=== PATIENT | female | born 1965 | race Caucasian/White ===

== ENCOUNTER → 2018-05-19 10:50 | Outpatient (CLI) | payer OTHER, BC, SELFPAY ==
--- NOTE | 2018-05-19 10:53 | BI_ITS ---
MAMMOGRAPHY - BILATERAL SCREENING 3-D SMILEY SYNTHESIS REASON FOR EXAM: Female, 52 years old. Bilateral Screening 3-D tomosynthesis PERTINENT HISTORY: History of breast cancer in mother in her 80s dictated. TECHNIQUE: 2-D mammograms and 3-D Smiley synthesis of the breast (s) were performed. CAD was performed. COMPARISON: May 19, 2017, April 30, 2016 FINDINGS: The breast composition is almost entirely fat. There are stable lymph nodes. There are no dominant masses or suspicious calcifications. No other significant abnormalities are identified. BI/SCREENING MAMM (CAD), BILAT IMPRESSION: Stable bilateral screening mammogram. Routine yearly screening follow-up recommended. ASSESSMENT CATEGORY: BIRADS Category 2: Benign. A letter regarding these results will be sent to the patient by the facility within 30 days. FOLLOW UP RECOMMENDATION: Yearly follow up mammogram recommended. (A) Approximately 10% of breast cancers are not detected by mammography. A normal mammogram should not delay biopsy of a clinically suspicious abnormality. Electronically Signed: Dagoberto Chu MD at 18:22 EDT , Service support ,
== END ==
PROVIDERS: Visit Provider Nurse Practitioner Women's Health
DX: Z12.31 Encounter for screening mammogram for malignant neoplasm of breast (principal); Z80.3 Family history of malignant neoplasm of breast
CPT/HCPCS: 77063; 77067

== ENCOUNTER → 2018-08-12 06:34 | Outpatient (CLI) | payer OTHER, BC, SELFPAY ==
[2018-08-12 08:08] LABS: Glucose 112 mg/dL (74-106); Thyroid Stim Hormone (TSH) 1.68 uIU/mL (0.358-3.74)
== END ==
PROVIDERS: Family Provider Family Medicine; PCP Family Medicine
DX: E03.9 Hypothyroidism, unspecified (principal); R73.01 Impaired fasting glucose
CPT/HCPCS: 36415; 82947; 84443

== ENCOUNTER → 2018-10-02 14:36 | Outpatient (CLI) | payer OTHER, BC, SELFPAY ==
[2018-10-02 16:18] LABS: Anion Gap 10 (5-15); BUN 12 mg/dL (7-18); BUN/Creat Ratio 18.3 RATIO (10-20); Calcium,Total 8.7 mg/dL (8.5-10.1); Chloride 104 mmol/L (98-107); Cholesterol 235 mg/dL (200); Creatinine, Serum 0.66 mg/dL (0.55-1.02); EST Glomerular Filtration Rate 99 mL/min (>60); Est Glom Filt Rate - Afr Amer 120 mL/min (>60); Glucose 130 mg/dL (74-106); High Density Lipoprotein 56 mg/dL; Potassium 3.4 mmol/L (3.5-5.1); Sodium Level 139 mmol/L (136-145); Triglycerides 294 mg/dL; Very Low Density Lipoprotein 59 mg/dL (5-40)
== END ==
PROVIDERS: Family Provider Family Medicine; PCP Family Medicine; Visit Provider Family Medicine
DX: I10 Essential (primary) hypertension (principal)
CPT/HCPCS: 36415; 80048; 80061

== ENCOUNTER → 2019-05-20 07:33 | Outpatient (CLI) | payer OTHER, BC, SELFPAY ==
--- NOTE | 2019-05-20 07:37 | BI_ITS ---
MAMMOGRAPHY - BILATERAL SCREENING REASON FOR EXAM: Female, 53 years old. Routine annual screening examination. PERTINENT HISTORY: Mother with breast cancer. TECHNIQUE: Digital bilateral breast smiley (3D mammographic acquisition) in the CC and MLO projections. 2-D mediolateral oblique (MLO) and craniocaudad (CC) views of both breasts were obtained. CAD: Full Field Digital Mammography with Computer Added Detection was performed. COMPARISON: Comparison is made with prior study dated May 19, 2018 and May 14, 2017. FINDINGS: Breast Composition: The breasts are almost entirely fatty. There are no dominant masses or suspicious calcifications. No other significant abnormalities are identified. There has been no significant change since the prior study. BI/SCREEN MAMM (CAD) W/SMILEY BILAT IMPRESSION: Stable bilateral screening mammogram. Yearly follow-up mammogram recommended. (A) ASSESSMENT CATEGORY: BIRADS Category 1: Negative. A letter regarding these results will be sent to the patient by the facility within 30 days. Approximately 10% of breast cancers are not detected by mammography. A normal mammogram should not delay biopsy of a clinically suspicious abnormality. [id number] Electronically Signed: Harvey Phillip, at 8:54 EDT , Service support ,
== END ==
PROVIDERS: Family Provider Family Medicine; PCP Family Medicine; Referring Provider Nurse Practitioner Women's Health; Visit Provider Nurse Practitioner Women's Health
DX: Z12.31 Encounter for screening mammogram for malignant neoplasm of breast (principal)
CPT/HCPCS: 77063; 77067

== ENCOUNTER → 2019-08-31 06:13 | Outpatient (CLI) | payer OTHER, BC, SELFPAY ==
[2019-07-25 11:57] VITALS: BMI 31.1
[2019-08-31 07:51] LABS: Glucose 124 mg/dL (74-106); Thyroid Stim Hormone (TSH) 1.62 uIU/mL (0.358-3.74)
== END ==
PROVIDERS: Family Provider Family Medicine; PCP Family Medicine
DX: E03.9 Hypothyroidism, unspecified (principal); R73.01 Impaired fasting glucose
CPT/HCPCS: 36415; 82947; 84443

== ENCOUNTER → 2019-11-03 15:59 | Outpatient (CLI) | payer OTHER, BC, SELFPAY ==
[2019-07-25 11:57] VITALS: BMI 31.1
[2019-11-03 17:36] LABS: Absolute Lymphocyte Count 2.49 X10^3/uL (0.83-4.51); Absolute Neutrophil Count 2.4 X10^3/uL (2.0-7.7); Basophil# 0.02 X10^3/uL; Basophil% 0.4 % (0-1); Eosinophil# 0.09 X10^3/uL; Eosinophils% 1.7 % (0-5); Hematocrit 35.7 % (37-47); Hemoglobin 11.7 g/dL (12.0-15.0); Lymphocyte # 2.49 X10^3/ul (4.0); Lymphocyte % 45.9 % (19-41); Mean Corp Hgb Conc 32.8 g/dL (32-36); Mean Corpuscular Hgb 28.5 pg (27.0-32.0); Mean Corpuscular Volume 87.1 fL (81-99); Mean Platelet Vol. 10.6 fl (6.2-12.0); Monocyte# 0.38 X10^3/uL; NRBC Flagged by Analyzer 0 % (0-5); Neutrophil # 2.43 X10^3/uL (2.7-7.7); Neutrophil % 44.8 % (47-70); Platelet Count 237 K/mm3 (150-450); RBC Distribution Width CV 12.7 % (11.6-14.6); RBC Distribution Width SD 40.9 fl (35.1-43.9); White Blood Count 5.4 K/mm3 (4.4-11.0)
[2019-11-03 17:52] LABS: Hemoglobin A1c 5.6 % (4.2-6.3)
[2019-11-03 17:53] LABS: Vitamin D,25 Hydroxy 13.4 ng/mL (29.95-100.01)
[2019-11-03 17:59] LABS: Anion Gap 4 (5-15); BUN 20 mg/dL (7-18); BUN/Creat Ratio 26.7 RATIO (10-20); Chloride 106 mmol/L (98-107); Cholesterol 199 mg/dL (200); Creatinine, Serum 0.75 mg/dL (0.55-1.02); EST Glomerular Filtration Rate 85 mL/min (>60); Est Glom Filt Rate - Afr Amer 103 mL/min (>60); Ferritin 194 ng/mL (8-252); Glucose 128 mg/dL (74-106); High Density Lipoprotein 45 mg/dL; Iron 55 ug/dL (50-170); Potassium 3.2 mmol/L (3.5-5.1); Sodium Level 138 mmol/L (136-145); Triglycerides 310 mg/dL; Very Low Density Lipoprotein 62 mg/dL (5-40)
== END ==
PROVIDERS: PCP Family Medicine; Referring Provider Family Medicine; Visit Provider Family Medicine
DX: I10 Essential (primary) hypertension (principal); M25.50 Pain in unspecified joint; D64.9 Anemia, unspecified; R73.01 Impaired fasting glucose
CPT/HCPCS: 36415; 80048; 80061; 82306; 82728; 83036; 83540; 85025

== ENCOUNTER → 2019-12-22 15:28 | Outpatient (CLI) | payer OTHER, BC, SELFPAY ==
[2019-07-25 11:57] VITALS: BMI 31.1
[2019-12-22 17:41] LABS: Anion Gap 4 (5-15); BUN 13 mg/dL (7-18); BUN/Creat Ratio 17.7 RATIO (10-20); Calcium,Total 9.3 mg/dL (8.5-10.1); Chloride 105 mmol/L (98-107); Creatinine, Serum 0.73 mg/dL (0.55-1.02); EST Glomerular Filtration Rate 87 mL/min (>60); Est Glom Filt Rate - Afr Amer 106 mL/min (>60); Glucose 113 mg/dL (74-106); Potassium 3.5 mmol/L (3.5-5.1); Sodium Level 141 mmol/L (136-145)
[2019-12-25 08:04] LABS: Vitamin D,25 Hydroxy 39.4 ng/mL
== END ==
PROVIDERS: PCP Family Medicine; Referring Provider Family Medicine; Visit Provider Family Medicine
DX: I10 Essential (primary) hypertension (principal); M25.50 Pain in unspecified joint
CPT/HCPCS: 36415; 80048; 82306

== ENCOUNTER → 2020-08-01 15:06 | Outpatient (CLI) | payer OTHER, BC, SELFPAY ==
[2019-07-25 11:57] VITALS: BMI 31.1
--- NOTE | 2020-08-01 15:09 | RAD_ITS ---
STUDY: X-RAY - LEFT KNEE REASON FOR EXAM: Left knee pain. TECHNIQUE: 4 view(s) of the knee. COMPARISON: None. FINDINGS: Normal visualized distal femur. Normal visualized proximal tibia and fibula. Normal proximal tibiofibular articulation. There is mild joint space narrowing of the medial femorotibial compartment. Normal lateral femorotibial compartment. Normal patellofemoral articulation. The soft tissue structures are unremarkable. RAD/Knee 4 or More Views IMPRESSION: Mild arthrosis of the medial femorotibial compartment. Electronically Signed: Dawson Allred MD at 14:42 EDT Tel , Service support ,
[2020-08-01 18:03] LABS: Anion Gap 6 (5-15); BUN 13 mg/dL (7-18); BUN/Creat Ratio 18.2 RATIO (10-20); Calcium,Total 9.1 mg/dL (8.5-10.1); Chloride 102 mmol/L (98-107); Creatinine, Serum 0.71 mg/dL (0.55-1.02); EST Glomerular Filtration Rate 90 mL/min (>60); Est Glom Filt Rate - Afr Amer 109 mL/min (>60); Glucose 77 mg/dL (74-106); Potassium 3.4 mmol/L (3.5-5.1); Sodium Level 139 mmol/L (136-145)
== END ==
PROVIDERS: PCP Family Medicine; Referring Provider Family Medicine; Visit Provider Family Medicine
DX: M25.562 Pain in left knee (principal); I10 Essential (primary) hypertension
CPT/HCPCS: 36415; 73564; 80048

== ENCOUNTER → 2020-08-23 06:15 | Outpatient (CLI) | payer OTHER, BC, SELFPAY ==
[2019-07-25 11:57] VITALS: BMI 31.1
[2020-08-23 08:00] LABS: Glucose 107 mg/dL (74-106)
[2020-08-23 08:15] LABS: Hemoglobin A1c 5.9 % (3.8-5.6)
== END ==
PROVIDERS: PCP Family Medicine
DX: E03.9 Hypothyroidism, unspecified (principal); R73.01 Impaired fasting glucose
CPT/HCPCS: 36415; 82947; 83036; 84443

== ENCOUNTER → 2020-11-21 15:25 | Outpatient (CLI) | payer OTHER, BC, SELFPAY ==
--- NOTE | 2020-11-21 15:28 | RAD_ITS ---
STUDY: X-RAY CHEST REASON FOR EXAM: Female, 55 years old. PAINS RIGHT LOWER CHEST LATERALLY RADIATING ANTERIORLY. PATIENT STATES DIAGNOSES WITH COVID ON October. TECHNIQUE: PA and lateral views of the chest. COMPARISON: Comparison is made with prior study dated 03/09/2015. FINDINGS: The lungs are clear and expanded. There is no demonstrated pleural abnormality. Normal size heart. Normal mediastinum and patti. Normal visualized pulmonary arteries. Normal visualized aortic arch and descending thoracic aorta. Normal visualized thoracic spine. Normal visualized ribs, clavicles, and shoulders. There is no demonstrated abnormality of the visualized soft tissue structures of the upper abdomen. RAD/Chest PA and Lateral IMPRESSION: Normal x-ray examination of the chest. Electronically Signed: Harvey Phillip MD at 15:46 EST , Service support ,
== END ==
PROVIDERS: PCP Family Medicine; Referring Provider Family Medicine; Visit Provider Family Medicine
DX: R07.9 Chest pain, unspecified (principal)
CPT/HCPCS: 71046

== ENCOUNTER 2020-12-20 15:39 | Emergency (ER) | payer OTHER, BC, SELFPAY ==
[2020-12-20 15:40] VITALS: BP 160/78; PULSE 115; RESP 16; TEMP 36.6; O2SAT 99; BMI 30.9
[2020-12-20 15:43] VITALS: BP 160/78; PULSE 108; RESP 17; O2SAT 100
--- NOTE | 2020-12-20 16:00 | EKG12_ITS ---
Test Reason : CHEST OTHER Blood Pressure : / mmHG Vent. Rate : 084 BPM Atrial Rate : 084 BPM P-R Int : 172 ms QRS Dur : 100 ms QT Int : 374 ms P-R-T Axes : 028 006 015 degrees QTc Int : 441 ms Normal sinus rhythm Inferior infarct , age undetermined Abnormal ECG Confirmed by LILLY VICENTE, BARON ([id number]), magazine editor VENKATA HUFFMAN ([id number]) on 12/25/2020 10:12:14 A M Referred By: WILEY Confirmed By:ROSALINDA CARR MD
--- NOTE | 2020-12-20 16:02 | ED.DCSUM_ITS ---
- ER Visit Summary Date of Service: 12/20/20 Chief Complaint: [Right sided chest pain] History of Present Illness: The patient is a 55 F [presents to the emergency department with complaint of pain in her right chest that started about a month and a half ago. Patient states that at that time she just been diagnosed with COVID-19. Patient states that the pain is never really gone away and its worse with laying on her right side and certain position changes. Patient saw her primary care physician about a month ago and had a chest x-ray which was unremarkable. Patient states that she never followed up after that visit and continues to experience a discomfort in her chest. She called her primary care physician today and was advised to come to the emergency department. Patient feels like she recovered well from her Covid infection. Patient denies any abdominal pain. She has had prior cholecystectomy. Food does not seem to affect the pain. She denies any exertional dyspnea. Patient does admit to having a normally slightly elevated resting heart rate which has been this way for several years.] Physical Examination: [HEENT-PERRLA, EOMI. Cranial nerves II through XII grossly intact. TMs clear. Mucous membranes moist. No adenopathy. Cardiovascular-regular rate and rhythm without murmur or ectopy Lungs-clear to auscultation, chest wall stable without crepitus or subcu emphysema. Patient does have tenderness palpation over the right lower costal margin anteriorly that seems to somewhat reproduce her pain. No rashes noted. Abdomen-normoactive bowel sounds, soft, nontender, no rebound or rigidity, no peritoneal signs. Extremities-intact ?4, normal range of motion, normal pulses, atraumatic] Test Results: [EKG obtained on arrival shows sinus rhythm with a ventricular rate of 84 bpm with old inferior wall infarct noted. When compared with prior EKG from 2016 the changes are chronic. CBC with it was normal. Chemistries normal. LFTs normal. Troponin was less than 0.015. CTA of the chest obtained showed no evidence of PE or dissection. No acute disease process noted.] Emergency Department Course and Treatment: [Line established on arrival.] Treatment Plan: [Results discussed with patient. She is advised use ibuprofen for discomfort. She did not want a thing stronger for pain. Patient to follow- up with her primary care physician within next 5 to 7 days.] Disposition: [Discharged home in stable condition] Impression: [Chest wall pain] This note was generated with [employer] dictation software. It may contain incorrect words, spelling, and punctuation that were not noted in review of the chart prior to signing ED Disposition - Plan for ED Patient: Referrals: Giselle Styles MD [Primary Care Provider] -
[2020-12-20 16:17] LABS: Absolute Lymphocyte Count 2.77 X10^3/uL (0.83-4.51); Absolute Neutrophil Count 2.9 X10^3/uL (2.0-7.7); Basophil# 0.02 X10^3/uL; Basophil% 0.3 % (0-1); Eosinophil# 0.08 X10^3/uL; Eosinophils% 1.3 % (0-5); Hematocrit 38.2 % (37-47); Hemoglobin 12.7 g/dL (12.0-15.0); Lymphocyte # 2.77 X10^3/ul (4.0); Mean Corp Hgb Conc 33.2 g/dL (32-36); Mean Corpuscular Hgb 29.3 pg (27.0-32.0); Mean Corpuscular Volume 88.2 fL (81-99); Mean Platelet Vol. 10.8 fl (6.2-12.0); Monocyte# 0.52 X10^3/uL; Monocyte% 8.3 % (0-10); NRBC Flagged by Analyzer 0 % (0-5); Neutrophil % 46.1 % (47-70); Platelet Count 246 K/mm3 (150-450); RBC Distribution Width CV 12.8 % (11.6-14.6); RBC Distribution Width SD 41.3 fl (35.1-43.9); Red Blood Count 4.33 M/mm3 (4.2-5.4); White Blood Count 6.3 K/mm3 (4.4-11.0)
--- NOTE | 2020-12-20 16:17 | CT_ITS ---
STUDY: CTA CHEST REASON FOR EXAM: Female, 55 years old. right sided chest/rib pain RADIATION DOSAGE (If Supplied By Facility): CTDIvol = ( 11.27 ) mGy, DLP = ( 533.96 ) mGycm TECHNIQUE: The examination was performed with the intravenous administration of IV 100mL Isovue-370. Post-processing of the angiographic images was performed, with multiplanar reformation and 3D reconstruction. Individualized dose optimization techniques were used for this CT. COMPARISON: None. FINDINGS: Normal enhancement of the main pulmonary artery and right and left pulmonary arteries. Normal enhancement of the bilateral peripheral pulmonary arteries. There is no demonstrated pulmonary embolism. Normal thoracic aorta and visualized great vessels. There is no demonstrated aortic dissection. Normal heart and pericardium. Normal mediastinum. Normal hilar regions. Normal visualized trachea and bronchi. The lungs are well expanded. Normal pulmonary parenchyma. Normal pleura. Normal chest wall structures. Normal osseous structures. Normal visualized upper abdomen. CT/CTA Chest W/WO Contrast IMPRESSION: Normal CTA chest examination, without a demonstrated pulmonary embolism or arterial dissection. Electronically Signed: Salvador Simon MD at 17:18 EST , Service support ,
[2020-12-20] MEDS: 0.9% Normal Saline 1,000 ML 150 ML IV (16:30)
[2020-12-20 16:40] LABS: AST(SGOT) 22 U/L (15-37); Alanine Aminotransfer ALT/SGPT 38 U/L (13-56); Albumin, Serum 4.2 g/dL (3.2-5.0); Alkaline Phosphatase 58 U/L (45-117); Anion Gap 7 (5-15); BUN 12 mg/dL (7-18); BUN/Creat Ratio 14.3 RATIO (10-20); Calcium,Total 9.5 mg/dL (8.5-10.1); Chloride 103 mmol/L (98-107); Creatinine, Serum 0.84 mg/dL (0.55-1.02); EST Glomerular Filtration Rate 74 mL/min (>60); Est Glom Filt Rate - Afr Amer 90 mL/min (>60); Estimated Creatinine Clearance 66.49 ml/min; Globulin 4.1 g/dL (2.2-4.2); Glucose 98 mg/dL (74-106); Potassium 3.3 mmol/L (3.5-5.1); Protein, Total 8.3 g/dL (6.4-8.2); Sodium Level 139 mmol/L (136-145)
--- NOTE | 2020-12-20 17:45 | ED.DEP ---
ED Disposition - Plan for ED Patient: Instructions: ED Chest Wall Pain, Costochondritis, ED Chest Pain, Uncertain Cause Referrals: Giselle Styles MD [Primary Care Provider] - 5-7 Days
[2020-12-20 17:46] VITALS: BP 140/84; PULSE 82; RESP 14; O2SAT 98
== END 2020-12-20 18:00 | disposition home or self-care (01) ==
LOC: ED 16:16
PROVIDERS: Emergency Provider Emergency Medicine; PCP Family Medicine
DX: R07.89 Other chest pain (principal); E03.9 Hypothyroidism, unspecified; Z86.16 Personal history of COVID-19; Z87.891 Personal history of nicotine dependence; Z90.49 Acquired absence of other specified parts of digestive tract; Z79.899 Other long term (current) drug therapy
CPT/HCPCS: 71275; 80053; 84484; 85025; 93005; 96360; 99284; J7030; Q9967

== ENCOUNTER → 2021-03-06 07:48 | Outpatient (CLI) | payer OTHER, BC, SELFPAY ==
--- NOTE | 2021-03-06 07:49 | US_ITS ---
STUDY: ABDOMINAL ULTRASOUND - RIGHT UPPER QUADRANT REASON FOR VISIT: Female, 55 years old ABD PAIN . Right upper quadrant pain. TECHNIQUE: Ultrasound evaluation of the right upper quadrant was performed with real-time and static nguyen-scale imaging. TECHNICAL QUALITY: Adequate. COMPARISON: None. FINDINGS: Liver: The liver measures 15 cm. There is increased echogenicity consistent with fatty infiltration. There is a 3.1 cm x 3.4 cm x 1.9 cm hypoechoic density adjacent to the gallbladder fossa. This may represent a focal area of the focal fatty sparing. The bile ducts are within normal limits. There is hepatic color flow. The direction of portal flow is hepatopetal. There is no demonstrated mass lesion. Gallbladder: The patient is status post cholecystectomy. Common Bile Duct (C.B.D.): The common bile duct measures 4 mm. Pancreas: There is nonvisualization of the pancreas due to overlying bowel gas. There is normal echogenicity of the pancreas. There is no demonstrated pancreatic mass or cyst. Right Kidney: Normal size of the right kidney. The right kidney measures 10.5 cm x 4.2 cm x 5.4 cm. Normal renal cortex. The right cortex measures 1.4 cm. There is no demonstrated renal mass or cyst. There is no right hydronephrosis. US/Abdomen Limited IMPRESSION: Fatty infiltration of the liver. Findings suggestive of a focal area of focal fatty sparing adjacent to the gallbladder fossa as described. Status post cholecystectomy. Electronically Signed: Harvey Phillip MD at 10:48 EDT , Service support ,
== END ==
PROVIDERS: PCP Family Medicine; Referring Provider Family Medicine; Visit Provider Family Medicine
DX: R10.11 Right upper quadrant pain (principal)
CPT/HCPCS: 76705

== ENCOUNTER → 2021-03-19 07:36 | Outpatient (CLI) | payer OTHER, BC, SELFPAY ==
--- NOTE | 2021-03-19 07:38 | BI_ITS ---
MAMMOGRAPHY - BILATERAL SCREENING REASON FOR EXAM: Female, 55 years old. Routine annual screening examination. PERTINENT HISTORY: Mother with breast cancer. TECHNIQUE: Digital bilateral breast smiley (3D mammographic acquisition) in the CC and MLO projections. 2-D mediolateral oblique (MLO) and craniocaudad (CC) views of both breasts were obtained. CAD: Full Field Digital Mammography with Computer Added Detection was performed. COMPARISON: Comparison is made with prior study dated 05/20/2019 and 05/19/2018. FINDINGS: Breast Composition: The breasts are almost entirely fatty. There are no dominant masses or suspicious calcifications. Stable 3 mm well-defined nodule in the retroareolar region of the right breast most likely representing a small cyst. Stable small benign-appearing bilateral axillary lymph nodes. No other significant abnormalities are identified. There has been no significant change since the prior study. BI/SCRN MAMM (CAD)W/SMILEY BILAT IMPRESSION: Stable bilateral screening mammogram. Yearly follow-up mammogram recommended. (A) ASSESSMENT CATEGORY: BIRADS Category 2: Benign. A letter regarding these results will be sent to the patient by the facility within 30 days. Approximately 10% of breast cancers are not detected by mammography. A normal mammogram should not delay biopsy of a clinically suspicious abnormality. [id number] Electronically Signed: Harvey Phillip MD at 9:47 EDT , Service support ,
== END ==
PROVIDERS: PCP Family Medicine; Referring Provider Nurse Practitioner Women's Health; Visit Provider Nurse Practitioner Women's Health
DX: Z12.31 Encounter for screening mammogram for malignant neoplasm of breast (principal)
CPT/HCPCS: 77063; 77067

== ENCOUNTER → 2021-06-04 | Outpatient (CLI) | payer OTHER, BC, SELFPAY | END | disposition home or self-care (01) | LOC: LABSPEC 10:12 | PROVIDERS: PCP Family Medicine; Visit Provider Physician Assistant | DX: R50.9 Fever, unspecified (principal) | CPT/HCPCS: 87635; U0005; U0003 ==

== ENCOUNTER → 2021-06-06 | Outpatient (CLI) | payer OTHER, BC, SELFPAY | END | disposition home or self-care (01) | PROVIDERS: PCP Family Medicine; Visit Provider Family Medicine | DX: Z20.822 Contact with and (suspected) exposure to COVID-19 (principal) | CPT/HCPCS: 87635; U0005; U0003 ==

== ENCOUNTER → 2021-08-27 07:36 | Outpatient (CLI) | payer OTHER, BC, SELFPAY ==
[2021-08-27 09:12] LABS: Hemoglobin A1c 5.4 % (3.8-5.6)
[2021-08-27 09:19] LABS: Anion Gap 3 (5-15); BUN 12 mg/dL (7-18); BUN/Creat Ratio 16.4 RATIO (10-20); Calcium,Total 9.4 mg/dL (8.5-10.1); Chloride 104 mmol/L (98-107); Creatinine, Serum 0.73 mg/dL (0.55-1.02); EST Glomerular Filtration Rate 87 mL/min (>60); Est Glom Filt Rate - Afr Amer 105 mL/min (>60); Glucose 107 mg/dL (74-106); Potassium 3.9 mmol/L (3.5-5.1); Sodium Level 136 mmol/L (136-145); Thyroid Stim Hormone (TSH) 0.92 uIU/mL (0.358-3.74)
== END ==
PROVIDERS: PCP Family Medicine
DX: E03.9 Hypothyroidism, unspecified (principal); R73.01 Impaired fasting glucose
CPT/HCPCS: 36415; 80048; 83036; 84443

== ENCOUNTER → 2022-03-27 | Outpatient (CLI) | payer OTHER, BC, SELFPAY ==
--- NOTE | 2022-03-27 07:32 | BI_ITS ---
MAMMOGRAPHY - BILATERAL SCREENING REASON FOR EXAM: Female, 56 years old. Routine annual screening examination. PERTINENT HISTORY: Mother with breast cancer. TECHNIQUE: Digital bilateral breast smiley (3D mammographic acquisition) in the CC and MLO projections. 2-D mediolateral oblique (MLO) and craniocaudad (CC) views of both breasts were obtained. CAD: Full Field Digital Mammography with Computer Added Detection was performed. COMPARISON: Comparison is made with prior study dated 03/19/2021 and 05/20/2019. FINDINGS: Breast Composition: The breasts are almost entirely fatty. There are no dominant masses or suspicious calcifications. Stable small benign-appearing bilateral axillary lymph nodes. No other significant abnormalities are identified. There has been no significant change since the prior study. BI/SCRN MAMM (CAD)W/SMILEY BILAT IMPRESSION: Stable bilateral screening mammogram. Yearly follow-up mammogram recommended. (A) ASSESSMENT CATEGORY: BIRADS Category 2: Benign. A letter regarding these results will be sent to the patient by the facility within 30 days. Approximately 10% of breast cancers are not detected by mammography. A normal mammogram should not delay biopsy of a clinically suspicious abnormality. [id number] Electronically Signed: Harvey Phillip MD at 8:30 EDT ,
[2022-03-31 14:35] LABS: HPV APTIMA, High Risk Negative (Negative)
== END | disposition home or self-care (01) ==
LOC: OPBI 07:31
PROVIDERS: PCP Family Medicine; Visit Provider Nurse Practitioner Women's Health
DX: Z12.31 Encounter for screening mammogram for malignant neoplasm of breast (principal); Z80.3 Family history of malignant neoplasm of breast; Z12.4 Encounter for screening for malignant neoplasm of cervix; Z78.0 Asymptomatic menopausal state
CPT/HCPCS: 77063; 77067; 87624; 88175; G0145

== ENCOUNTER → 2022-08-23 | Outpatient (CLI) | payer OTHER, BC, SELFPAY ==
[2022-08-23 09:53] LABS: Thyroid Stim Hormone (TSH) 1.47 uIU/mL (0.358-3.74)
== END | disposition home or self-care (01) ==
LOC: LAB 08:37
PROVIDERS: PCP Family Medicine
DX: E03.9 Hypothyroidism, unspecified (principal)
CPT/HCPCS: 36415; 84443

== ENCOUNTER → 2022-11-12 | Outpatient (CLI) | payer OTHER, BC, SELFPAY ==
--- NOTE | 2022-11-12 08:29 | RAD_ITS ---
STUDY: X-RAY - ESOPHAGUS (BARIUM SWALLOW) WITH FLUOROSCOPY REASON FOR EXAM: Female, 57 years old. HIATAL HERNIA TECHNIQUE: 18 view(s) of the esophagus were obtained following swallowing of barium. FLUOROSCOPY TIME (if supplied): (30 seconds) minutes/seconds COMPARISON: None. FINDINGS: There is no demonstrated esophageal foreign body. There is no demonstrated stricture or mucosal abnormality. Normal gastroesophageal junction, without a demonstrated hiatal hernia. The patient ingested a 12 mm tablet of barium without any difficulty. Normal visualized aortic arch and descending thoracic aorta. Normal visualized pulmonary parenchyma. Normal visualized osseous structures of the thorax. RAD/Esophagus Dual Contrast IMPRESSION: Normal plain film x-ray examination (barium swallow) of the esophagus. Electronically Signed: Harvey Phillip MD at 12:29 EST ,
== END | disposition home or self-care (01) ==
LOC: RAD 08:27
PROVIDERS: PCP Family Medicine; Referring Provider Internal Medicine Gastroenterology; Visit Provider Internal Medicine Gastroenterology
DX: K44.9 Diaphragmatic hernia without obstruction or gangrene (principal); R13.10 Dysphagia, unspecified
CPT/HCPCS: 74221

== ENCOUNTER → 2023-01-10 | Outpatient (CLI) | payer OTHER, BC, SELFPAY ==
[2023-01-10 17:52] LABS: Anion Gap 5 (5-15); BUN 13 mg/dL (7-18); BUN/Creat Ratio 17.6 RATIO (10-20); Calcium,Total 9.5 mg/dL (8.5-10.1); Chloride 102 mmol/L (98-107); Cholesterol 233 mg/dL (200); Creatinine, Serum 0.74 mg/dL (0.55-1.02); EST Glomerular Filtration Rate 86 mL/min (>60); Est Glom Filt Rate - Afr Amer 103 mL/min (>60); Glucose 82 mg/dL (74-106); High Density Lipoprotein 57 mg/dL; Potassium 3.2 mmol/L (3.5-5.1); Sodium Level 136 mmol/L (136-145); Triglycerides 206 mg/dL; Very Low Density Lipoprotein 41 mg/dL (5-40)
== END | disposition home or self-care (01) ==
LOC: MTLAB 14:47
PROVIDERS: PCP Family Medicine; Referring Provider Family Medicine; Visit Provider Family Medicine
DX: I10 Essential (primary) hypertension (principal)
CPT/HCPCS: 36415; 80048; 80061

== ENCOUNTER → 2023-04-02 | Outpatient (CLI) | payer OTHER, BC, SELFPAY ==
--- NOTE | 2023-04-02 08:35 | BI_ITS ---
MAMMOGRAPHY - BILATERAL SCREENING REASON FOR EXAM: Female, 57 years old. Routine annual screening examination. PERTINENT HISTORY: Mother with breast cancer. TECHNIQUE: Digital bilateral breast smiley (3D mammographic acquisition) in the CC and MLO projections. 2-D mediolateral oblique (MLO) and craniocaudad (CC) views of both breasts were obtained. CAD: Full Field Digital Mammography with Computer Added Detection was performed. COMPARISON: Mammogram from 03/27/2022, 03/19/2021. FINDINGS: Breast Composition: There are scattered areas of fibroglandular density. There are no dominant masses or suspicious calcifications. No other significant abnormalities are identified. There has been no significant change since the prior study. BI/SCRN MAMM (CAD)W/SMILEY BILAT IMPRESSION: Stable bilateral screening mammogram. Yearly follow-up mammogram recommended. (A) ASSESSMENT CATEGORY: BIRADS Category 1: Negative. A letter regarding these results will be sent to the patient by the facility within 30 days. Approximately 10% of breast cancers are not detected by mammography. A normal mammogram should not delay biopsy of a clinically suspicious abnormality. Electronically Signed: Jesus Avalos DO at 12:28 EDT ,
== END | disposition home or self-care (01) ==
PROVIDERS: PCP Family Medicine; Referring Provider Nurse Practitioner Women's Health; Visit Provider Nurse Practitioner Women's Health
DX: Z12.31 Encounter for screening mammogram for malignant neoplasm of breast (principal)
CPT/HCPCS: 77063; 77067

== ENCOUNTER → 2023-06-14 | Outpatient (CLI) | payer OTHER, BC, SELFPAY ==
[2023-06-14 10:44] LABS: Anion Gap 5 (5-15); BUN 13 mg/dL (7-18); BUN/Creat Ratio 16.9 RATIO (10-20); Calcium,Total 9.1 mg/dL (8.5-10.1); Chloride 104 mmol/L (98-107); Creatinine, Serum 0.77 mg/dL (0.55-1.02); EST Glomerular Filtration Rate 82 mL/min (>60); Est Glom Filt Rate - Afr Amer 99 mL/min (>60); Glucose 105 mg/dL (74-106); Potassium 3.7 mmol/L (3.5-5.1); Sodium Level 139 mmol/L (136-145)
[2023-06-14 11:40] LABS: Hemoglobin A1c 5.7 % (3.8-5.6)
== END | disposition home or self-care (01) ==
LOC: MTLAB 09:02 → LAB 09:02
PROVIDERS: PCP Family Medicine
DX: R73.01 Impaired fasting glucose (principal); E03.9 Hypothyroidism, unspecified; Z83.3 Family history of diabetes mellitus
CPT/HCPCS: 36415; 80048; 83036; 84443

== ENCOUNTER → 2023-08-18 | Outpatient (CLI) | payer OTHER, BC, SELFPAY ==
--- NOTE | 2023-08-18 12:49 | RAD_ITS ---
EXAM: XR LEFT TIBIA AND FIBULA, 2 VIEWS CLINICAL INDICATION: pain TECHNIQUE: Frontal and lateral views of the left tibia and fibula. COMPARISON: No relevant prior studies available. FINDINGS: BONES/JOINTS: Unremarkable. No acute fracture. No subluxation. Normal alignment. Preservation of the joint space. No sclerotic or destructive changes observed. SOFT TISSUES: Unremarkable. No soft tissue swelling or gas. No radiopaque foreign body. RAD/Tibia & Fibula 2 Views IMPRESSION: Negative left tibia and fibula x-rays. Electronically Signed: Nadir Sherman MD at 23:09 EST ,
--- NOTE | 2023-08-18 12:50 | RAD_ITS ---
EXAM: XR LEFT ANKLE COMPLETE, 3 OR MORE VIEWS CLINICAL INDICATION: pain TECHNIQUE: Frontal, lateral and oblique views of the left ankle. COMPARISON: No relevant prior studies available. FINDINGS: BONES/JOINTS: Unremarkable. No acute fracture. No subluxation. Normal alignment. Preservation of the joint space. No sclerotic or destructive changes observed. SOFT TISSUES: There is mild soft tissue swelling over the lateral malleolus. No radiopaque foreign body. RAD/Ankle min 3 Views IMPRESSION: Mild soft tissue swelling with no osseous abnormality. Electronically Signed: Nadir Sherman MD at 23:09 EST ,
== END | disposition home or self-care (01) ==
LOC: MTRAD 12:48
PROVIDERS: PCP Family Medicine; Referring Provider Family Medicine; Visit Provider Family Medicine
DX: M79.605 Pain in left leg (principal)
CPT/HCPCS: 73590; 73610

== ENCOUNTER → 2024-02-13 | Outpatient (CLI) | payer BC, SELFPAY ==
[2024-02-13 15:47] LABS: Hemoglobin A1c 5.5 % (3.8-5.6)
[2024-02-13 16:07] LABS: Anion Gap 5 (5-15); BUN 16 mg/dL (7-18); BUN/Creat Ratio 20.1 RATIO (10-20); Calcium,Total 9.3 mg/dL (8.5-10.1); Chloride 105 mmol/L (98-107); Cholesterol 240 mg/dL (200); EST Glomerular Filtration Rate 78 mL/min (>60); Est Glom Filt Rate - Afr Amer 94 mL/min (>60); Glucose 106 mg/dL (74-106); High Density Lipoprotein 49 mg/dL; Potassium 3.9 mmol/L (3.5-5.1); Sodium Level 137 mmol/L (136-145); Thyroid Stim Hormone (TSH) 1.64 uIU/mL (0.358-3.74); Triglycerides 198 mg/dL; Very Low Density Lipoprotein 40 mg/dL (5-40)
[2024-02-13 16:25] LABS: Protein, Urine (Random) 13.9 mg/dL (<11.9); Protein:Creat Ratio 60 mg/g CRE (0-200)
== END | disposition home or self-care (01) ==
LOC: MTLAB 11:21
PROVIDERS: PCP Family Medicine; Referring Provider Family Medicine; Visit Provider Family Medicine
DX: I10 Essential (primary) hypertension (principal); R73.01 Impaired fasting glucose; E03.9 Hypothyroidism, unspecified
CPT/HCPCS: 36415; 80048; 80061; 82570; 83036; 84156; 84436; 84443

== ENCOUNTER → 2024-04-05 | Outpatient (CLI) | payer BC, SELFPAY ==
--- NOTE | 2024-04-05 07:45 | BI_ITS ---
MAMMOGRAPHY - BILATERAL SCREENING REASON FOR EXAM: Female, 58 years old. Routine annual screening examination. PERTINENT HISTORY: Mother with breast cancer. TECHNIQUE: Digital bilateral breast smiley (3D mammographic acquisition) in the CC and MLO projections. 2-D mediolateral oblique (MLO) and craniocaudad (CC) views of both breasts were obtained. CAD: Full Field Digital Mammography with Computer Added Detection was performed. COMPARISON: Comparison is made with prior study dated April 02, 2023 and March 27, 2022 FINDINGS: Breast Composition: The breasts are almost entirely fatty. There are no dominant masses or suspicious calcifications. Stable bilateral axillary lymph nodes. No other significant abnormalities are identified. There has been no significant change since the prior study. BI/SCRN MAMM (CAD)W/SMILEY BILAT IMPRESSION: Stable bilateral screening mammogram. Yearly follow-up mammogram recommended. (A) ASSESSMENT CATEGORY: BIRADS Category 2: Benign. A letter regarding these results will be sent to the patient by the facility within 30 days. Approximately 10% of breast cancers are not detected by mammography. A normal mammogram should not delay biopsy of a clinically suspicious abnormality. [id number] Electronically Signed: Harvey Phillip MD at 8:56 EDT ,
== END | disposition home or self-care (01) ==
LOC: OPBI 07:44
PROVIDERS: PCP Family Medicine; Referring Provider Nurse Practitioner Women's Health; Visit Provider Nurse Practitioner Women's Health
DX: Z12.31 Encounter for screening mammogram for malignant neoplasm of breast (principal); Z80.3 Family history of malignant neoplasm of breast
CPT/HCPCS: 77063; 77067

== ENCOUNTER → 2024-08-17 | Outpatient (CLI) | payer BC, SELFPAY ==
[2024-08-17 10:53] LABS: Anion Gap 5 (5-15); BUN 15 mg/dL (7-18); BUN/Creat Ratio 17.2 RATIO (10-20); Calcium,Total 9.3 mg/dL (8.5-10.1); Chloride 105 mmol/L (98-107); Creatinine, Serum 0.87 mg/dL (0.55-1.02); EST Glomerular Filtration Rate 70 mL/min (>60); Est Glom Filt Rate - Afr Amer 85 mL/min (>60); Glucose 115 mg/dL (74-106); Potassium 3.8 mmol/L (3.5-5.1); Sodium Level 137 mmol/L (136-145)
[2024-08-17 11:16] LABS: Hemoglobin A1c 5.9 % (3.8-5.6)
== END | disposition home or self-care (01) ==
PROVIDERS: PCP Family Medicine
DX: R73.01 Impaired fasting glucose (principal); E03.9 Hypothyroidism, unspecified
CPT/HCPCS: 36415; 80048; 83036; 84443

== ENCOUNTER 2024-10-31 11:22 | Emergency (ER) | payer BC, SELFPAY ==
[2024-10-31 11:22] VITALS: BP 171/97; PULSE 71; RESP 16; TEMP 36.6; O2SAT 100; BMI 33.3
--- NOTE | 2024-10-31 11:28 | ED.RN ---
SPOKE WITH DR ROSALES REGARDING PT, STATED HE WOULD SEE HER IN THE ROOM. AT THIS TIME DO NOT CALL A STROKE ALERT.
--- NOTE | 2024-10-31 11:37 | CT_ITS ---
EXAM: CT HEAD WITHOUT INTRAVENOUS CONTRAST CLINICAL INDICATION: Acute altered mental status with amnesia TECHNIQUE: Multiple axial images were obtained of the head without intravenous contrast. CTDIvol = ( 44.99 ) mGy, DLP = ( 796.11 ) mGycm This CT exam was performed using one or more of the following dose reduction techniques: automated exposure control, adjustment of the mA and/or kV according to patient size, and/or use of iterative reconstruction technique. COMPARISON: No relevant prior studies available. FINDINGS: BRAIN AND EXTRA-AXIAL SPACES: Unremarkable. No intra- or extra-axial hemorrhage. No evidence of acute infarct. No intracranial mass or mass effect. There is preservation of the nguyen/white matter interface. Posterior fossa structures are unremarkable. Ventricles are appropriate for age. No hydrocephalus. Basal cisterns are patent. BONES/JOINTS: Unremarkable. No discrete lytic or blastic abnormalities. SINUSES: Unremarkable as visualized. Clear. MASTOID AIR CELLS: Unremarkable. Clear. ORBITS: Visualized globes, extraocular muscles, optic nerves and retrobulbar fat appear unremarkable. CT/Brain/Head without Contrast IMPRESSION: Negative head/brain CT without intravenous contrast. AIDOC was utilized to assist in identifying pertinent positive findings. Electronically Signed: Jerald Oneil MD at 12:57 EST ,
[2024-10-31 11:44] LABS: Absolute Lymphocyte Count 2.51 X10^3/uL (0.83-4.51); Absolute Neutrophil Count 4.8 X10^3/uL (2.0-7.7); Basophil# 0.06 X10^3/uL; Basophil% 0.7 % (0-1); Eosinophil# 0.11 X10^3/uL; Eosinophils% 1.4 % (0-5); Hemoglobin 13.8 g/dL (12.0-15.0); Lymphocyte # 2.51 X10^3/ul (0.83-4.51); Lymphocyte % 31.3 % (19-41); Mean Corp Hgb Conc 33.7 g/dL (32-36); Mean Corpuscular Hgb 30.2 pg (27.0-32.0); Mean Corpuscular Volume 89.7 fL (81-99); Mean Platelet Vol. 10.9 fl (6.2-12.0); Monocyte# 0.55 X10^3/uL; Monocyte% 6.9 % (0-10); NRBC Flagged by Analyzer 0 % (0-5); Neutrophil # 4.75 X10^3/uL (2.7-7.7); Neutrophil % 59.3 % (47-70); Platelet Count 247 K/mm3 (150-450); RBC Distribution Width CV 12.3 % (11.6-14.6); RBC Distribution Width SD 39.8 fl (35.1-43.9); Red Blood Count 4.57 M/mm3 (4.2-5.4)
[2024-10-31 11:50] LABS: Bedside Glucose 106 mg/dL (74-106)
[2024-10-31 12:13] LABS: ALB/GLOB Ratio 0.9 RATIO (0.9-2.4); AST(SGOT) 29 U/L (15-37); Alanine Aminotransfer ALT/SGPT 36 U/L (13-56); Alkaline Phosphatase 56 U/L (45-117); Anion Gap 6 (5-15); BUN 16 mg/dL (7-18); BUN/Creat Ratio 16.1 RATIO (10-20); Calcium,Total 10.1 mg/dL (8.5-10.1); Chloride 102 mmol/L (98-107); Creatinine, Serum 0.99 mg/dL (0.55-1.02); EST Glomerular Filtration Rate 60 mL/min (>60); Est Glom Filt Rate - Afr Amer 73 mL/min (>60); Estimated Creatinine Clearance 67.24 ml/min; Globulin 4.3 g/dL (2.2-4.2); Glucose 122 mg/dL (74-106); Potassium 4.3 mmol/L (3.5-5.1); Protein, Total 8.3 g/dL (6.4-8.2); Sodium Level 136 mmol/L (136-145)
[2024-10-31 12:22] VITALS: BP 115/82; PULSE 55; RESP 16; O2SAT 96
[2024-10-31 12:40] LABS: Bacteria 0 SEEN /hpf (None Seen); Color, Urine Yellow (Yellow); Glucose, Dipstick Normal (Normal); Ketone-Dipstick Negative (Negative); Leukocyte Esterase-Dipstick 25 /ul (Negative); Mucous, Urine 0 SEEN /hpf (<or=2+); Nitrite-Dipstick Negative (Negative); Occult Blood-Urine 10 /ul (Negative); Protein-Dipstick 15 mg/dl (Negative); Red Blood Cells-Urine 0 SEEN /hpf (0-5); Specific Gravity, Urine 1.015 (1.002-1.030); Squamous Epithelial Cells - UA 0 SEEN /hpf (5-10); Urine Bilirubin Dipstick Negative (Negative); Urine Clarity Clear (Clear); Urine Urobilinogen Normal (Normal); White Blood Cells 0 SEEN /hpf (0-5)
[2024-10-31 13:00] VITALS: BP 155/86; PULSE 69; RESP 12; O2SAT 98
--- NOTE | 2024-10-31 13:57 | EDS_ITS ---
HPI History of Present Illness Chief Complaint: Confusion Detail of Chief Complaint: Chief complaint is not confusion chief complaint is amnesia. Informant: patient and spouse/S.O. Onset/Context/Timing Onset: Today Context: Sudden Onset Timing: Continuous Quality: Amnesia Location: Global Current Severity: Moderate Maximum Severity: Moderate Worsened by: Nothing Relieved by: Nothing Associated Symptoms Associated Symptoms: no other symptoms Narrative Narrative: Patient is 58-year-old woman. She has history of hypertension and iron deficiency anemia who was brought in because of reported confusion. Patient is not confused. She is amnestic. Patient denies headache. I double vision blurred vision loss of vision. Eyes ringing or ears decreased hearing. Denies rhinorrhea, congestion postnasal drainage. Denies sore throat. No trouble speech or swallowing. She denies paresthesia, anesthesia or motor weakness upper lower extremity. Denies problems with coordination or balance. She does admit to dysuria. She believes she had dysuria at 2 or 3 days ago. She does not remember if she had dysuria this morning. There is no history of trauma. Patient's past medical history and meds were reviewed. She is on no antithrombotic or anticoagulant. Apparently she has been sleeping on the sofa. She slept on the sofa because of issue with there dog. She does not recall sleeping on the sofa. Prior similar symptoms: No Recent Illness/Hospitalization: No [facility] Medical History Anemia Hypertension Thyroid condition Home Medications ?Medication ?Instructions ?Recorded ?Last Taken ?Type hydrochlorothiazide 12.5 mg tablet 12.5 mg PO DAILY 12/20/20 Unknown History losartan 50 mg tablet 50 mg PO DAILY 12/20/20 Unknown History levothyroxine 100 mcg tablet 100 mcg PO MOTUWETHFR 03/27/22 Unknown History ferrous sulfate 325 mg (65 mg 325 mg PO DAILY 04/02/23 Unknown History iron) tablet,delayed release potassium chloride 20 mEq oral 20 meq PO BID 04/02/23 Unknown History packet metoprolol succinate 50 mg capsule 50 mg PO DAILY 04/05/24 Unknown History sprinkle, ext. release 24 hr biotin PO DAILY 10/31/24 Unknown History Allergy/AdvReac Type Severity Reaction Status Date / Time clarithromycin (From Biaxin) Allergy Unknown Verified 10/31/24 11:23 doxycycline Allergy Unknown Verified 10/31/24 11:23 lisinopril Allergy Unknown Verified 10/31/24 11:23 sulfamethoxazole (From AdvReac Mild Nausea Verified 10/31/24 11:23 Bactrim) trimethoprim (From Bactrim) AdvReac Mild Nausea Verified 10/31/24 11:23 Family History Mother Breast cancer CVA (cerebral vascular accident) Diabetes Father Hypertension Surgical History History of repair of hiatal hernia Plantar fascia syndrome Gallbladder & bile duct stone with obstruction Social History current occupational status: employed current occupation: [employer] Smoking Status: Never smoker alcohol intake: never substance use type: does not use caffeine: Yes Type: coffee Number of servings: 3 seatbelt use: always do you feel safe at home: Yes additional social history: Destery ROS ROS ED Constitutional Constitutional ED: Denies chills, fever(s), subjective, sweats or weight loss Eyes Eyes: Denies blurry vision, change in vision or diplopia ENT ENT ED: Denies ear pain, rhinorrhea or sore throat Cardiovascular Cardiovascular: Denies chest pain, orthopnea, palpitations or paroxysmal nocturnal dyspnea Respiratory/Chest Respiratory/Chest: Denies cough, dyspnea, dyspnea on exertion, orthopnea or paroxysmal nocturnal dyspnea Gastrointestinal Gastrointestinal: Denies abdominal pain, nausea or vomiting Genitourinary Genitourinary ED: Reports dysuria; Denies hematuria or urinary frequency Musculoskeletal Musculoskeletal: Denies arthralgias, back pain, myalgias or neck pain Integumentary Denies rash Neurologic Neurologic: Denies headache(s), paresthesias or weakness Psychiatric Psychiatric: Denies anxiety or depression Endocrine Endocrinology: Denies cold intolerance or heat intolerance Hematologic/Lymphatic Hematologic/Lymphatic: Reports systems reviewed and no addt'l complaints, except as documented Allergic/Immunologic Allergic/Immunologic ED: Denies mouth swelling or tongue swelling EXAM Physical Exam Const Vital Signs: 10/31/24 11:22 10/31/24 12:22 10/31/24 13:00 Temperature 98 F Temperature Source Temporal Pulse Rate 71 55 L 69 Respiratory Rate 16 16 12 Blood Pressure 171/97 H 115/82 H 155/86 H Blood Pressure Mean 121 93 109 Pulse Ox 100 96 98 Oxygen Delivery Method Room Air Room Air Positive well nourished and well developed Constitutional Narrative: BMI is 33.3. General Appearance ED: well developed; Negative for cyanotic, diaphoretic, NAD or pallor HEENT Reports moist mucous membranes HEENT Narrative: Head is atraumatic and normocephalic. Ears normal. Nares patent. Uvula midline. No deviation tongue or protrusion. Eyes PERRL and EOMs intact bilaterally Eyes Narrative: There is no nystagmus. There is no visual field cut. General Eye ED: Negative for pale conjunctiva or scleral icterus Neck no lymphadenopathy, supple and no JVD Neck Narrative: Carotid pulses palpable and no bruits are noted. Resp normal respiratory effort and clear to auscultation bilaterally Cardio regular rate, regular rhythm, S1 normal heart sound and S2 normal heart sound GI normal to inspection, nondistended, normoactive bowel sounds, non-tender, non- distended and no masses Extremity normal to inspection General Extremety ED: Negative for edema or tenderness General Extremity: Negative for edema Neuro oriented x3, CN's II-XII intact bilaterally and no sensory deficits noted Neuro Narrative: There is no dysmetria. Patient's NIH is 0. Sensorium / Orientation: alert Motor Exam: strength 5/5 throughout Psych Psych Narrative: Patient does not appear anxious. Patient states she cannot remember things. Skin no rashes or lesions noted, no wounds and skin turgor normal General Skin Exam: elasticity normal; Negative for jaundice or pallor MDM MDM MDM Narrative Medical decision making narrative: Differential diagnosis would include metabolic causes, infectious cause and global amnesia is in the consideration. With no headache nonfocal neurologic exam doubt ischemic or hemorrhagic stroke. Patient is not confused she has amnesia. Her blood pressure is slightly elevated. History & Record Review Discussion w/independent historian: Patient and Family Additional record(s) reviewed:: Prior outpatient record (Encounter for routine gynecologic exam March 2022, March 2023 and March 2021.) Lab Data Attestation: I reviewed the patient's lab results. Lab results narrative: CBC comprehensive metabolic panel TSH are all normal. Urinalysis is negative. Labs: Laboratory Results - last 24 hr 10/31/24 10/31/24 10/31/24 11:30 11:33 12:36 WBC 8.0 RBC 4.57 Hgb 13.8 Hct 41.0 MCV 89.7 MCH 30.2 MCHC 33.7 RDW Std Deviation 39.8 RDW Coeff of Sera 12.3 Plt Count 247 MPV 10.9 Immature Gran % (Auto) 0.400 Neut % (Auto) 59.3 Lymph % (Auto) 31.3 [place] % (Auto) 6.9 Eos % (Auto) 1.4 Baso % (Auto) 0.7 Absolute Neuts (auto) 4.8 Absolute Lymphs (auto) 2.51 Nucleated RBC % 0 Sodium 136 Potassium 4.3 Chloride 102 Carbon Dioxide 28.0 Anion Gap 6 BUN 16 Creatinine 0.99 Estim Creat Clear Calc 67.24 Est GFR (MDRD) Af Amer 73 Est GFR (MDRD) Non-Af 60 BUN/Creatinine Ratio 16.1 Glucose 122 H Calcium 10.1 Total Bilirubin 0.50 AST 29 ALT 36 Alkaline Phosphatase 56 Total Protein 8.3 H Albumin 4.0 Globulin 4.3 H Albumin/Globulin Ratio 0.9 TSH 2.170 Urine Color Yellow Urine Clarity Clear Urine pH 6.0 Ur Specific [place] 1.015 Urine Protein 15 H Urine Glucose (UA) Normal Urine Ketones Negative Urine Occult Blood 10 H Urine Nitrite Negative Urine Bilirubin Negative Urine Urobilinogen Normal Ur Leukocyte Esterase 25 H Urine RBC 0 SEEN Urine WBC 0 SEEN Ur Squamous Epith Cells 0 SEEN Urine Bacteria 0 SEEN Urine Mucus 0 SEEN POC Glucose 106 Radiography Diagnostic Testing: Clinical Impression(s) from Imaging Studies Brain CT 10/31/24 11:37 IMPRESSION: Negative head/brain CT without intravenous contrast. AIDOC was utilized to assist in identifying pertinent positive findings. Electronically Signed: Jerald Oneil MD at 12:57 EST Reading Location ID and State: [facility] / [place] Tel , Service support , CT was independent reviewed by [facility] and was unremarkable any acute pathology. Management Discussion w/another healthcare provider: PCP (Spoke with Dr. Marc on-call for Dr. Giselle Styles. Staff will call in the morning and arrange appropriate outpatient follow-up.) Discharge Plan Triage Chief Complaint: Confusion ED Provider: Alberto Lantigua Dx/Rx/DC Orders Clinical Impression: Amnesia, global, transient, Elevated blood pressure reading with diagnosis of hypertension, History of hypothyroidism Instructions: Understanding Reversible Dementias Prescriptions: No Action potassium chloride 20 mEq packet 20 meq PO BID ferrous sulfate 325 mg (65 mg iron) tablet,delayed release (DR/EC) 325 mg PO DAILY metoprolol succinate 50 mg capsule,sprinkle,ER 24hr 50 mg PO DAILY losartan 50 MG tablet 50 mg PO DAILY hydrochlorothiazide 6.25 MG tablet 12.5 mg PO DAILY levothyroxine 100 mcg tablet 100 mcg PO MOTUWETHFR Rx Instructions: 10/14 tab friday biotin PO DAILY Primary Care Provider: Giselle Styles Referrals: Giselle Styles MD [Primary Care Provider] - Activity Restrictions/Additional Instructions: Dr. Styles's office will call in the morning. They will make arrangements for follow-up. Print Language: Ecuadorean Disposition Disposition: Home, Self Care
[2024-10-31 14:00] VITALS: BP 150/79; PULSE 59; RESP 16; O2SAT 97
[2024-10-31 14:11] VITALS: BP 150/79; PULSE 74; RESP 16; TEMP 37; O2SAT 98
== END 2024-10-31 14:15 | disposition home or self-care (01) ==
PROVIDERS: Emergency Provider Emergency Medicine; PCP Family Medicine; Visit Provider Emergency Medicine
DX: G45.4 Transient global amnesia (principal); I10 Essential (primary) hypertension; E03.9 Hypothyroidism, unspecified; Z79.890 Hormone replacement therapy; Z79.899 Other long term (current) drug therapy
CPT/HCPCS: 70450; 80053; 81001; 82962; 84443; 85025; 99285; A4216

== ENCOUNTER → 2025-02-25 | Outpatient (CLI) | payer BC, SELFPAY ==
[2025-02-25 11:04] LABS: AST(SGOT) 26 U/L (<=31); Alanine Aminotransfer ALT/SGPT 22 U/L (<=34); Anion Gap 11 (5-15); BUN 15 mg/dL (4-19); BUN/Creat Ratio 18.7 RATIO (10-20); Calcium,Total 9.7 mg/dL (7.6-11.0); Carbon Dioxide 23.3 mmol/L (21.0-32.0); Chloride 104 mmol/L (98-108); Cholesterol 145 mg/dL (<=200); Creatinine, Serum 0.79 mg/dL (0.70-1.20); EST Glomerular Filtration Rate 85 (>60); Glucose 107 mg/dL (70-99); High Density Lipoprotein 51 mg/dL; Low Density Lipoprotein Calc. 67 mg/dL; Potassium 3.9 mmol/L (3.3-5.1); Sodium Level 138 mmol/L (133-145); Triglycerides 138 mg/dL; Very Low Density Lipoprotein 28 mg/dL (5-40); cholesterol:hdl ratio screen 2.87
== END | disposition home or self-care (01) ==
LOC: MFPLAB 09:28
PROVIDERS: PCP Family Medicine; Referring Provider Family Medicine; Visit Provider Family Medicine
DX: E78.5 Hyperlipidemia, unspecified (principal); I10 Essential (primary) hypertension
CPT/HCPCS: 36415; 80048; 80061; 84450; 84460

== ENCOUNTER → 2025-04-18 | Outpatient (CLI) | payer BC, SELFPAY ==
[2025-04-18 10:48] LABS: Anion Gap 11 (5-15); BUN 14 mg/dL (4-19); BUN/Creat Ratio 17.4 RATIO (10-20); Calcium,Total 9.1 mg/dL (7.6-11.0); Carbon Dioxide 24.0 mmol/L (21.0-32.0); Chloride 104 mmol/L (98-108); Glucose 120 mg/dL (70-99); Potassium 4.0 mmol/L (3.3-5.1)
== END | disposition home or self-care (01) ==
LOC: MFPLAB 08:25
PROVIDERS: PCP Family Medicine
DX: R73.01 Impaired fasting glucose (principal)
CPT/HCPCS: 36415; 80048; 83036; 84443

== ENCOUNTER → 2025-04-20 | Outpatient (CLI) | payer BC, SELFPAY ==
--- NOTE | 2025-04-20 07:45 | BI_ITS ---
EXAM: SCRN MAMM (CAD)W/SMILEY BILAT DATE: 04/20/2025 CLINICAL HISTORY: F, Age 59 y/o , SCREEN FOR BREAST CANCER TECHNIQUE: SCRN MAMM (CAD)W/SMILEY BILAT COMPARISON: Prior exam(s) dated 04/05/2024, 04/02/2023, 03/27/2022. FINDINGS: TISSUE DENSITY: The breasts are almost entirely fatty. Bilateral Breast Mammographic Findings: No significant masses, calcifications or other abnormalities are identified. BI/SCRN MAMM (CAD)W/SMILEY BILAT IMPRESSION: There is no mammographic evidence of malignancy. OVERALL FINAL ASSESSMENT BI-RADS 1: NEGATIVE. RECOMMEND ANNUAL MAMMOGRAPHIC SCREENING. RECOMMENDATION: Routine annual follow-up in 1 Year A letter with findings and recommendations will be mailed to the patient. Reading Location: [id number]
--- OUTSIDE RECORDS SUMMARY | 2025-04-21 03:42 | XMS RPT_ITS | CCD ---
Author Organization [facility] Care Team Providers Care Plant Director Name Role Phone Devin FERNANDEZ, Cristin Avalos Unavailable Marsha VICENTE, Rebekah Jean Baptiste Unavailable [phone] Giselle Styles Primary Care Provider Dr. Giselle Styles Referring Provider Devin NET C DEVELOPER, KALLIE Amaral Attending Provider Giselle Styles Primary Care Provider Giselle Styles Primary Care Provider Giselle Styles Primary Care Provider [phone] Giselle Styles Primary Care Provider Dr. Giselle Styles Referring Provider [phone] Devin FERNANDEZ, KALLIE Amaral Attending Provider [phone] Giselle Styles Primary Care Provider Lewis Reese Unavailable GISELLE STYLES Primary Care Unavailable LEWIS REESE Referring Unavailable ALEX BURRELL Attending Unavailable GISELLE STYLES Primary Care Unavailable ALEX BURRELL Admitting Unavailable ALEX BURRELL Attending Unavailable ANNY MAURICIO Referring Unavailable ANNY MAURICIO Attending Unavailable GISELLE STYLES Primary Care Unavailable ALEX BURRELL Attending Unavailable GISELLE STYLES Primary Care Unavailable ALEX BURRELL Attending Unavailable GISELLE STYLES Primary Care Unavailable ALEX BURRELL Attending Unavailable GISELLE STYLES Primary Care Unavailable ALEX BURRELL Attending Unavailable Radhalliff, Giselle Miguel Angel Primary Care Provider JENSEN VICENTE, DR TAYLOR Primary Care Physician CHARIS GRANT, DR SAM Bloom Attending Unavailable JENSEN VICENTE, DR TAYLOR Primary Care Unavailable Sumeetiff, Giselle Miguel Angel Primary Care Provider MIDHA, JENNIE Attending Unavailable JENSEN, GISELLE MIGUEL ANGEL Primary Care Unavailable SHAUNAHA, JENNIE Attending Unavailable JENSEN, GISELLE MIGUEL ANGEL Primary Care Unavailable Unavailable Primary Care Provider UnavailBERENICE Day DO Referring Unavailable JENSEN VICENTE, DR TAYLOR Primary Care Unavailable CHAYA ESTRADA-ROSEANNE, RUBY Young Admitting Unavai priscilla SEGURA DO, BERENICE Attending Unavailable Jensen VICENTE, Dr. Giselle Avalos Primary Care Provider [phone] Grzegorz VICENTE, Dr. Dominguez Attending Provider Grzegorz VICENTE, Dr. Dominguez Emergency Provider CAROLINA HATFIELD Attending Unavailable CAROLINA HATFIELD Referring Unavailable Jolliff, Giselle Bailey Primary Care Unavailable TariLourdeson Referring Unavailable Tari, Chalon Primary Care Unavailable Bradley Marc Attending Unavailable Alberto Lantigua Attending Unavailable Jolliff, Giselle S Primary Care Unavailable Devin NET C DEVELOPER, Cirstin Attending Unavailable Jolliff, Giselle S Referring Unavailable Tari, Chalon Primary Care Unavailable Allergies Allergy Classification Reported Allergen(s) Allergy Type Date of Onset Reaction(s) Facility (5 sources) clarithromycin; Translations: [Clarithromycin] drug allergy 03-23-20 15 nausea [facility] (20 sources) lisinopril; Translations: [LISINOPRIL] drug allergy 03-23-20 15 Cough, Other: See Comments [facility] (16 sources) Clarithromycin; Translations: [CLARITHROMYCIN] Drug Allergy 03-23-20 15 GI Upset, Unknown [facility] (20 sources) Doxycycline; Translations: [DOXYCYCLINE] Drug Allergy 07-25-20 19 GI Upset [facility] (16 sources) Sulfamethoxazole; Translations: [SULFAMETHOXAZOLE] Drug Allergy 05-20-20 19 GI Upset [facility] (20 sources) Trimethoprim; Translations: [TRIMETHOPRIM] Drug Allergy 05-20-20 GI Upset, Other, Nausea And Vomiting [facility] (9 sources) Clarithromycin Allergy to substance 03-23-20 Other, Nausea And Vomiting, Unknown [facility] (9 sources) Sulfamethoxazole Allergy to substance 05-20-20 Nausea And Vomiting [facility] (1 source) Sulfamethoxazole / Trimethoprim; Translations: [sulfamethoxazole-t rimethoprim] Drug Allergy [facility] (1 source) Clarithromycin Drug Allergy 10-31-19 [facility] (1 source) Doxycycline Drug Allergy 10-31-19 [facility] (1 source) Sulfamethoxazole Drug Allergy 10-31-19 [facility] (1 source) Trimethoprim Drug Allergy 10-31-19 [facility] Medications Current Medications Medication Drug Class(es) Dates Sig (Normalized) Sig (Original) benzonatate 200 mg oral capsule (17 sources) Non-narcotic Antitussive Start: 11-20-2022 take 1 capsule by mouth four times daily as needed for cough benzonatate (Tessalon) 200 MG capsule TAKE 1 (ONE) CAPSULE BY MOUTH FOUR TIMES DAILY, NEEDED FOR COUGH 0 11/20/2022 Active Start: 07-25-2019 End: 11-08-2020 take 1 capsule by mouth three times daily as needed for cough Benzonatate (Tessalon Perles) 100 mg capsule Discontinued 100 mg PO THREE TIMES A DAY as needed for cough July 25, 2019 12:00am November 08, 2020 7:32am Biotin (1 source) Start: 10-31-2024 biotin Active PO DAILY October 31, 2024 1:00am cholecalciferol 0.05 mg oral tablet (9 sources) Vitamin D Start: 03-04-2022 End: 02-21-2023 cholecalciferol (Vitamin D-3) 50 MCG (1999 UT) tablet Take by mouth daily. 0 03/04/2022 Active clobetasol propionate 0.5 mg/ml topical solution (2 sources) Corticosteroid Start: 01-29-2023 clobetasol (Te movate) 0.05 % external solution APPLY TO AFFECTED AREA OF SCALP AT NIGHT X3 WEEKS-THEN 1 WEEK OFF-APPLY 1-2X WEEKLY FOR MAINTENANCE 0 01/29/2023 Active cyclobenzaprine hydrochloride 10 mg oral tablet (13 sources) Muscle Relaxant Start: 11-20-2022 End: 02-20-2023 cyclobenzaprine (FLEXERIL) 10 mg tablet Take 10 mg by mouth as needed. 11/20/2022 Active ferrous sulfate 325 mg oral tablet (20 sources) Start: 10-31-2024 IRON (ferrous sulfate 325 mg) 65 mg oral tablet Dose : 325 mg = 1 tab(s), Oral, qDay, Take with food., # 60 tab(s), 3 Refill(s) Start Date: 10/31/24 Status: Ordered Quantity: 60.0 Unit: tab(s) Repeat number: 1 Start: 04-02-2023 take 1 tablet by jose e th once daily Ferrous Sulfate 325 mg (65 mg iron) tablet,delayed release (DR/EC) Active 325 mg PO DAILY April 02, 2023 12:00am Start: 07-25-2019 End: 11-08-2020 take 1 tablet by mouth once daily Ferrous Sulfate 325 mg (65 mg iron) tablet,delayed release (DR/EC) Discontinued 325 mg PO DAILY July 25, 2019 12:00am November 08, 2020 7:32am Start: 06-29-2015 take 1 tablet by jose e th once daily IRON 325 (65 Fe) MG TABS One tablet by mouth daily FERROUS SULFATE [id number] Kandace Nathan PA-C take 1 tablet by jose e th once daily at breakfast ferrous sulfate 325 mg (65 mg iron) tablet Take 325 mg by mouth daily with breakfast. Active Comment on above: Take 325 mg by mouth daily with breakfast. hydroCHLOROthiazide 12.5 mg oral tablet (20 sources) Thiazide Diuretic Start: 2020 take 2 tablets by mouth once daily Hydrochlorothiazide 6.25 MG tablet Active 12.5 mg PO DAILY December 20, 2020 1:00am Start: 12-20-2020 End: 12-13-2022 hydroCHLOROthiazide (HYDRODi uril) 12.5 MG tablet Start: 03-09-2015 End: 05-19-2018 take 1 tablet by mouth once daily as needed Hydrochlorothiazide 25 MG tablet Discontinued 25 mg PO DAILY as needed for Swelling March 09, 2015 12:00am May 19, 2018 10:18am Comment on above: Take 12.5 mg by mout h once daily. hydroCHLOROthiazide 12.5 mg / losartan potassium 50 mg oral tablet (18 sources) Thiazide Diuretic, Angiotensin 2 Receptor [place] Start: 10-31-19 take 1 tablet by mouth once daily hydrochlorothia zide-losartan 12.5-50 mg oral tablet Dose = 1 tab(s), Oral, qDay, # 100 tab(s), 0 Refill(s) Start Date: 10/31/24 Status: Ordered Quantity: 100.0 Unit: tab(s) Repeat number: 1 Start: 03-09-2015 End: 11-08-2020 take 1 tablet by mouth once daily LOSARTAN POTASSIUM-HCTZ 50-12.5 MG TABS One tablet by mouth daily LOSARTAN POTASSIUM-HCTZ [id number] Claudio Garza MD Start: 03-09-2015 End: 11-08-2020 take 1 tablet by mouth once daily Losartan-Hydrochlorothiazide Discontinued 1 TABLET PO DAILY March 09, 2015 12:00am November 08, 2020 7:32am take 1 tablet by jose e th once daily losartan 50 mg Tab 50 mg, hydrochlorothiazide 25 mg Tab 12.5 mg Take 1 Each by mouth once daily. 62.5 mg 0 Active Comment on above: Take 1 Each by mouth once daily. levothyroxine sodium 0.05 mg oral tablet (20 sources) l-Thyroxine Start: 10-31-2024 take 1 tablet by mouth once daily Synthroid 50 mcg (0.05 mg) oral tablet See Instructions, 1 tab(s) Oral qDay, 0 Refill(s) Start Date: 10/31/24 Status: Ordered Repeat number: 1 Start: 10-31-2024 take 1 tablet by jose e th once daily Synthroid 100 mcg (0.1 mg) oral tablet See Instructions, 1 tab(s) Oral qDay, 0 Refill(s) Start Date: 10/31/24 Status: Ordered Repeat number: 1 Start: 10-16-2023 End: 08-31-2024 SYNTHROID 100 mcg tablet Ind ications: Hypothyroidism, unspecified type 1 daily 90 tablet 2 08/31/2024 Active Start: 03-27-2022 Levothyroxine 100 mcg tablet Active 100 ug PO MOTUWETHFR March 27, 2022 8:18am 1/2 tab friday Start: 12-20-2020 End: 03-27-2022 Levothyroxine 50 MCG tablet Discontinued 50 ug PO SA December 20, 2020 1:00am March 27, 2022 8:18am Start: 03-23-2015 take 1 tablet by jose e th once daily SYNTHROID 100 MCG TABS One tablet by mouth daily daily except none on Friday LEVOTHYROXINE SODIUM [id number] Claudio Garza MD Start: 03-09-2015 End: 11-08-2020 take 1 tablet by mouth once daily Levothyroxine 25 MCG tablet Discontinued 25 ug PO DAILY March 09, 2015 12:00am November 08, 2020 7:32am Start: 03-05-2010 End: 08-12-2023 Levothyroxine 100 MCG tablet Discontinued 100 ug PO MOTUWETHFR December 20, 2020 1:00am March 27, 2022 8:18am Comment on above: Take one(1) tablet d aily. Take 1 tablet by jose e th daily before breakfast. 1 tablet M-F 1/2 on Fri and none on Friday Take 100 mcg by mout h daily before breakfast. 1 tablet M-F 1/2 on Fri and none on Friday TAKE 1 TABLET FRIDAY THROUGH FRIDAY, TAKE 1/2 TABLET ON FRIDAY NONE ON FRIDAY losartan potassium 50 mg oral tablet (20 sources) Angiotensin 2 Receptor [place] Start: 12-20-2020 End: 12-13-2022 take 1 tablet by mouth once daily Losartan 50 MG tablet Active 50 mg PO DAILY December 20, 2020 1:00am Comment on above: Take 50 mg by mouth once daily. potassium chloride 20 meq oral tablet (20 sources) Start: 10-31-2024 Potassium Chloride (Eqv-K-Tab) 20 mEq oral tablet, extended release Dose : 20 mEq = 1 tab(s), Oral, BID, # 60 tab(s), 0 Refill(s) Start Date: 10/31/24 Status: Ordered Quantity: 60.0 Unit: tab(s) Repeat number: 1 Start: 04-02-2023 take 20 mEq by mouth twice daily Potassium Chloride 20 mEq packet Active 20 meq PO TWICE A DAY April 02, 2023 8:12am Start: 08-04-2022 End: 02-21-2023 take 1 tablet by mouth twice daily potassium chloride 20 mEq TbER Take 1 tablet by mouth two times a day. 08/04/2022 Active Start: 08-04-2022 take 1 tablet by jose e th once daily potassium chloride CR (K-Tab) 20 MEQ ER tablet Take 20 mEq by mouth daily. 0 11/18/2022 Active Start: 08-04-2022 End: 12-13-2022 take 1 tablet by mouth in the morning potassium chloride CR (Klor-Con M20) 20 MEQ ER tablet Take 1 tablet by mouth in the morning. 0 08/04/2022 12/13/2022 Discontinued (Duplicate order) Start: 11-08-2020 End: 04-02-2023 take 20 mEq by mouth once daily Potassium Chloride 20 mEq packet Discontinued 20 meq PO DAILY November 08, 2020 1:00am April 02, 2023 8:13am Start: 03-23-2015 End: 06-29-2015 MICRO-K 10 MEQ CR-CAPS 6 tab lets by mouth x 1 POTASSIUM CHLORIDE [id number] Kandace Nathan PA-C Start: 03-23-2015 End: 06-29-2015 MICRO-K 10 MEQ CR-CAPS 6 tab lets by mouth x 1 POTASSIUM CHLORIDE [id number] Kandace Nathan PA-C Potassium Chlori de 20 MEQ/15ML (10%) solution Take by mouth 2 times daily. 0 Active Comment on above: Take 1 tablet by jose e once daily. predniSONE 20 mg oral tablet (2 sources) predniSONE (Delt asone) 20 MG tablet Take by mouth. Last dose on 02/21 0 Active rosuvastatin calcium 10 mg oral tablet (1 source) HMG-CoA Reductase Inhibitor Start: 11-01-2024 rosuvastatin 10 mg oral tablet Dose : 10 mg = 1 tab(s), Oral, qDay, # 30 tab(s), 0 Refill(s), Pharmacy: [facility]/pharmacy #[id number], 165.1, cm, 10/31/24 17:08:00 EST, Height, kg, 10/31/24 17:08:00 EST, Dosing Weight Start Date: 11/01/24 Status: Ordered Quantity: 30.0 Unit: tab(s) Repeat number: 1 Completed/Discontinued Medications Medication Drug Class(es) Dates Sig (Normalized) Sig (Original) apremilast 30 mg oral tablet (12 sources) Start: 03-09-2015 End: 05-19-2018 take 1 tablet by mouth at bedtime Apremilast 30 MG tablet Discontinued 30 mg PO AT BEDTIME March 09, 2015 12:00am May 19, 2018 10:19am aspirin 81 mg delayed release oral tablet (6 sources) Platelet Aggregation Inhibitor, Nonsteroidal Anti-inflammatory Drug Start: 03-23-2015 End: 06-29-2015 take 1 tablet by mouth once daily ASPIR-81 TBEC One tablet by mouth daily ASPIRIN TBEC [id number] Kandace Nathan PA-C ASPIRIN TBEC (2 sources) Start: 03-23-2015 take 1 tablet by mouth once daily ASPIR-81 TBEC One tablet by mouth daily ASPIRIN TBEC [id number] Claudio Garza MD Start: 03-23-2015 End: 06-29-2015 take 1 tablet by mouth once daily ASPIR-81 TBEC One tablet by mouth daily ASPIRIN TBEC [id number] Kandace Nathan PA-C azithromycin 250 mg oral tablet (14 sources) Macrolide Antimicrobial Start: 11-20-2022 End: 12-13-2022 azithromycin (Zithromax) 250 MG tablet TAKE 2 TABLETS BY MOUTH TODAY, THEN TAKE 1 TABLET DAILY FOR 4 DAYS 0 11/20/2022 12/13/2022 Discontinued (Therapy completed) Start: 07-25-2019 End: 11-08-2020 take 2-5 tablets by mouth once daily Azithromycin (Zithromax Z-Octavio) 250 mg tablet Discontinued 0 PO .COMPLEX July 25, 2019 12:00am November 08, 2020 7:32am take 500 mg today (day 1), then 250 mg for 4 days (days 2-5) barium sulfate (E-Z-Paque) 96 % suspension 60 mL (2 sources) Start: 12-09-2022 End: 12-09-2022 barium sulfate (E-Z-Paque) 96 % suspension 60 mL celecoxib 200 mg oral capsule (3 sources) Nonsteroidal Anti-inflammatory Drug Start: 09-22-2023 End: 08-31-2024 take 1 capsule by mouth once celecoxib (CELEBREX) 200 mg capsule Take 1 capsule by mouth every afternoon. 09/22/2023 08/31/2024 Discontinued (Course of therapy completed) esomeprazole 40 mg delayed release oral capsule (20 sources) Proton Pump Inhibitor Start: 03-23-2015 take 1 tablet by mouth once daily NEXIUM 40 MG CPDR One tablet by mouth daily ESOMEPRAZOLE MAGNESIUM [id number] Claudio Garza MD Start: 03-09-2015 End: 04-02-2023 take 1 capsule by mouth once daily Esomeprazole Magnesium 40 MG capsule,delayed release(DR/EC) Discontinued 40 mg PO DAILY December 20, 2020 1:00am April 02, 2023 8:13am End: 08-31-2024 ESOMEPRAZOLE MAGNESIUM (NEXI UM ORAL) Take by mouth as needed. 08/31/2024 Discontinued (Course of therapy completed) ESOMEPRAZOLE MAG NESIUM (NEXIUM ORAL) Take by mouth as needed. Active ESOMEPRAZOLE MAG NESIUM (NEXIUM ORAL) Take by mouth as needed. 0 Active ESOMEPRAZOLE MAG NESIUM (NEXIUM ORAL) Take by mouth. 0 Active Comment on above: Take by mouth. Take by mouth as nee ded. 24 hr metoprolol succinate 50 mg extended release oral tablet (6 sources) beta-Adrenergic [place] Start: 10-31-2024 End: 10-31-2024 take 1 tablet by mouth in the evening metoprolol succinate 50 mg oral TABLET extended release Start: 10/31/24 10:00:00 PM EST, Dose = 50 mg, = 1 tab(s), Oral, 10/31/24 18:39:00 EST Start Date: 10/31/24 Stop Date: 10/31/24 Status: Completed Repeat number: 1 Start: 04-05-2024 take 1 capsule by mo uth once daily Metoprolol Succinate 50 mg capsule,sprinkle,ER 24hr Active 50 mg PO DAILY April 05, 2024 12:00am Start: 09-08-2023 take 1 tablet by mouth once me toprolol succinate ER (TOPROL XL) 100 mg Take 1 tablet by mouth every afternoon. 09/08/2023 Active Problems Active Problems Problem Classification Problem Date Documented Date Episodic/Chronic Abdominal hernia (16 sources) Hiatal hernia; Translations: [Diaphragmatic hernia without obstruction or gangrene] Onset: 11-22-2022 Episodic Cardiac dysrhythmias (4 sources) Ventricular premature beats; Translations: [Ventricular premature depolarization] Onset: 03-17-2015 03-17-2015 Chronic Diabetes mellitus without complication (20 sources) Impaired fasting glycemia; Translations: [Impaired fasting glucose] Onset: 08-27-2022 Episodic Disorders of lipid metabolism (2 sources) Hyperlipidemia; Translations: [Hyperlipidemia, unspecified] Onset: 11-01-2024 Chronic Esophageal disorders (20 sources) Gastro-esophageal reflux disease with esophagitis; Translations: [Gastroesophageal reflux disease with esophagitis without hemorrhage] Onset: 12-09-2022 Chronic Essential hypertension (20 sources) Hypertensive disorder; Translations: [Essential (primary) hypertension] Onset: 01-13-2013 03-23-2015 Chronic Nausea and vomiting (2 sources) Postoperative nausea and vomiting; Translations: [Nausea with vomiting, unspecified] Onset: 02-21-2023 02-21-2023 Episodic Other aftercare (1 source) Postoperative visit; Translations: [Encounter for other specified surgical aftercare] 05-09-2023 Episodic Other aftercare (2 sources) Encounter for other specified surgical aftercare; Translations: [Encounter for other specified surgical aftercare] Onset: 05-09-2023 Episodic Other inflammatory condition of skin (17 sources) Psoriasis; Translations: [Psoriasis, unspecified] Onset: 03-17-2014 03-17-2014 Chronic Other nervous system disorders (2 sources) Other acute postprocedural pain; Translations: [Other acute postprocedural pain] Onset: 03-05-2023 Episodic Other nutritional; endocrine; and metabolic disorders (1 source) H/O: hypothyroidism; Translations: [Personal history of other endocrine, nutritional and metabolic disease] 11-08-2024 Episodic Other upper respiratory infections (9 sources) Sinusitis; Translations: [Chronic sinusitis, unspecified] Onset: 12-06-2022 12-06-2022 Chronic Residual codes; unclassified (9 sources) Family history of diabetes mellitus; Translations: [Family history of diabetes mellitus] Onset: 09-09-2022 Episodic Residual codes; unclassified (1 source) Altered mental status; Translations: [Altered mental status, unspecified] Onset: 10-31-2024 Episodic Residual codes; unclassified (1 source) Amnesia; Translations: [Other amnesia] Onset: 10-31-2024 Episodic Thyroid disorders (20 sources) Hypothyroidism; Translations: [Hypothyroidism, unspecified] Onset: 01-13-2013 Chronic Transient cerebral ischemia (3 sources) Transient global amnesia; Translations: [Transient global amnesia] Onset: 11-01-2024 Chronic Unclassified (1 source) Gynecologic examination ; Translations: [Encounter for gynecological examination (general) (routine) without abnormal findings] Onset: 05-14-2017 05-14-2017 Unclassified (2 sources) Pre-op Visit; Translations: [Pre-op Visit] Onset: 02-21-2023 Past or Other Problems Problem Classification Problem Date Documented Da te Episodic/Chronic Cardiac dysrhythmias (17 sources) Palpitations; Translations: [Tachycardia, unspecified] Onset: 03-17-2015 03-17-2015 Episodic Chronic obstructive pulmonary disease and bronchiectasis (9 sources) Bronchitis; Translations: [Bronchitis, not specified as acute or chronic] Onset: 12-06-2022 12-06-2022 Episodic Deficiency and other anemia (13 sources) Anemia; Translations: [Anemia, unspecified] Onset: 06-29-2015 06-29-2015 Episodic Disorders of teeth and jaw (13 sources) Jaw pain; Translations: [Jaw pain] Onset: 03-23-2015 03-23-2015 Episodic Fever of unknown origin (9 sources) Fever; Translations: [Fever, unspecified] Onset: 12-06-2022 12-06-2022 Episodic Fluid and electrolyte disorders (13 sources) Hypokalemia; Translations: [Hypokalemia] Onset: 06-29-2015 06-29-2015 Episodic Malaise and fatigue (13 sources) Fatigue; Translations: [Other fatigue] Onset: 03-23-2015 03-23-2015 Episodic Other connective tissue disease (13 sources) Pain in left arm; Translations: [Pain in left arm] Onset: 03-23-2015 03-23-2015 Episodic Other lower respiratory disease (13 sources) Dyspnea; Translations: [Shortness of breath] Onset: 03-23-2015 03-23-2015 Episodic Other nutritional; endocrine; and metabolic disorders (5 sources) Body mass index (BMI) 28.0-28.9, adult; Translations: [Body mass index (BMI) 29.0-29.9, adult] Onset: 03-23-2015 06-29-2015 Episodic Other nutritional; endocrine; and metabolic disorders (3 sources) Body mass index (BMI) 29.0-29.9, adult; Translations: [Body mass index (BMI) 29.0-29.9, adult] Onset: 03-23-2015 03-23-2015 Episodic Residual codes; unclassified (5 sources) FH: Raised blood lipids; Translations: [FH: Hypertension] 03-23-2015 Episodic Residual codes; unclassified (3 sources) FH: Hypertension; Translations: [Family history of ischemic heart disease and other diseases of the circulatory system] 03-23-2015 Episodic Residual codes; unclassified (1 source) Family history of diabetes mellitus; Translations: [Family history of diabetes mellitus] Onset: 09-09-2022 Episodic Residual codes; unclassified (1 source) Other amnesia; Translations: [Other amnesia] Onset: 11-21-2024 Episodic Thyroid disorders (1 source) Disorder of thyroid gland; Translations: [Disorder of thyroid, unspecified] Onset: 01-13-2013 01-13-2013 Episodic Unclassified (1 source) Other hypothyroidism; Translations: [Other hypothyroidism] Onset: 10-31-2024 Results Test Name Value Interpretation Reference Range Facility AST(SGOT)on 02-25-2025 AST [Catalytic activity/Vol] 26 U/L Normal <=31 [facility] Comment on above: Performed By: #### L [id number], L100.0100, [id number] #### [facility] [address] [place], [address] Alanine Aminotransferas (SGP T)on 02-25-2025 ALT [Catalytic activity/Vol] 22 U/L Normal <=34 [facility] Comment on above: Performed By: #### L [id number], L100.0100, [id number] #### [facility] [address] [place], [address] Basic Metabolic Profile (BMP )on 02-25-2025 BUN/CRE 18.7 RATIO Normal 10-20 [facility] Comment on above: Performed By: #### L [id number], L100.0100, [id number] #### [facility] [address] [place], [address] Calcium [Mass/Vol] 9.7 mg/dL Normal 7.6-11.0 [facility] Comment on above: Performed By: #### L [id number], L100.0100, [id number] #### [facility] [address] [place], [address] Chloride [Moles/Vol] 104 mmol/L Normal 98-108 [facility] Comment on above: Performed By: #### L [id number], L100.0100, [id number] #### [facility] [address] [place], [address] CO2 [Moles/Vol] 23.3 mmol/L Normal 21.0-32.0 [facility] Comment on above: Performed By: #### L [id number], L100.0100, [id number] #### [facility] [address] [place], [address] Creatinine [Mass/Vol] 0.79 mg/dL Normal 0.70-1.20 [facility] Comment on above: Performed By: #### L [id number], L100.0100, [id number] #### [facility] [address] [place], [address] GAP 11 Normal 5-15 [facility] Comment on above: Performed By: #### L [id number], L100.0100, [id number] #### [facility] [address] [place], [address] GFR/1.73 sq M.predicted among non-blacks MDRD (S/P/Bld) [Vol rate/Area] 85 mL/min/{1.73_m2} Normal >60 [facility] Comment on above: Result Comment: mL/m in/1.73m2 CKD-EPI Creatinine Equation (2020) Performed By: #### L [id number], L100.0100, [id number] #### [facility] [address] [place], [address] Glucose [Mass/Vol] 107 mg/dL High 70-99 [facility] Comment on above: Performed By: #### L [id number], L100.0100, [id number] #### [facility] [address] [place], [address] Potassium [Moles/Vol] 3.9 mmol/L Normal 3.3-5.1 [facility] Comment on above: Performed By: #### L [id number], L100.0100, [id number] #### [facility] [address] [place], [address] Sodium [Moles/Vol] 138 mmol/L Normal 133-145 [facility] Comment on above: Performed By: #### L [id number], L100.0100, [id number] #### [facility] [address] [place], [address] Urea nitrogen [Mass/Vol] 15 mg/dL Normal 4-19 [facility] Comment on above: Performed By: #### L [id number], L100.0100, [id number] #### [facility] [address] [place], [address] Lipid Profileon 02-25-2025 CHOL:HDL 2.87 Normal [facility] Comment on above: Performed By: #### L [id number], L100.0100, [id number] #### [facility] [address] [place], [address] Cholesterol [Mass/Vol] 145 mg/dL Normal <=200 [facility] Comment on above: Result Comment: Chol esterol level, Desirable <200 mg/dL Borderline high cholesterol 200-239 mg/dL High cholesterol >=240 mg/dL Recommendations of the NCEP Adult Treatment Panel for the following risk-cutoff thresholds for the [place] population. Performed By: #### L 501.9520, L100.0100, L500.4050 #### [facility] [address] [place], [address] Cholesterol in HDL [Mass/Vol] 51 mg/dL Normal [facility] Comment on above: Result Comment: Darline onal Cholesterol Education Program (NCEP) guidelines: <40 mg/dL: Low HDL-cholesterol (major risk factor for CHD) >= 60 mg/dL: High HDL-cholesterol (negative risk factor for CHD) HDL-cholesterol is affected by a number of factors, e.g. smoking, exercise, hormones, sex and age. Performed By: #### L 501.9520, L100.0100, L500.4050 #### [facility] [address] [place], [address] Cholesterol in LDL [Mass/Vol] 67 mg/dL Normal [facility] Comment on above: Result Comment: Bord rdyynn=763-899 mg/dL Higher Evkx=064 mg/dL or greater Performed By: #### L 501.9520, L100.0100, L500.4050 #### [facility] [address] [place], [address] Cholesterol in VLDL [Mass/Vol] 28 mg/dL Normal 5-40 [facility] Comment on above: Performed By: #### L 501.9520, L100.0100, L500.4050 #### [facility] [address] [place], [address] Triglyceride [Mass/Vol] 138 mg/dL Normal [facility] Comment on above: Result Comment: The drugs N-Acetylcysteine and Metamizole may falsely depress this assay. Normal range: <150 mg/dL Borderline High: 150-199 mg/dL High: 200-499 mg/dL Very High: >500 mg/dL Performed By: #### L 501.9520, L100.0100, L500.4050 #### [facility] [address] [place], [address] .Auto Diffon 11-01-2024 Basophil, Absolute 0.0 10 3/mcL Normal 0.0-0.2 [facility] Comment on above: Performed By: #### M G, CMP, ADIFF, GFR, ANEU, CBC #### [address] [address] Basophils/100 WBC (Bld) 0.4 % Normal 0.0-2.5 [facility] Comment on above: Performed By: #### M G, CMP, ADIFF, GFR, ANEU, CBC #### [address] [address] Eosinophil, Absolute 0.1 10 3/mcL Normal 0.0-0.7 [facility] Comment on above: Performed By: #### M G, CMP, ADIFF, GFR, ANEU, CBC #### [address] [address] Eosinophils/100 WBC (Bld) 2.0 % Normal 0.0-7.0 [facility] Comment on above: Performed By: #### M G, CMP, ADIFF, GFR, ANEU, CBC #### [address] [address] Lymphocyte, Absolute 2.2 10 3/mcL Normal 0.9-4.3 [facility] Comment on above: Performed By: #### M G, CMP, ADIFF, GFR, ANEU, CBC #### [address] [address] Lymphocytes/100 WBC (Bld) 32.3 % Normal 20.0-40.0 [facility] Comment on above: Performed By: #### M G, CMP, ADIFF, GFR, ANEU, CBC #### [address] [address] Monocyte, Absolute 0.6 10 3/mcL Normal 0.1-1.4 [facility] Comment on above: Performed By: #### M G, CMP, ADIFF, GFR, ANEU, CBC #### [address] [address] Monocytes/100 WBC (Bld) 8.7 % Normal 2.0-13.0 [facility] Comment on above: Performed By: #### M G, CMP, ADIFF, GFR, ANEU, CBC #### [address] [address] Neutrophils/100 WBC (Bld) 56.6 % Normal 50.0-75.0 [facility] Comment on above: Performed By: #### M G, CMP, ADIFF, GFR, ANEU, CBC #### [address] [address] .GFRon 11-01-2024 GFR Non- 59 ml/min/1.73sqm Normal [facility] Comment on above: Result Comment: GFR Population mean for , Non- Americans Ages 20-29 = 116 mL/min/1.73 sq.m. Ages 30-39 = 107 mL/min/1.73 sq.m. Ages 40-49 = 99 mL/min/1.73 sq.m. Ages 50-59 = 93 mL/min/1.73 sq.m. Ages 60-69 = 85 mL/min/1.73 sq.m. Ages 70+ = 75 mL/min/1.73 sq.m. Chronic Kidney Disease: Less than 60 mL/min/1.73 square meters End Stage Renal Disease: Less than 15 mL/min/1.73 square meters Performed By: #### A LC, CMP, GFR #### [address] [address] GFR 72 ml/min/1.73sqm Normal [facility] Comment on above: Result Comment: GFR Population mean for , Non- Americans Ages 20-29 = 116 mL/min/1.73 sq.m. Ages 30-39 = 107 mL/min/1.73 sq.m. Ages 40-49 = 99 mL/min/1.73 sq.m. Ages 50-59 = 93 mL/min/1.73 sq.m. Ages 60-69 = 85 mL/min/1.73 sq.m. Ages 70+ = 75 mL/min/1.73 sq.m. Chronic Kidney Disease: Less than 60 mL/min/1.73 square meters End Stage Renal Disease: Less than 15 mL/min/1.73 square meters Performed By: #### A LC, CMP, GFR #### [address] [address] .NEUABSon 11-01-2024 Neutrophil, Absolute 3.8 10 3/mcL Normal 2.3-8.1 [facility] Comment on above: Performed By: #### M G, CMP, ADIFF, GFR, ANEU, CBC #### [address] [address] A1Con 11-01-2024 Glucose [Mass/Vol] 131 mg/dL Normal [facility] Comment on above: Result Comment: Julia mated Average Glucose calculated by equation ((28.7xA1C)-46.7) Estimated average glucose (eAG) is a calculated value from Hemoglobin A1C and is traffic workforce representative of the average blood glucose level in the last 2-3 month period. Normal range: less than 114 mg/dL Performed By: #### A LC, CMP, GFR #### [address] [address] HbA1c (Bld) [Mass fraction] 6.2 % Normal 4.3-6.4 [facility] Comment on above: Performed By: #### A LC, CMP, GFR #### [address] [address] CBCon 11-01-2024 Erythrocyte distribution width (RBC) [Ratio] 13.4 % Normal 11.5-15.5 [facility] Comment on above: Performed By: #### M G, CMP, ADIFF, GFR, ANEU, CBC #### [address] [address] Hematocrit (Bld) [Volume fraction] 35.7 % Normal 34.0-46.0 [facility] Comment on above: Performed By: #### M G, CMP, ADIFF, GFR, ANEU, CBC #### [place] [address] Hgb 12.4 G/dL Normal 12.0-16.0 [facility] Comment on above: Performed By: #### M G, CMP, ADIFF, GFR, ANEU, CBC #### [place] [address] MCH (RBC) [Entitic mass] 30.5 pg Normal 27.0-33.0 [facility] Comment on above: Performed By: #### M G, CMP, ADIFF, GFR, ANEU, CBC #### [place] [address] MCHC 34.7 G/dL Normal 32.0-36.0 [facility] Comment on above: Performed By: #### M G, CMP, ADIFF, GFR, ANEU, CBC #### [place] [address] MCV (RBC) [Entitic vol] 88.0 fL Normal 80.0-99.0 [facility] Comment on above: Performed By: #### M G, CMP, ADIFF, GFR, ANEU, CBC #### [place] [address] Platelet 192 10 3/mcL Normal 150-450 [facility] Comment on above: Performed By: #### M G, CMP, ADIFF, GFR, ANEU, CBC #### [place] [address] Platelet mean volume (Bld) [Entitic vol] 9.1 fL Normal 6.6-10.5 [facility] Comment on above: Performed By: #### M G, CMP, ADIFF, GFR, ANEU, CBC #### [place] [address] RBC 4.06 10 6/mcL Low 4.10-5.30 [facility] Comment on above: Performed By: #### M G, CMP, ADIFF, GFR, ANEU, CBC #### [address] [address] WBC 6.7 10 3/mcL Normal 4.5-10.8 [facility] Comment on above: Performed By: #### M G, CMP, ADIFF, GFR, ANEU, CBC #### [address] [address] CMPon 11-01-2024 Albumin Level 3.3 G/dL Low 3.4-4.8 [facility] Comment on above: Performed By: #### A LC, CMP, GFR #### [address] [address] Albumin/Globulin [Mass ratio] 0.9 {ratio} Low 1.1-2.5 [facility] Comment on above: Performed By: #### A LC, CMP, GFR #### [address] [address] ALP [Catalytic activity/Vol] 55 U/L Normal 40-135 [facility] Comment on above: Performed By: #### A LC, CMP, GFR #### [address] [address] ALT [Catalytic activity/Vol] 29 U/L Normal 14-59 [facility] Comment on above: Performed By: #### A LC, CMP, GFR #### [address] [address] AST [Catalytic activity/Vol] 19 U/L Normal 10-40 [facility] Comment on above: Performed By: #### A LC, CMP, GFR #### [address] [address] Bili Total 0.5 mg/dL Normal 0.2-1.0 [facility] Comment on above: Result Comment: Use of this assay is not recommended for patients undergoing treatment with eltrombopag due to the potential for falsely elevated results. Performed By: #### A LC, CMP, GFR #### [address] [address] BUN/Creatinine Ratio 14 ratio Normal 7-27 [facility] Comment on above: Performed By: #### A LC, CMP, GFR #### [address] [address] Calcium [Mass/Vol] 9.0 mg/dL Normal 8.4-10.2 [facility] Comment on above: Performed By: #### A LC, CMP, GFR #### [place] [address] Chloride [Moles/Vol] 102 mmol/L Normal 98-107 [facility] Comment on above: Performed By: #### A LC, CMP, GFR #### [place] [address] CO2 [Moles/Vol] 32 mmol/L High 23-31 [facility] Comment on above: Performed By: #### A LC, CMP, GFR #### [address] [address] Creatinine [Mass/Vol] 0.96 mg/dL Normal 0.55-1.[address] [facility] Comment on above: Result Comment: Test ing performed on Siemens Dimension EXL analyzer using a modified kinetic Shivani technique. Performed By: #### A LC, CMP, GFR #### [place] [address] Electrolyte Balance 4.0 mEq/L Normal 4.0-15.0 [facility] Comment on above: Performed By: #### A LC, CMP, GFR #### [address] [address] Globulin 3.7 G/dL Normal [facility] Comment on above: Performed By: #### A LC, CMP, GFR #### [address] [address] Glucose [Mass/Vol] 117 mg/dL High 80-115 [facility] Comment on above: Performed By: #### A LC, CMP, GFR #### [address] [place], [place] [address] Potassium [Moles/Vol] 4.0 mmol/L Normal 3.5-5.[address] [facility] Comment on above: Performed By: #### A LC, CMP, GFR #### [facility] [address] [place], [place] [address] Sodium [Moles/Vol] 138 mmol/L Normal 136-145 [facility] Comment on above: Performed By: #### A LC, CMP, GFR #### [address] [place], [place] [address] Total Protein 7.0 G/dL Normal 6.4-8.2 [facility] Comment on above: Performed By: #### A LC, CMP, GFR #### [address] [place], [place] [address] Urea nitrogen [Mass/Vol] 13 mg/dL Normal 7-18 [facility] Comment on above: Performed By: #### A LC, CMP, GFR #### [address] [place], [place] [address] LABORATORYOrdered By: SYSTEM SYSTEM on 11-01-2024 Albumin BCP dye [Mass/Vol] 3.3 G/dL Low 3.4 - 4.8 G/dL AO ADM SS Albumin/Globulin [Mass ratio] 0.9 {ratio} Low 1.1 - 2.5 ratio AO ADM SS ALP [Catalytic activity/Vol] 55 U/L Normal 40 - 135 U/L AO ADM SS ALT With P-5'-P [Catalytic activity/Vol] 29 U/L Normal 14 - 59 U/L AO ADM SS AST With P-5'-P [Catalytic activity/Vol] 19 U/L Normal 10 - 40 U/L AO ADM SS Basophils (Bld) [#/Vol] 0.0 103/mcL Normal 0.0 - 0.2 10^3/mcL AO Workflow SS Basophils/100 WBC (Bld) 0.4 % Normal 0.0 - 2.5 % AO Workflow SS Bilirubin [Mass/Vol] 0.5 mg/dL Normal 0.2 - 1 .0 mg/dL AO ADM SS Comment on above: Interpretive Data: U se of this assay is not recommended for patients undergoing treatment with eltrombopag due to the potential for falsely elevated results. Calcium [Mass/Vol] 9.0 mg/dL Normal 8.4 - 10. 2 mg/dL AO ADM SS Chloride [Moles/Vol] 102 mmol/L Normal 98 - 10 7 mmol/L AO ADM SS CO2 [Moles/Vol] 32 mmol/L High 23 - 31 mmol/L AO ADM SS Creatinine [Mass/Vol] 0.96 mg/dL Normal 0.55 - 1.02 mg/dL AO ADM SS Comment on above: Interpretive Data: T esting performed on Siemens Dimension EXL analyzer using a modified kinetic Shivani technique. Electrolyte Balance 4.0 mEq/L Normal 4.0 - 15 .0 mEq/L AO ADM SS Eosinophil, Absolute 0.1 103/mcL Normal 0.0 - 0 .7 10^3/mcL AO Workflow SS Eosinophils/100 WBC (Bld) 2.0 % Normal 0.0 - 7.0 % AO Workflow SS Erythrocyte distribution width (RBC) [Ratio] 13.4 % Normal 11.5 - 15.5 % AO Workflow SS GFR/1.73 sq M.predicted among blacks MDRD (S/P/Bld) [Vol rate/Area] 72 ml/min/1.73sqm Invalid Interpretation Code AO Chemistry S Comment on above: Interpretive Data: GFR Population mean for , Non- Americans Ages 20-29 = 116 mL/min/1.73 sq.m. Ages 30-39 = 107 mL/min/1.73 sq.m. Ages 40-49 = 99 mL/min/1.73 sq.m. Ages 50-59 = 93 mL/min/1.73 sq.m. Ages 60-69 = 85 mL/min/1.73 sq.m. Ages 70+ = 75 mL/min/1.73 sq.m. Chronic Kidney Disease: Less than 60 mL/min/1.73 square meters End Stage Renal Disease: Less than 15 mL/min/1.73 square meters GFR/1.73 sq M.predicted among non-blacks MDRD (S/P/Bld) [Vol rate/Area] 59 ml/min/1.73sqm Invalid Interpretation Code AO Chemistry S Comment on above: Interpretive Data: GFR Population mean for , Non- Americans Ages 20-29 = 116 mL/min/1.73 sq.m. Ages 30-39 = 107 mL/min/1.73 sq.m. Ages 40-49 = 99 mL/min/1.73 sq.m. Ages 50-59 = 93 mL/min/1.73 sq.m. Ages 60-69 = 85 mL/min/1.73 sq.m. Ages 70+ = 75 mL/min/1.73 sq.m. Chronic Kidney Disease: Less than 60 mL/min/1.73 square meters End Stage Renal Disease: Less than 15 mL/min/1.73 square meters Globulin 3.7 G/dL Invalid Interpretation Code AO ADM SS Glucose [Mass/Vol] 131 mg/dL Invalid Interpretation Code AO Chemistry S Comment on above: Interpretive Data: E stimated average glucose (eAG) is a calculated value from Hemoglobin A1C and is traffic workforce representative of the average blood glucose level in the last 2-3 month period. Normal range: less than 114 mg/dL Glucose [Mass/Vol] 117 mg/dL High 80 - 115 mg/dL AO ADM SS HbA1c (Bld) [Mass fraction] 6.2 % Normal 4.3 - 6.4 % AO ADM SS Hematocrit (Bld) [Volume fraction] 35.7 % Normal 34.0 - 46.0 % AO Workflow SS Hemoglobin (Bld) [Mass/Vol] 12.4 G/dL Normal 12.0 - 16.0 G/dL AO Workflow SS Lymphocytes (Bld) [#/Vol] 2.2 103/mcL Normal 0.9 - 4.3 10^3/mcL AO Workflow SS Lymphocytes/100 WBC (Bld) 32.3 % Normal 20.0 - 40.0 % AO Workflow SS Magnesium [Mass/Vol] 1.6 mg/dL Low 1.8 - 2 .4 mg/dL AO ADM SS MCH (RBC) [Entitic mass] 30.5 pg Normal 27.0 - 33.0 pg AO Workflow SS MCHC 34.7 G/dL Normal 32.0 - 36.0 G/dL AO Workflow SS MCV (RBC) [Entitic vol] 88.0 fL Normal 80.0 - 99.0 fL AO Workflow SS Monocytes (Bld) [#/Vol] 0.6 103/mcL Normal 0.1 - 1.4 10^3/mcL AO Workflow SS Monocytes/100 WBC (Bld) 8.7 % Normal 2.0 - 13.0 % AO Workflow SS Neutrophils (Bld) [#/Vol] 3.8 103/mcL Normal 2.3 - 8.1 10^3/mcL AO Workflow SS Neutrophils/100 WBC (Bld) 56.6 % Normal 50.0 - 75.0 % AO Workflow SS Platelet mean volume (Bld) [Entitic vol] 9.1 fL Normal 6.6 - 10.5 fL AO Workflow SS Platelets (Bld) [#/Vol] 192 103/mcL Normal 150 - 450 10^3/mcL AO Workflow SS Potassium [Moles/Vol] 4.0 mmol/L Normal 3.5 - 5.1 mmol/L AO ADM SS Protein [Mass/Vol] 7.0 G/dL Normal 6.4 - 8.2 G/dL AO ADM SS RBC (Bld) [#/Vol] 4.06 106/mcL Low 4.10 - 5.3 0 10^6/mcL AO Workflow SS Sodium [Moles/Vol] 138 mmol/L Normal 136 - 145 mmol/L AO ADM SS Urea nitrogen [Mass/Vol] 13 mg/dL Normal 7 - 18 mg/dL AO ADM SS Urea nitrogen/Creatinine [Mass ratio] 14 ratio Normal 7 - 27 ratio AO ADM SS WBC (Bld) [#/Vol] 6.7 103/mcL Normal 4.5 - 10.8 10^3/mcL AO Workflow SS MGon 11-01-2024 Magnesium [Mass/Vol] 1.6 mg/dL Low 1.8-2.4 [facility] Comment on above: Performed By: #### M G, CMP, ADIFF, GFR, ANEU, CBC #### [address] [address] MRI BRAIN W/O CONTRASTon MRI BRAIN W/O CONTRAST ORIGINAL EXAMINATION: MRI OF THE BRAIN WITHOUT CONTRAST 11/01/2024 8:30 am TECHNIQUE: Multiplanar multisequence MRI of the brain was performed without the administration of intravenous contrast. COMPARISON: CTA head 10/31/2024. HISTORY: ORDERING SYSTEM PROVIDED HISTORY: Reason for Exam: CVA/TIA FINDINGS: INTRACRANIAL STRUCTURES/VENTRICLES: There is no acute infarct. No mass effect or midline shift. No evidence of an acute intracranial hemorrhage. The ventricles and sulci are normal in size and configuration. The sellar/suprasellar regions appear unremarkable. The normal signal voids within the major intracranial vessels appear maintained. ORBITS: The visualized portion of the orbits demonstrate no acute abnormality. SINUSES: The visualized paranasal sinuses and mastoid air cells demonstrate no acute abnormality. BONES/SOFT TISSUES: The bone marrow signal intensity appears normal. The soft tissues demonstrate no acute abnormality. IMPRESSION: No acute infarct. Unremarkable MRI examination of the brain. Interpreted by: Clarice Chaney Preliminary Report By: Clarice Chaney Electronically signed By Clarice Chaney Dictated Date: 11/01/2024 8:34:49 AM Prelim Date: 11/01/2024 8:36:02 AM Sign Date: 11/01/2024 8:36:02 AM Ordering Provider: RUBY Lee [facility] .GFRon 10-31-2024 GFR 76 ml/min/1.73sqm [facility] Comment on above: Result Comment: GFR Population mean for , Non- Americans Ages 20-29 = 116 mL/min/1.73 sq.m. Ages 30-39 = 107 mL/min/1.73 sq.m. Ages 40-49 = 99 mL/min/1.73 sq.m. Ages 50-59 = 93 mL/min/1.73 sq.m. Ages 60-69 = 85 mL/min/1.73 sq.m. Ages 70+ = 75 mL/min/1.73 sq.m. Chronic Kidney Disease: Less than 60 mL/min/1.73 square meters End Stage Renal Disease: Less than 15 mL/min/1.73 square meters Performed By: #### A LC, CMP, GFR #### [place] [id number] GFR Non- 63 ml/min/1.73sqm [facility] Comment on above: Result Comment: GFR Population mean for , Non- Americans Ages 20-29 = 116 mL/min/1.73 sq.m. Ages 30-39 = 107 mL/min/1.73 sq.m. Ages 40-49 = 99 mL/min/1.73 sq.m. Ages 50-59 = 93 mL/min/1.73 sq.m. Ages 60-69 = 85 mL/min/1.73 sq.m. Ages 70+ = 75 mL/min/1.73 sq.m. Chronic Kidney Disease: Less than 60 mL/min/1.73 square meters End Stage Renal Disease: Less than 15 mL/min/1.73 square meters Performed By: #### A LC, CMP, GFR #### [address] [place], [place] [address] Phan 10-31-2024 Ethanol Level <3 Normal [facility] Comment on above: Performed By: #### A LC, CMP, GFR #### [address] [place], [place] [address] Absolute neutrophil countOrd ered By: Alberto Lantigua on 10-31-2024 Neutrophils (Bld) [#/Vol] 4.8 10*3/uL 2.0-7.7 [facility] Albumin to globulin ratioOrd ered By: Alberto Lantigua on 10-31-2024 Albumin/Globulin [Mass ratio] 0.9 {ratio} 0.9-2.4 [facility] Basophil percentageOrdered B y: Alberto Lantigua on 10-31-2024 Basophils/100 WBC (Bld) 0.7 % 0-1 [facility] Bedside Glucoseon 10-31-2024 FINGERSTICK GLU 106 mg/dL Normal 74-106 [facility] Comment on above: Result Comment: BAL AGUILAR OF PATIENT CARE PER NURSING PROTOCOL Performed By: #### L 501.080 #### [facility] [address] [place], [address] Bilirubin Test strip Ql (U)O rdered By: Alberto Lantigua on 10-31-2024 Bilirubin Ql (U) Negative Negative [facility] Bilirubin, totalOrdered By: Alberto Lantigua on 10-31-2024 Bilirubin [Mass/Vol] 0.50 mg/dL 0.20-1.00 [facility] Comment on above: For patients on eltr ombopag therapy, use of Dimension [place] TBIL is not recommended. Blood urea nitrogen (BUN)/cr eatinine ratioOrdered By: Alberto Lantigua on 10-31-2024 Urea nitrogen/Creatinine [Mass ratio] 16.1 mg/mg - [facility] Brain/Head without Contrasto n 10-31-2024 Brain/Head without Contrast [facility] [address] [place], [place] [address] Brain/Head without Contrast MR#: [id number] Acct: [id number] Name: LOUIS WILCOX Rep #: [id number] : 1965 F 58 From: Jerald Oneil MD PCP: Dr. Giselle Styles MD Status: REG ER Study: Brain/Head without Contrast Date of Exam: 10/13 07/07 Exam# [id number] Ordering Dr: Alberto Lantigua [place] [id number] EXAM: CT HEAD WITHOUT INTRAVENOUS CONTRAST CLINICAL INDICATION: Acute altered mental status with amnesia TECHNIQUE: Multiple axial images were obtained of the head without intravenous contrast. CTDIvol = ( 44.99 ) mGy, DLP = ( 796.11 ) mGycm This CT exam was performed using one or more of the following dose reduction techniques: automated exposure control, adjustment of the mA and/or kV according to patient size, and/or use of iterative reconstruction technique. COMPARISON: No relevant prior studies available. FINDINGS: BRAIN AND EXTRA-AXIAL SPACES: Unremarkable. No intra- or extra-axial hemorrhage. No evidence of acute infarct. No intracranial mass or mass effect. There is preservation of the nguyen/white matter interface. Posterior fossa structures are unremarkable. Ventricles are appropriate for age. No hydrocephalus. Basal cisterns are patent. BONES/JOINTS: Unremarkable. No discrete lytic or blastic abnormalities. SINUSES: Unremarkable as visualized. Clear. MASTOID AIR CELLS: Unremarkable. Clear. ORBITS: Visualized globes, extraocular muscles, optic nerves and retrobulbar fat appear unremarkable. CT/Brain/Head without Contrast IMPRESSION: Negative head/brain CT without intravenous contrast. AIDOC was utilized to assist in identifying pertinent positive findings. Electronically Signed: Jerald Oneil MD at 12:57 EST , CC: Dr. Giselle Styles MD; Dr. Alberto Lantigua MD Medical Administrative Assistant: Signed Normal [facility] CBC W/Diff, Automatedon 10-13 Absolute Lymph 2.51 X10 3/uL Normal 0.83-4.51 [facility] Comment on above: Performed By: #### L 501.9520, L100.0100, L500.4050 #### [facility] [address] [place], [address] Absolute Neut 4.8 X10 3/uL Normal 2.0-7.7 [facility] Comment on above: Performed By: #### L 501.9520, L100.0100, L500.4050 #### [facility] [address] [place], [address] Basophils/100 WBC (Bld) 0.7 % Normal 0-1 [facility] Comment on above: Performed By: #### L 501.9520, L100.0100, L500.4050 #### [facility] [address] [place], [address] Eosinophils/100 WBC (Bld) 1.4 % Normal 0-5 [facility] Comment on above: Performed By: #### L 501.9520, L100.0100, L500.4050 #### [facility] [address] [place], [address] Erythrocyte distribution width (RBC) [Ratio] 12.3 % Normal 11.6-14.6 [facility] Comment on above: Performed By: #### L 501.9520, L100.0100, L500.4050 #### [facility] [address] [place], [address] Hematocrit (Bld) [Volume fraction] 41.0 % Normal 37-47 [facility] Comment on above: Performed By: #### L 501.9520, L100.0100, L500.4050 #### [facility] [address] [place], [address] Hemoglobin (Bld) [Mass/Vol] 13.8 g/dL Normal 12.0-15.0 [facility] Comment on above: Performed By: #### L 501.9520, L100.0100, L500.4050 #### [facility] [address] [place], [address] IG% 0.400 Normal 0.0-0.9 [facility] Comment on above: Result Comment: IG% - Immature Granulocytes (promyelocytes, myelocytes and metamyelocytes) > 1% indicates that a LEFT SHIFT is Present. Performed By: #### L 501.9520, L100.0100, L500.4050 #### [facility] [address] [place], [address] Lymphocytes/100 WBC (Bld) 31.3 % Normal 19-41 [facility] Comment on above: Performed By: #### L 501.9520, L100.0100, L500.4050 #### [facility] [address] [place], [address] MCH (RBC) [Entitic mass] 30.2 pg Normal 27.0-32.0 [facility] Comment on above: Performed By: #### L 501.9520, L100.0100, L500.4050 #### [facility] [address] [place], [address] MCHC (RBC) [Mass/Vol] 33.7 g/dL Normal 32-36 [facility] Comment on above: Performed By: #### L 501.9520, L100.0100, L500.4050 #### [facility] [address] [place], [address] MCV (RBC) [Entitic vol] 89.7 fL Normal 81-99 [facility] Comment on above: Performed By: #### L 501.9520, L100.0100, L500.4050 #### [facility] [address] [place], [address] Monocytes/100 WBC (Bld) 6.9 % Normal 0-10 [facility] Comment on above: Performed By: #### L 501.9520, L100.0100, L500.4050 #### [facility] [address] [place], [address] Neutrophils/100 WBC (Bld) 59.3 % Normal 47-70 [facility] Comment on above: Performed By: #### L [id number], L100.0100, [id number] #### [facility] [address] [place], [address] Nucleated RBC (Bld) [#/Vol] 0 10*3/uL Normal 0-5 [facility] Comment on above: Performed By: #### L [id number], L100.0100, [id number] #### [facility] [address] [place], [address] Platelet mean volume (Bld) [Entitic vol] 10.9 fL Normal 6.2-12.0 [facility] Comment on above: Performed By: #### L 501.9520, L100.0100, L500.4050 #### [facility] [address] [place], [address] Platelets (Bld) [#/Vol] 247 10*3/uL Normal 150-450 [facility] Comment on above: Performed By: #### L 501.9520, L100.0100, L500.4050 #### [facility] [address] [place], [address] RBC (Bld) [#/Vol] 4.57 10*6/uL Normal 4.2-5.4 [facility] Comment on above: Performed By: #### L 501.9520, L100.0100, L500.4050 #### [facility] [address] [place], [address] RDW SD 39.8 fl Normal 35.1-43.9 [facility] Comment on above: Performed By: #### L 501.9520, L100.0100, L500.4050 #### [facility] [address] [place], [address] WBC (Bld) [#/Vol] 8.0 10*3/uL Normal 4.4-11.0 [facility] Comment on above: Performed By: #### L 501.9520, L100.0100, L500.4050 #### [facility] [address] [place], [address] CMPon 10-31-2024 Albumin Level 3.6 G/dL Normal 3.4-4.8 [facility] Comment on above: Performed By: #### A LC, CMP, GFR #### [address] [address] Albumin/Globulin [Mass ratio] 0.9 {ratio} Low 1.1-2.5 [facility] Comment on above: Performed By: #### A LC, CMP, GFR #### [address] [address] ALP [Catalytic activity/Vol] 58 U/L Normal 40-135 [facility] Comment on above: Performed By: #### A LC, CMP, GFR #### [address] [address] ALT [Catalytic activity/Vol] 41 U/L Normal 14-59 [facility] Comment on above: Performed By: #### A LC, CMP, GFR #### [address] [address] AST [Catalytic activity/Vol] 23 U/L Normal 10-40 [facility] Comment on above: Performed By: #### A LC, CMP, GFR #### [address] [address] Bili Total 0.5 mg/dL Normal 0.2-1.0 [facility] Comment on above: Result Comment: Use of this assay is not recommended for patients undergoing treatment with eltrombopag due to the potential for falsely elevated results. Performed By: #### A LC, CMP, GFR #### [place] [address] BUN/Creatinine Ratio 16 ratio Normal 7-27 [facility] Comment on above: Performed By: #### A LC, CMP, GFR #### [place] [address] Calcium [Mass/Vol] 9.7 mg/dL Normal 8.4-10.2 [facility] Comment on above: Performed By: #### A LC, CMP, GFR #### [place] [address] Chloride [Moles/Vol] 102 mmol/L Normal 98-107 [facility] Comment on above: Performed By: #### A LC, CMP, GFR #### [address] [address] CO2 [Moles/Vol] 31 mmol/L Normal 23-31 [facility] Comment on above: Performed By: #### A LC, CMP, GFR #### [address] [address] Creatinine [Mass/Vol] 0.91 mg/dL Normal 0.55-1.[address] [facility] Comment on above: Result Comment: Test ing performed on Siemens Dimension EXL analyzer using a modified kinetic Shivani technique. Performed By: #### A LC, CMP, GFR #### [place] [address] Electrolyte Balance 7.0 mEq/L Normal 4.0-15.0 [facility] Comment on above: Performed By: #### A LC, CMP, GFR #### [address] [address] Globulin 4.0 G/dL Normal [facility] Comment on above: Performed By: #### A LC, CMP, GFR #### [address] [address] Glucose [Mass/Vol] 108 mg/dL Normal 80-115 [facility] Comment on above: Performed By: #### A LC, CMP, GFR #### [address] [address] Potassium [Moles/Vol] 3.8 mmol/L Normal 3.5-5.[address] [facility] Comment on above: Performed By: #### A LC, CMP, GFR #### [address] [address] Sodium [Moles/Vol] 140 mmol/L Normal 136-145 [facility] Comment on above: Performed By: #### A LC, CMP, GFR #### [address] [address] Total Protein 7.6 G/dL Normal 6.4-8.2 [facility] Comment on above: Performed By: #### A LC, CMP, GFR #### [address] [address] Urea nitrogen [Mass/Vol] 15 mg/dL Normal 7-18 [facility] Comment on above: Performed By: #### A LC, CMP, GFR #### [address] [address] [address] ANGIOGRAPHY HEAD W/ CONTR Anali 10-31-2024 CT ANGIOGRAPHY HEAD W/ CONTRAST ORIGINAL EXAMINATION: CTA OF THE HEAD WITH CONTRAST; CTA OF THE NECK 10/31/2024 6:40 pm: TECHNIQUE: CTA of the head/brain was performed with the administration of intravenous contrast. Multiplanar reformatted images are provided for review. MIP images are provided for review. Automated exposure control, iterative reconstruction, and/or weight based adjustment of the mA/kV was utilized to reduce the radiation dose to as low as reasonably achievable.; CTA of the neck was performed with the administration of intravenous contrast. Multiplanar reformatted images are provided for review. MIP images are provided for review. Stenosis of the internal carotid arteries measured using NASCET criteria. Automated exposure control, iterative reconstruction, and/or weight based adjustment of the mA/kV was utilized to reduce the radiation dose to as low as reasonably achievable. COMPARISON: None. HISTORY: ORDERING SYSTEM PROVIDED HISTORY: Reason for Exam: confusion FINDINGS: CTA NECK: AORTIC ARCH/ARCH VESSELS: No dissection or arterial injury. No significant stenosis of the brachiocephalic or subclavian arteries. CAROTID ARTERIES: Atherosclerotic changes without dissection, arterial injury, or hemodynamically significant stenosis by NASCET criteria. VERTEBRAL ARTERIES: Right dominant. No dissection, arterial injury, or significant stenosis. SOFT TISSUES: The lung apices are clear. No cervical or superior mediastinal lymphadenopathy. The larynx and pharynx are unremarkable. No acute abnormality of the salivary and thyroid glands. BONES: No acute osseous abnormality. CTA HEAD: ANTERIOR CIRCULATION: No significant stenosis of the intracranial internal carotid, anterior cerebral, or middle cerebral arteries. No aneurysm. POSTERIOR CIRCULATION: No significant stenosis of the basilar or posterior cerebral arteries. No aneurysm. origin left [facility]. Bilateral posterior communicating arteries are patent. OTHER: No dural venous sinus thrombosis on this non-dedicated study. BRAIN: No mass effect or midline shift. No extra-axial fluid collection. The nguyen-white differentiation is maintained. IMPRESSION: Atherosclerotic changes without large vessel occlusion or severe stenosis in the head or neck. Interpreted by: Nikki Liu Preliminary Report By: Nikki Liu Electronically signed By Nikki Liu Dictated Date: 10/31/2024 6:51:27 PM Prelim Date: 10/31/2024 6:57:17 PM Sign Date: 10/31/2024 6:57:17 PM Ordering Provider: LAURA Lee [facility] CT ANGIOGRAPHY NECK W/CONTRA Anali 10-31-2024 CT ANGIOGRAPHY NECK W/CONTRAST ORIGINAL EXAMINATION: CTA OF THE HEAD WITH CONTRAST; CTA OF THE NECK 10/31/2024 6:40 pm: TECHNIQUE: CTA of the head/brain was performed with the administration of intravenous contrast. Multiplanar reformatted images are provided for review. MIP images are provided for review. Automated exposure control, iterative reconstruction, and/or weight based adjustment of the mA/kV was utilized to reduce the radiation dose to as low as reasonably achievable.; CTA of the neck was performed with the administration of intravenous contrast. Multiplanar reformatted images are provided for review. MIP images are provided for review. Stenosis of the internal carotid arteries measured using NASCET criteria. Automated exposure control, iterative reconstruction, and/or weight based adjustment of the mA/kV was utilized to reduce the radiation dose to as low as reasonably achievable. COMPARISON: None. HISTORY: ORDERING SYSTEM PROVIDED HISTORY: Reason for Exam: confusion FINDINGS: CTA NECK: AORTIC ARCH/ARCH VESSELS: No dissection or arterial injury. No significant stenosis of the brachiocephalic or subclavian arteries. CAROTID ARTERIES: Atherosclerotic changes without dissection, arterial injury, or hemodynamically significant stenosis by NASCET criteria. VERTEBRAL ARTERIES: Right dominant. No dissection, arterial injury, or significant stenosis. SOFT TISSUES: The lung apices are clear. No cervical or superior mediastinal lymphadenopathy. The larynx and pharynx are unremarkable. No acute abnormality of the salivary and thyroid glands. BONES: No acute osseous abnormality. CTA HEAD: ANTERIOR CIRCULATION: No significant stenosis of the intracranial internal carotid, anterior cerebral, or middle cerebral arteries. No aneurysm. POSTERIOR CIRCULATION: No significant stenosis of the basilar or posterior cerebral arteries. No aneurysm. origin left [facility]. Bilateral posterior communicating arteries are patent. OTHER: No dural venous sinus thrombosis on this non-dedicated study. BRAIN: No mass effect or midline shift. No extra-axial fluid collection. The nguyen-white differentiation is maintained. IMPRESSION: Atherosclerotic changes without large vessel occlusion or severe stenosis in the head or neck. Interpreted by: Nikki Liu Preliminary Report By: Nikki Liu Electronically signed By Nikki Liu Dictated Date: 10/31/2024 6:51:27 PM Prelim Date: 10/31/2024 6:57:17 PM Sign Date: 10/31/2024 6:57:17 PM Ordering Provider: LAURA JOHANSEN [facility] Carbon dioxide measurementOr dered By: Alberto Lantigua on 10-31-2024 CO2 [Moles/Vol] 28.0 mmol/L 21.0-32.0 [facility] Chloride measurementOrdered By: Alberto Lantigua on 10-31-2024 Chloride [Moles/Vol] 102 mmol/L 98-107 [facility] Metabolic Prof ilon 10-31-2024 Albumin [Mass/Vol] 4.0 g/dL Normal 3.2-5.0 [facility] Comment on above: Performed By: #### L 501.9520, L100.0100, L500.4050 #### [facility] [address] [place], [address] Albumin/Globulin [Mass ratio] 0.9 {ratio} Normal 0.9-2.4 [facility] Comment on above: Performed By: #### L 501.9520, L100.0100, L500.4050 #### [facility] [address] [place], [address] ALK P 56 U/L Normal 45-117 [facility] Comment on above: Performed By: #### L 501.9520, L100.0100, L500.4050 #### [facility] [address] [place], [address] ALT [Catalytic activity/Vol] 36 U/L Normal 13-56 [facility] Comment on above: Performed By: #### L 501.9520, L100.0100, L500.4050 #### [facility] [address] [place], [address] AST [Catalytic activity/Vol] 29 U/L Normal 15-37 [facility] Comment on above: Result Comment: Slig ht Hemolysis, Result may be falsely increased. Performed By: #### L 501.9520, L100.0100, L500.4050 #### [facility] [address] [place], [address] Bilirubin [Mass/Vol] 0.50 mg/dL Normal 0.20-1.00 [facility] Comment on above: Result Comment: For patients on eltrombopag therapy, use of Dimension [place] TBIL is not recommended. Performed By: #### L 501.9520, L100.0100, L500.4050 #### [facility] [address] [place], [address] BUN/CRE 16.1 RATIO Normal 10-20 [facility] Comment on above: Performed By: #### L 501.9520, L100.0100, L500.4050 #### [facility] [address] [place], [address] CA,Total 10.1 mg/dL Normal 8.5-10.1 [facility] Comment on above: Performed By: #### L 501.9520, L100.0100, L500.4050 #### [facility] [address] [place], [address] Chloride [Moles/Vol] 102 mmol/L Normal 98-107 [facility] Comment on above: Performed By: #### L 501.9520, L100.0100, L500.4050 #### [facility] [address] [place], [address] CO2 [Moles/Vol] 28.0 mmol/L Normal 21.0-32.0 [facility] Comment on above: Performed By: #### L 501.9520, L100.0100, L500.4050 #### [facility] [address] [place], [address] Creatinine [Mass/Vol] 0.99 mg/dL Normal 0.55-1.02 [facility] Comment on above: Result Comment: The validity of the calculated GFR GFRAA in patients over 70 years has not been determined. Clinical correlation is essential. Performed By: #### L 501.9520, L100.0100, L500.4050 #### [facility] [address] [place], [address] ECRCL 67.24 ml/min Normal [facility] Comment on above: Performed By: #### L 501.9520, L100.0100, L500.4050 #### [facility] [address] [place], [address] EST GFR - AA 73 mL/min Normal >60 [facility] Comment on above: Result Comment: Afri can [place] GFR Calc Performed By: #### L 501.9520, L100.0100, L500.4050 #### [facility] [address] [place], [address] GAP 6 Normal 5-15 [facility] Comment on above: Performed By: #### L 501.9520, L100.0100, L500.4050 #### [facility] [address] [place], [address] GFR/1.73 sq M.predicted among non-blacks MDRD (S/P/Bld) [Vol rate/Area] 60 mL/min/{1.73_m2} Normal >60 [facility] Comment on above: Result Comment: Non- GFR Calc Performed By: #### L 501.9520, L100.0100, L500.4050 #### [facility] [address] [place], [address] Globulin (S) [Mass/Vol] 4.3 g/dL High 2.2-4.2 [facility] Comment on above: Performed By: #### L 501.9520, L100.0100, L500.4050 #### [facility] [address] [place], [address] Glucose [Mass/Vol] 122 mg/dL High 74-106 [facility] Comment on above: Result Comment: Fast ing Glucose result from 100 to 125 mg/dL suggests IMPAIRED HOMEOSTASIS per A.D.A. criteria. Performed By: #### L 501.9520, L100.0100, L500.4050 #### [facility] [address] [place], [address] Potassium [Moles/Vol] 4.3 mmol/L Normal 3.5-5.1 [facility] Comment on above: Result Comment: Slig ht Hemolysis, Result may be falsely increased. Performed By: #### L 501.9520, L100.0100, L500.4050 #### [facility] [address] [place], [address] Sodium [Moles/Vol] 136 mmol/L Normal 136-145 [facility] Comment on above: Performed By: #### L 501.9520, L100.0100, L500.4050 #### [facility] [address] [place], [address] T PROT 8.3 g/dL High 6.4-8.2 [facility] Comment on above: Performed By: #### L 501.9520, L100.0100, L500.4050 #### [facility] [address] [place], [address] Urea nitrogen [Mass/Vol] 16 mg/dL Normal 7-18 [facility] Comment on above: Performed By: #### L 501.9520, L100.0100, L500.4050 #### [facility] [address] [place], [address] Emergency Department Summary on 10-31-2024 Emergency Department Summary [facility] Medical Records Department [address] [place] [address] Emergency Department Summary 10/31/24 MR#: [id number] Acct: [id number] Name: LOUIS WILCOX Rep #: [id number] : 1965 58 From: Alberto Lantigua MD PCP: Dr. Giselle Styles MD Status:REG ER Location: ED HPI History of Present Illness Chief Complaint: Confusion Detail of Chief Complaint: Chief complaint is not confusion chief complaint is amnesia. Informant: patient and spouse/S.O. Onset/Context/Timing Onset: Today Context: Sudden Onset Timing: Continuous Quality: Amnesia Location: Global Current Severity: Moderate Maximum Severity: Moderate Worsened by: Nothing Relieved by: Nothing Associated Symptoms Associated Symptoms: no other symptoms Narrative Narrative: Patient is 58-year-old woman. She has history of hypertension and iron deficiency anemia who was brought in because of reported confusion. Patient is not confused. She is amnestic. Patient denies headache. I double vision blurred vision loss of vision. Eyes ringing or ears decreased hearing. Denies rhinorrhea, congestion postnasal drainage. Denies sore throat. No trouble speech or swallowing. She denies paresthesia, anesthesia or motor weakness upper lower extremity. Denies problems with coordination or balance. She does admit to dysuria. She believes she had dysuria at 2 or 3 days ago. She does not remember if she had dysuria this morning. There is no history of trauma. Patient's past medical history and meds were reviewed. She is on no antithrombotic or anticoagulant. Apparently she has been sleeping on the sofa. She slept on the sofa because of issue with there dog. She does not recall sleeping on the sofa. Prior similar symptoms: No Recent Illness/Hospitalizatio n: No [facility] Medical History Anemia Hypertension Thyroid condition Home Medications ???Medication ???Instructions ???Recorded ???Last Taken ???Type hydrochlorothiazide 12.5 mg tablet 12.5 mg PO DAILY 12/20/20 Unknown History losartan 50 mg tablet 50 mg PO DAILY 12/20/20 Unknown History levothyroxine 100 mcg tablet 100 mcg PO MOTUWETHFR 03/27/22 Unknown History ferrous sulfate 325 mg (65 mg 325 mg PO DAILY 04/02/23 Unknown History iron) tablet,delayed release potassium chloride 20 mEq oral 20 meq PO BID 04/02/23 Unknown History packet metoprolol succinate 50 mg capsule 50 mg PO DAILY 04/05/24 Unknown History sprinkle, ext. release 24 hr biotin PO DAILY 10/31/24 Unknown History Allergy/AdvReac Type Severity Reaction Status Date / Time clarithromycin (From Biaxin) Allergy Unknown Verified 10/31/24 11:23 doxycycline Allergy Unknown Verified 10/31/24 11:23 lisinopril Allergy Unknown Verified 10/31/24 11:23 sulfamethoxazole (From AdvReac Mild Nausea Verified 10/31/24 11:23 Bactrim) trimethoprim (From Bactrim) AdvReac Mild Nausea Verified 10/31/24 11:23 Family History Mother Breast cancer CVA (cerebral vascular accident) Diabetes Father Hypertension Surgical History History of repair of hiatal hernia Plantar fascia syndrome Gallbladder bile duct stone with obstruction Social History current occupational status: employed current occupation: [employer] Smoking Status: Never smoker alcohol intake: never substance use type: does not use caffeine: Yes Type: coffee Number of servings: 3 seatbelt use: always do you feel safe at home: Yes additional social history: Destery ROS ROS ED Constitutional Constitutional ED: Denies chills, fever(s), subjective, sweats or weight loss Eyes Eyes: Denies blurry vision, change in vision or diplopia ENT ENT ED: Denies ear pain, rhinorrhea or sore throat Cardiovascular Cardiovascular: Denies chest pain, orthopnea, palpitations or paroxysmal nocturnal dyspnea Respiratory/Chest Respiratory/Chest: Denies cough, dyspnea, dyspnea on exertion, orthopnea or paroxysmal nocturnal dyspnea Gastrointestinal Gastrointestinal: Denies abdominal pain, nausea or vomiting Genitourinary Genitourinary ED: Reports dysuria; Denies hematuria or urinary frequency Musculoskeletal Musculoskeletal: Denies arthralgias, back pain, myalgias or neck pain Integumentary Denies rash Neurologic Neurologic: Denies headache(s), paresthesias or weakness Psychiatric Psychiatric: Denies anxiety or depression Endocrine Endocrinology: Denies cold intolerance or heat intolerance Hematologic/Lymphatic Hematologic/Lymphatic: Reports systems reviewed and no addt'l complaints, except as documented Allergic/Immunologic Allergic/Immunologic ED: Denies mouth s (more content not included)... Normal [facility] Eosinophil percentageOrdered By: Alberto Lantigua on 10-31-2024 Eosinophils/100 WBC (Bld) 1.4 % 0-5 [facility] Epithelial cells.squamous LM Ql (Urine sed)Ordered By: Alberto Lantigua on 01-19-2025 Epithelial cells.squamous LM.HPF (Urine sed) [#/Area] 0 /[HPF] 5-10 [facility] Erythrocyte distribution wid th (RBC) [Ratio]Ordered By: Alberto Lantigua on 10-31-2024 Erythrocyte distribution width (RBC) [Entitic vol] 39.8 fL 35.1-43.9 [facility] Erythrocyte distribution wid th ratioOrdered By: Alberto Lantigua on 10-31-2024 Erythrocyte distribution width (RBC) [Ratio] 12.3 % 11.6-14.6 [facility] Estimated glomerular filtrat ion rate (GFR) AmericanOrdered By: Alberto Lantigua on 10-31-2024 Estimated GFR (MDRD) Amer 73 mL/min >60 [facility] Comment on above: GFR Calc Estimation of creatinine charito aranceOrdered By: Alberto Lantigua on 10-31-2024 Estimated Creatinine Clearance Calc 67.24 ml/min [facility] FT4on 10-31-2024 Free T4 [Mass/Vol] 1.11 ng/dL Normal 0.76-1.46 [facility] Comment on above: Performed By: #### A LC, CMP, GFR #### [place] [address] Glomerular filtration rate ( GFR) estimationOrdered By: Alberto Lantigua on 10-31-2024 Estimated GFR (MDRD) Non-Af Amer 60 mL/min >60 [facility] Comment on above: Non- GFR Calc Glucose Ql (U)Ordered By: Nancy Lantigua on 10-31-2024 Urine Glucose (UA) Normal mg/dl Normal [facility] Glucose measurementOrdered B y: Alberto Lantigua on 10-31-2024 Glucose [Mass/Vol] 122 mg/dL High 74-106 [facility] Comment on above: Fasting Glucose resu lt from 100 to 125 mg/dL suggests IMPAIRED HOMEOSTASIS per A.D.A. criteria. Glucose measurement at bedsi deOrdered By: Alberto Lantigua on 10-31-2024 Bedside Glucose (Misc Panel) 106 mg/dL 74-106 [facility] Comment on above: MANAGEMENT OF PATIEN T CARE PER NURSING PROTOCOL Hematocrit Auto (Bld) [Volum e fraction]Ordered By: Alberto Lantigua on 10-31-2024 Hematocrit (Bld) [Volume fraction] 41.0 % 37-47 [facility] Hemoglobin measurementOrdere d By: Alberto Lantigua on 10-31-2024 Hemoglobin (Bld) [Mass/Vol] 13.8 g/dL 12.0-15.0 [facility] Immature granulocytes/100 WB C Auto (Bld)Ordered By: Alberto Lantigua on 10-31-2024 Immature granulocytes/100 WBC (Bld) 0.400 % 0.0-0.9 [facility] Comment on above: IG% - Immature Granu locytes (promyelocytes, myelocytes and metamyelocytes) > 1% indicates that a LEFT SHIFT is Present. Ketones Test strip Ql (U)Ord ered By: Alberto Lantigua on 10-31-2024 Ketones Ql (U) Negative Negative [facility] LABORATORYOrdered By: SYSTEM SYSTEM on 10-31-2024 Albumin BCP dye [Mass/Vol] 3.6 G/dL Normal 3.4 - 4.8 G/dL AO ADM SS Albumin/Globulin [Mass ratio] 0.9 {ratio} Low 1.1 - 2.5 ratio AO ADM SS ALP [Catalytic activity/Vol] 58 U/L Normal 40 - 135 U/L AO ADM SS ALT With P-5'-P [Catalytic activity/Vol] 41 U/L Normal 14 - 59 U/L AO ADM SS AST With P-5'-P [Catalytic activity/Vol] 23 U/L Normal 10 - 40 U/L AO ADM SS Bilirubin [Mass/Vol] 0.5 mg/dL Normal 0.2 - 1 .0 mg/dL AO ADM SS Comment on above: Interpretive Data: U se of this assay is not recommended for patients undergoing treatment with eltrombopag due to the potential for falsely elevated results. Calcium [Mass/Vol] 9.7 mg/dL Normal 8.4 - 10. 2 mg/dL AO ADM SS Chloride [Moles/Vol] 102 mmol/L Normal 98 - 10 7 mmol/L AO ADM SS CO2 [Moles/Vol] 31 mmol/L Normal 23 - 31 mmol/L AO ADM SS Creatinine [Mass/Vol] 0.91 mg/dL Normal 0.55 - 1.02 mg/dL AO ADM SS Comment on above: Interpretive Data: T esting performed on Siemens Dimension EXL analyzer using a modified kinetic Shivani technique. Electrolyte Balance 7.0 mEq/L Normal 4.0 - 15 .0 mEq/L AO ADM SS Ethanol [Mass/Vol] mg/dL Invalid Interpretation Code AO ADM SS Free T4 [Mass/Vol] 1.11 ng/dL Normal 0.76 - 1. 46 ng/dL AO ADM SS GFR/1.73 sq M.predicted among blacks MDRD (S/P/Bld) [Vol rate/Area] 76 ml/min/1.73sqm Invalid Interpretation Code AO Chemistry S Comment on above: Interpretive Data: GFR Population mean for , Non- Americans Ages 20-29 = 116 mL/min/1.73 sq.m. Ages 30-39 = 107 mL/min/1.73 sq.m. Ages 40-49 = 99 mL/min/1.73 sq.m. Ages 50-59 = 93 mL/min/1.73 sq.m. Ages 60-69 = 85 mL/min/1.73 sq.m. Ages 70+ = 75 mL/min/1.73 sq.m. Chronic Kidney Disease: Less than 60 mL/min/1.73 square meters End Stage Renal Disease: Less than 15 mL/min/1.73 square meters GFR/1.73 sq M.predicted among non-blacks MDRD (S/P/Bld) [Vol rate/Area] 63 ml/min/1.73sqm Invalid Interpretation Code AO Chemistry S Comment on above: Interpretive Data: GFR Population mean for , Non- Americans Ages 20-29 = 116 mL/min/1.73 sq.m. Ages 30-39 = 107 mL/min/1.73 sq.m. Ages 40-49 = 99 mL/min/1.73 sq.m. Ages 50-59 = 93 mL/min/1.73 sq.m. Ages 60-69 = 85 mL/min/1.73 sq.m. Ages 70+ = 75 mL/min/1.73 sq.m. Chronic Kidney Disease: Less than 60 mL/min/1.73 square meters End Stage Renal Disease: Less than 15 mL/min/1.73 square meters Globulin 4.0 G/dL Invalid Interpretation Code AO ADM SS Glucose [Mass/Vol] 108 mg/dL Normal 80 - 115 mg/dL AO ADM SS Potassium [Moles/Vol] 3.8 mmol/L Normal 3.5 - 5.1 mmol/L AO ADM SS Protein [Mass/Vol] 7.6 G/dL Normal 6.4 - 8.2 G/dL AO ADM SS Sodium [Moles/Vol] 140 mmol/L Normal 136 - 145 mmol/L AO ADM SS TSH Qn 1.21 m[IU]/L Normal 0.36 - 3.74 mcIU/mL AO ADM SS Urea nitrogen [Mass/Vol] 15 mg/dL Normal 7 - 18 mg/dL AO ADM SS Urea nitrogen/Creatinine [Mass ratio] 16 ratio Normal 7 - 27 ratio AO ADM SS LABORATORYOrdered By: Sherlyn Moise on 10-31-2024 Cholesterol [Mass/Vol] 244 mg/dL High 0 - 2 00 mg/dL AO ADM SS Comment on above: Interpretive Data: C holesterol Reference Interval: Less than 200 Desirable 200-239 Borderline high risk 240 and above High risk Cholesterol in HDL [Mass/Vol] 51 mg/dL Normal 40 - 60 mg/dL AO ADM SS Cholesterol in LDL [Mass/Vol] 158 mg/dL High 0 - 130 mg/dL AO ADM SS Triglyceride [Mass/Vol] 173 mg/dL High 0 - 150 mg/dL AO ADM SS Comment on above: Interpretive Data: T riglyceride Reference Interval: Less than 150 Normal 150-199 Borderline high risk 200-499 High risk 500 or higher Very high risk LIPIDon 10-31-2024 Cholesterol [Mass/Vol] 244 mg/dL High 0-200 [facility] Comment on above: Result Comment: Chol esterol Reference Interval: Less than 200 Desirable 200-239 Borderline high risk 240 and above High risk Performed By: #### A LC, CMP, GFR #### [address] [address] Cholesterol in HDL [Mass/Vol] 51 mg/dL Normal 40-60 [facility] Comment on above: Performed By: #### A LC, CMP, GFR #### [address] [place], [place] [address] Cholesterol in LDL [Mass/Vol] 158 mg/dL High 0-130 [facility] Comment on above: Performed By: #### A LC, CMP, GFR #### [address] [place], [place] [address] Triglyceride [Mass/Vol] 173 mg/dL High 0-150 [facility] Comment on above: Result Comment: Trig lyceride Reference Interval: Less than 150 Normal 150-199 Borderline high risk 200-499 High risk 500 or higher Very high risk Performed By: #### A LC, CMP, GFR #### [id number] [place], [place] [address] Laboratory - Chemistry and C hemistry - challengeOrdered By: Alberto Lantigua on 10-31-2024 AST [Catalytic activity/Vol] 29 U/L 15-37 [facility] Comment on above: Slight Hemolysis, Re sult may be falsely increased. Lymphocytes Auto (Unsp spec) [#/Vol]Ordered By: Alberto Lantigua on 10-31-2024 Lymphocytes (Bld) [#/Vol] 2.51 10*3/uL 0.83-4.51 [facility] Lymphocytes/100 WBC Auto (Un sp spec)Ordered By: Alberto Lantigua on 10-31-2024 Lymphocytes/100 WBC (Bld) 31.3 % 19-41 [facility] MCV (mean corpuscular volume ) determinationOrdered By: Alberto Lantigua on 10-31-2024 MCV (RBC) [Entitic vol] 89.7 fL 81-99 [facility] Mean corpuscular hemoglobin (MCH) determinationOrdered By: Alberto Lantigua on 10-31-2024 MCH (RBC) [Entitic mass] 30.2 pg 27.0-32.0 [facility] Mean corpuscular hemoglobin concentration (MCHC) determinationOrdered By: Alberto Lantigua on 10-31-2024 MCHC (RBC) [Mass/Vol] 33.7 g/dL 32-36 [facility] Mean platelet volume determi nationOrdered By: Alberto Lantigua on 10-31-2024 Platelet mean volume (Bld) [Entitic vol] 10.9 fL 6.2-12.0 [facility] Microscopic analysis of urin e for red blood cells (RBC)Ordered By: Alberto Lantigua on 10-31-2024 Urine RBC 0 SEEN /hpf 0-5 [facility] Monocyte percentageOrdered B y: Albertojohn De La Garzao on 10-31-2024 Monocytes/100 WBC (Bld) 6.9 % 0-10 [facility] Mucus LM Ql (Urine sed)Order ed By: Alberto Lantigua on 10-31-2024 Mucus Ql (Urine sed) 0 SEEN /hpf [facility] Neutrophil percentageOrdered By: Alberto Lantigua on 10-31-2024 Neutrophils/100 WBC (Bld) 59.3 % 47-70 [facility] Nitrite Test strip Ql (U)Ord ered By: Alberto De La Garzao on 10-31-2024 Nitrite Ql (U) Negative Negative [facility] Nucleated red blood cell per centageOrdered By: Alberto De La Garazo on 10-31-2024 Nucleated RBC/100 WBC (Bld) [Ratio] 0 % 0-5 [facility] Platelet countOrdered By: Nancy Lantigua on 10-31-2024 Platelets (Bld) [#/Vol] 247 10*3/uL 150-450 [facility] Potassium measurementOrdered By: Alberto Lantigua on 10-31-2024 Potassium [Moles/Vol] 4.3 mmol/L 3.5-5.1 [facility] Comment on above: Slight Hemolysis, Re sult may be falsely increased. Protein Test strip Ql (U)Ord ered By: Alberto Lantigua on 10-31-2024 Protein Ql (U) 15 mg/dl High Negative [facility] RBC Auto (Bld) [#/Vol]Ordere d By: Alberto Lantigua on 10-31-2024 RBC (Bld) [#/Vol] 4.57 10*6/uL 4.2-5.4 [facility] Serum anion gap measurementO rdered By: Alberto Lantigua on 10-31-2024 Anion gap [Moles/Vol] 6 mmol/L 5-15 [facility] Serum globulin measurementOr dered By: Alberto Lantigua on 10-31-2024 Globulin (S) [Mass/Vol] 4.3 g/dL High 2.2-4.2 [facility] Serum or plasma alanine mont[place] otransferase (ALT) measurementOrdered By: Alberto De La Garzao on 10-31-2024 ALT [Catalytic activity/Vol] 36 U/L 13-56 [facility] Serum or plasma albumin diana urement (mass/volume)Ordered By: Alberto Lantigua on 10-31-2024 Albumin [Mass/Vol] 4.0 g/dL 3.2-5.0 [facility] Serum or plasma alkaline danielle sphatase measurementOrdered By: [facility] 10-31-2024 ALP [Catalytic activity/Vol] 56 U/L 45-117 [facility] Serum or plasma calcium diana urement (mass/volume)Ordered By: [facility] on 10-31-2024 Calcium [Mass/Vol] 10.1 mg/dL 8.5-10.1 [facility] Serum or plasma creatinine m easurement (mass/volume)Ordered By: Alberto Lantigua on 10-31-2024 Creatinine [Mass/Vol] 0.99 mg/dL 0.55-1.02 [facility] Comment on above: The validity of the calculated GFR & GFRAA in patients over 70 years has not been determined. Clinical correlation is essential. Serum or plasma urea nitroge n measurement (mass/volume)Ordered By: [facility] on 10-31-2024 Urea nitrogen [Mass/Vol] 16 mg/dL 7-18 [facility] Sodium levelOrdered By: Alberto Lantigua on 10-31-2024 Sodium [Moles/Vol] 136 mmol/L 136-145 [facility] TSHon 10-31-2024 TSH Qn 1.21 m[IU]/L Normal 0.36-3.74 [facility] Comment on above: Performed By: #### A LC, CMP, GFR #### [address] [place], [place] [address] TSH QnOrdered By: Albertojohn Lantigua on 10-31-2024 Thyroid Stimulating Hormone (TSH) 2.170 uIU/mL 0.358-3.740 [facility] Thyroid Stim Hormone (TSH)on 10-31-2024 TSH 2.170 uIU/mL Normal 0.358-3.740 [facility] Comment on above: Performed By: #### L [id number], L100.0100, L500.4050 #### [facility] [address] [place], [address] Total proteinOrdered By: Alberto Lantigua on 10-31-2024 Protein [Mass/Vol] 8.3 g/dL High 6.4-8.2 [facility] Urinalysis, Completeon 10-31 BACTERIA 0 SEEN Normal None Seen [facility] Comment on above: Order Comment: CLEAN CATCH Performed By: #### L 400.0001 #### [facility] [address] [place], [address] EPI,SQUAMOUS 0 SEEN Normal 5-10 [facility] Comment on above: Order Comment: CLEAN CATCH Performed By: #### L 400.0001 #### [facility] [address] [place], [address] Mucus Ql (Urine sed) 0 SEEN Normal [facility] Comment on above: Order Comment: CLEAN CATCH Performed By: #### L 400.0001 #### [facility] [address] [place], [address] RBC 0 SEEN Normal 0-5 [facility] Comment on above: Order Comment: CLEAN CATCH Performed By: #### L [id number] #### [facility] [address] [place], [address] WBC 0 SEEN Normal 0-5 [facility] Comment on above: Order Comment: CLEAN CATCH Performed By: #### L [id number] #### [facility] [address] [place], [address] Urine blood detectionOrdered By: Alberto Lantigua on 10-31-2024 Urine Occult Blood 10 /ul High Negative [facility] Urine clarityOrdered By: Alberto Lantigua on 10-31-2024 Clarity (U) Clear Clear [facility] Urine color determinationOrd ered By: Alberto Lantigua on 10-31-2024 Color (U) Yellow Yellow [facility] Urine leukocyte esterase det ection by dipstickOrdered By: Alberto Lantigua on 10-31-2024 Leukocyte esterase Test strip Ql (U) 25 /ul High Negative [facility] Urine pHOrdered By: Alberto lopez on 10-31-2024 pH (U) 6.0 [pH] 5.0 - 8.0 [facility] Urine sediment bacteria coun t by microscopy (number/high power field)Ordered By: Alberto Lantigua on 10-31-2024 Bacteria LM.HPF (Urine sed) [#/Area] 0 /[HPF] None Seen [facility] Urine specific gravity measu rementOrdered By: Alberto Lantigua on 10-31-2024 Specific gravity (U) [Rel density] 1.015 1.002-1.030 [facility] Urobilinogen Ql (U)Ordered B y: Alberto Lantigua on 10-31-2024 Urine Urobilinogen Normal mg/dl Normal [facility] White blood cell (WBC) count Ordered By: Alberto Lantigua on 10-31-2024 WBC (Bld) [#/Vol] 8.0 10*3/uL 4.4-11.0 [facility] White blood cell countOrdere d By: Alberto Lantigua on 10-31-2024 Urine WBC 0 SEEN /hpf 0-5 [facility] CNOVon 08-31-2024 CNOV Office Visit (DOV ) LOUIS WILCOX ([id number]) 1965 F Date Time Provider Department 08/31/24 11:00 AM JENNIE MABRY During your visit today, we recorded the following information about you: Pulse Blood pressure Weight Height 78/minute 122/80 89 kg 1.664 m Jennie Mabry MD 08/31/2024 11:26 AM Signed FOLLOW UP ENDOCRINOLOGY, THYROID SERVICE DATE: 08/31/2024 SERVICE TIME: 11:08 AM Chief complaint: Hypothyroidism, impaired fasting glucose HPI: Patient is a 58 years old female who is seen today for a 10-1/2 months follow-up for hypothyroidism and impaired fasting glucose. She has been following with me since April 2010. She was last seen in the office on 10/16/2023. Below is pertinent historical data that will be updated during this visit to reflect the patients current status. Hypothyroidism: Patient was initially referred to my office in April 2010. She had been diagnosed with hypothyroidism in February 2010. She was on 50 mcg daily dose and her TSH was 9.0. Dose was increased to 100 mcg 1 daily and then decreased to 6 pills a week in September 2010. The dose was last decreased in August 2015 to 5-1/2 pills a week when patient had lost a lot of weight. -Now, patient has been gaining weight gradually. TSH was stable, 1.47 on 08/23/2022. -She had a TSH on 06/14/2023, it was 0.9 per patient; I did not get that result on time, checked on 10/16/23. -Synthroid 100 mcg 5-1/2 pills continued. -08/17/2024 labs: TSH 2.59. Patient has not been able to lose weight, she may have gained a few pounds weight since he retired in January 2024. She has been less active. Impaired fasting glucose: Diagnosed in 2017 when she had a fasting blood sugar of 112. Her fasting blood sugar was 124 in 2019. She does have family history of diabetes. She started watching her diet. Her fasting blood sugar was 107 in 2019 and 107 in 2020. HbA1c was 5.4 in August 2021. -She had fasting labs on 06/14/2023, we did not get the result. She thinks her HbA1c was 5.7. -Patient has been gradually gaining weight. She used to exercise, walking 20 minutes once or twice a day in the past. - She had hiatus hernia surgery in February 2023. She had decreased her activity then. She had left ankle tendinitis in August 2023, for which she had physical therapy. She had very limited activity in 2022. -She retired in January 2024 and has not been very active. -Trying to watch her diet. -08/17/2024 labs: Fasting blood sugar 115, HbA1c 5.9. PAST MEDICAL HISTORY Diagnosis Date Acute gastritis without mention of hemorrhage Anemia Esophagitis, unspecified Essential hypertension, benign GERD (gastroesophageal reflux disease) Hypothyroid Low serum potassium Plantar fasciitis Psoriasis Thyroid disorder PAST SURGICAL HISTORY Procedure Laterality Date CHOLECYSTECTOMY 10/13/1999 Cholecystectomy ESOPHAGOGASTRODUODENOS COPY TRANSORAL DIAGNOSTIC 07/07/2000 EGD FOOT SURGERY HX 12/12/2015 Right Foot, Plantar fasciitis [M72.2] HIATAL HERNIA REPAIR HX 02/2023 FAMILY HISTORY Problem Relation Age of Onset Breast Cancer Mother Diabetes Mother other (Heart attack [Other]) Mother Stroke Mother IN MAY OF 2009 X THREE other (HEART PROBLEMS [Other]) Mother BRADYCARDIA, CAROTID SURGERY other (HTN [Other]) Father Heart Attack Father No Known Problems Sister other ( at infancy) Brother 6 weeks old Hypertension Brother Skin Cancer Brother Hypertension Brother Diabetes Brother Hypertension Maternal Grandmother No Known Problems Maternal Grandfather Cancer Paternal Grandmother type unknown No Known Problems Paternal Grandfather Social History Tobacco Use Smoking status: Former Current packs/day: 0.00 Average packs/day: 0.3 packs/day for 13.0 years (3.3 ttl pk-yrs) Types: Cigarettes Start date: 10/13/1983 Quit date: 1996 Years since quittin.9 Smokeless tobacco: Never Substance Use Topics Alcohol use: No Drug use: No Outpatient Medications as of 08/31/2024 Medication Sig cyclobenzaprine (FLEXERIL) 10 mg tablet Take 10 mg by mouth as needed. metoprolol succinate ER (TOPROL XL) 100 mg Take 1 tablet by mouth every afternoon. SYNTHROID 100 mcg tablet TAKE 1 TABLET FRIDAY THROUGH FRIDAY, TAKE 1/2 TABLET ON FRIDAY NONE ON FRIDAY hydroCHLOROthiazide (HYDRODIURIL, ESIDRIX) 12.5 mg tablet Take 12.5 mg by mouth once daily. losartan (COZAAR) 50 mg tablet Take 50 mg by mouth once daily. potassium chloride 20 mEq TbER Take 1 tablet by mouth two times a day. ferrous sulfate 325 mg (65 mg iron) tablet Take 325 mg by mouth daily with breakfast. No current facility-administered medications on file as of 08/31/2024. Review of Systems Constitutional: Negative for activity change, appetite change, fatigue and unexpected weight change. HENT: Negative for congestion, sore throat, trouble swallowing a (more content not included)... Normal [facility] CNPNon 08-18-2024 CNPN Telephone (EMQ) LOUIS WILCOX ([id number]) 1965 F Date Time Provider Department 08/18/24 JENNIE MABRY EMQ During your visit today, we recorded the following information about you: Jorge Tinajero MA 08/18/2024 10:06 AM Signed Lab Results received from : [facility] On: August Placed on your desk for review. Jorge Tinajero MA August 18, 2024 10:05 AM Jennie Mabry MD 08/18/2024 10:56 AM Signed Labs from 08/17/2024 reviewed. HbA1c 5.9. Fasting blood sugar 115. TSH 2.59. Calcium 9.3. BUN 15, creatinine 0.87. Patient has appointment on 08/31/2024. Allergies As of Date: 08/18/2024 Noted Allergy Reaction CLARITHROMYCIN 03/23/2015 8 - GI Upset 16 - Unknown LISINOPRIL 03/23/2015 3 - Cough 14 - Other: See Comments DOXYCYCLINE 07/25/2019 8 - GI Upset SULFAMETHOXAZOLE 05/20/2019 8 - GI Upset TRIMETHOPRIM 05/20/2019 8 - GI Upset Date Reviewed: 10/16/2023 Reviewed by: Hyacinth Andrade MA - Fully Assessed Reason for Visit: Results [95] Cmt: Lab results 08/17/2024 Prescriptions as of 08/18/2024 - celecoxib (CELEBREX) 200 mg capsule Take 1 capsule by mouth every afternoon. - cyclobenzaprine (FLEXERIL) 10 mg tablet Take 10 mg by mouth as needed. - metoprolol succinate ER (TOPROL XL) 100 mg Take 1 tablet by mouth every afternoon. - SYNTHROID 100 mcg tablet TAKE 1 TABLET FRIDAY THROUGH FRIDAY, TAKE 1/2 TABLET ON FRIDAY NONE ON FRIDAY - hydroCHLOROthiazide (HYDRODIURIL, ESIDRIX) 12.5 mg tablet Take 12.5 mg by mouth once daily. - losartan (COZAAR) 50 mg tablet Take 50 mg by mouth once daily. - potassium chloride 20 mEq TbER Take 1 tablet by mouth two times a day. - ferrous sulfate 325 mg (65 mg iron) tablet Take 325 mg by mouth daily with breakfast. - ESOMEPRAZOLE MAGNESIUM (NEXIUM ORAL) Take by mouth as needed. Problem List As Of Date 08/18/2024 Noted Resolved Hypothyroidism [E03.9] 01/13/2013 HTN (hypertension) [I10] 01/13/2013 Psoriasis [L40.9] 03/17/2014 Impaired fasting glucose [R73.01] 09/09/2022 Family history of diabetes mellitus [Z83.3] 09/09/2022 Encounter Status:Closed by JENNIE MABRY on 08/18/24 Normal [facility] Basic Metabolic Profile (BMP )on 08-17-2024 BUN/CRE 17.2 RATIO Normal 10-20 [facility] Comment on above: Performed By: #### L 500.2500, L501.9985, L501.9520 #### [facility] [address] [place], [address] CA,Total 9.3 mg/dL Normal 8.5-10.1 [facility] Comment on above: Performed By: #### L 500.2500, L501.9985, L501.9520 #### [facility] [address] [place], [address] Chloride [Moles/Vol] 105 mmol/L Normal 98-107 [facility] Comment on above: Performed By: #### L 500.2500, L501.9985, L501.9520 #### [facility] [address] [place], [address] CO2 [Moles/Vol] 27.0 mmol/L Normal 21.0-32.0 [facility] Comment on above: Performed By: #### L 500.2500, L501.9985, L501.9520 #### [facility] [address] [place], [address] Creatinine [Mass/Vol] 0.87 mg/dL Normal 0.55-1.02 [facility] Comment on above: Result Comment: The validity of the calculated GFR GFRAA in patients over 70 years has not been determined. Clinical correlation is essential. Performed By: #### L 500.2500, L501.9985, L501.9520 #### [facility] [address] [place], [address] EST GFR - AA 85 mL/min Normal >60 [facility] Comment on above: Result Comment: Afri can [place] GFR Calc Performed By: #### L 500.2500, L501.9985, L501.9520 #### [facility] [address] [place], [address] GAP 5 Normal 5-15 [facility] Comment on above: Performed By: #### L 500.2500, L501.9985, L501.9520 #### [facility] [address] [place], [address] GFR/1.73 sq M.predicted among non-blacks MDRD (S/P/Bld) [Vol rate/Area] 70 mL/min/{1.73_m2} Normal >60 [facility] Comment on above: Result Comment: Non- GFR Calc Performed By: #### L 500.2500, L501.9985, L501.9520 #### [facility] [address] [place], [address] Glucose [Mass/Vol] 115 mg/dL High 74-106 [facility] Comment on above: Result Comment: Fast ing Glucose result from 100 to 125 mg/dL suggests IMPAIRED HOMEOSTASIS per A.D.A. criteria. Performed By: #### L 500.2500, L501.9985, L501.9520 #### [facility] [address] [place], [address] Potassium [Moles/Vol] 3.8 mmol/L Normal 3.5-5.1 [facility] Comment on above: Performed By: #### L 500.2500, L501.9985, L501.9520 #### [facility] [address] [place], [address] Sodium [Moles/Vol] 137 mmol/L Normal 136-145 [facility] Comment on above: Performed By: #### L 500.2500, L501.9985, L501.9520 #### [facility] [address] [place], [address] Urea nitrogen [Mass/Vol] 15 mg/dL Normal 7-18 [facility] Comment on above: Performed By: #### L 500.2500, L501.9985, L501.9520 #### [facility] [address] [place], [address] Hemoglobin A1con 08-17-2024 HbA1c (Bld) [Mass fraction] 5.9 % High 3.8-5.6 [facility] Comment on above: Result Comment: Norm al < 5.7 % Prediabetic 5.7 - 6.4 % Diabetic >or= 6.5 % Please note range changes. Performed By: #### L 500.2500, L501.9985, L501.9520 #### [facility] [address] [place], [address] Thyroid Stim Hormone (TSH)on 08-17-2024 TSH 2.590 uIU/mL Normal 0.358-3.740 [facility] Comment on above: Performed By: #### L 500.2500, L501.9985, L501.9520 #### [facility] [address] [place], [address] CNPAriadna 07-06-2024 CNPN Telephone (DOV) JERILOUIS SABA ([id number]) 1965 F Date Time Provider Department 07/06/24 JENNIE MABRY During your visit today, we recorded the following information about you: Jorge Tinajero MA 07/06/2024 10:17 AM Signed Pt requesting an order for labs be sent to [facility]. Jorge Tinajero MA July 06, 2024 10:16 AM Jennie Mabry MD 07/06/2024 7:04 PM Signed Lab orders are already in Epic, were given to pt in 10/2023. - Will send them to [facility]. Jorge Tinajero MA 07/13/2024 3:49 PM Signed Orders sent to [facility] Jorge Tinajero MA July 13, 2024 3:49 PM Allergies As of Date: 07/06/2024 Noted Allergy Reaction CLARITHROMYCIN 03/23/2015 8 - GI Upset 16 - Unknown LISINOPRIL 03/23/2015 3 - Cough 14 - Other: See Comments DOXYCYCLINE 07/25/2019 8 - GI Upset SULFAMETHOXAZOLE 05/20/2019 8 - GI Upset TRIMETHOPRIM 05/20/2019 8 - GI Upset Date Reviewed: 10/16/2023 Reviewed by: Hyacinth Adnrade MA - Fully Assessed Reason for Visit: Orders [681] Cmt: labs Prescriptions as of 07/13/2024 - celecoxib (CELEBREX) 200 mg capsule Take 1 capsule by mouth every afternoon. - cyclobenzaprine (FLEXERIL) 10 mg tablet Take 10 mg by mouth as needed. - metoprolol succinate ER (TOPROL XL) 100 mg Take 1 tablet by mouth every afternoon. - SYNTHROID 100 mcg tablet TAKE 1 TABLET FRIDAY THROUGH FRIDAY, TAKE 1/2 TABLET ON FRIDAY NONE ON FRIDAY - hydroCHLOROthiazide (HYDRODIURIL, ESIDRIX) 12.5 mg tablet Take 12.5 mg by mouth once daily. - losartan (COZAAR) 50 mg tablet Take 50 mg by mouth once daily. - potassium chloride 20 mEq TbER Take 1 tablet by mouth two times a day. - ferrous sulfate 325 mg (65 mg iron) tablet Take 325 mg by mouth daily with breakfast. - ESOMEPRAZOLE MAGNESIUM (NEXIUM ORAL) Take by mouth as needed. Problem List As Of Date 07/06/2024 Noted Resolved Hypothyroidism [E03.9] 01/13/2013 HTN (hypertension) [I10] 01/13/2013 Psoriasis [L40.9] 03/17/2014 Impaired fasting glucose [R73.01] 09/09/2022 Family history of diabetes mellitus [Z83.3] 09/09/2022 Encounter Status:Closed by JENNIE MABRY on 07/06/24 Normal [facility] Basophil percentageOrdered B y: Giselle Styles on 02-13-2024 Chloride [Moles/Vol] 105 mmol/L 98-107 [facility] Cholesterol [Mass/Vol] 240 mg/dL <200 [facility] Comment on above: <200 mg/dL Desirable 200-240 mg/dL Borderline >240 mg/dL High Risk Glucose [Mass/Vol] 106 mg/dL 74-106 [facility] Comment on above: Fasting Glucose resu lt from 100 to 125 mg/dL suggests IMPAIRED HOMEOSTASIS per A.D.A. criteria. Potassium [Moles/Vol] 3.9 mmol/L 3.5-5.1 [facility] Sodium [Moles/Vol] 137 mmol/L 136-145 [facility] Triglyceride [Mass/Vol] 198 mg/dL <199 [facility] Comment on above: The drugs N-Acetylcy steine and Metamizole may falsely depress this assay.Serum Triglycerides Reference Interval Normal <150 mg/dL Borderline high 150 - 199 mg/dL High 200 - 499 mg/dL Very High > or = 500 mg/dL Laboratory - Chemistry and C hemistry - challengeOrdered By: Giselle Styles on 02-13-2024 Cholesterol in HDL [Mass/Vol] 49 mg/dL >40 [facility] Comment on above: The drugs N-Acetylcy steine and Metamizole may falsely depress this assay. Reference Range HDL <40 mg/dL Low HDL Cholesterol HDL >or= 60 mg/dL High HDL Cholesterol Cholesterol in LDL [Mass/Vol] 151 mg/dL 0-130 [facility] CO2 [Moles/Vol] 27.0 mmol/L 21.0-32.0 [facility] Urea nitrogen/Creatinine [Mass ratio] 20.1 mg/mg 10-20 [facility] No Panel InformationOrdered By: Giselle Styles on 02-13-2024 Estimated GFR (MDRD) Amer 94 mL/min >60 [facility] Comment on above: GFR Calc Estimated GFR (MDRD) Non-Af Amer 78 mL/min >60 [facility] Comment on above: Non- GFR Calc VLDL Cholesterol 40 mg/dL 5-40 [facility] Serum or plasma calcium diana urement (mass/volume)Ordered By: Giselle Styles on 02-13-2024 Calcium [Mass/Vol] 9.3 mg/dL 8.5-10.1 [facility] Serum or plasma creatinine m easurement (mass/volume)Ordered By: Giselle Styles on 02-13-2024 Creatinine [Mass/Vol] 0.80 mg/dL 0.55-1.02 [facility] Comment on above: The validity of the calculated GFR & GFRAA in patients over 70 years has not been determined. Clinical correlation is essential. Serum or plasma thyroid stim ulating hormone (TSH) measurement (units/volume)Ordered By: Giselle Styles on 02-13-2024 TSH Qn 1.64 uIU/mL 0.358-3.74 [facility] Serum or plasma thyroxine (T 4) measurement (mass/volume)Ordered By: Giselle Styles on 02-13-2024 T4 [Mass/Vol] 12.0 ug/dL 4.8-13.9 [facility] Serum or plasma urea nitroge n measurement (mass/volume)Ordered By: Giselle Styles on 02-13-2024 Urea nitrogen [Mass/Vol] 16 mg/dL 7-18 [facility] Thin prep Papanicolaou smear with manual screeningOrdered By: Giselle Styles on 02-13-2024 Protein (U) [Mass/Vol] 13.9 mg/dL 0.0-11.8 [facility] Thin prep Papanicolaou smear with manual screening 5 5-15 [facility] [facility] Urine creatinine measurement (mass/volume)Ordered By: Giselle Styles on 02-13-2024 Creatinine (U) [Mass/Vol] 231.00 mg/dL NO RANGE EST. [facility] Urine protein/creatinine mas s ratioOrdered By: Giselle Styles on 02-13-2024 Protein/Creatinine (U) [Mass ratio] 60 mg/g CRE 0-200 [facility] Whole blood hemoglobin A1c/t otal hemoglobin ratio (mass fraction)Ordered By: Giselle Styles on 02-13-2024 HbA1c (Bld) [Mass fraction] 5.5 % 3.8-5.6 [facility] Comment on above: Normal < 5.7 % Predi abetic 5.7 - 6.4 % Diabetic >or= 6.5 % Please note range changes. CNCOon 10-16-2023 CNCO Letter Text Normal [facility] CNOVon 10-16-2023 CNOV Office Visit (ENAGAK ) LOUIS WILCOX ([id number]) 1965 F Date Time Provider Department 10/16/23 2:40 PM JENNIE MABRY During your visit today, we recorded the following information about you: Pulse Blood pressure Weight Height 88/minute 114/70 88.2 kg 1.664 m Jennie Mabry MD 10/16/2023 4:06 PM Addendum FOLLOW UP ENDOCRINOLOGY, THYROID SERVICE DATE: 10/16/2023 SERVICE TIME: 2:55 PM Chief complaint: Hypothyroidism, impaired fasting glucose. HPI: Patient is a 57-year-old female who is seen today for a 13-month follow-up for hypothyroidism and impaired fasting glucose. She has been following with me since April 2010. She was last seen in the office on 09/09/2022. She had appointment to see me on 09/08/2023, which had to be changed since I was out of the office. Below is pertinent historical data that will be updated during this visit to reflect the patients current status. Hypothyroidism: Patient was initially referred to my office in April 2010. She had been diagnosed with hypothyroidism in February 2010. She was on 50 mcg daily dose and her TSH was 9.0. Dose was increased to 100 mcg 1 daily and then decreased to 6 pills a week in September 2010. The dose was last decreased in August 2015 to 5-1/2 pills a week when patient had lost a lot of weight. -Now, patient has been gaining weight gradually. TSH was stable, 1.47 on 08/23/2022. -She had a TSH on 06/14/2023, it was 0.9 per patient; I did not get that result. Impaired fasting glucose: Diagnosed in 2017 when she had a fasting blood sugar of 112. Her fasting blood sugar was 124 in 2018. She does have family history of diabetes. She started watching her diet. Her fasting blood sugar was 107 in 2019 and 107 in 2020. HbA1c was 5.4 in August 2021. -She had fasting labs on 06/14/2023, we did not get the result. She thinks her HbA1c was 5.7. -Patient has been gradually gaining weight. She used to exercise, walking 20 minutes once or twice a day in the past. - She had hiatus hernia surgery in February 2023. She had decreased her activity then. She recently had left ankle tendinitis in August 2023, for which she had physical therapy. She is also been having back spasms. Her activity was very limited for the last 2 months. PAST MEDICAL HISTORY Diagnosis Date Acute gastritis without mention of hemorrhage Anemia Esophagitis, unspecified Essential hypertension, benign GERD (gastroesophageal reflux disease) Hypothyroid Low serum potassium Plantar fasciitis Psoriasis Thyroid disorder PAST SURGICAL HISTORY Procedure Laterality Date CHOLECYSTECTOMY 10/13/1999 Cholecystectomy ESOPHAGOGASTRODUODENOS COPY TRANSORAL DIAGNOSTIC 07/07/2000 EGD FOOT SURGERY HX 12/12/2015 Right Foot, Plantar fasciitis [M72.2] HIATAL HERNIA REPAIR HX 02/2023 FAMILY HISTORY Problem Relation Age of Onset Breast Cancer Mother Diabetes Mother other (Heart attack [Other]) Mother Stroke Mother IN MAY OF 2009 X THREE other (HEART PROBLEMS [Other]) Mother BRADYCARDIA, CAROTID SURGERY other (HTN [Other]) Father Heart Attack Father No Known Problems Sister other ( at infancy) Brother 6 weeks old Hypertension Brother Skin Cancer Brother Hypertension Brother Diabetes Brother Hypertension Maternal Grandmother No Known Problems Maternal Grandfather Cancer Paternal Grandmother type unknown No Known Problems Paternal Grandfather Social History Tobacco Use Smoking status: Former Packs/day: .25 Types: Cigarettes Start date: 10/13/1983 Quit date: 1996 Years since quittin.0 Smokeless tobacco: Never Substance Use Topics Alcohol use: No Drug use: No Outpatient Medications as of 10/16/2023 Medication Sig celecoxib (CELEBREX) 200 mg capsule Take 1 capsule by mouth every afternoon. cyclobenzaprine (FLEXERIL) 10 mg tablet Take 10 mg by mouth as needed. metoprolol succinate ER (TOPROL XL) 100 mg Take 1 tablet by mouth every afternoon. SYNTHROID 100 mcg tablet TAKE 1 TABLET FRIDAY THROUGH FRIDAY, TAKE 1/2 TABLET ON FRIDAY NONE ON FRIDAY hydroCHLOROthiazide (HYDRODIURIL, ESIDRIX) 12.5 mg tablet Take 12.5 mg by mouth once daily. losartan (COZAAR) 50 mg tablet Take 50 mg by mouth once daily. potassium chloride 20 mEq TbER Take 1 tablet by mouth two times a day. ferrous sulfate 325 mg (65 mg iron) tablet Take 325 mg by mouth daily with breakfast. ESOMEPRAZOLE MAGNESIUM (NEXIUM ORAL) Take by mouth as needed. No current facility-administered medications on file as of 10/16/2023. Review of Systems Constitutional: Positive for unexpected weight change. Negative for activity change, appetite change and fatigue. Gradual 10 to 12 pounds weight gain over the last 1 year. HENT: Negative for congestion, sore throat, trouble swallowing and voice change. Eyes: Negative for visual disturbance. Respiratory: Negative for cough, (more content not included)... Normal [facility] .Auto Diffon 09-04-2023 Basophil, Absolute 0.0 10 3/mcL Normal 0.0-0.2 [facility] ([place]) Comment on above: Performed By: #### G [place] ADIFF, CBC, TROPHS, MDW, ANEU #### [id number] [place], [place] [address] Basophils/100 WBC (Bld) 0.8 % Normal 0.0-2.5 [facility] ([place]) Comment on above: Performed By: #### G FR, BMP, ADIFF, CBC, TROPHS, MDW, ANEU #### [address] [address] Eosinophil, Absolute 0.1 10 3/mcL Normal 0.0-0.4 [facility] ([place]) Comment on above: Performed By: #### G FR, BMP, ADIFF, CBC, TROPHS, MDW, ANEU #### [address] [address] Eosinophils/100 WBC (Bld) 2.4 % Normal 0.0-7.0 [facility] ([place]) Comment on above: Performed By: #### G FR, BMP, ADIFF, CBC, TROPHS, MDW, ANEU #### [address] [address] Lymphocyte, Absolute 3.1 10 3/mcL Normal 0.8-3.9 [facility] ([place]) Comment on above: Performed By: #### G FR, BMP, ADIFF, CBC, TROPHS, MDW, ANEU #### [address] [address] Lymphocytes/100 WBC (Bld) 49.5 % Normal 10.0-50.0 [facility] ([place]) Comment on above: Performed By: #### G FR, BMP, ADIFF, CBC, TROPHS, MDW, ANEU #### [address] [address] Monocyte, Absolute 0.7 10 3/mcL Normal 0.2-1.0 [facility] ([place]) Comment on above: Performed By: #### G FR, BMP, ADIFF, CBC, TROPHS, MDW, ANEU #### [address] [address] Monocytes/100 WBC (Bld) 11.7 % Normal 1.7-13.0 [facility] ([place]) Comment on above: Performed By: #### G FR, BMP, ADIFF, CBC, TROPHS, MDW, ANEU #### [address] [address] Neutrophils/100 WBC (Bld) 35.6 % Low 37.0-80.0 [facility] ([place]) Comment on above: Performed By: #### G FR, BMP, ADIFF, LIZZY, THAD PAL, ANEU #### [address] [address] .GFRon 09-04-2023 GFR 69 ml/min/1.73sqm Normal [facility] ([place]) Comment on above: Result Comment: GFR Population mean for , Non- Americans Ages 20-29 = 116 mL/min/1.73 sq.m. Ages 30-39 = 107 mL/min/1.73 sq.m. Ages 40-49 = 99 mL/min/1.73 sq.m. Ages 50-59 = 93 mL/min/1.73 sq.m. Ages 60-69 = 85 mL/min/1.73 sq.m. Ages 70+ = 75 mL/min/1.73 sq.m. Chronic Kidney Disease: Less than 60 mL/min/1.73 square meters End Stage Renal Disease: Less than 15 mL/min/1.73 square meters Performed By: #### G FR, BMP, ADIFF, LIZZY, THAD PAL, ANEU #### [address] [address] GFR Non- 57 ml/min/1.73sqm Normal [facility] ([place]) Comment on above: Result Comment: GFR Population mean for , Non- Americans Ages 20-29 = 116 mL/min/1.73 sq.m. Ages 30-39 = 107 mL/min/1.73 sq.m. Ages 40-49 = 99 mL/min/1.73 sq.m. Ages 50-59 = 93 mL/min/1.73 sq.m. Ages 60-69 = 85 mL/min/1.73 sq.m. Ages 70+ = 75 mL/min/1.73 sq.m. Chronic Kidney Disease: Less than 60 mL/min/1.73 square meters End Stage Renal Disease: Less than 15 mL/min/1.73 square meters Performed By: #### G FR, BMP, ADIFF, CBC, THAD PAL, ANEU #### [address] [address] .MDWon 09-04-2023 Monocyte Distribution Width 19.33 Normal 0.00-20.00 [facility] ([place]) Comment on above: Result Comment: For ED adult patients suspected of sepsis, MDW<=20.0 does not rule out sepsis or risk of sepsis Performed By: #### G FR, BMP, ADIFF, CBC, THAD PAL, ANEU #### [address] [address] .NEUABSon 09-04-2023 Neutrophil, Absolute 2.2 10 3/mcL Low 2.9-6.2 [facility] ([place]) Comment on above: Performed By: #### G FR, BMP, ADIFF, CBC, THAD PAL, ANEU #### [address] [address] BMPon 09-04-2023 BUN/Creatinine Ratio 14 ratio Normal 7-27 [facility] ([place]) Comment on above: Performed By: #### G FR, BMP, ADIFF, CBC, THAD PAL, ANEU #### [address] [address] Calcium [Mass/Vol] 9.0 mg/dL Normal 8.4-10.2 [facility] ([place]) Comment on above: Performed By: #### G FR, BMP, ADIFF, CBC, THAD PAL, ANEU #### [address] [address] Chloride [Moles/Vol] 99 mmol/L Normal 98-107 [facility] ([place]) Comment on above: Performed By: #### G FR, BMP, ADIFF, CBC, THAD PAL, ANEU #### [address] [address] CO2 [Moles/Vol] 27 mmol/L Normal 22-29 [facility] ([place]) Comment on above: Performed By: #### G FR, BMP, ADIFF, CBC, THAD PAL, ANEU #### [address] [address] Creatinine [Mass/Vol] 1.00 mg/dL Normal 0.55-1.02 [facility] ([place]) Comment on above: Performed By: #### G FR, BMP, ADRAGHU, KAE BALL MDW, ANEU #### [address] [address] Electrolyte Balance 11.0 mEq/L Normal 4.0-15.0 [facility] ([place]) Comment on above: Performed By: #### G FR, BMP, ADIFF, CBC, THAD PAL, ANEU #### [address] [address] Glucose [Mass/Vol] 126 mg/dL High 70-105 [facility] ([place]) Comment on above: Performed By: #### G , BMP, ADIFF, CBC, THAD PAL, ANEU #### [address] [address] Potassium [Moles/Vol] 3.3 mmol/L Low 3.5-5.1 [facility] ([place]) Comment on above: Performed By: #### G , BMP, ADIFF, KAE BALL MDW, ANEU #### [address] [address] Sodium [Moles/Vol] 137 mmol/L Normal 136-145 [facility] ([place]) Comment on above: Performed By: #### G , BMP, ADIFF, KAE BALL MDW, ANEU #### [address] [address] Urea nitrogen [Mass/Vol] 14 mg/dL Normal 7-18 [facility] ([place]) Comment on above: Performed By: #### G FR, BMP, ADIFF, KAE BALL MDW, ANEU #### [address] [address] CBCon 09-04-2023 Erythrocyte distribution width (RBC) [Ratio] 14.0 % Normal 11.5-14.5 [facility] ([place]) Comment on above: Performed By: #### G FR, BMP, ADIFF, CBC, REYNAS, W, ANEU #### [address] [address] Hematocrit (Bld) [Volume fraction] 36.3 % Low 37.0-47.0 [facility] ([place]) Comment on above: Performed By: #### G FR, BMP, ADIFF, CBC, REYNAS, W, ANEU #### [address] [address] Hgb 12.5 G/dL Normal 12.0-16.0 [facility] ([place]) Comment on above: Performed By: #### G FR, BMP, ADIFF, CBC, THAD PAL, ANEU #### [address] [address] MCH (RBC) [Entitic mass] 29.9 pg Normal 27.0-31.2 [facility] ([place]) Comment on above: Performed By: #### G FR, BMP, ADIFF, CBC, KAE, W, ANEU #### [address] [address] MCHC 34.3 G/dL Normal 33.0-37.0 [facility] ([place]) Comment on above: Performed By: #### G FR, BMP, ADIFF, CBC, KAE, THAD, ANEU #### [address] [address] MCV (RBC) [Entitic vol] 87.0 fL Normal 80.0-94.0 [facility] ([place]) Comment on above: Performed By: #### G FR, BMP, ADIFF, CBC, KAE, W, ANEU #### [address] [address] Platelet 255 10 3/mcL Normal 130-400 [facility] ([place]) Comment on above: Performed By: #### G FR, BMP, ADIFF, CBC, TROPHS, MDW, ANEU #### [address] [address] Platelet mean volume (Bld) [Entitic vol] 8.2 fL Normal 7.4-10.4 [facility] ([place]) Comment on above: Performed By: #### G FR, BMP, ADIFF, CBC, THAD PAL, ANEU #### [address] [address] RBC 4.18 10 6/mcL Low 4.20-5.40 [facility] ([place]) Comment on above: Performed By: #### G FR, BMP, ADIFF, CBC, THAD PAL, ANEU #### [address] [address] WBC 6.2 10 3/mcL Normal 4.6-10.8 [facility]) Comment on above: Performed By: #### G FR, BMP, ADIFF, CBC, THAD PAL, ANEU #### [address] [address] TROPHSon 09-04-2023 Troponin I High Sensitivity 7.2 ng/L Normal 0.0-51.4 [facility]) Comment on above: Performed By: #### G FR, BMP, ADIFF, CBC, THAD PAL, ANEU #### [address] [address] XR CHEST 1 VIEWon 09-04-2023 XR CHEST 1 VIEW ORIGINAL EXAMINATION: ONE XRAY VIEW OF THE CHEST 09/03/2023 10:30 pm COMPARISON: None. HISTORY: ORDERING SYSTEM PROVIDED HISTORY: Reason for Exam: chest pain FINDINGS: The cardiomediastinal silhouette is normal. No focal consolidation, vascular congestion, pleural effusion or pneumothorax. No acute osseous abnormality. IMPRESSION: No acute radiographic abnormality. I have personally reviewed the images of this examination and agree with the resident's findings and interpretation. Interpreted by: Rosales Jones MD Preliminary Report By: Yasmin Gutiérrez Electronically signed By Rosales Jones MD Dictated Date: 09/03/2023 10:39:11 PM Prelim Date: 09/03/2023 10:40:11 PM Sign Date: 09/03/2023 10:50:24 PM Ordering Provider: SAM Lee [facility]) LABORATORYOrdered By: SYSTEM SYSTEM on 09-03-2023 Basophil, Absolute 0.0 103/mcL Normal 0.0 - 0.2 10^3/mcL AO Workflow SS Basophils/100 WBC (Bld) 0.8 % Normal 0.0 - 2.5 % AO Workflow SS Calcium [Mass/Vol] 9.0 mg/dL Normal 8.4 - 10. 2 mg/dL AO ADM SS Chloride [Moles/Vol] 99 mmol/L Normal 98 - 10 7 mmol/L AO ADM SS CO2 [Moles/Vol] 27 mmol/L Normal 22 - 29 mmol/L AO ADM SS Creatinine [Mass/Vol] 1.00 mg/dL Normal 0.55 - 1.02 mg/dL AO ADM SS Electrolyte Balance 11.0 mEq/L Normal 4.0 - 15 .0 mEq/L AO ADM SS Eosinophil, Absolute 0.1 103/mcL Normal 0.0 - 0 .4 10^3/mcL AO Workflow SS Eosinophils/100 WBC (Bld) 2.4 % Normal 0.0 - 7.0 % AO Workflow SS Erythrocyte distribution width (RBC) [Ratio] 14.0 % Normal 11.5 - 14.5 % AO Workflow SS GFR/1.73 sq M.predicted among blacks MDRD (S/P/Bld) [Vol rate/Area] 69 ml/min/1.73sqm Invalid Interpretation Code AO Chemistry S Comment on above: Interpretive Data: GFR Population mean for , Non- Americans Ages 20-29 = 116 mL/min/1.73 sq.m. Ages 30-39 = 107 mL/min/1.73 sq.m. Ages 40-49 = 99 mL/min/1.73 sq.m. Ages 50-59 = 93 mL/min/1.73 sq.m. Ages 60-69 = 85 mL/min/1.73 sq.m. Ages 70+ = 75 mL/min/1.73 sq.m. Chronic Kidney Disease: Less than 60 mL/min/1.73 square meters End Stage Renal Disease: Less than 15 mL/min/1.73 square meters GFR/1.73 sq M.predicted among non-blacks MDRD (S/P/Bld) [Vol rate/Area] 57 ml/min/1.73sqm Invalid Interpretation Code AO Chemistry S Comment on above: Interpretive Data: GFR Population mean for , Non- Americans Ages 20-29 = 116 mL/min/1.73 sq.m. Ages 30-39 = 107 mL/min/1.73 sq.m. Ages 40-49 = 99 mL/min/1.73 sq.m. Ages 50-59 = 93 mL/min/1.73 sq.m. Ages 60-69 = 85 mL/min/1.73 sq.m. Ages 70+ = 75 mL/min/1.73 sq.m. Chronic Kidney Disease: Less than 60 mL/min/1.73 square meters End Stage Renal Disease: Less than 15 mL/min/1.73 square meters Glucose [Mass/Vol] 126 mg/dL High 70 - 105 mg/dL AO ADM SS Hematocrit (Bld) [Volume fraction] 36.3 % Low 37.0 - 47.0 % AO Workflow SS Hemoglobin (Bld) [Mass/Vol] 12.5 G/dL Normal 12.0 - 16.0 G/dL AO Workflow SS Lymphocyte, Absolute 3.1 103/mcL Normal 0.8 - 3 .9 10^3/mcL AO Workflow SS Lymphocytes/100 WBC (Bld) 49.5 % Normal 10.0 - 50.0 % AO Workflow SS MCH (RBC) [Entitic mass] 29.9 pg Normal 27.0 - 31.2 pg AO Workflow SS MCHC 34.3 G/dL Normal 33.0 - 37.0 G/dL AO Workflow SS MCV (RBC) [Entitic vol] 87.0 fL Normal 80.0 - 94.0 fL AO Workflow SS Monocyte distribution width Auto (Bld) [Entitic vol] 19.33 1 Normal 0.00 - 20.00 AO Workflow SS Comment on above: Result Comment: For ED adult patients suspected of sepsis, MDW<=20.0 does not rule out sepsis or risk of sepsis Monocyte, Absolute 0.7 103/mcL Normal 0.2 - 1.0 10^3/mcL AO Workflow SS Monocytes/100 WBC (Bld) 11.7 % Normal 1.7 - 13.0 % AO Workflow SS Neutrophil, Absolute 2.2 103/mcL Low 2.9 - 6 .2 10^3/mcL AO Workflow SS Neutrophils/100 WBC (Bld) 35.6 % Low 37.0 - 80.0 % AO Workflow SS Platelet mean volume (Bld) [Entitic vol] 8.2 fL Normal 7.4 - 10.4 fL AO Workflow SS Platelets (Bld) [#/Vol] 255 103/mcL Normal 130 - 400 10^3/mcL AO Workflow SS Potassium [Moles/Vol] 3.3 mmol/L Low 3.5 - 5.1 mmol/L AO ADM SS RBC (Bld) [#/Vol] 4.18 106/mcL Low 4.20 - 5.4 0 10^6/mcL AO Workflow SS Sodium [Moles/Vol] 137 mmol/L Normal 136 - 145 mmol/L AO ADM SS Troponin I.cardiac DL <= 0.01 ng/mL [Mass/Vol] 7.2 ng/L Normal 0.0 - 51.4 ng/L AO ADM SS Urea nitrogen [Mass/Vol] 14 mg/dL Normal 7 - 18 mg/dL AO ADM SS Urea nitrogen/Creatinine [Mass ratio] 14 ratio Normal 7 - 27 ratio AO ADM SS WBC (Bld) [#/Vol] 6.2 103/mcL Normal 4.6 - 10.8 10^3/mcL AO Workflow SS Basophil percentageon 2022 Chloride [Moles/Vol] 104 mmol/L 98-107 [facility] Glucose [Mass/Vol] 105 mg/dL 74-106 [facility] Comment on above: Fasting Glucose resu lt from 100 to 125 mg/dL suggests IMPAIRED HOMEOSTASIS per A.D.A. criteria. Potassium [Moles/Vol] 3.7 mmol/L 3.5-5.1 [facility] Sodium [Moles/Vol] 139 mmol/L 136-145 [facility] Laboratory - Chemistry and C hemistry - challengeon 06-14-2023 CO2 [Moles/Vol] 30.0 mmol/L 21.0-32.0 [facility] Urea nitrogen/Creatinine [Mass ratio] 16.9 mg/mg 10-20 [facility] No Panel Informationon 06-14 Estimated GFR (MDRD) Amer 99 mL/min >60 [facility] Comment on above: GFR Calc Estimated GFR (MDRD) Non-Af Amer 82 mL/min >60 [facility] Comment on above: Non- GFR Calc Thyroid Stimulating Hormone (TSH) 0.90 uIU/mL 0.358-3.74 [facility] Serum or plasma calcium diana urement (mass/volume)on 06-14-2023 Calcium [Mass/Vol] 9.1 mg/dL 8.5-10.1 [facility] Serum or plasma creatinine m easurement (mass/volume)on 06-14-2023 Creatinine [Mass/Vol] 0.77 mg/dL 0.55-1.02 [facility] Comment on above: The validity of the calculated GFR & GFRAA in patients over 70 years has not been determined. Clinical correlation is essential. Serum or plasma urea nitroge n measurement (mass/volume)on 06-14-2023 Urea nitrogen [Mass/Vol] 13 mg/dL 7-18 [facility] Thin prep Papanicolaou smear with manual screeningon 06-14-2023 Thin prep Papanicolaou smear with manual screening 5 5-15 [facility] Whole blood hemoglobin A1c/t otal hemoglobin ratio (mass fraction)on 06-14-2023 HbA1c (Bld) [Mass fraction] 5.7 % 3.8-5.6 [facility] Comment on above: Normal < 5.7 % Predi abetic 5.7 - 6.4 % Diabetic >or= 6.5 % Please note range changes. Office Visiton 05-09-2023 Follow-up visit [id number] Louis Wilcox 1965 F Date Provider Department Center 05/09/2023 [id number] [facility]URRELL [facility] None Family History Family Status - Relation Status Age at Mother Father Level of Service:[address] [place] POSTOP FOLLOW UP VISIT RELATED TO ORIGINAL PX Reason for Visit and Comments: Follow-up [900606] - ALS 8WK PO LAP HH Normal [facility] Progress Noteon 05-09-2023 Progress Note [facility] - Surgery Patient Name: Louis Wilcox Date: 05/09/23 S: Louis Wilcox follows up for a post operative visit after undergoing a laparoscopic hiatal hernia repair with posterior fundoplication on 03/05/23. She continues to do very well. No reflux and able to sleep better. Has stopped her PPI and has resumed normal diet. No dysphagia, n/v. Very pleased with outcome. Allergies Allergen Reactions Clarithromycin Other, Nausea And Vomiting and Unknown Other reaction(s): GI Upset Other reaction(s): GI Upset Other reaction(s): Unknown Lisinopril Other reaction(s): Cough, Cough, Other: See Comments, Other: See Comments, Unknown Other reaction(s): cough, Unknown Doxycycline Other reaction(s): GI Upset, GI Upset, Unknown Other reaction(s): Unknown Sulfamethoxazole Nausea And Vomiting Other reaction(s): GI Upset, GI Upset Other reaction(s): GI Upset, Nausea Other reaction(s): Nausea Trimethoprim Other and Nausea And Vomiting Other reaction(s): GI Upset Other reaction(s): GI Upset, Nausea, Other Other reaction(s): Nausea Current Outpatient Medications Medication Sig Dispense Refill clobetasol (Temovate) 0.05 % external solution APPLY TO AFFECTED AREA OF SCALP AT NIGHT X3 WEEKS-THEN 1 WEEK OFF-APPLY 1-2X WEEKLY FOR MAINTENANCE cyclobenzaprine (Flexeril) 10 MG tablet Take by mouth 3 times daily as needed. ferrous sulfate 325 (65 Fe) MG tablet Take 325 mg by mouth Daily with lunch. hydroCHLOROthiazide (HYDRODiuril) 12.5 MG tablet Daily with lunch. losartan (Cozaar) 50 MG tablet Daily with lunch. Potassium Chloride 20 MEQ/15ML (10%) solution Take by mouth 2 times daily. Synthroid 100 MCG tablet every morning (before breakfast). benzonatate (Tessalon) 200 MG capsule TAKE 1 (ONE) CAPSULE BY MOUTH FOUR TIMES DAILY, NEEDED FOR COUGH esomeprazole (NexIUM) [address] capsule daily with supper. predniSONE (Deltasone) 20 MG tablet Take by mouth. Last dose on 02/21 No current facility-administered medications for this visit. Past Medical History: Diagnosis Date Anemia Bronchitis 11/2022 Disease of thyroid gland GERD (gastroesophageal reflux disease) Hypertension PONV (postoperative nausea and vomiting) Psoriasis O: BP (!) 144/92 (BP Location: Left arm, Patient Position: Sitting, BP Cuff Size: Large adult) Pulse 82 Temp 36.6 ?C (97.8 ?F) (Temporal) Ht 5' 5 (1.651 m) Wt 189 lb (85.7 kg) BMI 31.45 kg/m? Physical Exam: The wounds are healing well. There is no evidence of infection, seroma, erythema or hernia. Assessment/Plan Louis was seen today for follow-up. Diagnoses and all orders for this visit: Encounter for postoperative care (Primary) Hiatal hernia GERD without esophagitis Louis is doing very well since surgery. She has resumed all normal activities and is eating regular diet without reflux or dysphagia. She can f/u prn. The patient was seen and examined independently and relevant data reviewed by myself. A full chart review was performed. Patient Care Team: Giselle Styles as PCP - General (Family Medicine) Lewis Reese (Gastroenterology) Normal [facility] Office Visiton 03-21-2023 Follow-up visit [id number] Louis Wilcox 1965 F Date Provider Department Center 03/21/2023 [id number] BURRELL [facility] None Family History Family Status - Relation Status Age at Mother Father Level of Service:77680 [place] POSTOP FOLLOW UP VISIT RELATED TO ORIGINAL PX Reason for Visit and Comments: Post-op [483] - Als 2 wk po lap hh poss mesh, post fundo, EGD 03/05/2023 Normal [facility] Progress Noteon 03-21-2023 Progress Note [facility] - Surgery Patient Name: Louis Wilcox Date: 03/21/23 S: Louis Wilcox follows up for a post operative visit after undergoing a laparoscopic hiatal hernia repair with posterior fundoplication on 03/05/23. She is doing well without any major postoperative complications. Her pain control is well controlled and she is not asking for narcotic refills. Her bowel function has returned to normal without constipation or diarrhea. Her appetite is returning to normal and she does not report any dysphagia, nausea or vomiting. She stopped taking the nexium a week after surgery. Has been able to lay flat at night to sleep. Pleased with outcome. Allergies Allergen Reactions Clarithromycin Other, Nausea And Vomiting and Unknown Other reaction(s): GI Upset Other reaction(s): GI Upset Other reaction(s): Unknown Lisinopril Other reaction(s): Cough, Cough, Other: See Comments, Other: See Comments, Unknown Other reaction(s): cough, Unknown Doxycycline Other reaction(s): GI Upset, GI Upset, Unknown Other reaction(s): Unknown Sulfamethoxazole Nausea And Vomiting Other reaction(s): GI Upset, GI Upset Other reaction(s): GI Upset, Nausea Other reaction(s): Nausea Trimethoprim Other and Nausea And Vomiting Other reaction(s): GI Upset Other reaction(s): GI Upset, Nausea, Other Other reaction(s): Nausea Current Outpatient Medications Medication Sig Dispense Refill benzonatate (Tessalon) 200 MG capsule TAKE 1 (ONE) CAPSULE BY MOUTH FOUR TIMES DAILY, NEEDED FOR COUGH clobetasol (Temovate) 0.05 % external solution APPLY TO AFFECTED AREA OF SCALP AT NIGHT X3 WEEKS-THEN 1 WEEK OFF-APPLY 1-2X WEEKLY FOR MAINTENANCE cyclobenzaprine (Flexeril) 10 MG tablet Take by mouth 3 times daily as needed. ferrous sulfate 325 (65 Fe) MG tablet Take 325 mg by mouth Daily with lunch. hydroCHLOROthiazide (HYDRODiuril) 12.5 MG tablet Daily with lunch. losartan (Cozaar) 50 MG tablet Daily with lunch. Potassium Chloride 20 MEQ/15ML (10%) solution Take by mouth 2 times daily. predniSONE (Deltasone) 20 MG tablet Take by mouth. Last dose on 02/21 Synthroid 100 MCG tablet every morning (before breakfast). esomeprazole (NexIUM) [address] capsule daily with supper. No current facility-administered medications for this visit. Past Medical History: Diagnosis Date Anemia Bronchitis 11/2022 Disease of thyroid gland GERD (gastroesophageal reflux disease) Hypertension PONV (postoperative nausea and vomiting) Psoriasis O: BP (!) 116/92 (BP Location: Left arm, Patient Position: Sitting, BP Cuff Size: Adult) Pulse 95 Temp 36.2 ?C (97.1 ?F) (Temporal) Ht 5' 5 (1.651 m) Wt 190 lb (86.2 kg) BMI 31.62 kg/m? Physical Exam: The wounds are healing well. There is no evidence of infection, seroma, erythema or hernia. Assessment/Plan Louis was seen today for post-op. Diagnoses and all orders for this visit: Encounter for postoperative care (Primary) GERD without esophagitis Hiatal hernia She may advance diet as tolerated. She may increase their activity to a normal level yet refrain from lifting greater than 15# for one month after surgery. Follow-up 6 weeks as scheduled. I have liberalized her diet, she is off PPI therapy. She is very happy with her outcome. The patient was seen and examined independently and relevant data reviewed by myself. A full chart review was performed. Patient Care Team: Giselle Styles as PCP - General (Family Medicine) Lewis Reese (Gastroenterology) hf Normal [facility] Progress Noteon 03-06-2023 Progress Note Negative Normal [facility] Progress Note -- Attestation signed by Alex Burrell MD at 03/06/2023 10:14 AM [facility] - Surgery [facility] Patient Name: Louis Wilcox Date: 03/06/23 MIS-General Surgery/Bariatric Progress Note Subjective: The patient is doing well, postoperative day #1 from [facility]. No nausea, vomiting, or adverse events overnight. Scheduled Meds:enoxaparin, 40 mg, SubCUTAneous, Daily ketorolac, 30 mg, IntraVENous, 4 times per day levothyroxine, 100 mcg, Oral, qAM AC pantoprazole, 40 mg, IntraVENous, qAM AC simethicone, 80 mg, Oral, TID sodium chloride 0.9%, 10 mL, IntraVENous, 2 times per day Continuous Infusions:dextrose 5 % and sodium chloride 0.45 % with KCl 20 mEq/L, 75 mL/hr, Last Rate: 75 mL/hr (03/06/23 0941) PRN Meds:PRN medications: cyclobenzaprine, hydrALAZINE, HYDROmorphone OR HYDROmorphone, labetalol, ondansetron ODT OR ondansetron, oxyCODONE-acetaminophe n OR oxyCODONE-acetaminophe n, sodium chloride, sodium chloride 0.9% Allergies Allergen Reactions Clarithromycin Other, Nausea And Vomiting and Unknown Other reaction(s): GI Upset Other reaction(s): GI Upset Lisinopril Other reaction(s): Cough, Cough, Other: See Comments, Other: See Comments, Unknown Doxycycline Other reaction(s): GI Upset, GI Upset, Unknown Sulfamethoxazole Nausea And Vomiting Other reaction(s): GI Upset, GI Upset Other reaction(s): GI Upset, Nausea Trimethoprim Other and Nausea And Vomiting Other reaction(s): GI Upset Other reaction(s): GI Upset, Nausea, Other Objective: Patient Vitals for the past 24 hrs: BP Temp Temp src Pulse Resp SpO2 03/06/23 0923 130/83 36.3 ?C (97.4 ?F) Temporal 73 16 98 % 03/06/23 0503 136/76 36.8 ?C (98.2 ?F) Temporal 58 16 98 % 03/06/23 0110 129/75 36.2 ?C (97.2 ?F) Temporal 70 16 95 % 03/05/23 2053 123/70 36.2 ?C (97.2 ?F) Temporal 74 16 95 % 03/05/23 1731 139/77 37.1 ?C (98.7 ?F) Temporal 68 18 100 % 03/05/23 1141 (!) 152/89 (!) 35.9 ?C (96.6 ?F) Temporal 75 16 99 % 03/05/23 1030 (!) 152/86 -- -- 80 -- 100 % 03/05/23 1015 135/82 -- -- 81 15 99 % Average, Min, and Max for last 24 hours Vitals: TEMPERATURE: Temp Av.4 ?C (97.6 ?F) Min: 35.9 ?C (96.6 ?F) Max: 37.1 ?C (98.7 ?F) RESPIRATIONS RANGE: Resp Av.1 Min: 15 Max: 18 PULSE RANGE: Pulse Av.4 Min: 58 Max: 81 BLOOD PRESSURE RANGE: Systolic (24hrs), Av , Min:123 , Max:152 ; Diastolic (24hrs), Av, Min:70, Max:89 PULSE OXIMETRY RANGE: SpO2 Av % Min: 95 % Max: 100 % I/O last 3 completed shifts: In: 1953.3 (22.4 mL/kg) [I.V.:1500 (17.2 mL/kg); IV Piggyback:453.3] Out: 20 (0.2 mL/kg) [Blood:20] Weight: 87.1 kg CBC: Recent Labs 03/06/23 05 WBC 13.4* HGB 10.6* HCT 31.2* PLT 204 BMP: Recent Labs 03/06/23 05 NA 130* K 4.8 CL 100 CO2 27 BUN 16 CREATININE 0.72 GLUCOSE 161* Abdomen: Bowel sounds were normal. The abdomen was soft and appropriately tender postoperative. Nondistended. Wounds are clean dry and intact. Assessment/Plan: Postoperative day #1, Lap HH GI/DVT prophylaxis, continue SQ Lovenox UGI normal, no signs of extravasation or leak Increase activity Trial clear liquid diet Pulmonary toilet Initiate home medications, and oral pain control medications Care was discussed with the resident on service. Alex Burrell MD 03/06/2023, 10:13 AM [facility] Surgery [facility]ariatric [facility] Patient Name: Louis Wilcox Date: 03/06/2023 MIS-General Surgery/Bariatric Progress Note Subjective: The patient is doing well, postoperative day #1. No vomiting, or adverse events overnight. Some nausea ON better with zofran. Scheduled Meds:enoxaparin, 40 mg, SubCUTAneous, Daily ketorolac, 30 mg, IntraVENous, 4 times per day levothyroxine, 100 mcg, Oral, qAM AC pantoprazole, 40 mg, IntraVENous, qAM AC sodium chloride 0.9%, 10 mL, IntraVENous, 2 times per day Continuous Infusions:dextrose 5 % and sodium chloride 0.45 % with KCl 20 mEq/L, 100 mL/hr, Last Rate: 100 mL/hr (03/05/23 0788) PRN Meds:PRN medications: cyclobenzaprine, hydrALAZINE, HYDROmorphone OR HYDROmorphone, labetalol, ondansetron ODT OR ondansetron, sodium chloride, sodium chloride 0.9% Allergies Allergen Reactions Clarithromycin Other, Nausea And Vomiting and Unknown Other reaction(s): GI Upset Other reaction(s): GI Upset Lisinopril Other reaction(s): Cough, Cough, Other: See Comments, Other: See Comments, Unknown Doxycycline Other reaction(s): GI Upset, GI Upset, Unknown Sulfamethoxazole Nausea And Vomiting Other reaction(s): GI Upset, GI Upset Other reaction(s): GI Upset, Nausea Trimethoprim Other and Nausea And Vomiting Other reaction(s): GI Upset Other reaction(s): GI Upset, Nausea, Other Objective: Patient Vitals for the (more content not included)... Normal [facility] Nursing Noteon 03-05-2023 Nursing Note Patient family/visit or updated by RN at this time. Normal [facility] Op Noteon 03-05-2023 Op Note [facility] - Surgery [facility] Physicians Surgery Patient Name: Louis Wilcox OPERATIVE NOTE DATE OF PROCEDURE: 03/05/2023 SURGEON: Alex Burrell MD [place] OPERATOR: Taylor Darden MD PREOPERATIVE DIAGNOSIS: Symptomatic Hiatal Hernia Refractory GERD POSTOPERATIVE DIAGNOSIS: Symptomatic Hiatal Hernia Refractory GERD OPERATION: Laparoscopic Hiatal Hernia Repair Laparoscopic Posterior Toupet Fundoplication Upper GI Endoscopy ANESTHESIA: General anesthesia ESTIMATED BLOOD LOSS: less than 50 COMPLICATIONS: None PREOPERATIVE MEDICATIONS: Ancef, Heparin HISTORY: The patient is a 57 y.o. year old female with history of above preop diagnosis. I explained the risk, benefits, expected outcome, and alternatives to the procedure. Patient understands and is in agreement to proceed with operation. PROCEDURE: The patient was brought to the operating room and placed in supine position. After initiation of general anesthesia by the Anesthesia Department, she was placed in split-leg lithotomy with his arms extended. Care was taken to pad the bony prominences. Her abdomen was shaved, prepped, and draped in a normal sterile fashion. A Veress needle was placed in the left upper quadrant. We insufflated without difficulty and exchanged this for a 12 mm trocar. A 5 mm was placed in the right upper quadrant, one inferiorly and lateral to the initial access port and one in the mid epigastrium, a 5 mm subxiphoid stab wound was created for retraction of the left lobe of the liver using the Marina liver retractor. Upon evaluation of the diaphragm, there was a hiatal hernia noted, both anteriorly and posteriorly. Because of the abnormal visual inspection of the diaphragm the hiatal hernia was repaired. The phrenoesophageal ligament was divided using hook electrocautery exposing the left treasure of the diaphragm. We continued our dissection along the anterior crural arch from left to right. The gastrohepatic ligament was incised using Bovie electrocautery, the peritoneum overlying the junction of the transversely passing fat pad at the base of the right treasure was incised. We bluntly mobilized the esophagus, and reduced the GE junction into the abdomen by 5 cm. A Eckley drain was used to provide appropriate retraction. The anterior and posterior vagus nerves were identified and 360 degree circumferential complete mobilization was performed. The hernia sac was from the mediastinum and completely reduced. The hernia sac was completely dissected off the distal esophagus as well as the right and left parietal pleura. The hiatal hernia crural separation measured approximately 6 cm. Multiple sutures of 0 Ethibond were used to reapproximate the left and right treasure around the 50-Yoruba bougie reapproximating the posterior defect created by the right and left posterior crural columns. We then proceeded with a posterior toupet fundoplication. The fundus was marked using a 3-0 Vicryl suture and brought in a retroesophageal plane. We proceeded with a 270? wrap posteriorly using interrupted 2-0 silk sutures securing the wrap along the right treasure, posteriorly as well as along the left treasure. This was performed with the bougie in place, this was then removed for endoscopy. The bougie was removed. An upper GI endoscopy was performed. The flexible gastroscope was introduced through the patient's mouth, through the esophagus, through the stomach. The air was insufflated into the stomach and the scope retroflexed. The posterior fundoplication was intact, there was no evidence of a hiatal hernia and the wrap was otherwise normal. Normal postoperative configurations. The air was evacuated and the scope was withdrawn from the patient. She tolerated the procedure well, was extubated, sent to recovery in stable condition. The skin was closed using 4-0 Monocryl. There were no qualified residents available to facilitate the procedure, as a result Dr. Taylor Darden was asked to serve as the first aid attendant for this procedure. [facility] ECG 12-LEADon 02-22-2023 ECG 12-LEAD IMPRESSION: Sinus rhythm Probable left ventricular hypertrophy Electronically Signed On 02-22-2023 14:53:03 EDT by Norberto Redyd [facility] PREPROCINSon 02-21-2023 PREPROCINS Medication List Accurate as of February 21, 2023 9:31 AM. Always use your most recent med list. benzonatate 200 MG capsule Commonly known as: Tessalon Notes to patient: Not taking cholecalciferol 50 MCG (2000 UT) tablet Commonly known as: Vitamin D-3 Notes to patient: Hold day of surgery clobetasol 0.05 % external solution Commonly known as: Temovate Notes to patient: N/A cyclobenzaprine 10 MG tablet Commonly known as: Flexeril Medication Adjustments for Surgery: Take morning of surgery Notes to patient: If needed esomeprazole [address] capsule Commonly known as: NexIUM Medication Adjustments for Surgery: Take morning of surgery Notes to patient: If tolerated ferrous sulfate 325 (65 Fe) MG tablet Notes to patient: Hold day of surgery hydroCHLOROthiazide 12.5 MG tablet Commonly known as: HYDRODiuril Notes to patient: Hold day of surgery losartan 50 MG tablet Commonly known as: Cozaar Notes to patient: Hold day of surgery Potassium Chloride 20 MEQ/15ML (10%) solution Notes to patient: Hold day of surgery predniSONE 20 MG tablet Commonly known as: Deltasone Notes to patient: Last dose today 02/21 Synthroid 100 MCG tablet Generic drug: levothyroxine Medication Adjustments for Surgery: Take morning of surgery Additional Instructions: You may take Tylenol for pain. NO Motrin, ibuprofen or Advil for 24 hours prior to surgery or longer if instructed by your surgeon. NO Aleve or Naprosyn for 3 days prior to surgery or longer if instructed by your surgeon. DO NOT take aspirin or aspirin containing products for 5 days before surgery, or longer if instructed by your surgeon. Follow any instructions given to you by Dr. Burrell; call his office with any questions. Shower with an antibacterial soap such as Dial or Safeguard before coming to the hospital. No makeup, lotion, powder, deodorant or body spays. No hair products. Remove all jewelry and leave it at home. Wear loose comfortable clothing to go home in. You may brush your teeth morning of surgery. Do not wear contacts day of surgery. No marijuana (THC), smoking or alcohol for 24 hours prior to surgery. Please arrange for a responsible adult to drive you home after your surgery and that there is a responsible adult with you for 24 hours post discharge. You will receive a call the day before your surgery to verify your arrival time and date. You will be asked to arrive at least two hours prior to your scheduled surgery time. We encourage you to write down any questions you may have for the surgeon, anesthesiologist, or other members of the surgical team and bring it with you the day of surgery. Please bring photo ID and insurance information. TOUCH UP PAINTER HAND AND PARKING IN THE MAIN DECK ARE FREE DAY OF SURGERY. PARKING IN THE DECK-- AFTER PARKING TAKE THE ELEVATOR TO LEVEL ONE AND TAKE THE BRIDGE TO THE HOSPITAL. GO TO THE RIGHT AND GO AROUND THE CORNER TO THE SAME DAY SURGERY DESK AND CHECK IN THERE. IF GOING IN THE MAIN ENTRANCE FROM TOUCH UP PAINTER HAND--- TURN LEFT AND GO DOWN THE COOMBS TO THE H ELEVATORS AND TAKE THEM TO ONE, LEFT OFF THE ELEVATOR AND GO AROUND TO THE SAME DAY DESK AND CHECK IN. [facility] Progress Noteon 02-21-2023 Progress Note Patient Name: Louis Wilcox Date: 02/21/23 S: Louis Wilcox follows up for reflux. She has undergone UGI w/mb and EGD and presents today for preoperative appointment. Has been having increased breakthrough symptoms over the past year and waking with acid in mouth resulting in emesis and aspiration. UGI w/ Marshmallow/Bagel 12/09/22 RUPESH w/reflux; marked dysmotility with both boluses EGD 12/02/22 Dr Sarah GODDARD (3cm); path neg h pylori, neg Virk's I personally reviewed the patient intake form and discussed the ROS with the patient. The ROS is negative except for what is listed in HPI. Allergies Allergen Reactions Clarithromycin Other, Nausea And Vomiting and Unknown Other reaction(s): GI Upset Other reaction(s): GI Upset Lisinopril Other reaction(s): Cough, Cough, Other: See Comments, Other: See Comments, Unknown Doxycycline Other reaction(s): GI Upset, GI Upset, Unknown Sulfamethoxazole Nausea And Vomiting Other reaction(s): GI Upset, GI Upset Other reaction(s): GI Upset, Nausea Trimethoprim Other and Nausea And Vomiting Other reaction(s): GI Upset Other reaction(s): GI Upset, Nausea, Other Current Outpatient Medications Medication Sig Dispense Refill benzonatate (Tessalon) 200 MG capsule TAKE 1 (ONE) CAPSULE BY MOUTH FOUR TIMES DAILY, NEEDED FOR COUGH clobetasol (Temovate) 0.05 % external solution APPLY TO AFFECTED AREA OF SCALP AT NIGHT X3 WEEKS-THEN 1 WEEK OFF-APPLY 1-2X WEEKLY FOR MAINTENANCE cyclobenzaprine (Flexeril) 10 MG tablet Take by mouth 3 times daily as needed. esomeprazole (NexIUM) [address] capsule daily with supper. ferrous sulfate 325 (65 Fe) MG tablet Take 325 mg by mouth Daily with lunch. hydroCHLOROthiazide (HYDRODiuril) 12.5 MG tablet Daily with lunch. losartan (Cozaar) 50 MG tablet Daily with lunch. Potassium Chloride 20 MEQ/15ML (10%) solution Take by mouth 2 times daily. predniSONE (Deltasone) 20 MG tablet Take by mouth. Last dose on 02/21 Synthroid 100 MCG tablet every morning (before breakfast). cholecalciferol (Vitamin D-3) 50 MCG (1999) tablet Take by mouth daily. No current facility-administered medications for this visit. Past Surgical History: Procedure Laterality Date COLONOSCOPY LAP,CHOLECYSTECTOMY (HISTORICAL) 2000 WISDOM TOOTH EXTRACTION Past Medical History: Diagnosis Date Anemia Bronchitis 11/2022 Disease of thyroid gland GERD (gastroesophageal reflux disease) Hypertension PONV (postoperative nausea and vomiting) Psoriasis O: BP (!) 144/82 (BP Location: Left arm, Patient Position: Sitting, BP Cuff Size: Large adult) Pulse 87 Temp 36.4 ?C (97.5 ?F) (Temporal) Ht 5' 5 (1.651 m) Wt 192 lb (87.1 kg) BMI 31.95 kg/m? She stands Height: 5' 5 (165.1 cm) tall with a weight of Weight: 192 lb (87.1 kg) , resulting in a BMI of Body mass index is 31.95 kg/m?.. General: The patient is awake, alert, and oriented, and is in no apparent distress. Head and Neck: Normocephalic and atraumatic. Respiratory: Nonlabored breathing Abdomen: Soft, NT, ND, scars from lap nancy. Extremities: Ambulatory without assistance. Hernia: no hernias found on exam Louis was seen today for pre-op visit. Diagnoses and all orders for this visit: GERD without esophagitis (Primary) Hiatal hernia 57-year-old female with refractory reflux, and a small hiatal hernia. She is completed testing and is scheduled for surgery 03/05/2023. Proceed with surgical scheduling. I met with her and her today to discuss risks and benefits of laparoscopic hiatal hernia repair and all of their questions were answered to their satisfaction. I met with the patient today to discuss risks and benefits of laparoscopic hiatal hernia repair with posterior fundoplication including, but not limited to injury to surrounding structures, the possibility of using mesh for diaphragmatic reinforcement, conversion to open, pleural effusion requiring thoracentesis, prolonged mechanical ventilation, and . She is aware of the possibility of gas bloat syndrome, the need for ongoing PPI/H2 [place] use, postoperative reflux or dysphagia. We discussed potential for hemorrhage, infection, incomplete resolution of Her symptoms, as well as cardiac and pulmonary-related complications. The patient understands and wishes to proceed. Non-operative alternatives were discussed with the patient and they wish to proceed with surgical intervention. Plan: Initial Pre-Operative Testing Primary Procedure: Laparoscopic hiatal hernia repair, possible mesh, with posterior fundoplication, EGD Clearance: PAT Preop SQ Heparin: 5000 units subcu heparin 2 hours preop x1 Assessment/Plan Louis was seen today for pre-op visit. Diagnoses and all orders for this visit: GERD without esophagitis (Primary) Hiatal hernia Proceed with surgery as scheduled. 03/05/2023. Dietary advancement strategy was discussed with her. All questions answered. I personally per (more content not included)... [facility] Basophil percentageOrdered B y: Dr. Styles on 01-10-2023 Chloride [Moles/Vol] 102 mmol/L 98-107 [facility] Cholesterol [Mass/Vol] 233 mg/dL <[address] [facility] Comment on above: <200 mg/dL Desirable 200-240 mg/dL Borderline >240 mg/dL High Risk Glucose [Mass/Vol] 82 mg/dL 74-106 [facility] Potassium [Moles/Vol] 3.2 mmol/L 3.5-5.1 [facility] Sodium [Moles/Vol] 136 mmol/L 136-145 [facility] Triglyceride [Mass/Vol] 206 mg/dL <199 [facility] Comment on above: The drugs N-Acetylcy steine and Metamizole may falsely depress this assay.Serum Triglycerides Reference Interval Normal <150 mg/dL Borderline high 150 - 199 mg/dL High 200 - 499 mg/dL Very High > or = 500 mg/dL Laboratory - Chemistry and C hemistry - challengeOrdered By: Dr. Styles on 01-10-2023 CO2 [Moles/Vol] 29.0 mmol/L 21.0-32.0 [facility] Urea nitrogen/Creatinine [Mass ratio] 17.6 mg/mg 10-20 [facility] No Panel InformationOrdered By: Dr. Styles on 01-10-2023 Estimated GFR (MDRD) Amer 103 mL/min >60 [facility] Comment on above: GFR Calc Estimated GFR (MDRD) Non-Af Amer 86 mL/min >60 [facility] Comment on above: Non- GFR Calc Serum or plasma calcium diana urement (mass/volume)Ordered By: Dr. Styles on 01-10-2023 Calcium [Mass/Vol] 9.5 mg/dL 8.5-10.1 [facility] Serum or plasma cholesterol in HDL measurement (mass/volume)Ordered By: Dr. Styles on 01-10-2023 Cholesterol in HDL [Mass/Vol] 57 mg/dL >40 [facility] Comment on above: The drugs N-Acetylcy steine and Metamizole may falsely depress this assay. Reference Range HDL <40 mg/dL Low HDL Cholesterol HDL >or= 60 mg/dL High HDL Cholesterol Serum or plasma cholesterol in VLDL measurement (mass/volume)Ordered By: Dr. Styles on 01-10-2023 Cholesterol in VLDL [Mass/Vol] 41 mg/dL 5-40 [facility] Serum or plasma creatinine m easurement (mass/volume)Ordered By: Dr. Styles on 01-10-2023 Creatinine [Mass/Vol] 0.74 mg/dL 0.55-1.02 [facility] Comment on above: The validity of the calculated GFR & GFRAA in patients over 70 years has not been determined. Clinical correlation is essential. Serum or plasma low density lipoprotein (LDL) cholesterol measurement (mass/volume)Ordered By: Dr. Styles on 01-10-2023 Cholesterol in LDL [Mass/Vol] 135 mg/dL 0-130 [facility] Serum or plasma urea nitroge n measurement (mass/volume)Ordered By: Dr. Styles on 01-10-2023 Urea nitrogen [Mass/Vol] 13 mg/dL 7-18 [facility] Thin prep Papanicolaou smear with manual screeningOrdered By: Dr. Styles on 01-10-2023 Thin prep Papanicolaou smear with manual screening 5 5-15 [facility] 36on 12-23-2022 36 Pre op scheduled [facility] 36on 12-20-2022 36 She needs a preop ap pt too before surgery. thanks [facility] 36 Pt Lap HH repair rescheduled for 03/05 @ 7:30 [facility] Office Visiton 12-13-2022 Follow-up visit [id number] Louis Wilcox 1965 F Date Provider Department Center 12/13/2022 [id number] BURRELL [facility] ALS None Family History Family Status - Relation Status Age at Mother Father Level of Service:85935 [place] OFFICE/OUTPATIENT NEW LOW MDM 30-44 MINUTES Reason for Visit and Comments: New Patient [542] - ALS NET C DEVELOPER GERD HH AND EPIGASTRIC PAIN REFER DR REESE [facility] Progress Noteon 12-13-2022 Progress Note [facility] - Surgery [facility] Physicians Surgery Patient Name: Louis Wilcox Date: 12/13/22 HPI: Louis Wilcox is a 57 y.o. female who presents with hiatal hernia and reflux. Has been taking nexium for a few years which has controlled the reflux. Over the past year, has been having more breakthrough symptoms and waking with acid in mouth resulting in emesis and aspiration. Was taking the nexium in the morning but changed to taking it before dinner to see if helped with nocturnal symptoms. Does not eat late at night and sleeps with head elevated without improvement. Has intermittent episodes of dysphagia. Underwent EGD and esophagram with Dr Reese. Was noted to have small hiatal hernia (3cm). We ordered and UGI w/mb which she did complete and again a small hiatal hernia and reflux observed. She also had dysmotility with both boluses. Presents today to discuss anti-reflux surgery Previous abdomina surgery of laparoscopic cholecystectomy. H/o HTN and hypothyroid. Former smoker. Denies ETOH I personally reviewed the patient intake form and discussed the ROS with the patient. The ROS is negative except for what is listed in HPI. EGD 11/01/22 Dr Reese reviewed UGI reviewed 11/12/22 Path reviewed 11/01/22 PMHx: Past Medical History: Diagnosis Date Disease of thyroid gland GERD (gastroesophageal reflux disease) Hypertension PSHx: Past Surgical History: Procedure Laterality Date LAP,CHOLECYSTECTOMY (HISTORICAL) 2000 WISDOM TOOTH EXTRACTION PFMHx: No family history on file. ALL: Allergies Allergen Reactions Clarithromycin Other, Nausea And Vomiting and Unknown Other reaction(s): GI Upset Lisinopril Other reaction(s): Cough, Cough, Other: See Comments, Other: See Comments, Unknown Doxycycline Other reaction(s): GI Upset, GI Upset, Unknown Sulfamethoxazole Nausea And Vomiting Other reaction(s): GI Upset, GI Upset Trimethoprim Other and Nausea And Vomiting Other reaction(s): GI Upset MEDS: Current Outpatient Medications Medication Sig Dispense Refill cyclobenzaprine (Flexeril) 10 MG tablet Take 10 mg by mouth 3 times daily as needed. esomeprazole (NexIUM) [address] capsule ferrous sulfate 325 (65 Fe) MG tablet Take 325 mg by mouth daily (with breakfast). potassium chloride CR (K-Tab) 20 MEQ ER tablet Take 20 mEq by mouth daily. benzonatate (Tessalon) 200 MG capsule TAKE 1 (ONE) CAPSULE BY MOUTH FOUR TIMES DAILY, NEEDED FOR COUGH cholecalciferol (Vitamin D-3) 50 MCG (1999 UT) tablet Take by mouth daily. hydroCHLOROthiazide (HYDRODiuril) 12.5 MG tablet losartan (Cozaar) 50 MG tablet Synthroid 100 MCG tablet No current facility-administered medications for this visit. SOCIAL Hx: Social History Socioeconomic History Marital status: Spouse name: Not on file Number of children: Not on file Years of education: Not on file Highest education level: Not on file Occupational History Not on file Tobacco Use Smoking status: Former Types: Cigarettes Smokeless tobacco: Never Substance and Sexual Activity Alcohol use: Never Drug use: Never Sexual activity: Not on file Other Topics Concern Not on file Social History Narrative Not on file Social Determinants of Health Financial Resource Strain: Not on file Food Insecurity: Not on file Transportation Needs: Not on file Physical Activity: Not on file Stress: Not on file Social Connections: Not on file Intimate Partner Violence: Not on file Housing Stability: Not on file DIAGNOSTIC EVALUATION: UGI w/mb 12/09/22 IMPRESSION: Small hiatus hernia with a small amount of spontaneous gastroesophageal reflux. Marked dysmotility of both the marshmallow and bagel boluses. Multiple swallows were needed to pass boluses. EGD 11/01/22 Dr Reese Pathology Physical Examination: BP (!) 150/90 (BP Location: Right arm, Patient Position: Sitting, BP Cuff Size: Large adult) Pulse 69 Temp 35.8 ?C (96.4 ?F) (Temporal) Ht 5' 5 (1.651 m) Wt 187 lb (84.8 kg) BMI 31.12 kg/m? She stands Height: 5' 5 (165.1 cm) tall with a weight of Weight: 187 lb (84.8 kg) , resulting in a BMI of Body mass index is 31.12 kg/m?.. General: The patient is awake, alert, and oriented, and is in no apparent distress. Respiratory: No respiratory distress. Clear to auscultation bilaterally. Abdomen: Soft, non tender, non distended. Normal BS. Laparoscopic scars Extremities: Ambulatory without assistance. No edema Hernia: no hernias found on exam 57 yo F with hiatal hernia and reflux worsening despite taking nexium. She is now waking with emesis from the reflux and desires surgical intervention. She will not need medical risk stratification from her primary care physician. We will proceed with surgical intervention. I met with the patient today to discuss risks and benefits of laparoscopic hiatal hernia repair with LINX vs posterior fundoplication including, but not limite (more content not included)... Normal [facility] Progress Note LVM asking pt to shawn l back to schedule surgery Normal [facility] RF Upper gastrointestinal tr act and Small bowel Single view W contrast Ijeoma 12-09-2022 Small hiatus hernia with a small amount of spontaneous gastroesophageal reflux. Marked dysmotility of both the marshmallow and bagel boluses. Multiple swallows were needed to pass boluses. Report Dictated on Electronically Signed By: Alex Laura Electronically Signed Date/Time: 12/09/2022 4:06 PM EST [facility] Patient Name: LOUIS WILCOX : 1965 Exam Date/Time: 12/09/2022 09:41 Procedure: FL UPPER GI DOUBLE CONTRAST W KUB Ordering Provider: MAURICIO HEATHER Reason For Exam: reflux, hiatal hernia AIR CONTRAST UGI SERIES (with marshmallow bagel protocol) CLINICAL INDICATIONS: Hiatal hernia. Reflux. GERD. COMPARISON: None. FLUOROSCOPY TIME: 2.02 minutes. FLUOROSCOPIC EXPOSURES: 46 fluoroscopic images and 3 fluoroscopic loop runs were obtained. TECHNIQUE: Biphasic exam was performed with barium and air. Marshmallow bagel protocol was performed per ordering physician request. FINDINGS: Barium and air are administered. The esophagus is studied in the upright as well as the horizontal positions. The esophagus is normal in course and caliber. There is a small hiatal hernia with a small amount of spontaneous gastroesophageal reflux. Barium flows freely from the esophagus into the stomach. The stomach and duodenum show normal mucosal pattern, with no discrete ulcer or mass. The visualized proximal jejunum is unremarkable. There is marked dysmotility of both the marshmallow and bagel boluses. Multiple swallows were needed to pass boluses. [facility] Alex Laura MD - 12/09/2022 Patient Name: LOUIS WILCOX : 1965 Exam Date/Time: 12/09/2022 09:41 Procedure: FL UPPER GI DOUBLE CONTRAST W KUB Ordering Provider: MAURICIO HEATHER Reason For Exam: reflux, hiatal hernia AIR CONTRAST UGI SERIES (with marshmallow bagel protocol) CLINICAL INDICATIONS: Hiatal hernia. Reflux. GERD. COMPARISON: None. FLUOROSCOPY TIME: 2.02 minutes. FLUOROSCOPIC EXPOSURES: 46 fluoroscopic images and 3 fluoroscopic loop runs were obtained. TECHNIQUE: Biphasic exam was performed with barium and air. Marshmallow bagel protocol was performed per ordering physician request. FINDINGS: Barium and air are administered. The esophagus is studied in the upright as well as the horizontal positions. The esophagus is normal in course and caliber. There is a small hiatal hernia with a small amount of spontaneous gastroesophageal reflux. Barium flows freely from the esophagus into the stomach. The stomach and duodenum show normal mucosal pattern, with no discrete ulcer or mass. The visualized proximal jejunum is unremarkable. There is marked dysmotility of both the marshmallow and bagel boluses. Multiple swallows were needed to pass boluses. IMPRESSION: Small hiatus hernia with a small amount of spontaneous gastroesophageal reflux. Marked dysmotility of both the marshmallow and bagel boluses. Multiple swallows were needed to pass boluses. Report Dictated on Electronically Signed By: Alex Laura Electronically Signed Date/Time: 12/09/2022 4:06 PM EST [facility] Radiology Study observation (narrative) [facility] RF Upper gastrointestinal tr act and Small bowel Single view W contrast POOrdered By: Alex Laura on 12-09-[address] [facility] [employer] Work Phone: [phone] No auth needed Normal [facility] 36 UGI rescheduled Date: 12/09 Time: 9AM Place: [facility] Confirmed with patient via phone and mail. Auth is pending Normal [facility] 36on 11-25-2022 36 UGI scheduled Date: 12/06 Time: 1:00PM Place: [facility] LVM fir patient. Auth is pending Normal [facility] 36 LVM asking patient t o call back to confirm appt dates/times Normal [facility] No Panel Informationon 08-23 Thyroid Stimulating Hormone (TSH) 1.47 uIU/mL 0.358-3.74 [facility] Work Phone: Lab Report: PAP I-G HPV Hi R iskon 05-17-2017 GE use only - for [employer] import when terms are not otherwise specified Negative Invalid Interpretation Code Negative [facility] HPV HC,HGH RISK Negative Negative [facility] Office Visit: Annualon 05-14 Dietary management education, guidance, and counseling (procedure) yes Invalid Interpretation Code [facility] Documentation of current medications (procedure) Done Invalid Interpretation Code [facility] Protein mass conc Done [facility] Tobacco smoking status NHIS Never [facility] Tobacco smoking status NHIS Former smoker [facility] Tobacco use CPHS Former smoker Invalid Interpretation Code [facility] Office Visit: Annualon 04-15 General categories Cyto stain Interp (Cervical or vaginal smear or scraping) Normal [facility] MG Breast screening Normal Bilateral [facility] Lab Report: Vitamin D,25 Hyd roxyon 08-16-2015 vitamin D 25-hydroxy, serum 36.5 ng/mL Invalid Interpretation Code [facility] Vitamin D 25-OH 36.5 ng/mL [facility] Lab Report: Basic Metabolic Profile (BMP)on 08-15-2015 Anion gap 6 mmol/L Invalid Interpretation Code -15 [facility] Anion gap molar conc 6 mmol/L 5- [facility] Calcium mass conc 9.6 mg/dL 8.5-10.1 [facility] Chloride molar conc 103 mmol/L 98-107 [facility] CO2 28.0 mmol/L Invalid Interpretation Code 21.0-32.0 [facility] CO2 ppres (BldV) 28.0 mmol/L 21.0-32.0 [facility] Creatinine mass conc 0.75 mg/dL 0.55-1.20 [facility] eGFR (non-black) 105 mL/min/{1.73_m2} Invalid Interpretation Code >60 [facility] EST GFR - AA 105 mL/min >60 [facility] GFR/1.73 sq M predicted among non-blacks MDRD vol rate/area (S/P/Bld) 87 mL/min/{1.73_m2} >60 [facility] Glucose 101 mg/dL Invalid Interpretation Code 70-110 [facility] Glucose mass conc 101 mg/dL 70-110 [facility] Potassium molar conc 3.5 mmol/L 3.5-5.1 [facility] Sodium molar conc 137 mmol/L 136-145 [facility] Urea nitrogen mass conc 11 mg/dL 7-18 B [facility] Urea nitrogen/Creatinine mass ratio 14.7 RATIO 10-20 [facility] Lab Report: CBC W/Diff, Auto matedon 08-15-2015 Basophils/100 leukocytes 0.2 % Invalid Interpretation Code 0-1 [facility] Basophils/100 WBC (Bld) 0.2 % 0-1 B [facility] Eosinophils/100 leukocytes 1.3 % Invalid Interpretation Code 0-5 [facility] Eosinophils/100 WBC (Bld) 1.3 % 0-5 [facility] Erythrocyte distribution width Ratio (RBC) 41.9 fL 35.1-43.9 [facility] Erythrocyte distribution width Ratio (RBC) 14.1 % 11.6-14.6 [facility] Erythrocytes (RBC) 4.05 10*6/uL Low 4.2-5.4 [facility] Hematocrit (HCT) 33.7 % Low 37-47 [facility] Hematocrit Volume Fraction (Bld) 33.7 % Low 37-47 [facility] Hemoglobin mass conc (Bld) 11.3 g/dL Low 12.0-15.0 [facility] Immature granulocytes #/vol (Bld) 0.000 % 0.0-0.9 [facility] immature granulocytes, percentage of total cells, blood 0.000 % Invalid Interpretation Code 0.0-0.9 [facility] Lymphocytes 1.50 X10 3/UL Invalid Interpretation Code 0.83-4.51 [facility] Lymphocytes #/vol (Bld) 1.50 X10 3/UL 0.83-4.51 [facility] Lymphocytes/100 leukocytes 31.4 % Invalid Interpretation Code 19-41 [facility] Lymphocytes/100 WBC (Bld) 31.4 % 19-41 [facility] MCH 27.9 pg Invalid Interpretation Code 27.0-32.0 [facility] MCH Entitic mass (RBC) 27.9 pg 27.0-32.0 Bl [facility] MCHC 33.5 G/GL Invalid Interpretation Code 32-36 [facility] MCHC mass conc (RBC) 33.5 G/GL 32-36 [facility] MCV 83.2 fL Invalid Interpretation Code 81-99 [facility] MCV Entitic volume (RBC) 83.2 fL 81-99 [facility] Monocytes/100 leukocytes 6.3 % Invalid Interpretation Code 0-10 [facility] Monocytes/100 WBC (Bld) 6.3 % 0-10 B [facility] neutrophil count, blood 2.9 X10 3/UL Invalid Interpretation Code 2.0-7.7 [facility] Neutrophils #/vol (Bld) 2.9 X10 3/UL 2.0-7.7 [facility] Neutrophils/100 leukocytes 60.8 % Invalid Interpretation Code 47-70 [facility] Neutrophils/100 WBC (Bld) 60.8 % 47-70 [facility] Platelet mean volume Entitic volume (Bld) 10.6 fL 6.2-12.0 [facility] Platelets 229 10*3/mm3 Invalid Interpretation Code 150-450 [facility] Platelets #/vol (Bld) 229 10*3/mm3 150-450 B [facility] PMV by Sumit 10.6 fL Invalid Interpretation Code 6.2-12.0 [facility] RBC #/vol (Bld) 4.05 10*6/uL Low 4.2-5.4 [facility] RDW-CA 14.1 % Invalid Interpretation Code 11.6-14.6 [facility] red blood cell distribution width, size density 41.9 fL Invalid Interpretation Code 35.1-43.9 [facility] WBC #/vol (Bld) 4.8 10*3/uL 4.4-11.0 [facility] WBC (Leukocytes) 4.8 10*3/uL Invalid Interpretation Code 4.4-11.0 [facility] Lab Report: Hemoglobin A1con 08-15-2015 Hemoglobin A1c/Hemoglobin.total mass fraction (Bld) 5.7 % 4.2-6.3 [facility] Lab Report: Thyroid Stim Hor caren (TSH)on 08-15-2015 Thyrotropin Qn 0.24 u[iU]/mL Low 0.358-3.74 [facility] External Other: Preferred Me thod of Contacton 03-23-2015 methcontact secmsg [facility] Patient's prefered method of contact secmsg Invalid Interpretation Code [facility] Office Visiton 03-23-2015 cardiac risk group A [facility] General cardiovascular disease 10Y risk [#] [email or web address][email or web address] Not enough information Blo [facility] Replaced Document: Midmark E CG Observationson 03-23-2015 EKG QRS axis 25 deg [facility] electrocardiogram interpretation Sinus Rhythm WITHIN NORMAL LIMITS Invalid Interpretation Code [facility] Interpretation Sinus Rhythm WITHIN NORMAL LIMITS [facility] P [place] 34 deg [facility] P wave axis, electrocardiogram 34 deg Invalid Interpretation Code [facility] [place] Interval 158 ms [facility] [place] interval, electrocardiogram 158 ms Invalid Interpretation Code [facility] Pulse (Heart Rate) 72 /min Invalid Interpretation Code [facility] QRS axis, electrocardiogram 25 deg Invalid Interpretation Code [facility] QRS Duration 102 ms [facility] QRS duration, electrocardiogram 102 ms Invalid Interpretation Code [facility] QT Interval new path ms [facility] QT interval, electrocardiogram new path ms Invalid Interpretation Code [facility] QTc [place] 401 ms [facility] T [place] 24 deg [facility] T wave axis, electrocardiogram 24 deg Invalid Interpretation Code [facility] Vital Signs Date Time Vital Sign Value Performing Clinician Facility 11-01-2024 14:07-0500 Body temperature 97.52 [degF] RUBY TOWendi RADIO JOURNALIST-COMMERCIAL ENGINEER [facility] 11-01-2024 14:07-0500 Diastolic Blood Pressure Non-Invasive 73 mm[Hg] RUBYMIKALA SPARKS [employer]IO JOURNALIST-COMMERCIAL ENGINEER [facility] 11-01-2024 14:07-0500 Heart rate 78 /min RUBY TOWendi [employer] JOURNALIST-COMMERCIAL ENGINEER [facility] 11-01-2024 14:07-0500 Reason For Taking VItal Signs RUBY TOVARERIC RADIO JOURNALIST-COMMERCIAL ENGINEER [facility] 11-01-2024 14:07-0500 Respiratory rate 18 /min RUBY TOWendi [employer]IO JOURNALIST-COMMERCIAL ENGINEER [facility] 11-01-2024 14:07-0500 Systolic Blood Pressure Non-Invasive 111 mm[Hg] RUBYMIKALA TON [employer]IO JOURNALIST-COMMERCIAL ENGINEER [facility] 11-01-2024 11:47-0500 Body temperature 97.88 [degF] RUBY SPARKS [employer]IO JOURNALIST-COMMERCIAL ENGINEER [facility] 11-01-2024 11:47-0500 Diastolic Blood Pressure Non-Invasive 77 mm[Hg] RUBY TOWendi RADIO JOURNALIST-COMMERCIAL ENGINEER [facility] 11-01-2024 11:47-0500 Heart rate 57 /min RUBY TOWendi RADIO JOURNALIST-COMMERCIAL ENGINEER [facility] 11-01-2024 11:47-0500 Respiratory rate 18 /min RUBYMIKALA TOWendi RADIO JOURNALIST-COMMERCIAL ENGINEER [facility] 11-01-2024 11:47-0500 Systolic Blood Pressure Non-Invasive 124 mm[Hg] RUBY TOWendi RADIO JOURNALIST-COMMERCIAL ENGINEER [facility] 11-01-2024 06:02-0500 Body temperature 97.52 [degF] RUBY TOWendi RADIO JOURNALIST-COMMERCIAL ENGINEER [facility] 11-01-2024 06:02-0500 Diastolic Blood Pressure Non-Invasive 66 mm[Hg] RUBY TOVARERIC RADIO JOURNALIST-COMMERCIAL ENGINEER [facility] 11-01-2024 06:02-0500 Heart rate 56 /min RUBY TOWendi [employer]IO JOURNALIST-COMMERCIAL ENGINEER [facility] 11-01-2024 06:02-0500 Respiratory rate 18 /min RUBY TOWendi RADIO JOURNALIST-COMMERCIAL ENGINEER [facility] 11-01-2024 06:02-0500 Systolic Blood Pressure Non-Invasive 113 mm[Hg] RUBY TOWendi RADIO JOURNALIST-COMMERCIAL ENGINEER [facility] 10-31-2024 23:15-0500 Heart rate 64 /min RUBY TOWendi RADIO JOURNALIST-COMMERCIAL ENGINEER [facility] 10-31-2024 18:39-0500 Heart rate 83 /min RUBY TOWendi RADIO JOURNALIST-COMMERCIAL ENGINEER [facility] 10-31-2024 17:08-0500 Body height 165.1 cm RUBY TOWendi RADIO JOURNALIST-COMMERCIAL ENGINEER [facility] 10-31-2024 17:08-0500 Body weight 88.5 kg RUBY TOWendi RADIO JOURNALIST-COMMERCIAL ENGINEER [facility] 10-31-2024 17:08-0500 Body weight 32.47 kg/m2 RUBY TOWendi RADIO JOURNALIST-COMMERCIAL ENGINEER [facility] 10-31-2024 16:58-0500 Body height 165.1 cm RUBY SPARKS RADIO JOURNALIST-COMMERCIAL ENGINEER [facility] 10-31-2024 16:58-0500 Body weight 88.5 kg RUBY SPARKS RADIO JOURNALIST-COMMERCIAL ENGINEER [facility] 10-31-2024 15:09-0500 Blood Pressure Location RUBY SPARKS RADIO JOURNALIST-COMMERCIAL ENGINEER [facility] 10-31-2024 15:09-0500 Body weight 89.8 kg RUBY SPARKS [employer]IO JOURNALIST-COMMERCIAL ENGINEER [facility] 10-31-2024 14:11-0500 Body temperature 98.6 [degF] Dr. Giselle Styles MD Work Phone: [facility] 10-31-2024 14:11-0500 Diastolic blood pressure 79 mm[Hg] Dr. Giselle Styles MD Work Phone: [facility] 10-31-2024 14:11-0500 Heart rate 74 /min Dr. Giselle Styles MD Work Phone: [facility] 10-31-2024 14:11-0500 Respiratory rate 16 /min Dr. Giselle Styles MD Work Phone: [facility] 10-31-2024 14:11-0500 SaO2% (BldA) [Mass fraction] 98 % Dr. Giselle Styles MD Work Phone: [facility] 10-31-2024 14:11-0500 Systolic blood pressure 150 mm[Hg] Dr. Giselle Styles MD Work Phone: [facility] 10-31-2024 11:22-0500 Body height 165.[address] Gieslle Styles MD Work Phone: [facility] 10-31-2024 11:22-0500 Body mass index (BMI) [Ratio] 33.3 kg/m2 Dr. Giselle Styles MD Work Phone: [facility] 10-31-2024 11:22-0500 Body weight 90.[address] Giselle Styles MD Work Phone: [facility] 08-31-2024 10:47-0500 Body height 166.4 cm Jennie Mabry MD Work Phone: [facility] 08-31-2024 10:47-0500 Body mass index (BMI) [Ratio] 32.15 kg/m2 Jennie Mabry MD Work Phone: [facility] 08-31-2024 10:47-0500 Body weight 89 kg Jennie Mabry MD Work Phone: [facility] 08-31-2024 10:47-0500 Diastolic blood pressure 80 mm[Hg] Jennie Mabry MD Work Phone: [facility] 08-31-2024 10:47-0500 Heart rate 78 /min Jennie Mabry MD Work Phone: [facility] 08-31-2024 10:47-0500 Systolic blood pressure 122 mm[Hg] Jennie Mabry MD Work Phone: [facility] 09-03-2023 23:05-0500 Blood Pressure Cuff Size DR SAM VIZCAINO DO [facility] 09-03-2023 23:05-[address] SAM VIZCAINO DO [facility] 09-03-2023 23:05-[address] SAM VIZCAINO DO [facility] 09-03-2023 23:05-0500 Diastolic Blood Pressure Non-Invasive 90 mm[Hg] DR SAM VIZCAINO DO [facility] 09-03-2023 23:05-0500 Heart rate 80 /min DR SAM VIZCAINO DO [facility] 09-03-2023 23:05-0500 Respiratory rate 16 /min DR SAM VIZCAINO DO [facility] 09-03-2023 23:05-0500 Systolic Blood Pressure Non-Invasive 163 mm[Hg] DR SAM VIZCAINO DO [facility] 09-03-2023 22:34-0500 Blood Pressure Cuff Size DR SAM VIZCAINO DO [facility] 09-03-2023 22:34-[address] SAM VIZCAINO DO [facility] 09-03-2023 22:34-[address] SAM VIZCAINO DO [facility] 09-03-2023 22:34-0500 Diastolic Blood Pressure Non-Invasive 95 mm[Hg] DR SAM VIZCAINO DO [facility] 09-03-2023 22:34-0500 Heart rate 84 /min DR SAM VIZCAINO DO [facility] 09-03-2023 22:34-0500 Respiratory rate 16 /min DR SAM VIZCAINO DO [facility] 09-03-2023 22:34-0500 Systolic Blood Pressure Non-Invasive 169 mm[Hg] DR SAM VIZCAINO DO [facility] 09-03-2023 22:00-0500 Body height 165.[address] SAM VIZCAINO DO [facility] 09-03-2023 22:00-0500 Body weight 86.[address] SAM VIZCAINO DO [facility] 09-03-2023 22:00-0500 Diastolic Blood Pressure Non-Invasive 107 mm[Hg] DR SAM VIZCAINO DO [facility] 09-03-2023 22:00-0500 Heart rate 102 /min DR SAM VIZCAINO DO [facility] 09-03-2023 22:00-0500 Reason For Taking VItal Signs DR SAM VIZCAINO DO [facility] 09-03-2023 22:00-0500 Systolic Blood Pressure Non-Invasive 182 mm[Hg] DR SAM VIZCAINO DO [facility] 05-09-2023 09:24-0400 Body height 165.1 cm Alex Burrell MD Work Phone: [facility] [facility] 05-09-2023 09:24-0400 Body mass index (BMI) [Ratio] 31.45 kg/m2 Alex Burrell MD Work Phone: [facility] 05-09-2023 09:24-0400 Body temperature 97.81 [degF] Alex Burrell MD Work Phone: [facility] [employer] 05-09-2023 09:24-0400 Body weight 85.73 kg Alex Burrell MD Work Phone: [facility] 05-09-2023 09:24-0400 Diastolic blood pressure 92 mm[Hg] Alex Burrell MD Work Phone: [facility] [employer] 05-09-2023 09:24-0400 Heart rate 82 /min Alex Burrell MD Work Phone: [facility] [employer] 05-09-2023 09:24-0400 Systolic blood pressure 144 mm[Hg] Alex Burrell MD Work Phone: [facility] [employer] 04-02-2023 08:15-0400 Body height 166.[address] Giselle Styles Work Phone: [facility] 04-02-2023 08:08-0400 Body mass index (BMI) [Ratio] 30.7 kg/m2 Dr. Giselle Styles Work Phone: [facility] 04-02-2023 08:08-0400 Body weight 84.[address] Giselle Styles Work Phone: [facility] 04-02-2023 08:08-0400 Diastolic blood pressure 80 mm[Hg] Dr. Giselle Styles Work Phone: [facility] 04-02-2023 08:08-0400 Systolic blood pressure 122 mm[Hg] Dr. Giselle Styles Work Phone: [facility] 02-21-2023 10:47-0400 Body height 165.1 cm Alex Burrell MD Work Phone: [facility] 02-21-2023 10:47-0400 Body mass index (BMI) [Ratio] 31.95 kg/m2 Alex Burrell MD Work Phone: [facility] 02-21-2023 10:47-0400 Body temperature 97.5 [degF] Alex Burrell MD Work Phone: [facility] 02-21-2023 10:47-0400 Body weight 87.09 kg Alex Burrell MD Work Phone: [facility] 02-21-2023 10:47-0400 Diastolic blood pressure 82 mm[Hg] Alex Burrell MD Work Phone: [facility] 02-21-2023 10:47-0400 Heart rate 87 /min Alex Burrell MD Work Phone: [facility] 02-21-2023 10:47-0400 Systolic blood pressure 144 mm[Hg] Alex Burrell MD Work Phone: [facility] [employer] 12-13-2022 11:16-0500 Body height 165.1 cm Alex Burrell MD Work Phone: [facility] [employer] 12-13-2022 11:16-0500 Body mass index (BMI) [Ratio] 31.12 kg/m2 Alex Burrell MD Work Phone: [facility] 12-13-2022 11:16-0500 Body temperature 96.4 [degF] Alex Burrell MD Work Phone: [facility] 12-13-2022 11:16-0500 Body weight 84.82 kg Alex Burrell MD Work Phone: [facility] 12-13-2022 11:16-0500 Diastolic blood pressure 90 mm[Hg] Alex Burrell MD Work Phone: [facility] 12-13-2022 11:16-0500 Heart rate 69 /min Alex Burrell MD Work Phone: [facility] 12-13-2022 11:16-0500 Systolic blood pressure 150 mm[Hg] Alex Burrell MD Work Phone: [facility] 09-09-2022 14:30-0500 Body height 166.4 cm Jennie Mabry MD Work Phone: [facility] 09-09-2022 14:30-0500 Body weight 82.83 kg Jennie Mabry MD Work Phone: [facility] 09-09-2022 14:30-0500 Diastolic blood pressure 74 mm[Hg] Jennie Mabry MD Work Phone: [facility] 09-09-2022 14:30-0500 Heart rate 97 /min Jennie Mabry MD Work Phone: [facility] 09-09-2022 14:30-0500 Systolic blood pressure 128 mm[Hg] Jennie Mabry MD Work Phone: [facility] 03-27-2022 08:19-0400 Body height 166.[address] Giselle Styles Work Phone: [facility] Work Phone: 03-27-2022 08:19-0400 Body mass index (BMI) [Ratio] 27.9 kg/m2 Dr. Giselle Styles Work Phone: [facility] Work Phone: 03-27-2022 08:19-0400 Body weight 77.[address] Giselle Styles Work Phone: [facility] Work Phone: 03-27-2022 08:19-0400 Diastolic blood pressure 78 mm[Hg] Dr. Giselle Styles Work Phone: [facility] Work Phone: 03-27-2022 08:19-0400 Systolic blood pressure 120 mm[Hg] Dr. Giselle Styles Work Phone: [facility] Work Phone: 05-14-2017 11:28-0400 BMI (Body Mass Index) 29.28 kg/m2 Cristin Beltran NP [facility] 05-14-2017 11:28-0400 Body Temperature 97.6 [degF] Cristin Beltran NP [facility] 05-14-2017 11:28-0400 Body Temperature 97.59 [degF] Cristin Beltran NP [facility] 05-14-2017 11:28-0400 BP Diastolic 83 mm[Hg] Cristin Beltran NP [facility] 05-14-2017 11:28-0400 BP Systolic 119 mm[Hg] Cristin Beltran NP [facility] 05-14-2017 11:28-0400 Height 165.1 cm Cristin Beltran NP [facility] 05-14-2017 11:28-0400 Pulse (Heart Rate) 63 /min Cristin Beltran NP [facility] 05-14-2017 11:28-0400 Respiratory Rate 16 /min Cristin Beltran NP [facility] 05-14-2017 11:28-0400 Weight 79.83 kg Cristin Beltran NP [facility] 06-29-2015 15:55-0400 BSA (Body Surface Area) 1.87 m2 Cristin Beltran NP [facility] 03-23-2015 10:31-0400 Heart rate 72 /min Cristin Beltran NP [facility] Encounters Encounter Date Encounter Type Care Provider Facility Start: 04-20-2025 ambulatory Cristin Beltran NP Facil ity:[facility] Start: 02-25-2025 End: 02-25-2025 ambulatory Bradley Marc Facility:[facility] Start: 10-31-2024 End: 11-01-2024 Evaluation and management of inpatient [facility] Start: 10-31-2024 End: 10-31-2024 Emergency department patient visit Dr. Alberto Lantigua MD -Emergency Department Work Phone: Start: 08-31-2024 End: 08-31-2024 Patient encounter procedure Jennie Mabry MD Work Phone: [facility] Endocrinology, Diabetes, and Metabolism Comment on above: Hypothyroidism, unsp ecified type (Primary Dx); Impaired fasting glucose; Family history of diabetes mellitus Start: 08-31-2024 End: 08-31-2024 ambulatory JENNIE MABRY Facility:[facility] Start: 08-18-2024 End: 08-18-2024 Telephone encounter Jennie Mabry MD Work Phone: Endocrinology & Metabolic [place] Comment on above: Results (Lab results 08/17/2024) Start: 08-17-2024 End: 08-17-2024 ambulatory CAROLINA HATFIELD Facility:[facility] Start: 07-06-2024 End: 07-06-2024 Telephone encounter Jennie Mabry MD Work Phone: [facility] Endocrinology, Diabetes, and Metabolism Comment on above: Orders (labs) Start: 02-13-2024 End: 02-13-2024 ambulatory [facility] Work Phone: Start: 02-13-2024 End: 02-13-2024 Patient encounter procedure [facility] [place] Work Phone: Start: 10-16-2023 End: 10-16-2023 ambulatory JENNIERUBEN MABRY Facility:[facility] Start: 09-03-2023 End: 09-04-2023 Emergency department patient visit DR SAM VIZCAINO DO Facility:[facility] Start: 09-03-2023 End: 09-03-2023 Emergency department patient visit DR SAM VIZCAINO DO [facility] Start: 08-18-2023 End: 08-18-2023 ambulatory [facility] Work Phone: Start: 08-18-2023 End: 08-18-2023 Patient encounter procedure [facility] [place] Work Phone: Start: 08-09-2023 Refill Jennie Roe Work Phone: [facility] Endocrinology, Diabetes, and Metabolism Comment on above: Refill Request Start: 06-14-2023 End: 06-14-[address] Giselle Styles Work Phone: [facility] Work Phone: Start: 06-14-2023 End: 06-14-[address] Giselle Styles Work Phone: [facility] Work Phone: Start: 05-09-2023 End: 05-09-2023 ambulatory GISELLE STYLES [facility] Start: 05-09-2023 End: 05-09-2023 Postop follow up visit related to original px Alex Burrell MD Work Phone: [facility] Comment on above: Encounter for postop erative care (Primary Dx); Hiatal hernia; GERD without esophagitis Start: 04-18-2023 Refill Jennie Roe Work Phone: [facility] Endocrinology, Diabetes, and Metabolism Comment on above: Refill Request (Synt hroid) Start: 04-02-2023 End: 04-02-[address] Giselle Styles Work Phone: [facility] Work Phone: Start: 04-02-2023 End: 04-02-[address] Giselle Styles Work Phone: [facility] Start: 03-21-2023 End: 03-21-2023 ambulatory GISELLE MURPHYRAGHU [facility] Start: 03-05-2023 End: 03-06-2023 Unknown GISELLE MURPHYRAGHU [facility] Start: 02-21-2023 End: 02-21-2023 ambulatory GISELLE MURPHYRAGHU [facility] Start: 02-21-2023 End: 02-21-2023 Office outpatient visit 25 minutes Alex Burrell MD Work Phone: [facility] Advanced Laproscopic Surgery Comment on above: GERD without esophag itis (Primary Dx); Hiatal hernia Start: 02-21-2023 End: 02-21-2023 ambulatory GISELLE MURPHYRAGHU [facility] Start: 02-21-2023 End: 02-21-2023 Encounter for other preprocedural examination [facility] Start: 02-19-2023 Orders Only Anny Mauricio PA-C Work Phone: [facility] Advanced Laproscopic Surgery Start: 01-10-2023 End: 01-10-2023 ambulatory [facility] Work Phone: Start: 01-10-2023 End: 01-10-2023 Patient encounter procedure [facility] Start: 12-13-2022 End: 12-13-2022 ambulatory [facility] Start: 12-13-2022 End: 12-13-2022 Office outpatient new 30 minutes Alex Burrell MD Work Phone: [facility] Laproscopic Surgery Comment on above: Hiatal hernia (Prima ry Dx); Gastroesophageal reflux disease with esophagitis without hemorrhage; Lower esophageal ring ([place]) Start: 12-09-2022 End: 12-10-2022 ambulatory ANNY MAURICIO [facility] Start: 12-09-2022 End: 12-09-2022 Subsequent hospital visit by physician Anny Mauricio PA-C Work Phone: [facility] Comment on above: Gastroesophageal ref lux disease, unspecified whether esophagitis present; Hiatal hernia Start: 11-25-2022 Telephone encounter Anny Fr kenneth YOUNG Work Phone: [facility] [place] [facility] Start: 11-12-2022 End: 11-12-2022 Patient encounter procedure [facility] Start: 09-09-2022 End: 09-09-2022 Patient encounter procedure Jennie Mabry MD Work Phone: [facility] Endocrinology, Diabetes, and Metabolism Comment on above: Hypothyroidism, unsp ecified type (Primary Dx); Impaired fasting glucose; Family history of diabetes mellitus Start: 09-09-2022 Refill Jennie Roe Work Phone: [facility] Endocrinology, Diabetes, and Metabolism Comment on above: Med Change Request ( Synthroid) Start: 08-23-2022 End: 08-23-2022 ambulatory [facility] Work Phone: Start: 08-23-2022 End: 08-23-2022 Patient encounter procedure [facility] Start: 08-15-2022 Telephone encounter Jennie tobin MD Work Phone: [facility] Endocrinology, Diabetes, and Metabolism Comment on above: Orders (Yearly lab r equest) Start: 03-27-2022 End: 03-27-[address] Giselle Styles Work Phone: [facility] Procedures Date Procedure Procedure Detail Performing Clinician Start: 10-31-2024 CT of head without contrast Dr. Giselle murphy MD Work Phone: Start: 08-18-2023 Radiography of ankle Start: 08-18-2023 Plain X-ray of tibia and fibula Start: 04-02-2023 End: 04-02-[address] Giselle Styles Work Phone: Start: 03-05-2023 Hiatal hernia (disorder) RUBY SPARKS RADIO JOURNALIST-COMMERCIAL ENGINEER Start: 12-09-2022 Radiologic exam upr gi trc double contrast study Anny Hang YOUNG Work Phone: Start: 11-12-2022 Radiography of esophagus Start: 03-27-2022 End: 03-27-[address] Giselle Styles Work Phone: Start: 05-14-2017 End: 05-14-2017 Dietary management education, guidance, and counseling Cristin Beltran NET C DEVELOPER Start: 05-14-2017 Mammography Jennie Mabry MD Work Phone: Start: 05-14-2017 Gynecologic examination Routine gynecological exam Cristin Beltran NET C DEVELOPER Start: 10-13-2015 Plantar fasciitis of right foot (disorder) RUBY SPARKS RADIO JOURNALIST-COMMERCIAL ENGINEER Start: 08-12-2015 End: 08-15-2015 *BMP Kandace Nathan PA-C Work Phone: Start: 08-12-2015 End: 08-15-2015 *CBC with Differential Kandace Nathan PA-C Work Phone: Start: 06-29-2015 End: 06-30-2015 Documentation of current medications Kandace Nathan PA-C Work Phone: Start: 06-29-2015 End: 06-29-2015 Follow Up Appt Other Kandace Nathan PA-C Work Phone: Start: 04-12-2015 Colonoscopy Jennie Mabry MD Work Phone: Start: 04-07-2015 End: 06-29-2015 Remote 30 day ecg rev/report Claudio Garza MD Start: 03-23-2015 End: 03-30-2015 *BMP Claudio Garza MD Start: 03-23-2015 End: 03-24-2015 Documentation of current medications Claudio Garza MD Start: 03-23-2015 End: 06-16-2015 Echocardiography Claudio Garza MD Start: 03-23-2015 End: 06-16-2015 Electrocardiogram, complete Claudio jhaveri MD Start: 03-23-2015 End: 03-23-2015 Follow Up Appt 6 weeks Claudio Garza MD Start: 03-23-2015 End: 03-23-2015 MMM Claudio Garza MD Start: 03-23-2015 End: 06-16-2015 Nuclear stress test -exercise Claudio Garza MD Start: 01-14-2012 Lipid 1996 panel - Serum or Plasma Jennie Mabry MD Work Phone: Start: 10-13-2000 Gallbladder structure (body structure) RUBY SPARKS APRN-COMMERCIAL ENGINEER Plan of Treatment Date Care Activity Detail Author Start: 2038 RSV Vaccine (1 - 1-dose 75+ series) RSV Vaccine (1 - 1-dose 75+ series) [facility] Start: 09-16-2033 Urine microalbumin profile DTaP,Tdap,Td Vaccine (3 - Td or Tdap) [facility] Start: 03-06-2026 Diabetes Screening Diabetes Screening [facility] Start: 05-02-2025 End: 05-02-2025 Patient encounter procedure 05/02/2025 9:40 AM EDT Office Visit [facility] Endocrinology, Diabetes, and Metabolism [address] [place] [address] Jennie Mabry MD [address] [address] 8 month fu hypothyroidism [facility] Endocrinology, Diabetes, and Metabolism Comment on above: 8 month fu hypothyroidism Start: 04-30-2025 End: 07-30-2025 Basic metabolic 2000 panel - Serum or Plasma BASIC METABOLIC PANEL Lab Routine Impaired fasting glucose Expected: 04/30/2025 (Approximate), Expires: 07/30/2025 [facility] Work Phone: Comment on above: Expected: 04/30/2025 (Approximate), Expi res: 07/30/2025 Start: 04-30-2025 End: 07-30-2025 Hemoglobin A1c in Blood HEMOGLOBIN A1C Lab Routine Impaired fasting glucose Expected: 04/30/2025 (Approximate), Expires: 07/30/2025 [facility] Comment on above: Expected: 04/30/2025 (Approximate), Expi res: 07/30/2025 Start: 04-30-2025 End: 07-30-2025 Thyrotropin [Units/volume] in Serum or Plasma THYROID STIMULATING HORMONE Lab Routine Impaired fasting glucose Expected: 04/30/2025 (Approximate), Expires: 07/30/2025 [facility] Comment on above: Expected: 04/30/2025 (Approximate), Expi res: 07/30/2025 Start: 04-12-2025 Colonoscopy COLONOSCOPY [facility] Start: 04-12-2025 COLORECTAL CANCER SCREENING COLORECTAL CANCER SCREENING [facility] Start: 04-12-2025 Screening for malignant neoplasm of colon [facility] Start: 10-31-2024 [facility] Start: 10-16-2024 BP Controlled (<130/80) BP Controlled (<130/80) [facility] Start: 08-31-2024 End: 08-31-2024 Patient encounter procedure 08/31/2024 11:00 AM EST Office Visit [facility] Endocrinology, Diabetes, and Metabolism [address] [place], [place] [id number] Jennie Mabry MD [address] [address] 11 month fu thyroid [facility] Endocrinology, Diabetes, and Metabolism Comment on above: 11 month fu thyroid Start: 06-13-2024 Covid-19 Vaccine ( season) Covid-19 Vaccine () [facility] Start: 06-13-2024 Influenza vaccination [facility] Start: 04-02-2024 Screening for malignant neoplasm of breast Mammogram [facility] Start: 09-09-2023 BP CONTROLLED (<130/80) BP CONTROLLED (<130/80) [facility] Start: 06-13-2023 Influenza vaccination [facility] Start: 05-19-2023 DTaP/Tdap/Td Vaccines (2 - Td or Tdap) DTaP/Tdap/Td Vaccines (2 - Td or Tdap) [facility] Start: 05-19-2023 Urine microalbumin profile DTaP,Tdap,Td Vaccine (2 - Td or Tdap) [facility] Start: 05-02-2023 End: 05-02-2023 Patient encounter procedure 05/02/2023 Office Visit General Surgery Alex Burrell MD [address] [place] [address] [facility] Advanced Laproscopic Surgery Start: 03-27-2023 Screening for malignant neoplasm of breast Mammogram [facility] Start: 03-21-2023 End: 03-21-2023 Patient encounter procedure 03/21/2023 Office Visit General Surgery Alex Burrell MD [address] [place] [address] [facility] Start: 03-09-2023 End: 05-09-2023 Basic metabolic 2000 panel - Serum or Plasma BASIC METABOLIC PNL Lab Routine Impaired fasting glucose Family history of diabetes mellitus Expected: 03/09/2023 (Approximate), Expires: 05/09/2023 [facility] Work Phone: Comment on above: Expected: 03/09/2023 (Approximate), Expi res: 05/09/2023 Start: 03-09-2023 End: 05-09-2023 Hemoglobin A1c in Blood HGB A1C Lab Routine Impaired fasting glucose Family history of diabetes mellitus Expected: 03/09/2023 (Approximate), Expires: 05/09/2023 [facility] Work Phone: Comment on above: Expected: 03/09/2023 (Approximate), Expi res: 05/09/2023 Start: 03-09-2023 End: 05-09-2023 Thyrotropin [Units/volume] in Serum or Plasma TSH BLD Lab Routine Hypothyroidism, unspecified type Expected: 03/09/2023 (Approximate), Expires: 05/09/2023 [facility] Work Phone: Comment on above: Expected: 03/09/2023 (Approximate), Expi res: 05/09/2023 Start: 03-05-2023 End: 03-05-2023 Admission to same day surgery center 03/05/2023 Surgery Procedural Alex Burrell MD [address] [place], [place] [id number] LAPAROSCOPIC HIATAL HERNIA REPAIR, POSSIBLE MESH, WITH POSTERIOR FUNDOPLICATION, EGD, POSSIBLE OPEN [06002 (CPT )] [facility] Comment on above: LAPAROSCOPIC HIATAL HERNIA REPAIR, POSSI BLE MESH, WITH POSTERIOR FUNDOPLICATION, EGD, POSSIBLE OPEN [49702 (CPT )] Start: 03-05-2023 End: 03-05-2023 Anesthesia consultation 03/05/2023 Anesthesia Event Procedural Chelsey Leary, RADIO JOURNALIST - COMMERCIAL ENGINEER [address] [place], [place] [id number] [facility] Start: 03-05-2023 End: 03-05-2023 Esophagogastroduodenoscopy transoral diagnostic EGD DIAGNOSTIC Diaphragmatic hernia without obstruction or gangrene Gastro-esophageal reflux disease without esophagitis 03/05/2023 7:30 AM EDT [facility] Operating Room Start: 03-05-2023 End: 03-05-2023 Laps rpr paraesphgl hrna incl fundplsty w/mesh LAPAROSCOPY REPAIR PARAESOPHAGEAL HERNIA INCLUDING FUNDOPLASTY WITH MESH Diaphragmatic hernia without obstruction or gangrene Gastro-esophageal reflux disease without esophagitis 03/05/2023 7:30 AM EDT [facility] Operating Room Start: 03-05-2023 Subsequent hospital visit by physician 03/05/2023 Hospital Encounter Procedural Alex Burrell MD [address] [place], [place] [id number] [facility] Start: 02-21-2023 End: 02-21-2023 Patient encounter procedure 02/21/2023 Consult General Surgery Alex Burrell MD [address] [place], [place] [id number] [facility] Start: 02-21-2023 End: 02-21-2023 Admission to establishment [facility] Pre-Admit Testing Start: 12-13-2022 End: 12-13-2022 Patient encounter procedure 12/13/2022 Office Visit General Surgery Alex Burrell MD [address] [place], [place] [id number] [facility] Start: 12-09-2022 End: 12-09-2022 Patient encounter procedure 12/09/2022 Appointment Radiology Anny Mauricio PA-C [address] [place], [place] [phone] [facility] Start: 12-06-2022 End: 12-06-2022 Patient encounter procedure 12/06/2022 Appointment Radiology [facility] Start: 11-25-2022 End: 11-25-2023 RF Upper gastrointestinal tract and Small bowel Single view W contrast PO FL upper GI double contrast w KUB Imaging Routine Gastroesophageal reflux disease, unspecified whether esophagitis present Hiatal hernia Expected: 11/25/2022, Expires: 11/25/2023 [facility] Work Phone: Comment on above: Expected: 11/25/2022, Expires: 4 Start: 10-13-2022 DEPRESSION ASSESSMENT DEPRESSION ASSESSMENT [facility] Start: 08-15-2022 End: 10-15-2022 Thyrotropin [Units/volume] in Serum or Plasma TSH BLD Lab Routine Hypothyroidism, unspecified type Expected: 08/15/2022, Expires: 10/15/2022 [facility] Work Phone: Comment on above: Expected: 08/15/2022, Expires: 3 Start: 06-13-2022 Influenza vaccination [facility] Start: 03-27-2022 Liquid based cervical cytology screening [facility] Work Phone: Start: 10-13-2021 DEPRESSION ASSESSMENT DEPRESSION ASSESSMENT [facility] Start: 05-14-2018 Mammography [facility] Start: 05-14-2018 Screening for malignant neoplasm of breast Mammogram Screening [facility] Start: 04-04-2018 DIABETES SCREEN DIABETES SCREEN [facility] Start: 04-04-2018 Diabetes Screening Diabetes Screening [facility] Start: 05-14-2017 End: 05-14-2017 Appointment Appointment [facility] Start: 01-13-2017 HPV TESTING HPV TESTING [facility] Start: 01-13-2017 Lipid 1996 panel - Serum or Plasma Lipid Screening [facility] Start: 01-13-2017 Lipid panel Lipid Screening [facility] Start: 01-13-2017 LIPID SCREEN LIPID SCREEN [facility] Start: 01-13-2017 PAP TESTING PAP TESTING [facility] Start: 01-13-2017 Screening for malignant neoplasm of cervix Cervical Cancer Screening [facility] Start: 08-12-2015 End: 08-15-2015 *BMP *BMP [facility] Start: 08-12-2015 End: 08-15-2015 *CBC with Differential *CBC with Differential [facility] Start: 06-29-2015 End: 06-29-2015 Follow Up Appt Other Follow Up Appt Other [facility] Start: 04-07-2015 End: 04-07-2015 Remote 30 day ecg rev/report [address] [facility] Start: 03-23-2015 End: 03-30-2015 *BMP *BMP [facility] Start: 03-23-2015 End: 03-23-2015 Echocardiography Echocardiogram (complete) [facility] Start: 03-23-2015 End: 06-16-2015 Electrocardiogram, complete EKG (In office) [facility] Start: 03-23-2015 End: 03-23-2015 Follow Up Appt 6 weeks Follow Up Appt 6 weeks [facility] Start: 03-23-2015 End: 03-23-2015 MMM MMM [facility] Start: 03-23-2015 End: 03-23-2015 Nuclear stress test -exercise Nuclear stress test -exercise [facility] Start: 2013 SHINGRIX VACCINE (1 of 2) SHINGRIX VACCINE (1 of 2) [facility] Start: 2013 Zoster Vaccines (1 of 2) Zoster Vaccines (1 of 2) [facility] Start: 2008 COLOGUARD (FIT-DNA) COLOGUARD (FIT-DNA) [facility] Start: [address] COLONOGRAPHY [facility] Start: 2008 FECAL OCCULT BLOOD FECAL OCCULT BLOOD [facility] Start: 2008 Screening for malignant neoplasm of colon [facility] Start: 2008 SIGMOIDOSCOPY SIGMOIDOSCOPY [facility] Start: 2003 Screening for malignant neoplasm of breast Mammogram [facility] Start: 1993 Screening for malignant neoplasm of cervix [facility] Start: 1984 Screening for malignant neoplasm of cervix Pap Smear [facility] Start: 1982 Urine microalbumin profile DTAP,TDAP,TD (1 - Tdap) [facility] Start: 1981 ANNUAL PCP TEAM CHRONIC DISEASE VISIT ANNUAL PCP TEAM CHRONIC DISEASE VISIT [facility] Start: 1981 Anxiety Screening Anxiety Screening [facility] Start: 1981 BP Controlled (<130/80) BP Controlled (<130/80) [facility] Start: 1981 Depression Screening Depression Screening [facility] Start: 1981 HEPATITIS C SCREENING HEPATITIS C SCREENING [facility] Start: 1981 Hepatitis C screening Hepatitis C Screening [facility] Start: 1981 HIV SCREENING HIV SCREENING [facility] Start: 1981 HIV screening HIV Screening [facility] Start: 1975 Depression Screening Depression Screening [facility] Start: 1964 MMR Vaccines (1 of 1 - Standard series) MMR Vaccines (1 of 1 - Standard series) [facility] Start: 05-07-1964 COVID-19 VACCINE (#1) COVID-19 VACCINE (#1) [facility] Start: 1963 HEPATITIS B (1 of 3 - 3-dose series) HEPATITIS B (1 of 3 - 3-dose series) [facility] Start: 1963 Hepatitis B Vaccines (1 of 3 - 3-dose series) Hepatitis B Vaccines (1 of 3 - 3-dose series) [facility] Start: 1963 HIV screening HIV Screening [facility] Start: 1963 Lipid panel Lipid Panel [facility] Start: 1963 Screening for malignant neoplasm of colon [facility] Start: 1963 Thyroid stimulating hormone measurement TSH Level [facility] Esophagogastroduoden oscopy transoral diagnostic EGD DIAGNOSTIC Diaphragmatic hernia without obstruction or gangrene Gastro-esophageal reflux disease without esophagitis [facility] Laps rpr paraesphgl hrna incl fundplsty w/mesh LAPAROSCOPY REPAIR PARAESOPHAGEAL HERNIA INCLUDING FUNDOPLASTY WITH MESH Diaphragmatic hernia without obstruction or gangrene Gastro-esophageal reflux disease without esophagitis [facility] Path report.final Dx Spec [facility] Work Phone: Patient Education Understanding Reversible Dementias [facility] Work Phone: Patient referral [facility] Work Phone: [facility] Immunizations Immunization Date Immunization Notes Care Provider Sarai mccoy 09-16-2023 tetanus toxoid, redu pippa diphtheria toxoid, and acellular pertussis vaccine, adsorbed RUBY SPARKS RADIO JOURNALIST-COMMERCIAL ENGINEER [facility] 05-19-2013 tetanus toxoid, redu pippa diphtheria toxoid, and acellular pertussis vaccine, adsorbed Anny ACUÑAC Work Phone: [facility] Payers Date Payer Category Payer Self-pay [id number] 2014 Unknown [id number] 2012 Unknown [id number] 2012 Unknown [id number] 1963 Unknown [id number] 1963 Unknown [id number] Unknown [id number] [id number] Unknown [id number] [id number] Unknown [id number] [id number] Unknown [id number] [id number] Social History Date Type Detail Facility Start: 03-27-2022 End: 04-02-2023 [facility] if ever smoked [facility] Start: 12-20-2020 Non-smoker [facility] Start: 1965 Sex Assigned At Female W [facility] Start: 01-14-2012 End: 10-31-2024 Tobacco smoking status IDIS Ex-smoker [facility] Start: 10-13-1983 End: 02-21-1998 History of tobacco use Current smoker [facility] Start: 01-14-2012 End: 12-13-2022 Tobacco use and exposure Smokeless tobacco non-user [facility] Start: 05-29-2022 End: 08-31-2024 Alcohol intake Current non-drinker of alcohol (finding) [facility] Start: 1965 Sex Assigned At Not on file [facility] Start: 10-13-1983 End: 02-21-1998 History of tobacco use Cigarette Smoker [facility] Start: 09-09-2022 End: 10-16-2023 Cigarettes smoked current (pack per day) - Reported 0.3 [facility] Start: 08-30-2022 End: 05-09-2023 Exposure to SARS-CoV-2 (event) Not sure [facility] Start: 12-06-2022 End: 12-13-2022 Alcohol intake Lifetime non-drinker (finding) [facility] Start: 09-09-2022 End: 10-16-2023 Tobacco use panel [facility] National Score (1-10 0), lower number is lower risk 71 [facility] Within the last year , have you been afraid of your partner or ex-partner? No [facility] How often to you hav e a drink containing alcohol? Never [facility] Start: 03-05-2023 Gender identity Identifies as female gender (finding) [facility] Start: 03-05-2023 Sexual orientation Heterosexual (fin ding) [facility] Start: 12-06-2022 End: 10-31-2024 Tobacco smoking status NHIS Never smoked tobacco [facility] Sexual Orientation [facility] Start: 03-17-2014 End: 01-17-2025 Sex Female (finding) [facility] Functional Status Date Assessment Result Facility 11-01-2024 Functional Status Nurse Asher fung q2hrs Performed Other: 7a-2p [facility] 11-01-2024 Functional Status Independent [facility] 11-01-2024 Functional Status Identified as high risk, Fall ID band on, Room located near nursing station, Bed alert on, Door open, Bathroom light on, Non-Slip footwear [facility] 11-01-2024 Functional Status [facility] 11-01-2024 Functional Status [facility] 10-31-2024 Functional Status [facility] 10-31-2024 Functional Status bilateral knee high removed/off [facility] 10-31-2024 Functional Status [facility] 10-31-2024 Functional Status N/A [facility] 10-31-2024 Functional Status [facility] 09-03-2023 Functional Status Awake, Resting [facility] Mental Status Date Assessment Result Facility 11-01-2024 Mental Status Oriented x 4 [facility] 11-01-2024 Mental Status [facility] 10-31-2024 Mental Status [facility] 10-31-2024 Cognitive function Voice/Name [facility] Work Phone: 09-03-2023 Mental Status Oriented x 4 [facility] [place] Clinical Notes 08-16-2022 to 01-17-2025 Note Date & Type Note Facility 01-17-2025 Hospital Discharge instructions Additional Instructions Dr. Styles's office will call in the morning. They will make arrangements for follow-up. [facility] Work Phone: 11-01-2024 Hospital Discharge instructions Patient Education 11/01/2024 13:38:39 Stroke Prevention, Ieqz-tm-Hduh Stroke Prevention Some medical conditions and lifestyle choices can lead to a higher risk for a stroke. You can help to prevent a stroke by making nutrition, lifestyle, and other changes. What nutrition changes can be made? Eat healthy foods. ?Choose foods that are high in fiber. These include: ?Fresh fruits. ?Fresh vegetables. ?Whole grains. ?Eat at least 5 or more servings of fruits and vegetables each day. Try to fill half of your plate at each meal with fruits and vegetables. ?Choose lean protein foods. These include: ?Lowfat (lean) cuts of meat. ?Chicken without skin. ?Fish. ?Tofu. ?Beans. ?Nuts. ?Eat low-fat dairy products. ?Avoid foods that: ?Are high in salt (sodium). ?Have saturated fat. ?Have trans fat. ?Have cholesterol. ?Are processed. ?Are premade. Follow eating guidelines as told by your doctor. These may include: ?Reducing how many calories you eat and drink each day. ?Limiting how much salt you eat or drink each day to 1,500 milligrams (mg). ?Using only healthy fats for cooking. These include: ?Cygnet oil. ?Canola oil. ?[place] oil. ?Counting how many carbohydrates you eat and drink each day. What lifestyle changes can be made? Try to stay at a healthy weight. Talk to your doctor about what a good weight is for you. Get at least 30 minutes of moderate physical activity at least 5 days a week. This can include: ?Fast walking. ?Biking. ?Swimming. Do not use any products that have nicotine or tobacco. This includes cigarettes and e-cigarettes. If you need help quitting, ask your doctor. Avoid being around tobacco smoke in general. Limit how much alcohol you drink to no more than 1 drink a day for non women and 2 drinks a day for men. One drink equals 12 oz of beer, 5 oz of wine, or 1 oz of hard liquor. Do not use drugs. Avoid taking control pills. Talk to your doctor about the risks of taking control pills if: ?You are over 35 years old. ?You smoke. ?You get migraines. ?You have had a blood clot. What other changes can be made? Manage your cholesterol. ?It is important to eat a healthy diet. ?If your cholesterol cannot be managed through your diet, you may also need to take medicines. Take medicines as told by your doctor. Manage your diabetes. ?It is important to eat a healthy diet and to exercise regularly. ?If your blood sugar cannot be managed through diet and exercise, you may need to take medicines. Take medicines as told by your doctor. Control your high blood pressure (hypertension). ?Try to keep your blood pressure below 130/80. This can help lower your risk of stroke. ?It is important to eat a healthy diet and to exercise regularly. ?If your blood pressure cannot be managed through diet and exercise, you may need to take medicines. Take medicines as told by your doctor. ?Ask your doctor if you should check your blood pressure at home. ?Have your blood pressure checked every year. Do this even if your blood pressure is normal. Talk to your doctor about getting checked for a sleep disorder. Signs of this can include: ?Snoring a lot. ?Feeling very tired. Take qfax-ikm-swaltlb and prescription medicines only as told by your doctor. These may include aspirin or blood thinners (antiplatelets or anticoagulants). Make sure that any other medical conditions you have are managed. Where to find more information [place] [employer] Association: www.strokeassociation.org National Stroke Association: www.stroke.org Get help right away if: You have any symptoms of stroke. BE FAST is an easy way to remember the main warning signs: ?B - Balance. Signs are dizziness, sudden trouble walking, or loss of balance. ?E - Eyes. Signs are trouble seeing or a sudden change in how you see. ?F - Face. Signs are sudden weakness or loss of feeling of the face, or the face or eyelid drooping on one side. ?A - Arms. Signs are weakness or loss of feeling in an arm. This happens suddenly and usually on one side of the body. ?S - Speech. Signs are sudden trouble speaking, slurred speech, or trouble understanding what people say. ?T - Time. Time to call emergency services. Write down what time symptoms started. You have other signs of stroke, such as: ?A sudden, very bad headache with no known cause. ?Feeling sick to your stomach (nausea). ?Throwing up (vomiting). ?Jerky movements you cannot control (seizure). These symptoms may represent a serious problem that is an emergency. Do not wait to see if the symptoms will go away. Get medical help right away. Call your local emergency services (911 in the [place] Do not drive yourself to the hospital. Summary You can prevent a stroke by eating healthy, exercising, not smoking, drinking less alcohol, and treating other health problems, such as diabetes, high blood pressure, or high cholesterol. Do not use any products that contain nicotine or tobacco, such as cigarettes and e-cigarettes. Get help right away if you have any signs or symptoms of a stroke. This information is not intended to replace advice given to you by your health care provider. Make sure you discuss any questions you have with your health care provider. Document Released: 03/30/2013 Document Revised: 11/25/2019 Document Reviewed: 12/31/2017 [employer] Patient Education 2020 [employer]. Follow Up Care 10/31/2024 15:03:32 With:GISELLE STYLES MD Address: [address] [place] [phone] When: Unknown [facility] 11-01-2024 Note Discharge Instructions Thank you for allowing [facility] to assist you with your healthcare needs. The following is important discharge information regarding your hospital visit. Your Care Team Ruby Sparks COMMERCIAL ENGINEER Your Diagnosis Amnesia AMS (altered mental status) Essential (primary) hypertension Hypothyroidism, unspecified Other hypothyroidism Transient global amnesia What to do next Follow Up Appointments Follow Up with GISELLE STYLES MD Where:[address] [place] [id number] The Following Activity and Diet Have Been Ordered for You Discharge Activity - Ordered -- Resume your pre-hospitalization activity, 11/01/24 11:08:00 EST Discharge Diet - Ordered -- No changes were made to your diet during your hospital stay. Please resume your pre hospitalization diet on discharge., 11/01/24 11:08:00 EST The Following Treatments Have Been Ordered for You Discharge Labs No qualifying data available. Discharge Radiology No qualifying data available. Other Therapies No qualifying data available. Post Acute Orders No qualifying data available. Allergies Bactrim Biaxin doxycycline lisinopril Medications Please ask your primary doctor or pharmacist before taking any other medication not listed, including over the counter drugs, herbal medications, vitamins and or supplements as they may interact with your home medications. What How Much When Instructions Last Dose New rosuvastatin (rosuvastatin 10 mg oral tablet) 1 tab(s) by mouth Once a day Pickup at [facility]/pharmacy #[id number] Unchanged ferrous sulfate (IRON (ferrous sulfate 325 mg) 65 mg oral tablet) 1 tab(s) by mouth Once a day Take with food. Unchanged hydrochlorothiazide-losartan (hydrochlorothiazide-losartan 12.5-50 mg oral tablet) 1 tab(s) by mouth Once a day Unchanged levothyroxine (Synthroid 100 mcg (0.1 mg) oral tablet) See instructions 1 tab(s) Oral qDay Unchanged levothyroxine (Synthroid 50 mcg (0.05 mg) oral tablet) See instructions 1 tab(s) Oral qDay Unchanged metoprolol (metoprolol succinate 50 mg oral TABLET extended release) 1 tab(s) by mouth Once a day (in the evening) Do not crush or chew (controlled release) Unchanged potassium chloride (Potassium Chloride (Eqv-K-Tab) 20 mEq oral tablet, extended release) 1 tab(s) by mouth Two (2) times a day Pharmacy Information [facility]/pharmacy #[id number]: [address], [place] [id number] [phone] Please take this list to your next doctor s visit. Bring all medications you take, including over the counter medications, herbals and other supplements with you to your doctor s visit. Patients and families are reminded to discard old lists and to update any records with all medication providers or retail pharmacies. Education Materials Stroke Prevention Some medical conditions and lifestyle choices can lead to a higher risk for a stroke. You can help to prevent a stroke by making nutrition, lifestyle, and other changes. What nutrition changes can be made? Eat healthy foods. ? Choose foods that are high in fiber. These include: ? Fresh fruits. ? Fresh vegetables. ? Whole grains. ? Eat at least 5 or more servings of fruits and vegetables each day. Try to fill half of your plate at each meal with fruits and vegetables. ? Choose lean protein foods. These include: ? Lowfat (lean) cuts of meat. ? Chicken without skin. ? Fish. ? Tofu. ? Beans. ? Nuts. ? Eat low-fat dairy products. ? Avoid foods that: ? Are high in salt (sodium). ? Have saturated fat. ? Have trans fat. ? Have cholesterol. ? Are processed. ? Are premade. Follow eating guidelines as told by your doctor. These may include: ? Reducing how many calories you eat and drink each day. ? Limiting how much salt you eat or drink each day to 1,500 milligrams (mg). ? Using only healthy fats for cooking. These include: ? Cygnet oil. ? Canola oil. ? [place] oil. ? Counting how many carbohydrates you eat and drink each day. What lifestyle changes can be made? Try to stay at a healthy weight. Talk to your doctor about what a good weight is for you. Get at least 30 minutes of moderate physical activity at least 5 days a week. This can include: ? Fast walking. ? Biking. ? Swimming. Do not use any products that have nicotine or tobacco. This includes cigarettes and e-cigarettes. If you need help quitting, ask your doctor. Avoid being around tobacco smoke in general. Limit how much alcohol you drink to no more than 1 drink a day for non women and 2 drinks a day for men. One drink equals 12 oz of beer, 5 oz of wine, or 1 oz of hard liquor. Do not use drugs. Avoid taking control pills. Talk to your doctor about the risks of taking control pills if: ? You are over 35 years old. ? You smoke. ? You get migraines. ? You have had a blood clot. What other changes can be made? Manage your cholesterol. ? It is important to eat a healthy diet. ? If your cholesterol cannot be managed through your diet, you may also need to take medicines. Take medicines as told by your doctor. Manage your diabetes. ? It is important to eat a healthy diet and to exercise regularly. ? If your blood sugar cannot be managed through diet and exercise, you may need to take medicines. Take medicines as told by your doctor. Control your high blood pressure (hypertension). ? Try to keep your blood pressure below 130/80. This can help lower your risk of stroke. ? It is important to eat a healthy diet and to exercise regularly. ? If your blood pressure cannot be managed through diet and exercise, you may need to take medicines. Take medicines as told by your doctor. ? Ask your doctor if you should check your blood pressure at home. ? Have your blood pressure checked every year. Do this even if your blood pressure is normal. Talk to your doctor about getting checked for a sleep disorder. Signs of this can include: ? Snoring a lot. ? Feeling very tired. Take crwg-ssj-nrimuov and prescription medicines only as told by your doctor. These may include aspirin or blood thinners (antiplatelets or anticoagulants). Make sure that any other medical conditions you have are managed. Where to find more information [place] [employer]roke Association: www.strokeassociation.org National Stroke Association: www.stroke.org Get help right away if: You have any symptoms of stroke. BE FAST is an easy way to remember the main warning signs: ? B - Balance. Signs are dizziness, sudden trouble walking, or loss of balance. ? E - Eyes. Signs are trouble seeing or a sudden change in how you see. ? F - Face. Signs are sudden weakness or loss of feeling of the face, or the face or eyelid drooping on one side. ? A - Arms. Signs are weakness or loss of feeling in an arm. This happens suddenly and usually on one side of the body. ? S - Speech. Signs are sudden trouble speaking, slurred speech, or trouble understanding what people say. ? T - Time. Time to call emergency services. Write down what time symptoms started. You have other signs of stroke, such as: ? A sudden, very bad headache with no known cause. ? Feeling sick to your stomach (nausea). ? Throwing up (vomiting). ? Jerky movements you cannot control (seizure). These symptoms may represent a serious problem that is an emergency. Do not wait to see if the symptoms will go away. Get medical help right away. Call your local emergency services (911 in the [place] Do not drive yourself to the hospital. Summary You can prevent a stroke by eating healthy, exercising, not smoking, drinking less alcohol, and treating other health problems, such as diabetes, high blood pressure, or high cholesterol. Do not use any products that contain nicotine or tobacco, such as cigarettes and e-cigarettes. Get help right away if you have any signs or symptoms of a stroke. This information is not intended to replace advice given to you by your health care provider. Make sure you discuss any questions you have with your health care provider. Document Released: 03/30/2013 Document Revised: 11/25/2019 Document Reviewed: 12/31/2017 [employer] Patient Education 2020 [employer] Additional Information VACCINATE! IT SAVES LIVES! Members of the community who have not yet received the COVID-19 vaccine and would like to receive it can visit one of [facility] vaccine clinics. There are many vaccine clinic locations within the [facility]. For locations and available times, please visit https://gettheshot.coronavirus.[place].gov/. It is important to note that some COVID mobile vaccine clinics are held outdoors and may be canceled in rainy or stormy conditions. To learn more about pediatric vaccinations (ages 5-11), we invite you to visit the [facility] webpage. https://www.[facility].org/p ages/5943-Ccwng-Ctbonlaqmzr-Freq jragkr-Uwutp-Axmupipid.html To learn more about the COVID-19 vaccine, we invite you to visit the CDC website for a list of frequently asked questions.https://www.cdc.gov/co ronavirus/2019-ncov/vaccines/faq .html [facility] Patient Portal Access Instructions: Stay connected with your healthcare team and access your personal medical information anytime with the [facility] Patient Portal. Please follow the directions below to create your [facility] account: 1.Access the email account you provided upon registration to the hospital/physician office.2.Look for an invitation email from [facility].3.Open the email and access the invitation link: Accept Invitation to [facility].4.Fill in the required chun to create your account. To access your account, visit [email or web address]. Click the blue button labeled Access Patient Portal and then log in with the username and password that you created in the steps above. You will be able to view your test results, lab results, a summary of your visits, upcoming appointments and more. There is also a convenient messaging option where you can send secure messages to your provider. In addition, you will have the ability to download any documents or summaries to your computer and/or send the information securely to a physician. Remember that your healthcare information is confidential, so carefully consider who you will allow to register on the [facility] Patient Portal for access to your information. You can also access the [facility] Patient Portal on the [facility] evelin. Simply click on Patient Portal and then log into your account. If you would like to receive a full copy of your medical records, please contact the [facility] Medical Records Department by calling [phone], Friday through Friday between 8 a.m. and 4:30 p.m. HOW TO SAFELY DISPOSE OF PRESCRIPTION MEDICATIONS Please use one of the following methods to safely dispose of your unused medications. 1.Use a drug disposal kit: the drug disposal pouch allows you to safely discard your old and unused drugs. Ask your nurse to give you one when you are discharged.2.Visit a local take-back location: Many local pharmacies and police departments have programs that collect old and unwanted prescription drugs. Call your local pharmacy or go to http://Jildy.Xplenty/3I7Tz7w to find one close to you.3.Make use of household items: Use cat litter or old coffee grounds to dispose medications if other options are not available. Mix your drugs with these household products, seal them in an airtight container and throw it into the garbage. Call [facility]: [phone] to be sure your drugs can be disposed of in this way. Some medicines may require a different approach.4.Never flush your medications down the toilet. IF YOU HAVE BEEN PRESCRIBED AN OPIOID FOR PAIN If you have been prescribed an opioid (such as hydrocodone, oxycodone or morphine), it is critical to understand the possible side effects and risks of opioid pain medications. Even when taken as directed, opioids can have several side effects including: Tolerance, meaning you might need to take more of a medication for the same pain relief. Nausea, vomiting and/or constipation. Sleepiness, dizziness, dry mouth, confusion, depression or itching. Physical dependence, meaning you have withdrawal symptoms when a medication is stopped, can develop within a few days. KNOW YOUR RESPONSIBILITIES It is important to know exactly how much and how often to take the opioid pain medications you are prescribed. Never take opioids in higher amounts or more often than prescribed. Do not combine opioids with alcohol or other drugs that cause drowsiness, such as benzodiazepines, also known as benzos, including diazepam and alprazolam, muscle relaxants or sleep aids. Never sell or share prescription opioids. This is illegal. Store opioids in a secure place and out of reach of others (including children, family, friends and visitors). The last page of this document has been signed and retained as a CHART COPY. Signatures Patient Education Materials Stroke Prevention, [id number] Medication Leaflets My discharge plan and instructions have been reviewed and explained to me and I,LOUIS WILCOX understand my current condition and have read and understand these discharge instructions. I have received a written copy of the plan/instructions. If I have questions, I am aware that I should contact my doctor. Patient/Corn Sheller Signature: Date/Time: Relationship to Patient: Witness Name/Signature: Date/Time: [facility] 11-01-2024 Note Exam Date Time Procedure Performing Provider Status 11/01/24 8:29 AM MRI Brain w/o Contrast CLARICE CHANEY; Auth (Verified) [id number] ORIGINAL EXAMINATION: MRI OF THE BRAIN WITHOUT CONTRAST 11/01/2024 8:30 am TECHNIQUE: Multiplanar multisequence MRI of the brain was performed without the administration of intravenous contrast. COMPARISON: CTA head 10/31/2024. HISTORY: ORDERING SYSTEM PROVIDED HISTORY: Reason for Exam: CVA/TIA FINDINGS: INTRACRANIAL STRUCTURES/VENTRICLES: There is no acute infarct. No mass effect or midline shift. No evidence of an acute intracranial hemorrhage. The ventricles and sulci are normal in size and configuration. The sellar/suprasellar regions appear unremarkable. The normal signal voids within the major intracranial vessels appear maintained. ORBITS: The visualized portion of the orbits demonstrate no acute abnormality. SINUSES: The visualized paranasal sinuses and mastoid air cells demonstrate no acute abnormality. BONES/SOFT TISSUES: The bone marrow signal intensity appears normal. The soft tissues demonstrate no acute abnormality. IMPRESSION: No acute infarct. Unremarkable MRI examination of the brain. Interpreted by: Clarice Chaney Preliminary Report By: Clarice Chaney Electronically signed By Clarice Chaney Dictated Date: 11/01/2024 8:34:49 AM Prelim Date: 11/01/2024 8:36:02 AM Sign Date: 11/01/2024 8:36:02 AM Ordering Provider: RUBY SPARKS [facility]01-19-2025 Note Date of Service 10/31/2024 Chief Complaint per daughter. patient was seen at [facility] this morning for signs of confusion and forgetfulness since she woke up at 730am. [facility] did a full work up per the daughter and stated the patient had global amnesia. the daugher was still concerned for strok History of Present Illness 58-year-old female with past medical history significant for HTN, anemia, hypothyroidism, prediabetes, HLD. Patient presented to [facility] emergency department with altered mental status/amnesia. Family was concerned about stroke given patient has a family history of stroke. She was in [facility] emergencydepartment where head CT was done. This showed no acute process. Urine was unremarkable. CBC and BMP unremarkable. Glucose mildly elevated at 122. TSH 2.170. On exam today, pt denies any fever or chills. No headache or dizziness. Denies chest pain, palpitations. No cough, dyspnea, sputum production. Denies N/V/D. She was constipated and was straing to have a bowel movement. This was the last thing she remembered. As she was in the ER she started to havereturn of her memory . No melena/hematochezia.Some dysuria. No new paresthesias. Review of Systems See HPI for specific ROS. All other systems reviewed and negative. Physical Exam Vitals and Measurements T: 36.7 C (Oral) HR: 73 RR: 16 BP: 122/74 SpO2: 99% HT: 165.1 cm WT: 88.5 kg BMI: 32.47 Weight Dosing Weight: 88.5 kg (10/31/24) Dosing Weight: 88.5 kg (10/31/24) GEN: Appears chronically ill EYES: No conjunctival erythema, drainage. EOMI EARS: Hearing grossly intact. NOSE: No nasal discharge. THROAT: Oral cavity and pharynx pink and moist. CHEST: Normal S1 and S2. Rhythm is regular. Clear to auscultation, without rales, rhonchi, wheezing. ABD: Positive bowel sounds x 4 quads. Soft, nondistended, nontender. EXT: No significant deformity or joint abnormality. No edema. Peripheral pulses intact. NEURO: Sensation grossly intact. NIH score 0. SKIN: Skin color normal PSYCH: The mental examination revealed the patient was alert and oriented x 4 Lab Results 10/31 15:23 Glucose Level: 108 Sodium Level: 140 Potassium Level: 3.8 BUN: 15 Creatinine Lvl (s): 0.91 Assessment/Plan Altered mental status/Amnesia differentials include transient global amnesia, CVA versus TIA, atypical migraine. Patient does not consume drugs or alcohol. ABCD2 score 4. Obtain MRI of the brain, echocardiogram if has CVA. Check lipid panel and A1c. Suspect this is more likely TGA given her presentation. NIH score 0. HTN- SBP goal 140 or less. Continue home antihypertensives. DVT prophylaxis:SCD's Code Status: Full Code Plan of care discussed with patient. All questions answered. Patient verbalizes understanding is agreeable to plan of care. This dictation was performed using voice recognition software and may include grammatical and/or spelling errors. Procedure/Surgical History Hiatal hernia: 03/05/23 Plantar fasciitis of right foot: 2016 Gallbladder: 2000 Medications Home Medications (6) Active hydrochlorothiazide-losartan 12.5-50 mg oral tablet 1 tab(s), Oral, qDay IRON (ferrous sulfate 325 mg) 65 mg oral tablet 325 mg = 1 tab(s), Oral, qDay metoprolol succinate 50 mg oral TABLET extended release 50 mg = 1 tab(s), Oral, qPM Potassium Chloride (Eqv-K-Tab) 20 mEq oral tablet, extended release 20 mEq = 1 tab(s), Oral, BID Synthroid 100 mcg (0.1 mg) oral tablet See Instructions Synthroid 50 mcg (0.05 mg) oral tablet See Instructions Allergies Bactrim Biaxin doxycycline lisinopril Social History Alcohol Use: Never., 10/31/2024 Home/Environment Living situation: Home/Independent., 10/31/2024 Nutrition/Health Type of diet: Regular., 10/31/2024 Sexual Sexually active: No., 10/31/2024 Substance Abuse Use: Never., 10/31/2024 Tobacco Nicotine Use: Former smoker, quit more than 30 days ago., 10/31/2024 Family History Cancer: Mother and Brother. Diabetes: Mother and Brother. Heart attack: Mother and Father. Heart disease: Mother and Father. Hypertension: Mother and Father. Stroke: Mother and Brother. Health Status Family Member(s) Immunizations tetanus/diphth/pertuss (Tdap) adult/adol: 0.5 unknown unit (09/16/23) tetanus/diphth/pertuss (Tdap) adult/adol: 0 unknown unit (05/19/13) Code Status Code Status - Ordered -- 10/31/24 15:47:00 EST, Full Code, Constant Order Digitally Signed by RUBY SPARKS on 10/31/2024 06:42 PM [facility]01-19-2025 Note* Exam Date Time Procedure Performing Provider Status 10/31/24 5:[address] Angiography Neck w/ Contrast NIKKI CISSE DO; Auth (Verified) [id number] ORIGINAL EXAMINATION: CTA OF THE HEAD WITH CONTRAST; CTA OF THE NECK 10/31/2024 6:40 pm: TECHNIQUE: CTA of the head/brain was performed with the administration of intravenous contrast. Multiplanar reformatted images are provided for review. MIP images are provided for review. Automated exposure control, iterative reconstruction, and/or weight based adjustment of the mA/kV was utilized to reduce the radiation dose to as low as reasonably achievable.; CTA of the neck was performed with the administration of intravenous contrast. Multiplanar reformatted images are provided for review. MIP images are provided for review. Stenosis of the internal carotid arteries measured using NASCET criteria. Automated exposure control, iterative reconstruction, and/or weight based adjustment of the mA/kV was utilized to reduce the radiation dose to as low as reasonably achievable. COMPARISON: None. HISTORY: ORDERING SYSTEM PROVIDED HISTORY: Reason for Exam: confusion FINDINGS: CTA NECK: AORTIC ARCH/ARCH VESSELS: No dissection or arterial injury. No significant stenosis of the brachiocephalic or subclavian arteries. CAROTID ARTERIES: Atherosclerotic changes without dissection, arterial injury, or hemodynamically significant stenosis by NASCET criteria. VERTEBRAL ARTERIES: Right dominant. No dissection, arterial injury, or significant stenosis. SOFT TISSUES: The lung apices are clear. No cervical or superior mediastinal lymphadenopathy. The larynx and pharynx are unremarkable. No acute abnormality of the salivary and thyroid glands. BONES: No acute osseous abnormality. CTA HEAD: ANTERIOR CIRCULATION: No significant stenosis of the intracranial internal carotid, anterior cerebral, or middle cerebral arteries. No aneurysm. POSTERIOR CIRCULATION: No significant stenosis of the basilar or posterior cerebral arteries. No aneurysm. origin left [facility]. Bilateral posterior communicating arteries are patent. OTHER: No dural venous sinus thrombosis on this non-dedicated study. BRAIN: No mass effect or midline shift. No extra-axial fluid collection. The nguyen-white differentiation is maintained. IMPRESSION: Atherosclerotic changes without large vessel occlusion or severe stenosis in the head or neck. Interpreted by: Nikki Liu Preliminary Report By: Nikki Liu Electronically signed By Nikki Liu Dictated Date: 10/31/2024 6:51:27 PM Prelim Date: 10/31/2024 6:57:17 PM Sign Date: 10/31/2024 6:57:17 PM Ordering Provider: LAURA [facility]01-19-2025 Note* Exam Date Time Procedure Performing Provider Status 10/31/24 5:[address] Angiography Head w/ Contrast NIKKI CISSE DO; Auth (Verified) [id number] ORIGINAL EXAMINATION: CTA OF THE HEAD WITH CONTRAST; CTA OF THE NECK 10/31/2024 6:40 pm: TECHNIQUE: CTA of the head/brain was performed with the administration of intravenous contrast. Multiplanar reformatted images are provided for review. MIP images are provided for review. Automated exposure control, iterative reconstruction, and/or weight based adjustment of the mA/kV was utilized to reduce the radiation dose to as low as reasonably achievable.; CTA of the neck was performed with the administration of intravenous contrast. Multiplanar reformatted images are provided for review. MIP images are provided for review. Stenosis of the internal carotid arteries measured using NASCET criteria. Automated exposure control, iterative reconstruction, and/or weight based adjustment of the mA/kV was utilized to reduce the radiation dose to as low as reasonably achievable. COMPARISON: None. HISTORY: ORDERING SYSTEM PROVIDED HISTORY: Reason for Exam: confusion FINDINGS: CTA NECK: AORTIC ARCH/ARCH VESSELS: No dissection or arterial injury. No significant stenosis of the brachiocephalic or subclavian arteries. CAROTID ARTERIES: Atherosclerotic changes without dissection, arterial injury, or hemodynamically significant stenosis by NASCET criteria. VERTEBRAL ARTERIES: Right dominant. No dissection, arterial injury, or significant stenosis. SOFT TISSUES: The lung apices are clear. No cervical or superior mediastinal lymphadenopathy. The larynx and pharynx are unremarkable. No acute abnormality of the salivary and thyroid glands. BONES: No acute osseous abnormality. CTA HEAD: ANTERIOR CIRCULATION: No significant stenosis of the intracranial internal carotid, anterior cerebral, or middle cerebral arteries. No aneurysm. POSTERIOR CIRCULATION: No significant stenosis of the basilar or posterior cerebral arteries. No aneurysm. origin left [facility]. Bilateral posterior communicating arteries are patent. OTHER: No dural venous sinus thrombosis on this non-dedicated study. BRAIN: No mass effect or midline shift. No extra-axial fluid collection. The nguyen-white differentiation is maintained. IMPRESSION: Atherosclerotic changes without large vessel occlusion or severe stenosis in the head or neck. Interpreted by: Nikki Liu Preliminary Report By: Nikki Liu Electronically signed By Nikki Liu Dictated Date: 10/31/2024 6:51:27 PM Prelim Date: 10/31/2024 6:57:17 PM Sign Date: 10/31/2024 6:57:17 PM Ordering Provider: LAURA [facility]01-19-2025 Evaluation + Plan noteExtracted from: Title:History and Physical Author:RUBY SPARKS [employer] J[employer]LIST[employer]ERCIAL ENGINEER Date:10/31/24 Altered mental status/Amnesi a differentials include transient global amnesia, CVA versus TIA, atypical migraine. Patient does not consume drugs or alcohol. ABCD2 score 4. Obtain MRI of the brain, echocardiogram if has CVA. Check lipid panel and A1c. Suspect this is more likely TGA given her presentation. NIH score 0. HTN- SBP goal 140 or less. Continue home antihypertensives. DVT prophylaxis:SCD's Code Status: Full Code Plan of care discussed with patient. All questions answered. Patient verbalizes understanding is agreeable to plan of care. This dictation was performed using voice recognition software and may include grammatical and/or spelling errors. [facility] 11-19-2024 NoteHNO ID: [id number] Author: JENNIE MABRY MD Service: ? Author Type: Physician Type: Progress Notes Filed: 08/31/2024 11:26 Note Text: FOLLOW UP ENDOCRINOLOGY, THYROID SERVICE DATE: 08/31/2024 SERVICE TIME: 11:08 AM Chief complaint: Hypothyroidism, impaired fasting glucose HPI: Patient is a 58 years old female who is seen today for a 10-1/2 months follow-up for hypothyroidism and impaired fasting glucose. She has been following with me since April 2010. She was last seen in the office on 10/16/2023. Below is pertinent historical data that will be updated during this visit to reflect the patients current status. Hypothyroidism: Patient was initially referred to my office in April 2010. She had been diagnosed with hypothyroidism in February 2010. She was on 50 mcg daily dose and her TSH was 9.0. Dose was increased to 100 mcg 1 daily and then decreased to 6 pills a week in September 2010. The dose was last decreased in August 2015 to 5-1/2 pills a week when patient had lost a lot of weight. -Now, patient has been gaining weight gradually. TSH was stable, 1.47 on 08/23/2022. -She had a TSH on 06/14/2023, it was 0.9 per patient; I did not get that result on time, checked on 10/16/23. -Synthroid 100 mcg 5-1/2 pills continued. -08/17/2024 labs: TSH 2.59. Patient has not been able to lose weight, she may have gained a few pounds weight since he retired in January 2024. She has been less active. Impaired fasting glucose: Diagnosed in 2018 when she had a fasting blood sugar of 112. Her fasting blood sugar was 124 in 2019. She does have family history of diabetes. She started watching her diet. Her fasting blood sugar was 107 in 2019 and 107 in 2020. HbA1c was 5.4 in August 2021. -She had fasting labs on 06/14/2023, we did not get the result. She thinks her HbA1c was 5.7. -Patient has been gradually gaining weight. She used to exercise, walking 20 minutes once or twice a day in the past. - She had hiatus hernia surgery in February 2023. She had decreased her activity then. She had left ankle tendinitis in August 2023, for which she had physical therapy. She had very limited activity in 2022. -She retired in January 2024 and has not been very active. -Trying to watch her diet. -08/17/2024 labs: Fasting blood sugar 115, HbA1c 5.9. PAST MEDICAL HISTORY Diagnosis Date Acute gastritis without mention of hemorrhage Anemia Esophagitis, unspecified Essential hypertension, benign GERD (gastroesophageal reflux disease) Hypothyroid Low serum potassium Plantar fasciitis Psoriasis Thyroid disorder PAST SURGICAL HISTORY Procedure Laterality Date CHOLECYSTECTOMY 10/13/1999 Cholecystectomy ESOPHAGOGASTRODUODENOSCOPY TRANSORAL DIAGNOSTIC 07/07/2000 EGD FOOT SURGERY HX 12/12/2015 Right Foot, Plantar fasciitis [M72.2] HIATAL HERNIA REPAIR HX 02/2023 FAMILY HISTORY Problem Relation Age of Onset Breast Cancer Mother Diabetes Mother other (Heart attack [Other]) Mother Stroke Mother IN MAY OF 2009 X THREE other (HEART PROBLEMS [Other]) Mother BRADYCARDIA, CAROTID SURGERY other (HTN [Other]) Father Heart Attack Father No Known Problems Sister other ( at infancy) Brother 6 weeks old Hypertension Brother Skin Cancer Brother Hypertension Brother Diabetes Brother Hypertension Maternal Grandmother No Known Problems Maternal Grandfather Cancer Paternal Grandmother type unknown No Known Problems Paternal Grandfather Social History Tobacco Use Smoking status: Former Current packs/day: 0.00 Average packs/day: 0.3 packs/day for 13.0 years (3.3 ttl pk-yrs) Types: Cigarettes Start date: 10/13/1983 Quit date: 1996 Years since quittin.9 Smokeless tobacco: Never Substance Use Topics Alcohol use: No Drug use: No Outpatient Medications as of 08/31/2024 Medication Sig cyclobenzaprine (FLEXERIL) 10 mg tablet Take 10 mg by mouth as needed. metoprolol succinate ER (TOPROL XL) 100 mg Take 1 tablet by mouth every afternoon. SYNTHROID 100 mcg tablet TAKE 1 TABLET FRIDAY THROUGH FRIDAY, TAKE 1/2 TABLET ON FRIDAY NONE ON FRIDAY hydroCHLOROthiazide (HYDRODIURIL, ESIDRIX) 12.5 mg tablet Take 12.5 mg by mouth once daily. losartan (COZAAR) 50 mg tablet Take 50 mg by mouth once daily. potassium chloride 20 mEq TbER Take 1 tablet by mouth two times a day. ferrous sulfate 325 mg (65 mg iron) tablet Take 325 mg by mouth daily with breakfast. No current facility-administered medications on file as of 08/31/2024. Review of Systems Constitutional: Negative for activity change, appetite change, fatigue and unexpected weight change. HENT: Negative for congestion, sore throat, trouble swallowing and voice change. Eyes: Negative for visual disturbance. Respiratory: Negative for cough, choking, chest tightness and shortness of breath. Cardiovascular: Negative for chest pain, palpitations and leg swelling. Gastrointestinal: Negative for abdominal p (more content not included)...[facility]11-19-2024 History of Present illness Narrative* Jennie Mabry MD - 08/31/2024 11:08 AM EST FOLLOW UP ENDOCRINOLOGY, THYROID SERVICE DATE: 08/31/2024 SERVICE TIME: 11:08 AM Chief complaint: Hypothyroidism, impaired fasting glucose HPI: Patient is a 58 years old female who is seen today for a 10-1/2 months follow-up for hypothyroidism and impaired fasting glucose. She has been following with me since April 2010. She was last seen in the office on 10/16/2023. Below is pertinent historical data that will be updated during this visit to reflect the patients current status. Hypothyroidism: Patient was initially referred to my office in April 2010. She had been diagnosed with hypothyroidism in February 2010. She was on 50 mcg daily dose and her TSH was 9.0. Dose was increased to 100 mcg 1 daily and then decreased to 6 pills a week in September 2010. The dose was last decreased in August 2015 to 5-1/2 pills a week when patient had lost a lot of weight. -Now, patient has been gaining weight gradually. TSH was stable, 1.47 on 08/23/2022. -She had a TSH on 06/14/2023, it was 0.9 per patient; I did not get that result on time, checked on 10/16/23. -Synthroid 100 mcg 5-2 pills continued. -08/17/2024 labs: TSH 2.59. Patient has not been able to lose weight, she may have gained a few pounds weight since he retired in January 2024. She has been less active. Impaired fasting glucose: Diagnosed in 2017 when she had a fasting blood sugar of 112. Her fasting blood sugar was 124 in 2018. She does have family history of diabetes. She started watching her diet. Her fasting blood sugar was 107 in 2019 and 107 in 2020. HbA1c was 5.4 in August 2021. -She had fasting labs on 06/14/2023, we did not get the result. She thinks her HbA1c was 5.7. -Patient has been gradually gaining weight. She used to exercise, walking 20 minutes once or twice a day in the past. - She had hiatus hernia surgery in February 2023. She had decreased her activity then. She had left ankle tendinitis in August 2023, for which she had physical therapy. She had very limited activity in 2022. -She retired in January 2024 and has not been very active. -Trying to watch her diet. -08/17/2024 labs: Fasting blood sugar 115, HbA1c 5.9. PAST MEDICAL HISTORY Diagnosis Date Acute gastritis without mention of hemorrhage Anemia Esophagitis, unspecified Essential hypertension, benign GERD (gastroesophageal reflux disease) Hypothyroid Low serum potassium Plantar fasciitis Psoriasis Thyroid disorder PAST SURGICAL HISTORY Procedure Laterality Date CHOLECYSTECTOMY 10/13/1999 Cholecystectomy ESOPHAGOGASTRODUODENOSCOPY TRANSORAL DIAGNOSTIC 07/07/2000 EGD FOOT SURGERY HX 12/12/2015 Right Foot, Plantar fasciitis [M72.2] HIATAL HERNIA REPAIR HX 02/2023 FAMILY HISTORY Problem Relation Age of Onset Breast Cancer Mother Diabetes Mother other (Heart attack [Other]) Mother Stroke Mother IN MAY OF 2009 X THREE other (HEART PROBLEMS [Other]) Mother BRADYCARDIA, CAROTID SURGERY other (HTN [Other]) Father Heart Attack Father No Known Problems Sister other ( at infancy) Brother 6 weeks old Hypertension Brother Skin Cancer Brother Hypertension Brother Diabetes Brother Hypertension Maternal Grandmother No Known Problems Maternal Grandfather Cancer Paternal Grandmother type unknown No Known Problems Paternal Grandfather Social History Tobacco Use Smoking status: Former Current packs/day: 0.00 Average packs/day: 0.3 packs/day for 13.0 years (3.3 ttl pk-yrs) Types: Cigarettes Start date: 10/13/1983 Quit date: 1996 Years since quittin.9 Smokeless tobacco: Never Substance Use Topics Alcohol use: No Drug use: No Outpatient Medications as of 08/31/2024 Medication Sig cyclobenzaprine (FLEXERIL) 10 mg tablet Take 10 mg by mouth as needed. metoprolol succinate ER (TOPROL XL) 100 mg Take 1 tablet by mouth every afternoon. SYNTHROID 100 mcg tablet TAKE 1 TABLET FRIDAY THROUGH FRIDAY, TAKE 1/2 TABLET ON FRIDAY NONE ON FRIDAY hydroCHLOROthiazide (HYDRODIURIL, ESIDRIX) 12.5 mg tablet Take 12.5 mg by mouth once daily. losartan (COZAAR) 50 mg tablet Take 50 mg by mouth once daily. potassium chloride 20 mEq TbER Take 1 tablet by mouth two times a day. ferrous sulfate 325 mg (65 mg iron) tablet Take 325 mg by mouth daily with breakfast. No current facility-administered medications on file as of 08/31/2024. Review of Systems Constitutional: Negative for activity change, appetite change, fatigue and unexpected weight change. HENT: Negative for congestion, sore throat, trouble swallowing and voice change. Eyes: Negative for visual disturbance. Respiratory: Negative for cough, choking, chest tightness and shortness of breath. Cardiovascular: Negative for chest pain, palpitations and leg swelling. Gastrointestinal: Negative for abdominal pain, constipation, diarrhea and nausea. Endocrine: Negative for cold intolerance, heat intolerance and polyphagia. Genitourinary: Negative for difficulty urinating and dysuria. Musculoskeletal: Negative for arthralgias, back pain, gait problem and myalgias. Skin: Negative for color change and rash. Neurological: Negative for dizziness, tremors, weakness, light-headedness, numbness and headaches. Hematological: Negative for adenopathy. Does not bruise/bleed easily. Psychiatric/Behavioral: Negative for confusion, dysphoric mood and sleep disturbance. The patient is not nervous/anxious. Physical Exam Constitutional: General: She is not in acute distress. Appearance: She is obese. Neck: Thyroid: No thyromegaly. Vascular: No carotid bruit. Cardiovascular: Rate and Rhythm: Normal rate and regular rhythm. Heart sounds: Normal heart sounds. Pulmonary: Effort: Pulmonary effort is normal. Breath sounds: Normal breath sounds. Musculoskeletal: General: Normal range of motion. Cervical back: Normal range of motion and neck supple. Right lower leg: No edema. Left lower leg: No edema. Skin: General: Skin is warm and dry. Findings: No lesion. Neurological: General: No focal deficit present. Mental Status: She is alert and oriented to person, place, and time. Psychiatric: Mood and Affect: Mood normal. Judgment: Judgment normal. BP 122/80 Pulse 78 Ht 166.4 cm (5' 5.5) Wt 89 kg (196 lb 3.4 oz) LMP 10/22/2013 BMI 32.15 kg/m Body mass index is 32.15 kg/m . LABORATORY RESULTS: No results found for: HB, HCT, WBC, PLT No results found for: K, NA, MG, CREAT, BUN, GLUC, INR, TSH, PBNP Lipids: No results found for: CHOL, HDL, LDL, TG No results found for: ALB, TBILI, CBILI, ALKPHOS, AST, ALT, TPROT No results found for: LVEF No results found for: HBA1C ASSESSMENT/PLAN: 1. Hypothyroidism, unspecified type - ICD9: 244.9, ICD10: E03.9 (primary diagnosis) - Diagnosed in February 2010. TPO was negative. She has family history of thyroid disease in her father. - She has been on stable dose of Synthroid 100 mcg 5-1/2 pills a week since Aug, 2015. -TSH 1.47 on 08/23/2022. TSH 0.9 on 06/14/2023; we did not get the lab result sent to us. Treatment continued. -08/17/2024: TSH 2.59. Continue Synthroid 100 mcg 5-1/2 pills a week. TSH <3, no dose for now. -Patient is getting brand-name Synthroid from her [employer] company; has a high co-pay. Prescription sent. - Instructed patient on importance of taking medication on an empty stomach first thing in the morning, 30 minutes before eating, alone and with water only. - SYNTHROID 100 MCG TABLET 2. Impaired fasting glucose - ICD9: 790.21, ICD10: R73.01 - - Diagnosed in 2018 with a fasting blood sugar of 112. Prior to that, her fasting blood sugar was90 in 2011; 101 in 2014. - Fasting blood sugar was 107 in August 2021. We did not get labs from June 2023. - She had a fasting blood sugar of 88 on 02/21/2023, prior to her hiatus hernia surgery. Blood sugarwas 161 on 03/06/2023; the day after her hiatus hernia surgery in [facility]. -HbA1c 5.4 in August 2021; 5.7 on 06/14/2023 with a fasting blood sugar of 105. -08/17/2024 labs: HbA1c 5.9 with a FBS of 115; less activity and weight gain causing increasing blood sugars. -Low-carb, low-fat and low sugar diet encouraged. Daily 30 minutes exercise encouraged. Check labs in April 2025 -Weight loss encouraged. Patient has high risk of developing type 2 diabetes. - BASIC METABOLIC PANEL - HEMOGLOBIN A1C - THYROID STIMULATING HORMONE 3. Family history of diabetes mellitus - ICD9: V18.0, ICD10: Z83.3 -DM 2 in mother and 2 brothers Some elements copied from my notes, which have been updated where appropriate, and all reflect current medical decision making from today, August 31, 2024 Follow up: 8 to 9 months Lab/tests : TSH, HbA1c and fasting BMP in 8 months. August 31, 2024 11:08 AM Please note, the time of this note does not reflect the time I saw this patient today, but the timeof this documentation. [facility] Note * Telephone Encounter - Jennie Mabry MD - 08/18/2024 10:54 AM EST Labs from 08/17/2024 reviewed. HbA1c 5.9. Fasting blood sugar 115. TSH 2.59. Calcium 9.3. BUN 15, creatinine 0.87. Patient has appointment on 08/31/2024. [facility]11-06-[facility] Miscellaneous Notes* Telephone Encounter - Jennie Mabry MD - 08/18/2024 10:54 AM EST Labs from 08/17/2024 reviewed. HbA1c 5.9. Fasting blood sugar 115. TSH 2.59. Calcium 9.3. BUN 15, creatinine 0.87. Patient has appointment on 08/31/2024. * Telephone Encounter - Jorge Tinajero MA - 08/18/2024 9:57 AM EST Lab Results received from : [facility] On: August Placed on your desk for review. Jorge Tinajero MA August 18, 2024 10:05 AM [facility] Telephone encounter Note * Telephone Encounter - Jorge Tinaejro MA - 08/18/2024 9:57 AM EST Lab Results received from : [facility] On: August Placed on your desk for review. Jorge Tinajero MA August 18, 2024 10:05 AM [facility]09-[facility] Telephone encounter Note* Telephone Encounter - Jennie Mabry MD - 07/06/2024 7:02 PM EDT Lab orders are already in [facility], were given to pt in 10/2023. - [facility] send [facility]. [facility] Miscellaneous Notes* Telephone Encounter - Jennie Mabry MD - 07/06/2024 7:02 PM EDT Lab orders are already in [facility], were given to pt in 10/2023. - Will send them to [facility]. * Telephone Encounter - Jorge Tinajero MA - 07/06/2024 10:15 AM EDT Pt requesting an order for labs be sent to [facility]. Jorge Tinajero MA July 06, 2024 10:16 AM [facility] Tele[facility] encounter Note * Telephone Encounter - Jorge Tinajero MA - 07/06/2024 10:15 AM EDT Pt requesting an order for labs be sent to [facility]. Jorge Tinajero MA July 06, 2024 10:16 AM [facility]01-[facility] NoteHNO ID: [id number] Author: JENNIE MABRY MD Service: ? Author Type: Physician Type: Progress Notes Filed: 10/16/2023 16:06 Note Text: FOLLOW UP ENDOCRINOLOGY, THYROID SERVICE DATE: 10/16/2023 SERVICE TIME: 2:55 PM Chief complaint: Hypothyroidism, impaired fasting glucose. HPI: Patient is a 57-year-old female who is seen today for a 13-month follow-up for hypothyroidism and impaired fasting glucose. She has been following with me since April 2010. She was last seen in the office on 09/09/2022. She had appointment to see me on 09/08/2023, which had to be changed since I was out of the office. Below is pertinent historical data that will be updated during this visit to reflect the patients current status. Hypothyroidism: Patient was initially referred to my office in April 2010. She had been diagnosed with hypothyroidism in February 2010. She was on 50 mcg daily dose and her TSH was 9.0. Dose was increased to 100 mcg 1 daily and then decreased to 6 pills a week in September 2010. The dose was last decreased in August 2015 to 5-1/2 pills a week when patient had lost a lot of weight. -Now, patient has been gaining weight gradually. TSH was stable, 1.47 on 08/23/2022. -She had a TSH on 06/14/2023, it was 0.9 per patient; I did not get that result. Impaired fasting glucose: Diagnosed in 2018 when she had a fasting blood sugar of 112. Her fasting blood sugar was 124 in 2018. She does have family history of diabetes. She started watching her diet. Her fasting blood sugar was 107 in 2019 and 107 in 2020. HbA1c was 5.4 in August 2021. -She had fasting labs on 06/14/2023, we did not get the result. She thinks her HbA1c was 5.7. -Patient has been gradually gaining weight. She used to exercise, walking 20 minutes once or twice a day in the past. - She had hiatus hernia surgery in February 2023. She had decreased her activity then. She recently had left ankle tendinitis in August 2023, for which she had physical therapy. She is also been having back spasms. Her activity was very limited for the last 2 months. PAST MEDICAL HISTORY Diagnosis Date Acute gastritis without mention of hemorrhage Anemia Esophagitis, unspecified Essential hypertension, benign GERD (gastroesophageal reflux disease) Hypothyroid Low serum potassium Plantar fasciitis Psoriasis Thyroid disorder PAST SURGICAL HISTORY Procedure Laterality Date CHOLECYSTECTOMY 10/13/1999 Cholecystectomy ESOPHAGOGASTRODUODENOSCOPY TRANSORAL DIAGNOSTIC 07/07/2000 EGD FOOT SURGERY HX 12/12/2015 Right Foot, Plantar fasciitis [M72.2] HIATAL HERNIA REPAIR HX 02/2023 FAMILY HISTORY Problem Relation Age of Onset Breast Cancer Mother Diabetes Mother other (Heart attack [Other]) Mother Stroke Mother IN MAY OF 2009 X THREE other (HEART PROBLEMS [Other]) Mother BRADYCARDIA, CAROTID SURGERY other (HTN [Other]) Father Heart Attack Father No Known Problems Sister other ( at infancy) Brother 6 weeks old Hypertension Brother Skin Cancer Brother Hypertension Brother Diabetes Brother Hypertension Maternal Grandmother No Known Problems Maternal Grandfather Cancer Paternal Grandmother type unknown No Known Problems Paternal Grandfather Social History Tobacco Use Smoking status: Former Packs/day: .25 Types: Cigarettes Start date: 10/13/1983 Quit date: 1996 Years since quittin.0 Smokeless tobacco: Never Substance Use Topics Alcohol use: No Drug use: No Outpatient Medications as of 10/16/2023 Medication Sig celecoxib (CELEBREX) 200 mg capsule Take 1 capsule by mouth every afternoon. cyclobenzaprine (FLEXERIL) 10 mg tablet Take 10 mg by mouth as needed. metoprolol succinate ER (TOPROL XL) 100 mg Take 1 tablet by mouth every afternoon. SYNTHROID 100 mcg tablet TAKE 1 TABLET FRIDAY THROUGH FRIDAY, TAKE 1/2 TABLET ON FRIDAY NONE ON FRIDAY hydroCHLOROthiazide (HYDRODIURIL, ESIDRIX) 12.5 mg tablet Take 12.5 mg by mouth once daily. losartan (COZAAR) 50 mg tablet Take 50 mg by mouth once daily. potassium chloride 20 mEq TbER Take 1 tablet by mouth two times a day. ferrous sulfate 325 mg (65 mg iron) tablet Take 325 mg by mouth daily with breakfast. ESOMEPRAZOLE MAGNESIUM (NEXIUM ORAL) Take by mouth as needed. No current facility-administered medications on file as of 10/16/2023. Review of Systems Constitutional: Positive for unexpected weight change. Negative for activity change, appetite change and fatigue. Gradual 10 to 12 pounds weight gain over the last 1 year. HENT: Negative for congestion, sore throat, trouble swallowing and voice change. Eyes: Negative for visual disturbance. Respiratory: Negative for cough, choking, chest tightness and shortness of breath. Cardiovascular: Negative for chest pain, palpitations and leg swelling. Gastrointestinal: Negative for abdominal pain, constipation, diarrhea and nausea. Endocrine: Negative for cold intolerance, heat in (more content not included)... [facility]11-23-2023 Hospital Discharge instructions Patient Education 09/03/2023 23:01:08 Hypertension, Established Established High Blood Pressure High blood pressure (hypertension) is a chronic disease. Often, healthcare providers don t know what causes it. But it can be caused by certain health conditions and medicines. If you have high blood pressure, you may not have any symptoms. If you do have symptoms, they may include headache, dizziness, changes in your vision, chest pain, and shortness of breath. But even without symptoms, high blood pressure that s not treated raises your risk for heart attack, heart failure, and stroke. High blood pressure is a serious health risk and shouldn t be ignored. Blood pressure measurements are given as 2 numbers. Systolic blood pressure is the upper number. This is the pressure when the heart contracts. Diastolic blood pressure is the lower number. This is the pressure when the heart relaxes between beats. You will see your blood pressure readings written together. For example, a person with a systolic pressure of 118 and a diastolic pressure of 78 will have 118/78 written in the medical record. Blood pressure is categorized as normal, elevated, or stage 1 or stage 2 high blood pressure: Normal blood pressure is systolic of less than 120 and diastolic of less than 80 (120/80) Elevated blood pressure is systolic of 120 to 129 and diastolic less than 80 Stage 1 high blood pressure is systolic is 130 to 139 or diastolic between 80 to 89 Stage 2 high blood pressure is when systolic is 140 or higher or the diastolic is 90 or higher Home care If you have high blood pressure, follow these home care guidelines to help lower your blood pressure. If you are taking medicines for high blood pressure, these methods may reduce or end your need for medicines in the future. Start a weight-loss program if you are overweight. Cut back on how much salt you get in your diet. Here s how to do this: oDon t eat foods that have a lot of salt. These include olives, pickles, smoked meats, and salted potato chips. oDon t add salt to your food at the table. oUse only small amounts of salt when cooking. Start an exercise program. Talk with your healthcare provider about the type of exercise program that would be best for you. It doesn't have to be hard. Even brisk walking for 20 minutes 3 times a week is a good form of exercise. Don t take medicines that stimulate the heart. This includes many afrn-rzy-sblgnof cold and sinus decongestant pills and sprays, as well as diet pills. Check the warnings about high blood pressure onthe label. Before buying any ckpg-udr-aaqqknn medicines or supplements, always ask the pharmacist about the product's potential interaction with your high blood pressure and your high blood pressure medicines. Stimulants such as amphetamine or cocaine could be deadly for someone with high blood pressure. Never take these. Limit how much caffeine you get in your diet. Switch to caffeine-free products. Stop smoking. If you are a long-time smoker, this can be hard. Talk to your healthcare provider about medicines and nicotine replacement options to help you. Also, enroll in a stop-smoking program tomake it more likely that you will quit for good. Learn how to handle stress. This is an important part of any program to lower blood pressure. Learnabout relaxation methods like meditation, yoga, or biofeedback. If your provider prescribed medicines, take them exactly as directed. Missing doses may cause your blood pressure get out of control. If you miss a dose or doses, check with your healthcare provider or pharmacist about what to do. Consider buying an automatic blood pressure machine to check your blood pressure at home. Ask your provider for a recommendation. You can get one of these at most pharmacies. The [place] [employer] recommends the following guidelines for home blood pressure monitoring: Don't smoke or drink coffee for 30 minutes before taking your blood pressure. Go to the bathroom before the test. Relax for 5 minutes before taking the measurement. Sit with your back supported (don't sit on a couch or soft chair); keep your feet on the floor uncrossed. Place your arm on a solid flat surface (like a table) with the upper part of the arm at heartlevel. Place the middle of the cuff directly above the bend of the elbow. Check the monitor's instruction manual for an illustration. Take multiple readings. When you measure, take 2 to 3 readings one minute apart and record all of the results. Take your blood pressure at the same time every day, or as your healthcare provider recommends. Record the date, time, and blood pressure reading. Take the record with you to your next medical appointment. If your blood pressure monitor has a built-in memory, simply take the monitor with you to your next appointment. Call your provider if you have several high readings. Don't be frightened by a single high blood pressure reading, but if you get several high readings, check in with your healthcare provider. Note: When blood pressure reaches a systolic (top number) of 180 or higher OR diastolic (bottom number) of 110 or higher, seek emergency medical treatment. Follow-up care You will need to see your healthcare provider regularly. This is to check your blood pressure and to make changes to your medicines. Make a follow-up appointment as directed. Bring the record of yourhome blood pressure readings to the appointment. When to seek medical advice Call your healthcare provider right away if any of these occur: Blood pressure reaches a systolic (upper number) of 180 or higher OR a diastolic (bottom number) of110 or higher Chest pain or shortness of breath Severe headache Throbbing or rushing sound in the ears Nosebleed Sudden severe pain in your belly (abdomen) Extreme drowsiness, confusion, or fainting Dizziness or spinning sensation (vertigo) Weakness of an arm or leg or one side of the face You have problems speaking or seeing [id number] [employer]. [address] [place] [address], [place] [address]. All rights reserved. This information is not intended as a substitute for professional medical care. Always follow yourhealthcare professional's instructions. Follow Up Care 09/03/2023 21:46:03 With:GISELLE STYLES MD Address: [address] [place] [id number]- When:2-4 days [facility] 11-22-2023 Note Discharge Instructions Thank you for allowing [facility] to assist you with your healthcare needs. The following is importantdischarge information regarding your hospital visit. Diagnosis from Today's Visit Hypertension What to Do Next Instructions from Your Care Team No qualifying data available. Post Acute Orders No qualifying data available. You Need to Schedule the Following Appointments Follow Up with GISELLE STYLES MD When Within 2-4 days Where: [address] [place] [address] [id number]- Allergies No Known Medication Allergies Medications Please ask your primary doctor or pharmacist before taking any other medication not listed, including over the counter drugs, herbal medications, vitamins and or supplements as they may interact withyour home medications. Please take this list to your next doctor s visit. Bring all medications you take, including over the counter medications, herbals and other supplements with you to your doctor s visit. Patients and families are reminded to discard old lists and to update any records with all medication providers or retail pharmacies. Education Materials Established High Blood Pressure High blood pressure (hypertension) is a chronic disease. Often, healthcare providers don t know what causes it. But it can be caused by certain health conditions and medicines. If you have high blood pressure, you may not have any symptoms. If you do have symptoms, they may include headache, dizziness, changes in your vision, chest pain, and shortness of breath. But even without symptoms, high blood pressure that s not treated raises your risk for heart attack, heart failure, and stroke. High blood pressure is a serious health risk and shouldn t be ignored. Blood pressure measurements are given as 2 numbers. Systolic blood pressure is the upper number. This is the pressure when the heart contracts. Diastolic blood pressure is the lower number. This is the pressure when the heart relaxes between beats. You will see your blood pressure readings written together. For example, a person with a systolic pressure of 118 and a diastolic pressure of 78 will have 118/78 written in the medical record. Blood pressure is categorized as normal, elevated, or stage 1 or stage 2 high blood pressure: Normal blood pressure is systolic of less than 120 and diastolic of less than 80 (120/80) Elevated blood pressure is systolic of 120 to 129 and diastolic less than 80 Stage 1 high blood pressure is systolic is 130 to 139 or diastolic between 80 to 89 Stage 2 high blood pressure is when systolic is 140 or higher or the diastolic is 90 or higher Home care If you have high blood pressure, follow these home care guidelines to help lower your blood pressure. If you are taking medicines for high blood pressure, these methods may reduce or end your need for medicines in the future. Start a weight-loss program if you are overweight. Cut back on how much salt you get in your diet. Here s how to do this: oDon t eat foods that have a lot of salt. These include olives, pickles, smoked meats, and salted potato chips. oDon t add salt to your food at the table. oUse only small amounts of salt when cooking. Start an exercise program. Talk with your healthcare provider about the type of exercise program that would be best for you. It doesn't have to be hard. Even brisk walking for 20 minutes 3 times a week is a good form of exercise. Don t take medicines that stimulate the heart. This includes many rirj-bry-mqdpanz cold and sinus decongestant pills and sprays, as well as diet pills. Check the warnings about high blood pressure onthe label. Before buying any xwpz-sia-aelmmns medicines or supplements, always ask the pharmacist about the product's potential interaction with your high blood pressure and your high blood pressure medicines. Stimulants such as amphetamine or cocaine could be deadly for someone with high blood pressure. Never take these. Limit how much caffeine you get in your diet. Switch to caffeine-free products. Stop smoking. If you are a long-time smoker, this can be hard. Talk to your healthcare provider about medicines and nicotine replacement options to help you. Also, enroll in a stop-smoking program tomake it more likely that you will quit for good. Learn how to handle stress. This is an important part of any program to lower blood pressure. Learnabout relaxation methods like meditation, yoga, or biofeedback. If your provider prescribed medicines, take them exactly as directed. Missing doses may cause your blood pressure get out of control. If you miss a dose or doses, check with your healthcare provider or pharmacist about what to do. Consider buying an automatic blood pressure machine to check your blood pressure at home. Ask your provider for a recommendation. You can get one of these at most pharmacies. The [place] [employer] recommends the following guidelines for home blood pressure monitoring: Don't smoke or drink coffee for 30 minutes before taking your blood pressure. Go to the bathroom before the test. Relax for 5 minutes before taking the measurement. Sit with your back supported (don't sit on a couch or soft chair); keep your feet on the floor uncrossed. Place your arm on a solid flat surface (like a table) with the upper part of the arm at heartlevel. Place the middle of the cuff directly above the bend of the elbow. Check the monitor's instruction manual for an illustration. Take multiple readings. When you measure, take 2 to 3 readings one minute apart and record all of the results. Take your blood pressure at the same time every day, or as your healthcare provider recommends. Record the date, time, and blood pressure reading. Take the record with you to your next medical appointment. If your blood pressure monitor has a built-in memory, simply take the monitor with you to your next appointment. Call your provider if you have several high readings. Don't be frightened by a single high blood pressure reading, but if you get several high readings, check in with your healthcare provider. Note: When blood pressure reaches a systolic (top number) of 180 or higher OR diastolic (bottom number) of 110 or higher, seek emergency medical treatment. Follow-up care You will need to see your healthcare provider regularly. This is to check your blood pressure and to make changes to your medicines. Make a follow-up appointment as directed. Bring the record of yourhome blood pressure readings to the appointment. When to seek medical advice Call your healthcare provider right away if any of these occur: Blood pressure reaches a systolic (upper number) of 180 or higher OR a diastolic (bottom number) of110 or higher Chest pain or shortness of breath Severe headache Throbbing or rushing sound in the ears Nosebleed Sudden severe pain in your belly (abdomen) Extreme drowsiness, confusion, or fainting Dizziness or spinning sensation (vertigo) Weakness of an arm or leg or one side of the face You have problems speaking or seeing [id number] [employer]. [address] [place] [address]. All rights reserved. This information is not intended as a substitute for professional medical care. Always follow yourhealthcare professional's instructions. Additional Information VACCINATE! IT SAVES LIVES! Members of the community who have not yet received the COVID-19 vaccine and would like to receive it can visit one of [facility] vaccine clinics. There are many vaccine clinic locations within the [facility]. For locations and available times, please visit [email or web address] It is important to note that some COVID mobile vaccine clinics are held outdoors and may be canceled in rainy or stormy conditions. To learn more about pediatric vaccinations (ages 5-11), we invite you to visit the [facility] webpage. [email or web address] learn more about the COVID-19 vaccine, we invite you to visit the CDC website for a list of frequently asked questions. https://www.cdc.gov/coronavirus/2019-ncov/vaccines/faq.html [facility] Patient Portal Access Instructions: Stay connected with your healthcare team and access your personal medical information anytime with the [facility] Patient Portal. If you would like a full copy of your medical records please contact the [facility] Medical Records Department Friday through Friday between 8a.m. and 4:30p.m. Please follow the directions below to access the portal: 1.Access the email account you provided upon registration to the hospital.2.Look for an invitation email from [facility].3.Open the email and access the invitation link: Accept Invitation to [facility].Fill in the required chun to create your account. Sign into [email or web address].[email or web address] with your username and password that you created in the above steps to stay up to date. You can then view a summary of results, a summary of your visits, and the ability to download your summaries to your computer or send the information securely to a physician. Remember that your healthcare information is confidential, so carefully consider who you will allow to register on the [facility] Patient Portal for access to your information. You can also access the [facility] Patient Portal on the [employer] evelin. Simply click on Health Records under [employer] and then click on the [employer] logo. HOW TO SAFELY DISPOSE OF PRESCRIPTION MEDICATIONS Please use one of the following methods to safely dispose of your unused medications. 1.Use a drug disposal kit: the drug disposal pouch allows you to safely discard your old and unuseddrugs. Ask your nurse to give you one when you are discharged.2.Visit a local take-back location: Many local pharmacies and police departments have programs that collect old and unwanted prescriptiondrugs. Call your local pharmacy or go to http://[employer]/0H6Dz3e to find one close to you.3.Make use of household items: Use cat litter or old coffee grounds to dispose medications if other options arenot available. Mix your drugs with these household products, seal them in an airtight container andthrow it into the garbage. Call [facility]: [phone] to be sure your drugs can be disposed of in this way. Some medicines may require a different approach.4.Never flush your medications down the toilet. IF YOU HAVE BEEN PRESCRIBED AN OPIOIDS FOR PAIN If you have been prescribed an opioid (such as hydrocodone, oxycodone or morphine), it is critical to understand the possible side effects and risks of opioid pain medications. Even when taken as directed, opioids can have several side effects including: Tolerance, meaning you might need to take more of a medication for the same pain relief. Nausea, vomiting and/or constipation. Sleepiness, dizziness, dry mouth, confusion, depression or itching. Physical dependence, meaning you have withdrawal symptoms when a medication is stopped ? this can develop within a few days. KNOW YOUR RESPONSIBILITIES It is important to know exactly how much and how often to take the opioid pain medications you are prescribed. Never take opioids in higher amounts or more often than prescribed. Do not combine opioids with alcohol or other drugs that cause drowsiness, such as benzodiazepines, also known as benzos,including diazepam and alprazolam, muscle relaxants or sleep aids. Never sell or share prescriptionopioids. This is illegal. Store opioids in a secure place and out of reach of others (including children, family, friends and visitors). The last page(s) of this document has been signed and retained as a CHART COPY Signatures Patient Education Materials Hypertension, Established Medication Leaflets My discharge plan and instructions have been reviewed and explained to me and I,LOUIS WILCOX understand my current condition and have read and understand these discharge instructions. I have received a written copy of the plan/instructions. If I have questions, I am aware that I should contact my doctor. Patient/Corn Sheller Signature: Date/Time: Relationship to Patient: Witness Name/Signature: Date/Time: [facility]11-22-2023 Note ORIGINAL EXAMINATION: ONE XRAY VIEW OF THE CHEST 09/03/2023 10:30 pm COMPARISON: None. HISTORY: ORDERING SYSTEM PROVIDED HISTORY: Reason for Exam: chest pain FINDINGS: The cardiomediastinal silhouette is normal. No focal consolidation, vascular congestion, pleural effusion or pneumothorax. No acute osseous abnormality. IMPRESSION: No acute radiographic abnormality. I have personally reviewed the images of this examination and agree with the resident's findings and interpretation. Interpreted by: Rosales Jones MD Preliminary Report By: Yasmin Gutiérrez Electronically signed By Rosales Jones MD Dictated Date: 09/03/2023 10:39:11 PM Prelim Date: 09/03/2023 10:40:11 PM Sign Date: 09/03/2023 10:50:24 PM Ordering Provider: [facility]11-22-2023 Note Sinus rhythm Left ventricular hypertrophy Inferior infarct, old Electronic Signature: SAM VIZCAINO DO 09/03/2023 22:22:51[facility] 10-31-2023 Miscellaneous Notes* Telephone Encounter - Elvia Huertas - 08/12/2023 12:09 PM EDT Pharmacy interfaced requesting the following refill. Requested Prescriptions Pending Prescriptions Disp Refills SYNTHROID 100 mcg tablet [Pharmacy Med Name: SYNTHROID TAB 100MCG] 72 tablet 1 Sig: TAKE 1 TABLET FRIDAY THROUGH FRIDAY, TAKE 1/2 TABLET ON FRIDAY NONE ON FRIDAY Patient last appointment: 09/09/2022 Next Appointment: 10/16/2023 Patient Phone numbers: [phone] (home) [phone] (work) Request is for script(s) to be escript to pharmacy. lEvia Huertas August 12, 2023 12:10 PM [facility] History of Present illness Narrative* Alex Burrell MD - 05/09/2023 9:30 AM EDT [facility] - Surgery Patient Name: Louis Wilcox Date: 05/09/23 S: Louis Wilcox follows up for a post operative visit after undergoing a laparoscopic hiatal hernia repair with posterior fundoplication on 03/05/23. She continues to do very well. No reflux and able to sleep better. Has stopped her PPI and has resumed normal diet. No dysphagia, n/v. Very pleased with outcome. Allergies Allergen Reactions Clarithromycin Other, Nausea And Vomiting and Unknown Other reaction(s): GI Upset Other reaction(s): GI Upset Other reaction(s): Unknown Lisinopril Other reaction(s): Cough, Cough, Other: See Comments, Other: See Comments, Unknown Other reaction(s): cough, Unknown Doxycycline Other reaction(s): GI Upset, GI Upset, Unknown Other reaction(s): Unknown Sulfamethoxazole Nausea And Vomiting Other reaction(s): GI Upset, GI Upset Other reaction(s): GI Upset, Nausea Other reaction(s): Nausea Trimethoprim Other and Nausea And Vomiting Other reaction(s): GI Upset Other reaction(s): GI Upset, Nausea, Other Other reaction(s): Nausea Current Outpatient Medications Medication Sig Dispense Refill clobetasol (Temovate) 0.05 % external solution APPLY TO AFFECTED AREA OF SCALP AT NIGHT X3 WEEKS-THEN 1 WEEK OFF-APPLY 1-2X WEEKLY FOR MAINTENANCE cyclobenzaprine (Flexeril) 10 MG tablet Take by mouth 3 times daily as needed. ferrous sulfate 325 (65 Fe) MG tablet Take 325 mg by mouth Daily with lunch. hydroCHLOROthiazide (HYDRODiuril) 12.5 MG tablet Daily with lunch. losartan (Cozaar) 50 MG tablet Daily with lunch. Potassium Chloride 20 MEQ/15ML (10%) solution Take by mouth 2 times daily. Synthroid 100 MCG tablet every morning (before breakfast). benzonatate (Tessalon) 200 MG capsule TAKE 1 (ONE) CAPSULE BY MOUTH FOUR TIMES DAILY, NEEDED FORCOUGH esomeprazole (NexIUM) [address] capsule daily with supper. predniSONE (Deltasone) 20 MG tablet Take by mouth. Last dose on 02/21 No current facility-administered medications for this visit. Past Medical History: Diagnosis Date Anemia Bronchitis 11/2022 Disease of thyroid gland GERD (gastroesophageal reflux disease) Hypertension PONV (postoperative nausea and vomiting) Psoriasis O: BP (!) 144/92 (BP Location: Left arm, Patient Position: Sitting, BP Cuff Size: Large adult) Pulse 82 Temp 36.6 C (97.8 F) (Temporal) Ht 5' 5 (1.651 m) Wt 189 lb (85.7 kg) BMI 31.45 kg/m Physical Exam: The wounds are healing well. There is no evidence of infection, seroma, erythema or hernia. Assessment/Plan Louis was seen today for follow-up. Diagnoses and all orders for this visit: Encounter for postoperative care (Primary) Hiatal hernia GERD without esophagitis Louis is doing very well since surgery. She has resumed all normal activities and is eating regulardiet without reflux or dysphagia. She can f/u prn. The patient was seen and examined independently and relevant data reviewed by myself. A full chart review was performed. Patient Care Team: Giselle Styles as PCP - General (Family Medicine) Lewis Reese (Gastroenterology) documented in this [facility]07-11-2023 Miscellaneous Notes* Telephone Encounter - Jacklyn Smith LPN - 04/22/2023 8:58 AM EDT -09/09/2022Aug-09/08/2023 Pharmacy electronically requesting refills as follows: Requested Prescriptions Pending Prescriptions Disp Refills SYNTHROID 100 mcg tablet [Pharmacy Med Name: SYNTHROID TAB 100MCG] 72 tablet 1 Sig: TAKE 1 TABLET FRIDAY THROUGH FRIDAY, TAKE 1/2 TABLET ON FRIDAY NONE ON FRIDAY Please review and advise. Jacklyn Smith LPN documented in this encounter[facility]05-[facility] NoteDischarge Summary Loius Wilcox : 1965 ADMIT DATE: 03/05/2023 DISCHARGE DATE: 03/06/2023 PRIMARY CARE PHYSICIAN: GISELLE STYLES VISIT STATUS: Admission DISCHARGE DIAGNOSES: Principal Problem: Hiatal hernia Active Problems: Gastroesophageal reflux disease with esophagitis HOSPITAL COURSE: She underwent Lap hiatal hernia repair and posterior fundoplication without complications. On the morning of postoperative day #1, a negative upper gastrointestinal was performed. Her diet was advanced, medication reconciliation completed and she was discharged home on postoperative day #1. DISCHARGE MEDICATIONS: Medication List START taking these medications ondansetron 4 MG tablet Commonly known as: Zofran Take 1 tablet (4 mg) by mouth 3 times daily as needed for nausea or vomiting for up to 5 days. oxyCODONE-acetaminophen 5-325 MG tablet Commonly known as: Percocet Take 1 tablet by mouth every 6 hours as needed for severe pain (7-10) for up to 5 days. CONTINUE taking these medications benzonatate 200 MG capsule Commonly known as: Tessalon clobetasol 0.05 % external solution Commonly known as: Temovate cyclobenzaprine 10 MG tablet Commonly known as: Flexeril esomeprazole [address] capsule Commonly known as: NexIUM ferrous sulfate 325 (65 Fe) MG tablet hydroCHLOROthiazide 12.5 MG tablet Commonly known as: HYDRODiuril losartan 50 MG tablet Commonly known as: Cozaar Potassium Chloride 20 MEQ/15ML (10%) solution predniSONE 20 MG tablet Commonly known as: Deltasone Synthroid 100 MCG tablet Generic drug: levothyroxine Where to Get Your Medications These medications were sent to [facility] [address] [place] [address] Hours: Friday to Friday 10 am to 6 pm ondansetron 4 MG tablet oxyCODONE-acetaminophen 5-325 MG tablet ACTIVITY: No restriction. SIGNIFICANT DIAGNOSTIC STUDIES: Negative UGI on POD#1 COMPLEXITY OF FOLLOW UP: [x] Moderate Complexity: follow up within 7-14 calendar days (07625) (already scheduled) PENDING STUDIES: n/a RECOMMENDED NEXT STEPS: Follow-up as instructed DIET: Clear Liquid Diet, advance per discharge instructions DISPOSITION: Home SIGNED: Taylor Darden MD 03/06/2023, 2:33 [facility]05-24-2023 NoteProblem: Pain Goal: My pain/discomfort is manageable Outcome: Progressing Problem: Safety Goal: Patient will be injury free during hospitalization Outcome: Progressing Goal: I will remain free of falls Outcome: Progressing Problem: Daily Care Goal: Daily care needs are met Outcome: Progressing Problem: Psychosocial Needs Goal: Demonstrates ability to cope with hospitalization/illness Outcome: Progressing Goal: Collaborate with me, my family, and caregiver to identify my specific goals Outcome: Progressing Problem: Discharge Barriers Goal: My discharge needs are met Outcome: [facility] NotePatient: Louis Jeri Procedure Summary Date: 03/05/23 Room / Location: [facility] OR [address] [place] [address] Operating Room Anesthesia Start: 742 Anesthesia Stop: 951 Procedures: LAPAROSCOPIC HIATAL HERNIA REPAIR, WITH POSTERIOR FUNDOPLICATION, EGD (Abdomen) EGD DIAGNOSTIC Diagnosis: Diaphragmatic hernia without obstruction or gangrene Gastro-esophageal reflux disease without esophagitis (Diaphragmatic hernia without obstruction or gangrene [K44.9]) (Gastro-esophageal reflux disease without esophagitis [K21.9]) Surgeons: Alex Burrell MD Responsible Provider: Percy Millard MD Anesthesia Type: general, regional ASA Status: 3 Anesthesia Type: general, regional Vitals Value Taken Time BP 117/76 03/05/23 0957 Temp 37 03/05/23 1000 Pulse 81 03/05/23 0959 Resp 17 03/05/23 0959 SpO2 100 % 03/05/23 0959 Vitals shown include unvalidated device data. Anesthesia Post Evaluation Patient location during evaluation: PACU Patient participation: complete - patient participated Level of consciousness: awake and alert Pain management: satisfactory to patient Airway patency: patent Dental Injury: no Cardiovascular status: acceptable, blood pressure returned to baseline and hemodynamically stable Respiratory status: acceptable and spontaneous ventilation Hydration status: euvolemic Nausea/Vomiting: controlled No notable events documented. Patient can be discharged once all PACU criteria has been met.[facility] [id number] NotePatient: Louis Wilcox Procedure Summary Date: 03/05/23 Room / Location: [address] Operating Room Anesthesia Start: 742 Anesthesia Stop: 951 Procedures: LAPAROSCOPIC HIATAL HERNIA REPAIR, WITH POSTERIOR FUNDOPLICATION, EGD (Abdomen) EGD DIAGNOSTIC Diagnosis: Diaphragmatic hernia without obstruction or gangrene Gastro-esophageal reflux disease without esophagitis (Diaphragmatic hernia without obstruction or gangrene [K44.9]) (Gastro-esophageal reflux disease without esophagitis [K21.9]) Surgeons: Alex Burrell MD Responsible Provider: Percy Millard MD Anesthesia Type: general, regional ASA Status: 3 Anesthesia Type: general, regional Vitals Value Taken Time BP 118/78 03/05/23 1000 Temp 37 03/05/23 1000 Pulse 78 03/05/23 0958 Resp 16 03/05/23 0958 SpO2 100 % 03/05/23 0958 Vitals shown include unvalidated device data. Anesthesia Post Evaluation Patient location during evaluation: PACU Patient participation: complete - patient participated Level of consciousness: awake and alert Pain management: satisfactory to patient Multimodal analgesia pain management approach Airway patency: patent Two or more strategies used to mitigate risk of obstructive sleep apnea Cardiovascular status: acceptable and hemodynamically stable Respiratory status: acceptable Hydration status: acceptable No notable events documented. MIPS #430 PONV Patient received an inhalational anesthetic (4554F) MIPS # 424 Perioperative Temperature Management Anesthesia time was 60 minutes or longer (4255F) MIPS #477 Multimodal Pain Management Not emergent case MIPS #404 Anesthesiology Smoking Abstinence The patient is not a current smoker (e.g. cigarette, cigar, pipe, e-cigarette/vaping/marijuana) If no stop here (XX404) I completed my handoff to the receiving clinician during which we: 1. Identified the patient 2. Identified the responsible provider 3. Reviewed the pertinent medical history 4. Discussed the surgical course 5. Reviewed intra-op anesthesia management and issues during anesthesia 6. Set expectations for post-procedure period 7. Allowed opportunity for questions and acknowledgement of understanding.[facility] NoteAirway Date/Time: 03/05/2023 8:03 AM Urgency: scheduled Airway not difficult General Information and Staff Patient location during procedure: Procedural Resident/STATION SUPERVISOR: Bobby Aaron APRN - ARSALAN Performed: ARSALAN Indications and Patient Condition Indications for airway management: anesthesia Sedation level: Asleep and RSI Preoxygenated: yes Patient position: ramp Mask difficulty assessment: 0 - not attempted Final Airway Details Final airway type: endotracheal airway Successful airway: ETT Cuffed: yes Successful intubation technique: direct laryngoscopy Endotracheal tube insertion site: oral Blade: Jessica Blade size: #3 ETT size (mm): 7.0 Cormack-Lehane Classification: grade I - full view of glottis Placement verified by: chest auscultation and capnometry Measured from: gums ETT to gums (cm): 22 Number of attempts at approach: [address] [place], [place] [id number] Note Peripheral Block Time Out: 03/05/2023 7:54 AM Patient location during procedure: Procedural Start time: 03/05/2023 7:54 AM End time: 03/05/2023 7:57 AM Reason for block: at surgeon's request and post-op pain management Staffing Performed: STATION SUPERVISOR Resident/STATION SUPERVISOR: Olman Ortega CRNA Preanesthetic Checklist Completed: patient identified, IV checked, site marked, risks and benefits discussed, surgical consent, monitors and equipment checked, pre-op evaluation and timeout performed Region: [place] Primary: TAP (Bupivacaine 0.375%/ Epi 1:200,000/ Dex 0.1mg/mL 40ml divided evenly bilateral) Secondary: Upper rectus (Bupivacaine 0.375%/ Epi 1:200,000/ Dex 0.1mg/mL 20ml divided evenly bilateral) Peripheral Block Patient position: supine Prep: ChloraPrep Patient monitoring: heart rate, environmental monitoring specialist, continuous pulse ox and continuous capnometry O2: ETT/LMA Laterality: bilateral Injection technique: single-shot Guidance: ultrasound guided -image retained in chart, tip of the needle identified by ultraound during injection. Needle Needle: 21G X 110 mm Additional Notes 03/05/2023 7:54 AM Assessment Injection assessment: negative aspiration for heme, no paresthesia on injection and incremental injection Heart rate change: no Slow fractionated injection: yes Required Documentation: Relevant anatomy identified (Nerves, Vessels, Muscles), Negative for blood on aspiration, Local anesthetic injected incrementally with intermittent aspiration every 5 mL, Normal resistance with injection, No EKG changes noted, No symptoms of toxicity, Local anesthetic spread visualized around nerves or plane. and Local anesthetic injected without difficultyMedications vesVQRXRduzgj-gpkdhwosbeb-hskpbhtgozr (TAP) syringe - Injection 60 mL - 03/05/2023 7:54:00 [facility]05-24-2023 [facility] - Surgery [facility] Physicians Surgery Patient Name: Louis Wilcox Date: 03/05/23 Update History & Physical The patient's History and Physical was reviewed with the patient and there were no significant changes. I examined the patient and there were no significant changes from the previous History and Physical. I verify that the patient's condition and planned treatment has not changed. I also confirm the necessity for the procedure still present. Plan: The risk, benefits, expected outcome, and alternative to the recommended procedure have been discussed with the patient. Patient understands and wants to proceed with the procedure. HH/GERD Plan Lap HH [facility]05-12-2023 NotePatient: Louis Wilcox Procedure Information Date/Time: 03/05/23 0730 Procedures: LAPAROSCOPIC HIATAL HERNIA REPAIR, POSSIBLE MESH, WITH POSTERIOR FUNDOPLICATION, EGD, POSSIBLE OPEN (Abdomen) - 150 MINUTES EGD DIAGNOSTIC Location: [facility] Operating Room Surgeons: Alex Burrell MD Past Medical History: Past Medical History: No date: Anemia 11/2022: Bronchitis No date: Disease of thyroid gland No date: GERD (gastroesophageal reflux disease) No date: Hypertension No date: Joint pain No date: PONV (postoperative nausea and vomiting) No date: Psoriasis Past Surgical History: Past Surgical History: No date: COLONOSCOPY 2000: LAP,CHOLECYSTECTOMY (HISTORICAL) No date: WISDOM TOOTH EXTRACTION Social History: TOBACCO: reports that she quit smoking about 25 years ago. Her smoking use included cigarettes. She has a 2.00 pack-year smoking history. She has never used smokeless tobacco. ETOH: reports no history of alcohol use. Social History Substance and Sexual Activity Drug Use Never Family History: No family history on file. Screening: Postmenopausal Clinical information reviewed: Tobacco Allergies Meds Med Hx Surg Hx OB Status Fam Hx Soc Hx Physical Exam Airway Mallampati: II TM distance: >3 FB Neck ROM: full Mouth Open: normalendotracheal tube not in place Cardiovascular Dental Comments: Upper and lower crowns which are not loose. Pulmonary Abdominal Anesthesia Plan ASA 3 general and regional (H&H ordered dos) The patient is not a current smoker. Anesthetic plan and risks discussed with patient. patient is NPO General ERAS Hx PONV 2000 AIMEE Screening Labs: No results found for: WBC, HGB, HCT, MCV, PLT No results found for: NA, K, CL, CO2, BUN, CREATININE, GLUCOSE, CALCIUM, PROT, BILIRUBINFL, ALKPHOS, AST, ALT, EGFR, GLOB No echocardiogram results found for the past 14 days No results found for this or any previous visit.[facility] 02-21-[facility] History of Present illness Narrative* Alex Burrell MD - 02/21/2023 11:15 AM EDT Patient Name: Louis Wilcox Date: 02/21/23 S: Louis Wilcox follows up for reflux. She has undergone UGI w/mb and EGD and presents today for preoperative appointment. Has been having increased breakthrough symptoms over the past year and waking with acid in mouth resulting in emesis and aspiration. UGI w/ Marshmallow/Bagel 12/09/22 sm HH w/reflux; marked dysmotility with both boluses EGD 12/02/22 Dr Sarah GODDARD (3cm); path neg h pylori, neg Virk's I personally reviewed the patient intake form and discussed the ROS with the patient. The ROS is negative except for what is listed in HPI. Allergies Allergen Reactions Clarithromycin Other, Nausea And Vomiting and Unknown Other reaction(s): GI Upset Other reaction(s): GI Upset Lisinopril Other reaction(s): Cough, Cough, Other: See Comments, Other: See Comments, Unknown Doxycycline Other reaction(s): GI Upset, GI Upset, Unknown Sulfamethoxazole Nausea And Vomiting Other reaction(s): GI Upset, GI Upset Other reaction(s): GI Upset, Nausea Trimethoprim Other and Nausea And Vomiting Other reaction(s): GI Upset Other reaction(s): GI Upset, Nausea, Other Current Outpatient Medications Medication Sig Dispense Refill benzonatate (Tessalon) 200 MG capsule TAKE 1 (ONE) CAPSULE BY MOUTH FOUR TIMES DAILY, NEEDED FORCOUGH clobetasol (Temovate) 0.05 % external solution APPLY TO AFFECTED AREA OF SCALP AT NIGHT X3 WEEKS-THEN 1 WEEK OFF-APPLY 1-2X WEEKLY FOR MAINTENANCE cyclobenzaprine (Flexeril) 10 MG tablet Take by mouth 3 times daily as needed. esomeprazole (NexIUM) [address] capsule daily with supper. ferrous sulfate 325 (65 Fe) MG tablet Take 325 mg by mouth Daily with lunch. hydroCHLOROthiazide (HYDRODiuril) 12.5 MG tablet Daily with lunch. losartan (Cozaar) 50 MG tablet Daily with lunch. Potassium Chloride 20 MEQ/15ML (10%) solution Take by mouth 2 times daily. predniSONE (Deltasone) 20 MG tablet Take by mouth. Last dose on 02/21 Synthroid 100 MCG tablet every morning (before breakfast). cholecalciferol (Vitamin D-3) 50 MCG (1999 UT) tablet Take by mouth daily. No current facility-administered medications for this visit. Past Surgical History: Procedure Laterality Date COLONOSCOPY LAP,CHOLECYSTECTOMY (HISTORICAL) 2000 WISDOM TOOTH EXTRACTION Past Medical History: Diagnosis Date Anemia Bronchitis 11/2022 Disease of thyroid gland GERD (gastroesophageal reflux disease) Hypertension PONV (postoperative nausea and vomiting) Psoriasis O: BP (!) 144/82 (BP Location: Left arm, Patient Position: Sitting, BP Cuff Size: Large adult) Pulse 87 Temp 36.4 C (97.5 F) (Temporal) Ht 5' 5 (1.651 m) Wt 192 lb (87.1 kg) BMI 31.95 kg/m She stands Height: 5' 5 (165.1 cm) tall with a weight of Weight: 192 lb (87.1 kg) , resulting in aBMI of Body mass index is 31.95 kg/m .. General: The patient is awake, alert, and oriented, and is in no apparent distress. Head and Neck: Normocephalic and atraumatic. Respiratory: Nonlabored breathing Abdomen: Soft, NT, ND, scars from lap nancy. Extremities: Ambulatory without assistance. Hernia: no hernias found on exam Louis was seen today for pre-op visit. Diagnoses and all orders for this visit: GERD without esophagitis (Primary) Hiatal hernia 57-year-old female with refractory reflux, and a small hiatal hernia. She is completed testing and is scheduled for surgery 03/05/2023. Proceed with surgical scheduling. I met with her and her husbandtoday to discuss risks and benefits of laparoscopic hiatal hernia repair and all of their questionswere answered to their satisfaction. I met with the patient today to discuss risks and benefits of laparoscopic hiatal hernia repair with posterior fundoplication including, but not limited to injury to surrounding structures, the possibility of using mesh for diaphragmatic reinforcement, conversion to open, pleural effusion requiring thoracentesis, prolonged mechanical ventilation, and . She is aware of the possibility of gas bloat syndrome, the need for ongoing PPI/H2 Guan[place]ito use, postoperative reflux or dysphagia. We discussed potential for hemorrhage, infection, incomplete resolution of Her symptoms, as well as cardiac and pulmonary-related complications. The patient understands and wishes to proceed. Non-operative alternatives were discussed with the patient and they wish to proceed with surgical intervention. Plan: Initial Pre-Operative Testing Primary Procedure: Laparoscopic hiatal hernia repair, possible mesh, with posterior fundoplication,EGD Clearance: PAT Preop SQ Heparin: 5000 units subcu heparin 2 hours preop x1 Assessment/Plan Louis was seen today for pre-op visit. Diagnoses and all orders for this visit: GERD without esophagitis (Primary) Hiatal hernia Proceed with surgery as scheduled. 03/05/2023. Dietary advancement strategy was discussed with her. All questions answered. I personally performed the evaluation and management of Louis Wilcox in the development of a treatment plan for this patient. I personally interviewed the patient and performed an individual physical examination. In addition, I discussed the patient's condition and treatment options with them. I have also reviewed and agree with the past medical, family and social history unless otherwise noted. All of the patient's questions were answered. I discussed/counseled the patient regarding the risks and benefits of surgery as well as the preoperative and postoperative care plan for this patient.The patient was seen and examined independently and relevant data reviewed by myself. A full chart review was performed. Patient Care Team: Giselle Styles as PCP - General (Family Medicine) Lewis Reese (Gastroenterology) documented in this [facility]05-12-2023 NoteComprehensive PreSurgical History and Physical ? Name: Louis Wilcox : 1965 (Age-57 y.o.) Date of Service: Pt seen/examined on 02/21/2023 Procedure Information Date/Time: 03/05/23 1330 Procedures: LAPAROSCOPIC HIATAL HERNIA REPAIR, POSSIBLE MESH, WITH POSTERIOR FUNDOPLICATION, EGD, POSSIBLE OPEN (Abdomen) - 150 MINUTES EGD DIAGNOSTIC Location: [facility] OR [address] [place] [address] Operating Room Surgeons: Alex Burrell MD Chief Complaint: Diaphragmatic hernia without obstruction or gangrene [K44.9] Gastro-esophageal reflux disease without esophagitis [K21.9] History Of Present Illness: 57 y.o. female who we are asked to see/evaluate by [facility] PAT 02 for pre-operative evaluation prior to . Patient has been taking nexium for a few years which has controlled her GERD. Over the past year, has been having more breakthrough symptoms and waking with acid in mouth resulting in emesis and aspiration. Was taking the nexium in the morning but changed to taking it before dinner to see if helped with nocturnal symptoms. Does not eat late at night and sleeps with head elevated without improvement. Has intermittent episodes of dysphagia. Patient elects above procedure. ? Denies history of NM, CAD, CHF, TIA, CVA Past Medical History: Past Medical History: No date: Anemia 11/2022: Bronchitis No date: Disease of thyroid gland No date: GERD (gastroesophageal reflux disease) No date: Hypertension No date: Joint pain No date: PONV (postoperative nausea and vomiting) No date: Psoriasis Past Surgical History: Past Surgical History: No date: COLONOSCOPY 2001: LAP,CHOLECYSTECTOMY (HISTORICAL) No date: WISDOM TOOTH EXTRACTION Medications Prior to Admission: Prior to Admission medications Medication Sig Start Date End Date Taking? Authorizing Provider benzonatate (Tessalon) 200 MG capsule TAKE 1 (ONE) CAPSULE BY MOUTH FOUR TIMES DAILY, NEEDED FOR COUGH 11/20/22 Historical Provider, cholecalciferol (Vitamin D-3) 50 MCG (1999 UT) tablet Take by mouth daily. 03/04/22 Historical Provider, cholecalciferol (Vitamin D-3) 50 MCG (1999 UT) tablet Take by mouth daily. 03/04/22 Historical Provider, clobetasol (Temovate) 0.05 % external solution APPLY TO AFFECTED AREA OF SCALP AT NIGHT X3 WEEKS-THEN 1 WEEK OFF-APPLY 1-2X WEEKLY FOR MAINTENANCE 01/29/23 Historical Provider, cyclobenzaprine (Flexeril) 10 MG tablet Take by mouth 3 times daily as needed. 11/20/22 Historical Provider, esomeprazole (NexIUM) [address] capsule 10/01/22 Historical Provider, ferrous sulfate 325 (65 Fe) MG tablet Take 325 mg by mouth daily (with breakfast). Historical Provider, hydroCHLOROthiazide (HYDRODiuril) 12.5 MG tablet 02/11/23 Historical Provider, losartan (Cozaar) 50 MG tablet 02/11/23 Historical Provider, potassium chloride CR (K-Tab) 20 MEQ ER tablet Take 20 mEq by mouth daily. 11/18/22 Historical Provider, Synthroid 100 MCG tablet 10/22/22 Historical Provider, cyclobenzaprine (Flexeril) 10 MG tablet Take 10 mg by mouth 3 times daily as needed. 11/20/22 02/20/23 Historical Provider, CHRONIC NARCOTIC USE: No Allergies: Clarithromycin, Lisinopril, Doxycycline, Sulfamethoxazole, and Trimethoprim Can the patient take acetaminophen: Yes Social History: TOBACCO: reports that she quit smoking about 25 years ago. Her smoking use included cigarettes. She has a 2.00 pack-year smoking history. She has never used smokeless tobacco. ETOH: reports no history of alcohol use. Social History Substance and Sexual Activity Drug Use Never Family History: No family history on file. REVIEW OF SYSTEMS: Review of Systems Constitutional: Negative for chills and fever. Respiratory: Negative for cough and shortness of breath. Cardiovascular: Negative for chest pain and palpitations. Gastrointestinal: Negative for abdominal pain, nausea and vomiting. Genitourinary: Negative for dysuria and hematuria. Skin: Negative for rash and wound. Neurological: Negative for dizziness and syncope. Physical Exam: Physical Exam Vitals reviewed. Constitutional: Appearance: Normal appearance. HENT: Head: Normocephalic. Nose: Nose normal. Mouth/Throat: Mouth: Mucous membranes are moist. Pharynx: Oropharynx is clear. Eyes: Extraocular Movements: Extraocular movements intact. Conjunctiva/sclera: Conjunctivae normal. Pupils: Pupils are equal, round, and reactive to light. Cardiovascular: Rate and Rhythm: Normal rate and regular rhythm. Pulses: Normal pulses. Heart sounds: Normal heart sounds. Pulmonary: Effort: Pulmonary effort is normal. Breath sounds: Normal breath sounds. Abdominal: General: Bowel sounds are normal. Palpations: Abdomen is soft. Musculoskeletal: General: Normal range of motion. Cervical back: Normal range of motion and neck supple. Skin: General: Skin is warm and dry. Capillary Refill: Capillary refill takes less than 2 seconds. (more content not included)...[facility]05-12-2023 NoteComprehensive PreSurgical History and Physical ? Name: Louis Wilcox : 1965 (Age-57 y.o.) Date of Service: Pt seen/examined on 02/21/2023 Procedure Information Date/Time: 03/05/23 7730 Procedures: LAPAROSCOPIC HIATAL HERNIA REPAIR, POSSIBLE MESH, WITH POSTERIOR FUNDOPLICATION, EGD, POSSIBLE OPEN (Abdomen) - 150 MINUTES EGD DIAGNOSTIC Location: [facility] OR [facility] Operating Room Surgeons: Alex Burrell MD Chief Complaint: Diaphragmatic hernia without obstruction or gangrene [K44.9] Gastro-esophageal reflux disease without esophagitis [K21.9] History Of Present Illness: 57 y.o. female who we are asked to see/evaluate by [facility] PAT 02 for pre-operative evaluation prior to . Patient has been taking nexium for a few years which has controlled her GERD. Over the past year, has been having more breakthrough symptoms and waking with acid in mouth resulting in emesis and aspiration. Was taking the nexium in the morning but changed to taking it before dinner to see if helped with nocturnal symptoms. Does not eat late at night and sleeps with head elevated without improvement. Has intermittent episodes of dysphagia. Patient elects above procedure. ? Denies history of NM, CAD, CHF, TIA, CVA Past Medical History: Past Medical History: No date: Anemia 11/2022: Bronchitis No date: Disease of thyroid gland No date: GERD (gastroesophageal reflux disease) No date: Hypertension No date: Joint pain No date: PONV (postoperative nausea and vomiting) No date: Psoriasis Past Surgical History: Past Surgical History: No date: COLONOSCOPY 2000: LAP,CHOLECYSTECTOMY (HISTORICAL) No date: WISDOM TOOTH EXTRACTION Medications Prior to Admission: Prior to Admission medications Medication Sig Start Date End Date Taking? Authorizing Provider benzonatate (Tessalon) 200 MG capsule TAKE 1 (ONE) CAPSULE BY MOUTH FOUR TIMES DAILY, NEEDED FOR COUGH 11/20/22 Historical Provider, cholecalciferol (Vitamin D-3) 50 MCG (1999 UT) tablet Take by mouth daily. 03/04/22 Historical Provider, cholecalciferol (Vitamin D-3) 50 MCG (1999 UT) tablet Take by mouth daily. 03/04/22 Historical Provider, clobetasol (Temovate) 0.05 % external solution APPLY TO AFFECTED AREA OF SCALP AT NIGHT X3 WEEKS-THEN 1 WEEK OFF-APPLY 1-2X WEEKLY FOR MAINTENANCE 01/29/23 Historical Provider, cyclobenzaprine (Flexeril) 10 MG tablet Take by mouth 3 times daily as needed. 11/20/22 Historical Provider, esomeprazole (NexIUM) [address] capsule 10/01/22 Historical Provider, ferrous sulfate 325 (65 Fe) MG tablet Take 325 mg by mouth daily (with breakfast). Historical Provider, hydroCHLOROthiazide (HYDRODiuril) 12.5 MG tablet 02/11/23 Historical Provider, losartan (Cozaar) 50 MG tablet 02/11/23 Historical Provider, potassium chloride CR (K-Tab) 20 MEQ ER tablet Take 20 mEq by mouth daily. 11/18/22 Historical ProviderMD Synthroid 100 MCG tablet 10/22/22 Historical Provider, cyclobenzaprine (Flexeril) 10 MG tablet Take 10 mg by mouth 3 times daily as needed. 11/20/22 02/20/23 Historical Provider, CHRONIC NARCOTIC USE: No Allergies: Clarithromycin, Lisinopril, Doxycycline, Sulfamethoxazole, and Trimethoprim Can the patient take acetaminophen: Yes Social History: TOBACCO: reports that she quit smoking about 25 years ago. Her smoking use included cigarettes. She has a 2.00 pack-year smoking history. She has never used smokeless tobacco. ETOH: reports no history of alcohol use. Social History Substance and Sexual Activity Drug Use Never Family History: No family history on file. REVIEW OF SYSTEMS: Review of Systems Constitutional: Negative for chills and fever. Respiratory: Negative for cough and shortness of breath. Cardiovascular: Negative for chest pain and palpitations. Gastrointestinal: Negative for abdominal pain, nausea and vomiting. Genitourinary: Negative for dysuria and hematuria. Skin: Negative for rash and wound. Neurological: Negative for dizziness and syncope. Physical Exam: Physical Exam Vitals reviewed. Constitutional: Appearance: Normal appearance. HENT: Head: Normocephalic. Nose: Nose normal. Mouth/Throat: Mouth: Mucous membranes are moist. Pharynx: Oropharynx is clear. Eyes: Extraocular Movements: Extraocular movements intact. Conjunctiva/sclera: Conjunctivae normal. Pupils: Pupils are equal, round, and reactive to light. Cardiovascular: Rate and Rhythm: Normal rate and regular rhythm. Pulses: Normal pulses. Heart sounds: Normal heart sounds. Pulmonary: Effort: Pulmonary effort is normal. Breath sounds: Normal breath sounds. Abdominal: General: Bowel sounds are normal. Palpations: Abdomen is soft. Musculoskeletal: General: Normal range of motion. Cervical back: Normal range of motion and neck supple. Skin: General: Skin is warm and dry. Capillary Refill: Capillary refill takes less than 2 seconds. (more content not included)...[facility]03-03-2023 History of Present illness Narrative* Alex Burrell MD - 12/13/2022 11:30 AM EST Images from the original note were not included. [facility] - Surgery [facility] Physicians Surgery Patient Name: Louis Wilcox Date: 12/13/22 HPI: Louis Wilcox is a 57 y.o. female who presents with hiatal hernia and reflux. Has been taking nexium for a few years which has controlled the reflux. Over the past year, has been having more breakthrough symptoms and waking with acid in mouth resulting in emesis and aspiration. Was taking the nexium in the morning but changed to taking it before dinner to see if helped with nocturnal symptoms. Does not eat late at night and sleeps with head elevated without improvement. Has intermittent episodes of dysphagia. Underwent EGD and esophagram with Dr Reese. Was noted to have small hiatal hernia (3cm). We ordered and UGI w/mb which she did complete and again a small hiatal hernia and reflux observed. She also had dysmotility with both boluses. Presents today to discuss anti-reflux surgery Previous abdomina surgery of laparoscopic cholecystectomy. H/o HTN and hypothyroid. Former smoker. Denies ETOH I personally reviewed the patient intake form and discussed the ROS with the patient. The ROS is negative except for what is listed in HPI. EGD 11/01/22 Dr Reese reviewed UGI reviewed 11/12/22 Path reviewed 11/01/22 PMHx: Past Medical History: Diagnosis Date Disease of thyroid gland GERD (gastroesophageal reflux disease) Hypertension PSHx: Past Surgical History: Procedure Laterality Date LAP,CHOLECYSTECTOMY (HISTORICAL) 2000 WISDOM TOOTH EXTRACTION PFMHx: No family history on file. ALL: Allergies Allergen Reactions Clarithromycin Other, Nausea And Vomiting and Unknown Other reaction(s): GI Upset Lisinopril Other reaction(s): Cough, Cough, Other: See Comments, Other: See Comments, Unknown Doxycycline Other reaction(s): GI Upset, GI Upset, Unknown Sulfamethoxazole Nausea And Vomiting Other reaction(s): GI Upset, GI Upset Trimethoprim Other and Nausea And Vomiting Other reaction(s): GI Upset MEDS: Current Outpatient Medications Medication Sig Dispense Refill cyclobenzaprine (Flexeril) 10 MG tablet Take 10 mg by mouth 3 times daily as needed. esomeprazole (NexIUM) [address] capsule ferrous sulfate 325 (65 Fe) MG tablet Take 325 mg by mouth daily (with breakfast). potassium chloride CR (K-Tab) 20 MEQ ER tablet Take 20 mEq by mouth daily. benzonatate (Tessalon) 200 MG capsule TAKE 1 (ONE) CAPSULE BY MOUTH FOUR TIMES DAILY, NEEDED FORCOUGH cholecalciferol (Vitamin D-3) 50 MCG (2000 UT) tablet Take by mouth daily. hydroCHLOROthiazide (HYDRODiuril) 12.5 MG tablet losartan (Cozaar) 50 MG tablet Synthroid 100 MCG tablet No current facility-administered medications for this visit. SOCIAL Hx: Social History Socioeconomic History Marital status: Spouse name: Not on file Number of children: Not on file Years of education: Not on file Highest education level: Not on file Occupational History Not on file Tobacco Use Smoking status: Former Types: Cigarettes Smokeless tobacco: Never Substance and Sexual Activity Alcohol use: Never Drug use: Never Sexual activity: Not on file Other Topics Concern Not on file Social History Narrative Not on file Social Determinants of Health Financial Resource Strain: Not on file Food Insecurity: Not on file Transportation Needs: Not on file Physical Activity: Not on file Stress: Not on file Social Connections: Not on file Intimate Partner Violence: Not on file Housing Stability: Not on file DIAGNOSTIC EVALUATION: UGI w/mb 12/09/22 IMPRESSION: Small hiatus hernia with a small amount of spontaneous gastroesophageal reflux. Marked dysmotility of both the marshmallow and bagel boluses. Multiple swallows were needed to passboluses. EGD 11/01/22 Dr Reese Pathology Physical Examination: BP (!) 150/90 (BP Location: Right arm, Patient Position: Sitting, BP Cuff Size: Large adult) Pulse 69 Temp 35.8 C (96.4 F) (Temporal) Ht 5' 5 (1.651 m) Wt 187 lb (84.8 kg) BMI 31.12 kg/m She stands Height: 5' 5 (165.1 cm) tall with a weight of Weight: 187 lb (84.8 kg) , resulting in aBMI of Body mass index is 31.12 kg/m .. General: The patient is awake, alert, and oriented, and is in no apparent distress. Respiratory: No respiratory distress. Clear to auscultation bilaterally. Abdomen: Soft, non tender, non distended. Normal BS. Laparoscopic scars Extremities: Ambulatory without assistance. No edema Hernia: no hernias found on exam 57 yo F with hiatal hernia and reflux worsening despite taking nexium. She is now waking with emesis from the reflux and desires surgical intervention. She will not need medical risk stratification from her primary care physician. We will proceed withsurgical intervention. I met with the patient today to discuss risks and benefits of laparoscopic hiatal hernia repair with LINX vs posterior fundoplication including, but not limited to injury to surrounding structures, the possibility of using mesh for diaphragmatic reinforcement, conversion to open, pleural effusion requiring thoracentesis, prolonged mechanical ventilation, and . She is aware of the possibilityof gas bloat syndrome, the need for ongoing PPI/H2 Guan[place]ito use, postoperative reflux or dysphagia. We discussed potential for hemorrhage, infection, incomplete resolution of Her symptoms, as well as cardiac and pulmonary-related complications. The patient understands and wishes to proceed. Non-operative alternatives were discussed with the patient and they wish to proceed with surgical intervention. Surgical brochures used in discussion and given to patient to take home for later review. Plan: Initial Pre-Operative Testing Primary Procedure: Laparoscopic hiatal hernia repair, possible mesh, with posterior fundoplication,EGD Clearance: PAT Preop SQ Heparin: 5000 units subcu heparin 2 hours preop x1 I met with her today to discuss risk benefits of laparoscopic antireflux surgery. All of her questions were answered to her satisfaction and she wishes to proceed with surgical scheduling. Visual aids were used to describe the procedure. She is aware the possibility of using biologic mesh to reinforce the diaphragm. Assessment/Plan Louis was seen today for new patient. Diagnoses and all orders for this visit: Hiatal hernia (Primary) Gastroesophageal reflux disease with esophagitis without hemorrhage Lower esophageal ring (Schatzki) We discussed both laparoscopic tissue posterior fundoplication as well as magnetic sphincter augmentation (LINX). She wishes to proceed with posterior fundoplication. She did have mild dysmotility with the marshmallow and bagel boluses and therefore we will plan to proceed with laparoscopic hiatal hernia repair with posterior fundoplication. We will follow-up with her in the office prior to surgery. I personally performed the evaluation and management of Louis Wilcox in the development of a treatment plan for this patient. I personally interviewed the patient and performed an individual physical examination. In addition, I discussed the patient's condition and treatment options with them. I have also reviewed and agree with the past medical, family and social history unless otherwise noted. All of the patient's questions were answered. I discussed/counseled the patient regarding the risks and benefits of surgery as well as the preoperative and postoperative care plan for this patient.The patient was seen and examined independently and relevant data reviewed by myself. A full chart review was performed. Patient Care Team: Giselle Styles as PCP - General (Family Medicine) Lewis Reese (Gastroenterology) hf * Gunnar Rodríguez - 12/13/2022 11:30 AM EST LVM asking pt to call back to schedule surgery documented in this [facility]03-03-2023 History of Present illness Narrative* Alex Burrell MD - 12/13/2022 11:30 AM EST Images from the original note were not included. [facility] - Surgery [facility] Physicians Surgery Patient Name: Louis Wilcox Date: 12/13/22 HPI: Louis Wilcox is a 57 y.o. female who presents with hiatal hernia and reflux. Has been taking nexium for a few years which has controlled the reflux. Over the past year, has been having more breakthrough symptoms and waking with acid in mouth resulting in emesis and aspiration. Was taking the nexium in the morning but changed to taking it before dinner to see if helped with nocturnal symptoms. Does not eat late at night and sleeps with head elevated without improvement. Has intermittent episodes of dysphagia. Underwent EGD and esophagram with Dr Reese. Was noted to have small hiatal hernia (3cm). We ordered and UGI w/mb which she did complete and again a small hiatal hernia and reflux observed. She also had dysmotility with both boluses. Presents today to discuss anti-reflux surgery Previous abdomina surgery of laparoscopic cholecystectomy. H/o HTN and hypothyroid. Former smoker. Denies ETOH I personally reviewed the patient intake form and discussed the ROS with the patient. The ROS is negative except for what is listed in HPI. EGD 11/01/22 Dr Reese reviewed UGI reviewed 11/12/22 Path reviewed 11/01/22 PMHx: Past Medical History: Diagnosis Date Disease of thyroid gland GERD (gastroesophageal reflux disease) Hypertension PSHx: Past Surgical History: Procedure Laterality Date LAP,CHOLECYSTECTOMY (HISTORICAL) 2000 WISDOM TOOTH EXTRACTION PFMHx: No family history on file. ALL: Allergies Allergen Reactions Clarithromycin Other, Nausea And Vomiting and Unknown Other reaction(s): GI Upset Lisinopril Other reaction(s): Cough, Cough, Other: See Comments, Other: See Comments, Unknown Doxycycline Other reaction(s): GI Upset, GI Upset, Unknown Sulfamethoxazole Nausea And Vomiting Other reaction(s): GI Upset, GI Upset Trimethoprim Other and Nausea And Vomiting Other reaction(s): GI Upset MEDS: Current Outpatient Medications Medication Sig Dispense Refill cyclobenzaprine (Flexeril) 10 MG tablet Take 10 mg by mouth 3 times daily as needed. esomeprazole (NexIUM) [address] capsule ferrous sulfate 325 (65 Fe) MG tablet Take 325 mg by mouth daily (with breakfast). potassium chloride CR (K-Tab) 20 MEQ ER tablet Take 20 mEq by mouth daily. benzonatate (Tessalon) 200 MG capsule TAKE 1 (ONE) CAPSULE BY MOUTH FOUR TIMES DAILY, NEEDED FORCOUGH cholecalciferol (Vitamin D-3) 50 MCG (2000 UT) tablet Take by mouth daily. hydroCHLOROthiazide (HYDRODiuril) 12.5 MG tablet losartan (Cozaar) 50 MG tablet Synthroid 100 MCG tablet No current facility-administered medications for this visit. SOCIAL Hx: Social History Socioeconomic History Marital status: Spouse name: Not on file Number of children: Not on file Years of education: Not on file Highest education level: Not on file Occupational History Not on file Tobacco Use Smoking status: Former Types: Cigarettes Smokeless tobacco: Never Substance and Sexual Activity Alcohol use: Never Drug use: Never Sexual activity: Not on file Other Topics Concern Not on file Social History Narrative Not on file Social Determinants of Health Financial Resource Strain: Not on file Food Insecurity: Not on file Transportation Needs: Not on file Physical Activity: Not on file Stress: Not on file Social Connections: Not on file Intimate Partner Violence: Not on file Housing Stability: Not on file DIAGNOSTIC EVALUATION: UGI w/mb 12/09/22 IMPRESSION: Small hiatus hernia with a small amount of spontaneous gastroesophageal reflux. Marked dysmotility of both the marshmallow and bagel boluses. Multiple swallows were needed to passboluses. EGD 11/01/22 Dr Reese Pathology Physical Examination: BP (!) 150/90 (BP Location: Right arm, Patient Position: Sitting, BP Cuff Size: Large adult) Pulse 69 Temp 35.8 C (96.4 F) (Temporal) Ht 5' 5 (1.651 m) Wt 187 lb (84.8 kg) BMI 31.12 kg/m She stands Height: 5' 5 (165.1 cm) tall with a weight of Weight: 187 lb (84.8 kg) , resulting in aBMI of Body mass index is 31.12 kg/m .. General: The patient is awake, alert, and oriented, and is in no apparent distress. Respiratory: No respiratory distress. Clear to auscultation bilaterally. Abdomen: Soft, non tender, non distended. Normal BS. Laparoscopic scars Extremities: Ambulatory without assistance. No edema Hernia: no hernias found on exam 57 yo F with hiatal hernia and reflux worsening despite taking nexium. She is now waking with emesis from the reflux and desires surgical intervention. She will not need medical risk stratification from her primary care physician. We will proceed withsurgical intervention. I met with the patient today to discuss risks and benefits of laparoscopic hiatal hernia repair with LINX vs posterior fundoplication including, but not limited to injury to surrounding structures, the possibility of using mesh for diaphragmatic reinforcement, conversion to open, pleural effusion requiring thoracentesis, prolonged mechanical ventilation, and . She is aware of the possibilityof gas bloat syndrome, the need for ongoing PPI/H2 [place] use, postoperative reflux or dysphagia. We discussed potential for hemorrhage, infection, incomplete resolution of Her symptoms, as well as cardiac and pulmonary-related complications. The patient understands and wishes to proceed. Non-operative alternatives were discussed with the patient and they wish to proceed with surgical intervention. Surgical brochures used in discussion and given to patient to take home for later review. Plan: Initial Pre-Operative Testing Primary Procedure: Laparoscopic hiatal hernia repair, possible mesh, with posterior fundoplication,EGD Clearance: PAT Preop SQ Heparin: 5000 units subcu heparin 2 hours preop x1 I met with her today to discuss risk benefits of laparoscopic antireflux surgery. All of her questions were answered to her satisfaction and she wishes to proceed with surgical scheduling. Visual aids were used to describe the procedure. She is aware the possibility of using biologic mesh to reinforce the diaphragm. Assessment/Plan Louis was seen today for new patient. Diagnoses and all orders for this visit: Hiatal hernia (Primary) Gastroesophageal reflux disease with esophagitis without hemorrhage Lower esophageal ring (Schatzki) We discussed both laparoscopic tissue posterior fundoplication as well as magnetic sphincter augmentation (LINX). She wishes to proceed with posterior fundoplication. She did have mild dysmotility with the marshmallow and bagel boluses and therefore we will plan to proceed with laparoscopic hiatal hernia repair with posterior fundoplication. We will follow-up with her in the office prior to surgery. I personally performed the evaluation and management of Louis Wilcox in the development of a treatment plan for this patient. I personally interviewed the patient and performed an individual physical examination. In addition, I discussed the patient's condition and treatment options with them. I have also reviewed and agree with the past medical, family and social history unless otherwise noted. All of the patient's questions were answered. I discussed/counseled the patient regarding the risks and benefits of surgery as well as the preoperative and postoperative care plan for this patient.The patient was seen and examined independently and relevant data reviewed by myself. A full chart review was performed. Patient Care Team: Giselle Styles as PCP - General (Family Medicine) Lewis Reese (Gastroenterology) hf documented in this [facility]02-14-2023 Telephone encounter Note* Telephone Encounter - Carolann Heath - 11/26/2022 10:12 AM EST No [facility] needed [id number] Miscellaneous Notes* Telephone Encounter - Carolann Heath - 11/26/2022 10:12 AM EST No auth needed * Telephone Encounter - Gunnar Rodríguez - 11/26/2022 9:42 AM EST UGI rescheduled Date: 12/09 Time: 9AM Place: [facility] Confirmed with patient via phone and mail. Auth is pending * Telephone Encounter - Gunnar Rodríguez - 11/25/2022 4:14 PM EST UGI scheduled Date: 12/06 Time: 1:00PM Place: [facility] LVM fir patient. Auth is pending * Telephone Encounter - Gunnar Rodríguez - 11/25/2022 2:07 PM EST LVM asking patient to call back to confirm appt dates/times * Telephone Encounter - Anny Mauricio PA-C - 11/25/2022 11:37 AM EST Received referral from Dr Madrid for patient to be seen for GERD, HH. Dr Gillespie recommending UGI w/mb (patient had esophagram) prior to appt. Attempted to call patient to discuss. Left message for her tocall back to get test scheduled and NET C DEVELOPER ov. documented in this encounterSBrown Memorial [id number] Telephone encounter Note* Telephone Encounter - Gunnar Rodríguez - 11/26/2022 9:42 AM EST UGI rescheduled Date: 12/09 Time: 9AM Place: [facility] Confirmed with patient via phone and mail. Auth is pending [id number] Telephone encounter Note* Telephone Encounter - Gunnar Rodríguez - 11/25/2022 4:14 PM EST UGI scheduled Date: 12/06 Time: 1:00PM Place: [facility] LVM fir patient. Auth is pending [id number] Miscellaneous Notes* Telephone Encounter - Gunnar Rodríguez - 11/25/2022 4:14 PM EST UGI scheduled Date: 12/06 Time: 1:00PM Place: [facility] LVM fir patient. Auth is pending * Telephone Encounter - Gunnar Rodríguez - 11/25/2022 2:07 PM EST LVM asking patient to call back to confirm appt dates/times * Telephone Encounter - Anny Mauricio PA-C - 11/25/2022 11:37 AM EST Received referral from Dr Madrid for patient to be seen for GERD, HH. Dr Gillespie recommending UGI w/mb (patient had esophagram) prior to appt. Attempted to call patient to discuss. Left message for her tocall back to get test scheduled and NET C DEVELOPER ov. documented in this encounterSBrown Memorial [id number] Telephone encounter Note* Telephone Encounter - Gunnar Rodríguez - 11/25/2022 2:07 PM EST LVM asking patient to call back to confirm appt dates/times [id number] Madrid for patient to be seen for GERD, HH. Dr Gillespie recommending UGI w/mb (patient had esophagram) prior to appt. Attempted to call patient to discuss. Left message for her to call back to get test scheduled and NET C DEVELOPER ov.[facility]02-13-2023 Telephone encounter Note* Telephone Encounter - Anny Mauricio PA-C - 11/25/2022 11:37 AM EST Received referral from Dr Madrid for patient to be seen for GERD, HH. Dr Gillespie recommending UGI w/mb (patient had esophagram) prior to appt. Attempted to call patient to discuss. Left message for her tocall back to get test scheduled and NET C DEVELOPER ov. [facility] [id number] Miscellaneous Notes* Telephone Encounter - Jacklyn Smith LPN - 09/10/2022 8:41 AM EST DELILAH-09/09/2022Aug-09/08/2023 Pharmacy electronically requesting refills as follows: Requested Prescriptions Pending Prescriptions Disp Refills SYNTHROID 100 mcg tablet [Pharmacy Med Name: SYNTHROID 100 MCG TABLET] 90 tablet 1 Sig: TAKE 1 TABLET BY MOUTH DAILY BEFORE BREAKFAST. 1 TABLET M-F 1/2 ON FRI AND NONE ON FRIDAY Please review and advise. Jacklyn Smith LPN documented in this encounterFort Hamilton Hospital11-28-2022 History of Present illness Narrative* Jennie Mabry MD - 09/09/2022 2:49 PM EST FOLLOW UP ENDOCRINOLOGY, THYROID SERVICE DATE: 09/09/2022 SERVICE TIME: 2:49 PM Chief complaint: Hypothyroidism This patient has been seen by me previously in my private practice of endocrinology since 04/2010. She is an established patient and is being seen by me as a follow-up patient today. HPI: Patient is a 56-year-old female who is seen today for a 1 year follow-up for hypothyroidism. She was last seen in the office on 09/10/2021. Hypothyroidism: Patient was initially referred to my office in April 2010. She had been diagnosed with hypothyroidism in February 2010. She was on 50 mcg daily dose and her TSH was 9.0. Dose was increased to 100 mcg 1 daily and then decreased to 6 pills a week in September 2010. The dose was last decreased in September 01 to 5-1/2 pills a week when patient had lost a lot of weight. Impaired fasting glucose: Diagnosed in 2017 when she had a fasting blood sugar of 112. Her fasting blood sugar was 124 in 2018. She does have family history of diabetes. She started watching her diet. Her fasting blood sugar was 107 in 2019 and 107 in 2020. Last HbA1c was 5.4 in August 2021. Patient has been feeling well overall. Her energy level is good. She had lost about 15 pounds weight in 2019 and 2020. She has gradually gained about 14 pounds weight within the last year. She does exercises twice a day, 20 minutes at a time. She has not been careful in watching her diet. PAST MEDICAL HISTORY Diagnosis Date Acute gastritis without mention of hemorrhage Anemia Esophagitis, unspecified Essential hypertension, benign GERD (gastroesophageal reflux disease) Hypothyroid Low serum potassium Plantar fasciitis Psoriasis Thyroid disorder PAST SURGICAL HISTORY Procedure Laterality Date CHOLECYSTECTOMY 10/13/1999 Cholecystectomy ESOPHAGOGASTRODUODENOSCOPY TRANSORAL DIAGNOSTIC 07/07/2000 EGD FOOT SURGERY HX 12/12/2015 Right Foot, Plantar fasciitis [M72.2] FAMILY HISTORY Problem Relation Age of Onset Breast Cancer Mother Diabetes Mother other (Heart attack [Other]) Mother Stroke Mother IN MAY OF 2009 X THREE other (HEART PROBLEMS [Other]) Mother BRADYCARDIA, CAROTID SURGERY other (HTN [Other]) Father Heart Attack Father No Known Problems Sister other ( at infancy) Brother 6 weeks old Hypertension Brother Skin Cancer Brother Hypertension Brother Diabetes Brother Hypertension Maternal Grandmother No Known Problems Maternal Grandfather Cancer Paternal Grandmother type unknown No Known Problems Paternal Grandfather Social History Tobacco Use Smoking status: Former Packs/day: 0.25 Types: Cigarettes Start date: 10/13/1983 Quit date: 1996 Years since quittin.9 Smokeless tobacco: Never Substance Use Topics Alcohol use: No Drug use: No Outpatient Medications as of 09/09/2022 Medication Sig hydroCHLOROthiazide (HYDRODIURIL, ESIDRIX) 12.5 mg tablet Take 12.5 mg by mouth once daily. losartan (COZAAR) 50 mg tablet Take 50 mg by mouth once daily. ferrous sulfate 325 mg (65 mg iron) tablet Take 325 mg by mouth daily with breakfast. ESOMEPRAZOLE MAGNESIUM (NEXIUM ORAL) Take by mouth as needed. losartan 50 mg Tab 50 mg, hydrochlorothiazide 25 mg Tab 12.5 mg Take 1 Each by mouth once daily. potassium chloride 20 mEq TbER Take 1 tablet by mouth once daily. No current facility-administered medications on file as of 09/09/2022. Review of Systems Constitutional: Negative for activity change, appetite change, fatigue and unexpected weight change. Gradual 14 lb wt gain since last year HENT: Negative for congestion, sore throat, trouble swallowing and voice change. Eyes: Negative for visual disturbance. Respiratory: Negative for cough, choking, chest tightness and shortness of breath. Cardiovascular: Negative for chest pain, palpitations and leg swelling. Gastrointestinal: Negative for abdominal pain, constipation, diarrhea and nausea. Endocrine: Negative for cold intolerance, heat intolerance and polyphagia. Genitourinary: Negative for difficulty urinating and dysuria. Musculoskeletal: Negative for arthralgias, back pain, gait problem and myalgias. Skin: Negative for color change and rash. Neurological: Negative for dizziness, tremors, weakness, light-headedness, numbness and headaches. Hematological: Negative for adenopathy. Does not bruise/bleed easily. Psychiatric/Behavioral: Negative for confusion, dysphoric mood and sleep disturbance. The patient is not nervous/anxious. Physical Exam Constitutional: General: She is not in acute distress. Appearance: She is normal weight. Eyes: Extraocular Movements: Extraocular movements intact. Pupils: Pupils are equal, round, and reactive to light. Neck: Thyroid: No thyromegaly. Cardiovascular: Rate and Rhythm: Normal rate and regular rhythm. Heart sounds: Normal heart sounds. Pulmonary: Effort: Pulmonary effort is normal. Breath sounds: Normal breath sounds. Musculoskeletal: General: Normal range of motion. Cervical back: Normal range of motion and neck supple. Right lower leg: No edema. Left lower leg: No edema. Skin: General: Skin is warm and dry. Neurological: General: No focal deficit present. Mental Status: She is alert and oriented to person, place, and time. Motor: No weakness. Psychiatric: Mood and Affect: Mood normal. Judgment: Judgment normal. BP 128/74 Pulse 97 Ht 166.4 cm (5' 5.5) Wt 82.8 kg (182 lb 9.6 oz) LMP 10/22/2013 BMI 29.92 kg/m Body mass index is 29.92 kg/m . LABORATORY RESULTS: No results found for: HB, HCT, WBC, PLT No results found for: K, NA, MG, CREAT, BUN, GLUC, INR, TSH, PBNP Lipids: No results found for: CHOL, HDL, LDL, TG No results found for: ALB, TBILI, CBILI, ALKPHOS, AST, ALT, TPROT No results found for: LVEF No results found for: HBA1C ASSESSMENT/PLAN: 1. Hypothyroidism, unspecified type - ICD9: 244.9, ICD10: E03.9 (primary diagnosis) -Diagnosed in February 2010. TPO was negative. She does have family history of thyroid disease in her father. She has been on stable dose of levothyroxine 100 mcg 5-1/2 pills a week since Aug, 2015. -TSH 1.47 on 08/23/2022. - Instructed patient on importance of taking on an empty stomach first thing in the morning, 30 minutes before eating, alone and with water only. - continue current dose of 100 mcg daily Friday through Friday, half tablet on Saturdays and none on Sundays. - SYNTHROID 100 MCG TABLET - TSH BLD 2. Impaired fasting glucose - ICD9: 790.21, ICD10: R73.01 -Diagnosed in 2017 with a fasting blood sugar of 112. Prior to that, her fasting blood sugar was 90in 2011; 101 in 2014. -Last fasting blood sugar was 107 in August 2021. -Low carbohydrate and low-fat diet encouraged. Exercise daily at least 30 minutes at a time encouraged. - HGB A1C - BASIC METABOLIC PNL 3. Family history of diabetes mellitus - ICD9: V18.0, ICD10: Z83.3 -History of type 2 diabetes in mother and 2 brothers - HGB A1C - BASIC METABOLIC PNL Jennie Mabry MD Follow up: 1 year Lab/tests : TSH, fasting BMP and HbA1c in 6 months, to call patient after labs. September 09, 2022 2:49 PM Please note, the time of this note does not reflect the time I saw this patient today, but the timeof this documentation. documented in this encounterFort Hamilton Hospital11-04-2022 Miscellaneous Notes* Telephone Encounter - Jorge Tinajero MA - 08/16/2022 9:22 AM EDT Order faxed confirmation received. Jorge Tinajero MA August 16, 2022 9:23 AM * Telephone Encounter - Jennie Mabry MD - 08/15/2022 3:56 PM EDT Order placed for TSH blood test. * Telephone Encounter - Jorge Tinajero MA - 08/15/2022 1:48 PM EDT Pt called requesting an order for labs be sent to [facility]. Pt would like a return phone call once order is sent her cell# [phone] Jorge Tinajero MA August 15, 2022 1:49 PM [facility] No data available for this section [facility] Evaluation note* Diagnosis Onset Date Resolution Status Encounter for routine gynecological examination noneactive [facility] Work Phone: Evalufpybh note* Diagnosis Hypothyroidism, unspecified type- Primary documented in this encounter [facility] noteNo assessment information availableWProMedica Flower Hospital Work Phone: Evaluation note* Diagnosis Hypothyroidism, unspecified type- Primary Impaired fasting glucose Family history of diabetes mellitus documented in this encounter [facility] note* Diagnosis Hypothyroidism, unspecified type documented in this encounter [facility] note* Diagnosis Hiatal hernia- Primary Diaphragmatic hernia without mention of obstruction or gangrene Gastroesophageal reflux disease with esophagitis without hemorrhage Lower esophageal ring (Schatzki) Diaphragmatic hernia without obstruction or gangrene Diaphragmatic hernia without mention of obstruction or gangrene Gastro-esophageal reflux disease without esophagitis documented in this encounter [facility] note* Diagnosis GERD without esophagitis- Primary Esophageal reflux Hiatal hernia Diaphragmatic hernia without mention of obstruction or gangrene Diaphragmatic hernia without obstruction or gangrene Diaphragmatic hernia without mention of obstruction or gangrene Gastro-esophageal reflux disease without esophagitis documented in this encounter [facility] note* Diagnosis Encounter for postoperative care- Primary Hiatal hernia Diaphragmatic hernia without mention of obstruction or gangrene GERD without esophagitis Esophageal reflux documented in this encounter [facility] note* Diagnosis Hypothyroidism, unspecified type- Primary Impaired fasting glucose Family history of diabetes mellitus [facility]* Diagnosis Gastroesophageal reflux disease, unspecified whether esophagitis present- Primary Hiatal hernia Diaphragmatic hernia without mention of obstruction or gangrene documented in this encounter [facility] note* Diagnosis Gastroesophageal reflux disease, unspecified whether esophagitis present- Primary Hiatal hernia Diaphragmatic hernia without mention of obstruction or gangrene documented in this encounter [facility] note* Diagnosis Gastroesophageal reflux disease, unspecified whether esophagitis present Hiatal hernia Diaphragmatic hernia without mention of obstruction or gangrene documented in this encounter [facility] note* Diagnosis Hiatal hernia- Primary Diaphragmatic hernia without mention of obstruction or gangrene Gastroesophageal reflux disease with esophagitis without hemorrhage Lower esophageal ring (Alba) documented in this encounter [facility] note* Diagnosis Hiatal hernia- Primary Diaphragmatic hernia without mention of obstruction or gangrene Gastroesophageal reflux disease with esophagitis without hemorrhage Lower esophageal ring (Manavtzkendall) documented in this encounter [facility] for referral (narrative)No reason for referral information availableWProMedica Flower Hospital Work Phone: Chief Complaint and Reason for Visit Chief Complaint SCREENING Annual (SEALER DRY CELL) Reason for Visit Encounter for routin e gynecological examination Chief Complaint DYSPHAGIA, HIATAL HE RNIA *12MM TABLET* Chief Complaint Annual (SEALER DRY CELL) SCREENING Reason for Visit Encounter for routin e gynecological examination Chief Complaint LEFT ANKLE AND TIB/F IB XRAY Chief Complaint E ORDER Chief Complaint Admit Date CONFUSION October 31, 2024 1 1:22am Family History No Family History Records Found Relationship Condition Age at Onset Recorded Date/T mohini mother Malignant neoplasm of breast Unknown Cerebrovascular accident (CVA) Unknown Diabetes mellitus Unknown father Hypertension Unknown Advance Directives No Advanced Directives Records Found Advance Directive Response Recorded Date/ Time Living Will No June 04 6:22am Power of Fire Sprinkler Designer No June 04 021 6:22am Advance Directive Response Recorded Date/ Time Living Will No June 04 5:22am Power of Fire Sprinkler Designer No June 04 021 5:22am Latest Code Status on File Code Status Date Activated Date Inactivated Comments Full Code 03/05/2023 11:50 AM 03/06/2023 6:55 PM Code Status History Code Status Date Activated Date Inactivated Comments Full Code 03/05/2023 6:53 AM 03/05/2023 11:50 AM Advance Directive Response Recorded Date/ Time Living Will No October 31 12:29pm Do you have a Healthcare Power of Fire Sprinkler Designer? No October 31, 2024 12:29pm Summary Purpose Additional Source Comments Goals (unrecognized section and content) Goals may be documented in a n alternate sectionGoals may be documented in an alternate sectionGoals may be documented in an alternate sectionGoals may be documented in an alternate sectionGoals may be documented in an alternate sectionGoals may be documented in an alternate section No data available for this sectionGoals may be documented in an alternate section No data available for this sectionGoals may be documented in an alternate section Source Comments (unrecognize d section and content) In the event this informatio n is protected by the Federal Confidentiality of Alcohol and Drug Abuse Patient Records regulations: The Federal rules restrict any use of the information to criminally investigate or prosecute any alcohol or drug abuse patient.[facility] HospitalIn the event this information is protected by the Federal Confidentiality of Alcohol and Drug Abuse Patient Records regulations: The Federal rules restrict any use of the information to criminally investigate or prosecute any alcohol or drug abuse patient.[facility] HospitalIn the event this information is protected by the Federal Confidentiality of Alcohol and Drug Abuse Patient Records regulations: The Federal rules restrict any use of the information to criminally investigate or prosecute any alcohol or drug abuse patient.[facility] HospitalIn the event this information is protected by the Federal Confidentiality of Alcohol and Drug Abuse Patient Records regulations: The Federal rules restrict any use of the information to criminally investigate or prosecute any alcohol or drug abuse patient.[facility] HospitalIn the event this information is protected by the Federal Confidentiality of Alcohol and Drug Abuse Patient Records regulations: The Federal rules restrict any use of the information to criminally investigate or prosecute any alcohol or drug abuse patient.[facility] HospitalIn the event this information is protected by the Federal Confidentiality of Alcohol and Drug Abuse Patient Records regulations: The Federal rules restrict any use of the information to criminally investigate or prosecute any alcohol or drug abuse patient.[facility] HospitalIn the event this information is protected by the Federal Confidentiality of Alcohol and Drug Abuse Patient Records regulations: The Federal rules restrict any use of the information to criminally investigate or prosecute any alcohol or drug abuse patient.[facility] HospitalIn the event this information is protected by the Federal Confidentiality of Alcohol and Drug Abuse Patient Records regulations: The Federal rules restrict any use of the information to criminally investigate or prosecute any alcohol or drug abuse patient.[facility] Reason for Visit (unrecogniz ed section and content) Reason Comments Orders Yearly lab request Reason Comments Hypothyroidism Reason Comments Med Change Request Synthroid Reason Comments New Patient ALS NET C DEVELOPER GERD HH AND E PIGASTRIC PAIN REFER DR REESE Specialty Diagnoses / Procedures Referred By Mike t Referred To Contact General Surgery Diagnoses Gastro-esophageal reflux disease without esophagitis Diaphragmatic hernia without obstruction or gangrene Epigastric pain Procedures WY ABDOMEN WALL SURG PROC UNLISTED Lewis Reese [address] [place] [address] Alex Burrell MD [address] [place] [address] Referral ID Status Reason Start Date Expiration Date Visits Re quested Visits Authorized [id number] Closed 11/22/2022 05/22/2023 1 1 Reason Comments Pre-op Visit ALS PRE OP LAP HH, P OSS MESH, W POST FUNDO, EGD, POSS OPEN -03/05/23-JZ Reason Comments Refill Request Synthroid Reason Comments Follow-up [facility] Reason Comments Refill Request Reason Comments Orders labs Reason Comments Results Lab results 4 Reason Comments Hypothyroidism Impaired fasting glucose Care Teams (unrecognized sec tion and content) Plant Director Relationship Specialty Start Date End Date Giselle Styles [address] [place] [address] PCP - General 09/19/04 Plant Director Relationship Specialty Start Date End Date Giselle Styles [address] [facility] [address] [place] [address] PCP - General 09/19/04 Plant Director Relationship Specialty Start Date End Date Giselle Styles [address] [facility] [address] [place] [address] PCP - General 09/19/04 Plant Director Relationship Specialty Start Date End Date Giselle Styles [address] [facility] [address] [place] [phone] PCP - General Family Medicine 12/13/22 Lewis Reese [address] [place] [address] Gastroenterology 12/13/22 Team Status: Active Member Role Status Dates Giselle MULLINS MD Family Provider Active Dr. Giselle Styles MD Primary Care Provider Active Team Status: Inactive Member Role Status Dates Dr. Giselle Styles MD Primary Care Provider Active Dr. Lewis Reese MD Attending Provider, Referring Provider Active Team Status: Inactive Member Role Status Dates Dr. Giselle Styles MD Primary Care Prov ider, Attending Provider, Referring Provider Active Plant Director Relationship Specialty Start Date End Date Giselle Styles [address] [place] [address] PCP - General Family Medicine 12/13/22 Lewis Reese [address] [place] [phone] Gastroenterology 12/13/22 Plant Director Relationship Specialty Start Date End Date Giselle Styles [address] [place] [phone] PCP - General Family Medicine 12/13/22 Lewis Reese [address] [place] [address] Gastroenterology 12/13/22 Team Status: Inactive Member Role Status Dates Dr. Giselle Styles MD Primary Care Provider, Referrin g Provider Active Cristin Beltran NET C DEVELOPER, NET C DEVELOPER-C Attending Provider Active Team Status: Inactive Member Role Status Dates Dr. Giselle Styles MD Primary Care Provider Active Cristin Beltran NET C DEVELOPER, NET C DEVELOPER-C Attending Provider, Referring Provider Active Plant Director Relationship Specialty Start Date End Date Giselle Styles [address] [facility] [address] [place] [address] PCP - General 09/19/04 Plant Director Relationship Specialty Start Date End Date Giselle Styles [address] [place] [phone] PCP - General Family Medicine 12/13/22 Lewis Reese [address] [place] [phone] Gastroenterology 12/13/22 Team Status: Inactive Member Role Status Dates Dr. Giselle Styles MD Primary Care Provider Active CLOTILDE BLANC Attending Provider, Referring Provider A ctive Plant Director Relationship Specialty Start Date End Date Giselle Styles [address] [place] [address] PCP - General 09/19/04 Plant Director Relationship Specialty Start Date End Date Giselle Styles [address] [place] [address] PCP - General 09/19/04 Plant Director Relationship Specialty Start Date End Date Giselle Styles [address] [place] [address] PCP - General Family Medicine 12/13/22 Lewis Reese [address] [place] [address] Gastroenterology 12/13/22 Plant Director Relationship Specialty Start Date End Date Giselle Styles [address] [place] [address] PCP - General Family Medicine 12/13/22 Lewis Reese [address] [place] [address] Gastroenterology 12/13/22 Plant Director Relationship Specialty Start Date End Date Giselle Styles [address] [place] [address] PCP - General Family Medicine 12/13/22 Lewis Reese [address] [place] [address] Gastroenterology 12/13/22 Team Status: Inactive Member Role Status Dates Dr. Giselle Styles MD Primary Care Provider Active Start: October 31, 2024 End: October 31, 2024 Dr. Alberto Lantigua MD Attending Provider Active Sta rt: October 31, 2024 End: October 31, 2024 Dr. Alberto Lantigua MD Emergency Provider Active Sta rt: October 31, 2024 End: October 31, 2024 INFORMATION SOURCE (unrecogn ized section and content) DATE CREATED AUTHOR 05/09/2023 [facility] DATE CREATED AUTHOR AUTHOR'S ORGANIZ ATION 09/12/2023 [facility] ([place]) DATE CREATED AUTHOR AUTHOR'S ORGANIZ ATION 08/20/2024 [facility] DATE CREATED AUTHOR AUTHOR'S ORGANIZ ATION 09/02/2024 [facility] DATE CREATED AUTHOR AUTHOR'S ORGANIZ ATION 01/06/2025 [facility] DATE CREATED AUTHOR AUTHOR'S ORGANIZ ATION 04/14/2025 [facility] FOR RECORDS PERTAINING TO PATIENTS WHO ARE OR HAVE BEEN ENROLLED IN A CHEMICAL DEPENDENCY/SUBSTANCEABUSE PROGRAM, SOME INFORMATION MAY BE OMITTED. This clinical summary was aggregated from multiple sources. Caution should be exercised in using it in the provision of clinical care. This summary normalizes information from multiple sources, and as a consequence, information in this document may materially change the coding, format and clinical context of patient data. In addition, data may be omitted in some cases. CLINICAL DECISIONS SHOULD BE BASED ON THE PRIMARY CLINICAL RECORDS. [employer] provides no warranty or guarantee of the accuracy or completeness of information in this document.
== END | disposition home or self-care (01) ==
LOC: OPBI 07:42
PROVIDERS: PCP Family Medicine; Referring Provider Nurse Practitioner Women's Health; Visit Provider Nurse Practitioner Women's Health
DX: Z12.31 Encounter for screening mammogram for malignant neoplasm of breast (principal)
CPT/HCPCS: 77063; 77067